=== PATIENT | male | born 1970 | race Caucasian/White ===

== ENCOUNTER 2019-05-12 09:28 | Emergency (ER) | payer SELFPAY ==
[2019-05-12] MEDS ORDERED: BABY ASPIRIN 81 MG CHEW PO ONE (10:07)
[2019-05-12] MEDS ORDERED: BABY ASPIRIN 81 MG CHEW ONE (10:13)
--- NOTE | 2019-05-12 10:14 | ERPHSYRPT ---
- History of Present Illness Time Seen by Provider: 05/12/19 10:02 Historian: patient Exam Limitations: no limitations Patient Subjective Stated Complaint: pt woke up with pain to susternal chest pain with left arm numbness, vomited x2, also co left sided neck pain with no injury, sob at times, he tried to go to work but was unable to finish work. no fever Triage Nursing Assessment: pt alert, resp easy, skin w/d/p. walked in in no distress, no edema, chest clear Physician History: 49-year-old white male previously healthy arrives with complaints of left-sided chest pain which felt like someone is sitting on his chest associated with shortness of breath which began around 2:00 woke patient up from sleep he states it is now located in the substernal area but is of mild he states he's had shortness of breath he has no nausea no vomiting. Patient does state that he has a strong family history of heart problems He has had a heart catheter in the past which was normal past medical history is negative. past surgical history includes right orbital reconstruction for his eye, and cervical fusion. Social history positive for occasional alcohol he states he quit smoking 2 months ago he denies illicit drug use. . Timing/Duration: today (22 AM) Activities at Onset: rest Quality: other (heaviness) Location: other (iinitial left side now substernal) Severity of Pain-Max: moderate Severity of Pain-Current: mild Modifying Factors: Improves With: nothing Associated Symptoms: shortness of breath, other (paresthesia left hand), No nausea, No vomiting, No palpitations, No heartburn, No abdominal pain, No cough , No hurts to breathe, No diaphoresis, No chills, No fever, No fatigue, No weakness, No swelling/lump in chest, No syncope, No rash, No headache, No dizziness, No edema, No back pain Prior Chest Pain/Cardiac Workup: cardiac cath (normal cardiac catheterization in the past) Aspirin Treatment Today: 81 mg x 4, provided by ED Allergies/Adverse Reactions: No Known Drug Allergies Allergy (Unverified 05/12/19 09:42) Home Medications: No Reportable Medications [No Reported Medications] 05/12/19 [History] Hx Influenza Vaccination/Date Given: No Hx Pneumococcal Vaccination/Date Given: No Immunizations Up to Date: Yes - Review of Systems Constitutional: No Fever, No Chills Eyes: No Symptoms Ears, Nose, & Throat: No Symptoms Respiratory: Dyspnea, No Cough, No Cyanosis, No Dyspnea on Exertion ([place]), No Stridor, No Wheezing Cardiac: Chest Pain Abdominal/Gastrointestinal: No Abdominal Pain, No Nausea, No Vomiting, No Diarrhea Genitourinary Symptoms: No Dysuria Musculoskeletal: No Back Pain, No Neck Pain Skin: No Rash Neurological: Parasthesia (paresthesia left hand), No Focal Weakness, No Gait Changes, No Headache, No Irritability, No Lethargy, No Paralysis, No Seizure, No Sensory Changes, No Speech Changes, No Tics, No Tremors, No Vertigo Psychological: No Symptoms Endocrine: No Symptoms All Other Systems: Reviewed and Negative - Past Medical History Pertinent Past Medical History: No - Past Surgical History Past Surgical History: Yes Musculoskeletal: Orthopedic Surgery Other Surgical History: right orbital reconsurction ,neck, - Social History Smoking Status: Former smoker Exposure to second hand smoke: No Drug Use: none Patient Lives Alone: Yes - Nursing Vital Signs Nursing Vital Signs: Initial Vital Signs Temperature 98.4 F 05/12/19 09:32 Pulse Rate 78 05/12/19 09:32 Respiratory Rate 20 05/12/19 09:32 Blood Pressure 134/94 05/12/19 09:32 O2 Sat by Pulse Oximetry 98 05/12/19 09:32 Pain Scale Pain Intensity 0 - Physical Exam General Appearance: no apparent distress, alert Eye Exam: PERRL/EOMI, eyes nml inspection Ears, Nose, Throat Exam: normal ENT inspection, moist mucous membranes Neck Exam: normal inspection, non-tender, supple, full range of motion Respiratory Exam: normal breath sounds Cardiovascular Exam: regular rate/rhythm, normal heart sounds, capillary refill <2 sec Gastrointestinal/Abdomen Exam: soft, No tenderness, No mass Back Exam: normal inspection, No CVA tenderness, No vertebral tenderness Extremity Exam: normal inspection, normal range of motion Neurologic Exam: alert, oriented x 3, cooperative, fashion buyer II-XII nml as tested, normal mood/affect, nml cerebellar function, nml station & gait, other (patient is alert, oriented x3, cranial nerves II through XII intact, insecticide maker equal and symmetrical 5 over 5, no facial droop, normal finger to nose, no pronator drift , full range of motion all extremities,, sensation intact to all extremities, GCS equals 15), No sensation nml, No motor deficits, No sensory deficit, No disoriented, No confusion, No agitation, No uncooperative, No intoxicated appearance, No depressed mood/affect, No motor weakness, No facial droop, No slurred speech, No aphasia, No dysarthria, No abnormal gait, No abnormal cerebellar tests, No abnormal fashion buyer II-XII, No EOM palsy Skin Exam: normal color, warm, dry SpO2 Interpretation: normal (98%) SpO2: 98 - Course Nursing assessment & vital signs reviewed: Yes EKG Interpreted by Me: RATE (78 bpm), Sinus Rhythm, NORMAL AXIS, Other (EKG: Sinus rhythm, 70 beats per minute, normal axis, no acute ST or T wave changes, normal EKG) - Radiology Exams Chest X-ray Interpretation: Discussed w/ radiologist (chest x-ray: Impression: 1. No acute cardiopulmonary process is seen on plain film.) Ordered Tests: Active Orders 24 hr Category Date Time Status Dialysis Patient Care Technician STAT Care 05/12/19 10:08 Active EKG-ER Only STAT Care 05/12/19 10:07 Active IV Insertion STAT Care 05/12/19 10:07 Active Pulse Oximetry (ED) STAT Care 05/12/19 10:07 Active CHEST 1 VIEW (PORTABLE) Stat Exams 05/12/19 10:08 Completed AMYLASE Stat Lab 05/12/19 10:09 Completed CBC W DIFF Stat Lab 05/12/19 09:40 Completed CMP Stat Lab 05/12/19 09:40 Completed D-DIMER QUANTITATION Stat Lab 05/12/19 10:32 Received LIPASE Stat Lab 05/12/19 10:09 Completed Manual Differential NC Stat Lab 05/12/19 09:40 Completed PROTIME WITH INR Stat Lab 05/12/19 09:40 Completed PTT Stat Lab 05/12/19 09:40 Completed TROPONIN Q3H Lab 05/12/19 09:40 Completed TROPONIN Q3H Lab 05/12/19 12:40 Completed TROPONIN Q3H Lab 05/12/19 16:15 Ordered TROPONIN Q3H Lab 05/12/19 19:15 Ordered TROPONIN Q3H Lab 05/12/19 22:15 Ordered Medication Summary Discontinued Medications Generic Name Dose Route Start Last Admin Trade Name Freq PRN Reason Stop Dose Admin Aspirin 324 mg 05/12/19 10:07 07/10/19 10:12 Baby Aspirin 81 Mg Chew PO 05/12/19 10:08 324 mg STAT ONE Administration Aspirin Confirm 05/12/19 10:13 Baby Aspirin 81 Mg Chew Administered 05/12/19 10:14 Dose 324 mg .ROUTE .STK-MED ONE Lab/Rad Data: Laboratory Result Diagrams 05/12/19 09:40 05/12/19 09:40 Laboratory Results 05/12/19 05/12/19 05/12/19 Range/Units 12:40 10:09 09:40 WBC (4.0-10.5) K/mm3 RBC (4.1-5.6) M/mm3 Hgb (12.5-18.0) gm/dl Hct (42-50) % MCV (78-100) fl MCH (26-32) pg MCHC (32-36) g/dl RDW (11.5-14.0) % Plt Count (150-450) K/mm3 MPV (6-9.5) fl Segmented Neutrophils (36.-66.) % Band Neutrophils (0.0-2.0) % Lymphocytes (Manual) (24-44) % Monocytes (Manual) (0.0-12.0) % Eosinophils (Manual) (0.00-3.0) % Atypical Lymphocytes % Toxic Granulation Platelet Estimate (NORMAL) RBC Morphology PT (8.83-12.87) SECONDS INR (0.8-3.0) APTT (24.1-36.1) SECONDS Sodium (137-145) mmol/L Potassium (3.5-5.1) mmol/L Chloride (98-107) mmol/L Carbon Dioxide (22-30) mmol/L Anion Gap (5-15) MEQ/L BUN (9-20) mg/dL Creatinine (0.66-1.25) mg/dL Estimated GFR ML/MIN Glucose (74-106) mg/dL Calcium (8.4-10.2) mg/dL Total Bilirubin (0.2-1.3) mg/dL AST (17-59) U/L ALT (0-50) U/L Alkaline Phosphatase (38-126) U/L Troponin I < 0.012 < 0.012 (0.000-0.034) ng/mL Serum Total Protein (6.3-8.2) g/dL Albumin (3.5-5.0) g/dL Amylase 91 (30-110) U/L Lipase 85 (23-300) U/L 05/12/19 05/12/19 05/12/19 Range/Units 09:40 09:40 09:40 WBC 9.1 (4.0-10.5) K/mm3 RBC 4.81 (4.1-5.6) M/mm3 Hgb 15.1 (12.5-18.0) gm/dl Hct 45.3 (42-50) % MCV 94.2 (78-100) fl MCH 31.4 (26-32) pg MCHC 33.3 (32-36) g/dl RDW 13.8 (11.5-14.0) % Plt Count 369 (150-450) K/mm3 MPV 9.8 H (6-9.5) fl Segmented Neutrophils 71 H (36.-66.) % Band Neutrophils 1 (0.0-2.0) % Lymphocytes (Manual) 21 L (24-44) % Monocytes (Manual) 3 (0.0-12.0) % Eosinophils (Manual) 3 (0.00-3.0) % Atypical Lymphocytes 1 % Toxic Granulation 1+ Platelet Estimate NORMAL (NORMAL) RBC Morphology NORMAL PT 11.5 (8.83-12.87) SECONDS INR 1.02 (0.8-3.0) APTT 29.4 (24.1-36.1) SECONDS Sodium 138 (137-145) mmol/L Potassium 4.2 (3.5-5.1) mmol/L Chloride 106 (98-107) mmol/L Carbon Dioxide 24 (22-30) mmol/L Anion Gap 12.4 (5-15) MEQ/L BUN 10 (9-20) mg/dL Creatinine 0.97 (0.66-1.25) mg/dL Estimated GFR > 60.0 ML/MIN Glucose 101 (74-106) mg/dL Calcium 8.9 (8.4-10.2) mg/dL Total Bilirubin 0.40 (0.2-1.3) mg/dL AST 21 (17-59) U/L ALT 20 (0-50) U/L Alkaline Phosphatase 83 (38-126) U/L Troponin I (0.000-0.034) ng/mL Serum Total Protein 6.8 (6.3-8.2) g/dL Albumin 3.8 (3.5-5.0) g/dL Amylase (30-110) U/L Lipase (23-300) U/L - Progress Progress: improved Air Movement: fair Progress Note: 05/12/19 13:42 Patient in no acute distress no pain at this time. EKG sinus rhythm 78 beats per minute normal axis no acute ST or T wave changes normal EKG troponin is normal with x2 CBC essentially normal patient's d-dimer is normal Chemistries normal vitals are stable Will discharge patient - Departure Departure Disposition: Home Clinical Impression: Non-cardiac chest pain Condition: Fair Critical Care Time: No Referrals: DOCTOR,NO FAMILY [Primary Care Provider] - Additional Instructions: Return home rest. Plenty of fluids. Followup with your family (list) Return for acute distress or for severe symptoms.
[2019-05-12 10:31] LABS: Hematocrit 45.3 % (42-50); Hemoglobin 15.1 gm/dl (12.5-18.0); Mean Cell Volume 94.2 fl (78-100); Mean Corpuscular Hemoglobin 31.4 pg (26-32); Mean Corpuscular Hgb Concent. 33.3 g/dl (32-36); Mean Platelet Volume 9.8 fl (6-9.5); Platelet Count 369 K/mm3 (150-450); Red Blood Count 4.81 M/mm3 (4.1-5.6); Red Cell Distribution Width 13.8 % (11.5-14.0); White Blood Count 9.1 K/mm3 (4.0-10.5)
[2019-05-12 10:36] LABS: INR 1.02 (0.8-3.0); PROTIME 11.5 SECONDS (8.83-12.87)
--- NOTE | 2019-05-12 10:37 | XRAY ---
Exam: AP upright portable chest film from 05/12/2019. Comparison: None. Indication: 49-year-old male with chest pressure along left side of sternum, shortness of breath this morning, left arm numbness, previous cigarette smoker for 35 years, no history of prior chest surgery. Findings: The heart size and contour are normal. The lang and mediastinal structures appear unremarkable. EKG leads are seen in place. There is evidence of prior anterior surgical fusion within the lower cervical spine, apparently at C6-C7. The lung michael are well inflated. No air space infiltrates, vascular congestion, pneumothorax, or pleural fluid is seen. No other parenchymal lung abnormalities are seen. No acute osseous process is seen. Impression: 1. No acute cardiopulmonary process is seen on plain film.
[2019-05-12 10:39] LABS: AMYLASE 91 U/L (30-110)
[2019-05-12 10:39] LABS: ALBUMIN 3.8 g/dL (3.5-5.0); ALKALINE PHOSPHATASE 83 U/L (38-126); ANION GAP 12.4 MEQ/L (5-15); BLOOD UREA NITROGEN 10 mg/dL (9-20); CHLORIDE 106 mmol/L (98-107); Calcium 8.9 mg/dL (8.4-10.2); Carbon Dioxide 24 mmol/L (22-30); Creatinine 1 0.97 mg/dL (0.66-1.25); Glucose 101 mg/dL (74-106); PTT 29.4 SECONDS (24.1-36.1); Potassium 4.2 mmol/L (3.5-5.1); SGOT/AST 21 U/L (17-59); SGPT/ALT 20 U/L (0-50); SODIUM 138 mmol/L (137-145); Total Protein 6.8 g/dL (6.3-8.2)
[2019-05-12 11:32] LABS: ATYPICAL LYMPHS 1 %; BAND 1 % (0.0-2.0); Eosinophil 3 % (0.00-3.0); Lymphocytes 21 % (24-44); Monocyte 3 % (0.0-12.0); Neutrophils 71 % (36.-66.); Platelet Estimate NORMAL (NORMAL); Total Cells Counted 100; Toxic Granulation 1+
[2019-05-12 13:54] VITALS: BP 129/85; PULSE 66; O2SAT 97
== END 2019-05-12 13:54 | disposition home or self-care (01) ==
LOC: ED 09:28
DX: R07.89 Other chest pain (principal)
CPT/HCPCS: 36000; 36415; 71045; 80053; 82150; 83690; 84484; 85025; 85379; 85610; 85730; 93005; 93041; 94760; 99284; A9270-GY

== ENCOUNTER 2021-02-19 14:23 | Emergency (ER) | payer OTHER ==
--- NOTE | 2021-02-19 14:30 | ERPHSYRPT ---
- History of Present Illness Time Seen by Provider: 02/19/21 14:29 Historian: patient Exam Limitations: no limitations Physician History: This is a 50-year-old white male who presents with right-sided anterior chest pain that is described as an ache and pressure that radiates into his right jaw. Patient believes it is gallbladder. He has had similar issues in the past. The patient did vomit once since the onset of his symptoms. He has had no fevers. He is not short of breath. He has had no diarrhea. There is a questionable history of myocardial infarction in the past. However, patient did undergo a cardiac catheterization in the distant past and there was no indication for a cardiac stent. Patient is a former smoker of cigarettes. Timing/Duration: yesterday Activities at Onset: none Quality: aching, pressure Location: other (Right anterior chest) Chest Pain Radiation: jaw (Right) Severity of Pain-Max: moderate Severity of Pain-Current: mild Modifying Factors: Improves With: nothing Associated Symptoms: denies symptoms Prior Chest Pain/Cardiac Workup: cardiac cath Nitro Today/Relief: no nitro taken today Aspirin Treatment Today: no aspirin today Allergies/Adverse Reactions: marshmallow root Allergy (Verified 02/19/21 14:36) Home Medications: Atorvastatin Calcium [Lipitor 40Mg] 1 ea DAILY 02/19/21 [History] Ezetimibe 10 mg [Zetia 10 MG] 1 ea DAILY 02/19/21 [History] Hx Influenza Vaccination/Date Given: No Hx Pneumococcal Vaccination/Date Given: No Travel Risk - International Travel Have you traveled outside of the country in past 3 weeks: No - Coronavirus Screening Are you exhibiting any of the following symptoms?: No Close contact with a COVID-19 positive Pt in past 14-21 Days: No - Vaccine Status Have you recieved a Covid-19 vaccination: No - Review of Systems Constitutional: No Symptoms Eyes: No Symptoms Ears, Nose, & Throat: No Symptoms Respiratory: No Symptoms Cardiac: Chest Pain Abdominal/Gastrointestinal: No Symptoms Genitourinary Symptoms: No Symptoms Musculoskeletal: No Symptoms Skin: No Symptoms Neurological: No Symptoms Psychological: No Symptoms Endocrine: No Symptoms Hematologic/Lymphatic: No Symptoms Immunological/Allergic: No Symptoms All Other Systems: Reviewed and Negative - Past Medical History Pertinent Past Medical History: Yes Neurological History: No Pertinent History ENT History: No Pertinent History Cardiac History: Hypertension Respiratory History: No Pertinent History Endocrine Medical History: No Pertinent History Musculoskeletal History: No Pertinent History GI Medical History: No Pertinent History History: No Pertinent History Psycho-Social History: No Pertinent History Male Reproductive Disorders: No Pertinent History - Past Surgical History Past Surgical History: Yes Neuro Surgical History: No Pertinent History Cardiac: No Pertinent History Respiratory: No Pertinent History Gastrointestinal: No Pertinent History Genitourinary: No Pertinent History Musculoskeletal: No Pertinent History, Orthopedic Surgery Other Surgical History: right orbital reconsurction ,neck, - Social History Smoking Status: Former smoker Exposure to second hand smoke: No Drug Use: none Patient Lives Alone: Yes - Nursing Vital Signs Nursing Vital Signs: Initial Vital Signs Temperature 97.8 F 02/19/21 14:24 Pulse Rate 78 02/19/21 14:24 Respiratory Rate 16 02/19/21 14:24 Blood Pressure 132/94 02/19/21 14:24 O2 Sat by Pulse Oximetry 98 02/19/21 14:24 Pain Scale Pain Intensity 8 - Physical Exam General Appearance: no apparent distress, alert, anxiety, obese Eye Exam: PERRL/EOMI, eyes nml inspection Ears, Nose, Throat Exam: normal ENT inspection, moist mucous membranes Neck Exam: normal inspection, non-tender, supple, full range of motion Respiratory Exam: normal breath sounds, chest tenderness, lungs clear, airway intact, No respiratory distress Cardiovascular Exam: regular rate/rhythm, normal heart sounds, normal peripheral pulses Gastrointestinal/Abdomen Exam: soft, normal bowel sounds, No tenderness Back Exam: normal inspection, normal range of motion, No CVA tenderness Extremity Exam: normal inspection, normal range of motion, pelvis stable Neurologic Exam: alert, oriented x 3, cooperative, supervisor asbestos textile II-XII nml as tested, normal mood/affect, nml cerebellar function, nml station & gait, sensation nml Skin Exam: normal color, warm, dry Lymphatic Exam: No adenopathy SpO2 Interpretation: normal SpO2: 98 O2 Delivery: Room Air - Course Nursing assessment & vital signs reviewed: Yes EKG Interpreted by Me: RATE (75), Sinus Rhythm, NORMAL AXIS, NORMAL INTERVALS, NORMAL QRS, NORMAL ST-T, Other (No acute ischemic changes. No change from comparison EKG performed on 01/07/2020) Ordered Tests: Active Orders 24 hr Category Date Time Status EKG-ER Only STAT Care 02/19/21 14:36 Active IV Insertion STAT Care 02/19/21 14:45 Active Pulse Oximetry (ED) STAT Care 02/19/21 14:36 Active CHEST 1 VIEW (PORTABLE) Stat Exams 02/19/21 14:44 Completed CBC W DIFF Stat Lab 02/19/21 14:30 Completed CMP Stat Lab 02/19/21 14:30 Completed D-DIMER QUANTITATIVE Stat Lab 02/19/21 14:30 Completed NT PRO BNP Routine Lab 02/19/21 14:30 Completed TROPONIN Q3H Lab 02/19/21 14:30 Completed TROPONIN Q3H Lab 02/19/21 17:45 Ordered TROPONIN Q3H Lab 02/19/21 20:45 Ordered TROPONIN Q3H Lab 02/19/21 23:45 Ordered TROPONIN Q3H Lab 02/20/21 02:45 Ordered Medication Summary Discontinued Medications Generic Name Dose Route Start Last Admin Trade Name Freq PRN Reason Stop Dose Admin Aspirin 324 mg 02/19/21 14:43 02/19/21 14:50 Baby Aspirin 81 Mg Chew PO 02/19/21 14:44 324 mg STAT ONE Administration Sodium Chloride 1,000 mls @ 999 mls/hr 02/19/21 14:36 02/19/21 14:48 Sodium Chloride 0.9% 1000 Ml IV 02/19/21 15:36 Not Given .Q1H1M STA Lorazepam 1 mg 02/19/21 14:39 02/19/21 14:48 Ativan 2 Mg/1 Ml Vial IV 02/19/21 14:40 Not Given STAT ONE Methadone HCl 20 mg 02/19/21 14:41 02/19/21 14:48 Dolophine 10mg Tablet PO 02/19/21 14:42 Not Given STAT ONE Morphine Sulfate 4 mg 02/19/21 15:36 02/19/21 15:40 Morphine Sulfate 4 Mg Inj IV 02/19/21 15:37 4 mg STAT ONE Administration Morphine Sulfate Confirm 02/19/21 15:38 Morphine Sulfate 4 Mg Inj Administered 02/19/21 15:39 Dose 4 mg .ROUTE .STK-MED ONE Ondansetron HCl 4 mg 02/19/21 14:36 02/19/21 14:48 Zofran 4 Mg/2 Ml Vial IV 02/19/21 14:37 Not Given STAT ONE Ondansetron HCl 4 mg 02/19/21 15:36 02/19/21 15:40 Zofran 4 Mg/2 Ml Vial IV 02/19/21 15:37 4 mg STAT ONE Administration Ondansetron HCl Confirm 02/19/21 15:37 Zofran 4 Mg/2 Ml Vial Administered 02/19/21 15:38 Dose 4 mg .ROUTE .STK-MED ONE Lab/Rad Data: Laboratory Result Diagrams 02/19/21 14:30 02/19/21 14:30 Laboratory Results 02/19/21 02/19/21 02/19/21 Range/Units 14:30 14:30 14:30 WBC (4.0-10.5) K/mm3 RBC (4.1-5.6) M/mm3 Hgb (12.5-18.0) gm/dl Hct (42-50) % MCV (78-100) fl MCH (26-32) pg MCHC (32-36) g/dl RDW (11.5-14.0) % Plt Count (150-450) K/mm3 MPV (7.5-11.0) fl Gran % (36.0-66.0) % Eos # (Auto) (0-0.5) Absolute Lymphs (auto) (1.0-4.6) Absolute Monos (auto) (0.0-1.3) Lymphocytes % (24.0-44.0) % Monocytes % (0.0-12.0) % Eosinophils % (0.00-5.0) % Basophils % (0.0-0.4) % Absolute Granulocytes (1.4-6.9) Basophils # (0-0.4) D-Dimer 468 (215-500) ng/mL Sodium 135 L (137-145) mmol/L Potassium 4.1 (3.5-5.1) mmol/L Chloride 103 (98-107) mmol/L Carbon Dioxide 24 (22-30) mmol/L Anion Gap 12.3 (5-15) MEQ/L BUN 11 (9-20) mg/dL Creatinine 0.91 (0.66-1.25) mg/dL Estimated GFR > 60.0 ML/MIN Glucose 106 (74-106) mg/dL Calcium 9.5 (8.4-10.2) mg/dL Total Bilirubin 0.40 (0.2-1.3) mg/dL AST 24 (17-59) U/L ALT 30 (0-50) U/L Alkaline Phosphatase 76 (38-126) U/L Troponin I < 0.012 (0.000-0.034) ng/mL NT-Pro-B Natriuret Pep 141 (0-900) pg/mL Serum Total Protein 7.6 (6.3-8.2) g/dL Albumin 4.5 (3.5-5.0) g/dL 02/19/21 Range/Units 14:30 WBC 11.3 H (4.0-10.5) K/mm3 RBC 4.83 (4.1-5.6) M/mm3 Hgb 14.9 (12.5-18.0) gm/dl Hct 44.7 (42-50) % MCV 92.5 (78-100) fl MCH 30.8 (26-32) pg MCHC 33.3 (32-36) g/dl RDW 13.4 (11.5-14.0) % Plt Count 404 (150-450) K/mm3 MPV 10.2 (7.5-11.0) fl Gran % 71.3 H (36.0-66.0) % Eos # (Auto) 0.13 (0-0.5) Absolute Lymphs (auto) 2.20 (1.0-4.6) Absolute Monos (auto) 0.88 (0.0-1.3) Lymphocytes % 19.4 L (24.0-44.0) % Monocytes % 7.8 (0.0-12.0) % Eosinophils % 1.1 (0.00-5.0) % Basophils % 0.4 (0.0-0.4) % Absolute Granulocytes 8.06 H (1.4-6.9) Basophils # 0.05 (0-0.4) D-Dimer (215-500) ng/mL Sodium (137-145) mmol/L Potassium (3.5-5.1) mmol/L Chloride (98-107) mmol/L Carbon Dioxide (22-30) mmol/L Anion Gap (5-15) MEQ/L BUN (9-20) mg/dL Creatinine (0.66-1.25) mg/dL Estimated GFR ML/MIN Glucose (74-106) mg/dL Calcium (8.4-10.2) mg/dL Total Bilirubin (0.2-1.3) mg/dL AST (17-59) U/L ALT (0-50) U/L Alkaline Phosphatase (38-126) U/L Troponin I (0.000-0.034) ng/mL NT-Pro-B Natriuret Pep (0-900) pg/mL Serum Total Protein (6.3-8.2) g/dL Albumin (3.5-5.0) g/dL - Progress Progress: improved, re-examined Air Movement: good Progress Note: 02/19/21 15:52 Chest x-ray shows no acute cardiopulmonary process. Blood Culture(s) Obtained: No Antibiotics given: No Counseled pt/family regarding: lab results, diagnosis, need for follow-up, rad results - Departure Departure Disposition: Home Clinical Impression: Non-cardiac chest pain Condition: Stable Critical Care Time: No Referrals: MAGGIE KELLY, [Primary Care Provider] - Additional Instructions: Avoid fatty greasy spicy foods. Follow-up with radiology department at scheduled date and time to have gallbladder ultrasound performed.
[2021-02-19] MEDS ORDERED: Sodium Chloride 0.9% 1000 ML 1,000 ML IV STA (14:36)
[2021-02-19] MEDS ORDERED: Zofran 4 MG/2 ML VIAL IV ONE ×2 (14:36→15:36)
[2021-02-19] MEDS ORDERED: Ativan 2 MG/1 ML VIAL IV ONE (14:39)
[2021-02-19] MEDS ORDERED: DOLOPHINE 10MG Tablet PO ONE (14:41)
[2021-02-19] MEDS ORDERED: BABY ASPIRIN 81 MG CHEW PO ONE (14:43)
--- NOTE | 2021-02-19 15:06 | XRAY ---
Indication: Chest and epigastric pain. Comparison: May 12, 2019. Portable chest again demonstrates minimal left base fibrosis/scarring. No focal infiltrate, consolidation, or large effusion. Heart not enlarged. Bony thorax intact again with lower cervical fusion hardware. Impression: Continued nonacute chest with chronic features.
[2021-02-19 15:10] LABS: ALBUMIN 4.5 g/dL (3.5-5.0); ALKALINE PHOSPHATASE 76 U/L (38-126); ANION GAP 12.3 MEQ/L (5-15); BLOOD UREA NITROGEN 11 mg/dL (9-20); CHLORIDE 103 mmol/L (98-107); Calcium 9.5 mg/dL (8.4-10.2); Carbon Dioxide 24 mmol/L (22-30); Creatinine 1 0.91 mg/dL (0.66-1.25); EST GLOMERULAR FILTRATION RATE > 60.0 ML/MIN; Glucose 106 mg/dL (74-106); Potassium 4.1 mmol/L (3.5-5.1); SGOT/AST 24 U/L (17-59); SGPT/ALT 30 U/L (0-50); SODIUM 135 mmol/L (137-145); Total Protein 7.6 g/dL (6.3-8.2)
[2021-02-19 15:11] LABS: Absolute Neutrophil Ct (ANC) 8.06 (1.4-6.9); BASOPHIL % 0.4 % (0.0-0.4); Basophil (Absolute #) 0.05 (0-0.4); Eosinophil % 1.1 % (0.00-5.0); Eosinophil (Absolute #) 0.13 (0-0.5); Hematocrit 44.7 % (42-50); Hemoglobin 14.9 gm/dl (12.5-18.0); Lymphocytes % 19.4 % (24.0-44.0); Mean Cell Volume 92.5 fl (78-100); Mean Corpuscular Hemoglobin 30.8 pg (26-32); Mean Corpuscular Hgb Concent. 33.3 g/dl (32-36); Mean Platelet Volume 10.2 fl (7.5-11.0); Monocyte (Absolute #) 0.88 (0.0-1.3); Monocytes % 7.8 % (0.0-12.0); Neutrophil % 71.3 % (36.0-66.0); Platelet Count 404 K/mm3 (150-450); Red Blood Count 4.83 M/mm3 (4.1-5.6); Red Cell Distribution Width 13.4 % (11.5-14.0); White Blood Count 11.3 K/mm3 (4.0-10.5)
[2021-02-19 15:21] LABS: NT PRO BNP 141 pg/mL (0-900); TROPONIN < 0.012 ng/mL (0.000-0.034)
[2021-02-19] MEDS ORDERED: MORPHINE SULFATE 4 MG INJ IV ONE (15:36)
[2021-02-19] MEDS ORDERED: Zofran 4 MG/2 ML VIAL ONE (15:37)
[2021-02-19] MEDS ORDERED: MORPHINE SULFATE 4 MG INJ ONE (15:38)
[2021-02-19 16:07] VITALS: BP 136/95; PULSE 64; O2SAT 96
[2021-02-19] MEDS ORDERED: ZOFRAN ODT 4 MG PO PRN (16:10)
[2021-02-19] MEDS ORDERED: NORCO 5/325 MG PO ONE (16:11)
[2021-02-19] MEDS ORDERED: ZOFRAN ODT 4 MG ONE (16:12)
[2021-02-19] MEDS ORDERED: NORCO 5/325 MG ONE (16:12)
== END 2021-02-19 16:22 | disposition home or self-care (01) ==
LOC: ED 14:23
DX: R07.89 Other chest pain (principal)
CPT/HCPCS: 36000; 36415; 71045; 80053; 83880; 84484; 85025; 85379; 93005; 94760; 96374; 96375; 99284; J2270; J2405; Q0162; A9270-GY

== ENCOUNTER 2021-03-05 12:15 | Day surgery (SDC) | payer OTHER ==
--- NOTE | 2021-03-05 07:47 | HP ---
DATE OF SURGERY: 03/05/2021 HISTORY OF PRESENT ILLNESS: The patient is a 50 year-old with right upper quadrant pain worse over the past two weeks. History of some nausea and vomiting, some intermittent aches to the shoulder, had some constipation. Denies any jaundice. Ultrasound showed some gallstones with wall thickening. No prior abdominal surgery. PAST MEDICAL HISTORY: Hyperlipidemia, hypertension, reflux. PAST SURGICAL HISTORY: Right orbital fracture reconstruction. Cervical fusion. MEDICATIONS: Pravastatin, Zetia, pantoprazole, Ondansetron. ALLERGIES: NKDA. FAMILY HISTORY: Heart disease. SOCIAL HISTORY: Denies smoking. Occasional alcohol use. REVIEW OF SYSTEMS: Fourteen systems reviewed. No chest pain or palpitations. Other systems negative or noncontributory as above and per preadmission questionnaire. PHYSICAL EXAMINATION: GENERAL: No acute distress. HEENT: Sclerae nonicteric. NECK: No JVD. CHEST: Equal excursion, nonlabored breathing. CVS: Regular rate and rhythm. ABDOMEN: Soft, some mild tenderness right upper quadrant. No peritoneal signs. EXTREMITIES: No significant edema. NEURO: Alert, oriented, moving extremities symmetrically. No gross motor deficits noted. PSYCH: Appropriate mood and affect. IMPRESSION: Acute exacerbation of chronic cholecystitis, symptomatic cholelithiasis. I feel the patient will benefit from cholecystectomy. He was shown the gallbladder pamphlet and risk sheet, explained the procedure in detail including but not limited to bleeding or infection, risk of trocar injury or hernia, risk of bowel, bladder or blood vessel injury, risk of bile leak, bile duct injury, retained stone or sludge possibly requiring further procedure either open or ERCP, general risk of anesthesia, deep venous thrombosis, pulmonary embolism, pneumonia, perioperative risk of aches, pains, bloating, constipation and/or loose stools but not limited to. He understands and agrees to the planned procedure, will proceed with laparoscopic cholecystectomy with possible open as an outpatient. If he fails to improve may need further work up, endoscopy or other procedure if he fails to improve his symptoms. Will proceed with laparoscopic cholecystectomy possible open as an outpatient.
[~2021-03-05 12:15] MED LIST: Lactated Ringers 1,000 ML IV ONE; MEFOXIN 2 GM PREMIX** 2 GM/50 ML ML IV ONE; Sensorcaine 0.25% 10 ML ONE
[2021-03-05] MEDS ORDERED: MEFOXIN 2 GM PREMIX** 2 GM/50 ML ML IV SCH (12:30)
[2021-03-05] MEDS ORDERED: Lactated Ringers 1,000 ML IV SCH (12:30)
[2021-03-05] MEDS ORDERED: DIPRIVAN 200 MG/20 ML IV ONE (14:16)
[2021-03-05] MEDS ORDERED: TORAdol 30 mg Injection ONE ×2 (14:16)
[2021-03-05] MEDS ORDERED: Zofran 4 MG/2 ML VIAL ONE (14:16)
[2021-03-05] MEDS ORDERED: Xylocaine-Mpf 2% 5 Ml Vial ONE (14:16)
[2021-03-05] MEDS ORDERED: Decadron 4 MG INJ ONE (14:16)
[2021-03-05] MEDS ORDERED: Zemuron 100 MG/10 ML ONE (14:16)
[2021-03-05] MEDS ORDERED: BRIDION 200MG/2ML IV ONE (14:16)
[2021-03-05] MEDS ORDERED: SUBLIMAZE 100 MCG/2 ML ONE ×2 (14:16→15:55)
[2021-03-05] MEDS ORDERED: Hydromorphone 1 mg/ml Injection ONE (15:55)
[2021-03-05] MEDS ORDERED: MORPHINE SULFATE 10 MG/ML ONE (16:15)
[2021-03-05 17:22] VITALS: BP 141/85; PULSE 67; O2SAT 94
--- NOTE | 2021-03-06 09:38 | OP ---
SURGERY DATE/TIME: 03/05/2021 1501 PREOPERATIVE DIAGNOSIS: Acute exacerbation symptomatic cholelithiasis, chronic cholecystitis. POSTOPERATIVE DIAGNOSIS: Acute exacerbation symptomatic cholelithiasis, chronic cholecystitis. PROCEDURE: Laparoscopic cholecystectomy. SURGEON: Dr. Sánchez Marquez. ANESTHESIA: General. ESTIMATED BLOOD LOSS: Minimal. INDICATIONS: As noted above. Risks and benefits explained in detail but not limited to and consent obtained. DESCRIPTION OF PROCEDURE AND FINDINGS: The patient was taken to the operating room. General anesthesia induced. Abdomen prepped and draped in the usual sterile fashion. After official time out and no disagreement with planned procedure, a transverse incision made at the supraumbilical area. Fascia grasped and pulled upward. Veress needle inserted and tested with saline. Pneumoperitoneum accomplished insufflating opening pressure of 0-15. A 5 mm bladeless port and camera inserted without difficulty followed by two - 5 mm right upper quadrant ports and 11 mm epigastric port. The gallbladder is grasped. It had a lot of fibrofatty adhesion reactions on it. Dissecting posterior, lateral to anterior fashion slowly and carefully the cystic duct and cystic artery infundibular junction slowly and carefully well skeletonized until critical view obtained anteriorly and posteriorly. Once this is accomplished, cystic duct and cystic artery clipped x3 and divided in the usual fashion. The patient had some oozing side branches off the cystic artery that were clipped as necessary directly on the gallbladder wall. The gallbladder slowly and carefully dissected free. Just prior to releasing from final attachments to the anterior edge of the liver, the liver bed re-inspected. Clips noted in place cystic duct and cystic artery stumps. No signs of any active bleeding or bile leakage. It was felt there was no benefit from drain placement. Gallbladder released from final attachments, pulled up into the epigastrium, decompressed of some bile and passed off. There was no visible stone spillage. No visible or palpable clips in the wound. This fascial defect closed with puncture closure device with #1 Vicryl. Liver bed re-inspected. Clips noted in place in cystic duct and cystic artery stumps. No signs of any active bleeding or bile leakage. It was there was no benefit from drain placement. Again, fascial defect closed with #1 Vicryl with puncture closure device in the 10/11 port site. Otherwise pneumoperitoneum decompressed. The wound irrigated out. Skin incision closed with 4-0 Vicryl. Steri-Strips and sterile dressing applied. 0.25% Marcaine local injected along the skin incision fascial defect. The patient tolerated the procedure well. There were no immediate complications. Findings were discussed with the family out in the waiting area.
== END 2021-03-05 17:35 | disposition home or self-care (01) ==
LOC: SDC 12:15
PROVIDERS: ATTEND Surgery
DX: K80.10 Calculus of gallbladder with chronic cholecystitis without obstruction (principal); I10 Essential (primary) hypertension; E78.5 Hyperlipidemia, unspecified; Z79.899 Other long term (current) drug therapy
CPT/HCPCS: J0694; J1100; J1170; J1885; J2270; J2405; J2704; J3010

== ENCOUNTER 2021-09-01 14:18 | Emergency (ER) | payer OTHER ==
[2021-09-01] MEDS ORDERED: Zofran 4 MG/2 ML VIAL IV ONE (15:07)
[2021-09-01] MEDS ORDERED: Hydromorphone 1 mg/ml Injection IV ONE (15:07)
[2021-09-01] MEDS ORDERED: Sodium Chloride 0.9% 500 ML 500 ML IV ONE ×2 (15:08→15:15)
[2021-09-01] MEDS ORDERED: Zofran 4 MG/2 ML VIAL ONE (15:15)
[2021-09-01] MEDS ORDERED: Hydromorphone 1 mg/ml Injection ONE (15:15)
[2021-09-01 15:23] LABS: Absolute Neutrophil Ct (ANC) 12.23 (1.4-6.9); BASOPHIL % 0.4 % (0.0-0.4); Basophil (Absolute #) 0.06 (0-0.4); Eosinophil % 0.7 % (0.00-5.0); Hematocrit 44.2 % (42-50); Hemoglobin 14.6 gm/dl (12.5-18.0); Lymphocyte (Absolute #) 1.04 (1.0-4.6); Lymphocytes % 7.3 % (24.0-44.0); Mean Cell Volume 92.9 fl (78-100); Mean Corpuscular Hemoglobin 30.7 pg (26-32); Mean Platelet Volume 9.4 fl (7.5-11.0); Monocyte (Absolute #) 0.82 (0.0-1.3); Monocytes % 5.8 % (0.0-12.0); Neutrophil % 85.8 % (36.0-66.0); Platelet Count 403 K/mm3 (150-450); Red Blood Count 4.76 M/mm3 (4.1-5.6); Red Cell Distribution Width 13.2 % (11.5-14.0); White Blood Count 14.3 K/mm3 (4.0-10.5)
[2021-09-01 15:35] LABS: ALBUMIN 4.3 g/dL (3.5-5.0); ALKALINE PHOSPHATASE 85 U/L (38-126); ANION GAP 14.6 MEQ/L (5-15); BLOOD UREA NITROGEN 13 mg/dL (9-20); CHLORIDE 102 mmol/L (98-107); Calcium 9.1 mg/dL (8.4-10.2); Carbon Dioxide 25 mmol/L (22-30); Creatinine 1 1.08 mg/dL (0.66-1.25); EST GLOMERULAR FILTRATION RATE > 60.0 ML/MIN; Glucose 85 mg/dL (74-106); LIPASE 284 U/L (23-300); Potassium 4.7 mmol/L (3.5-5.1); SGOT/AST 26 U/L (17-59); SGPT/ALT 23 U/L (0-50); SODIUM 137 mmol/L (137-145); Total Protein 7.3 g/dL (6.3-8.2)
[2021-09-01 15:43] LABS: Appearance CLEAR (CLEAR); Bilirubin NEGATIVE (NEGATIVE); Blood NEGATIVE Ery/ul (0-5); Glucose NEGATIVE (NEGATIVE); Ketones NEGATIVE (NEGATIVE); Leukocyte Esterase NEGATIVE (NEGATIVE); Mucus SLIGHT /HPF (NEGATIVE); Nitrite NEGATIVE (NEGATIVE); Protein,Urine Dip NEGATIVE (Negative); Specific Gravity 1.006 (1.005-1.025); Urobilinogen NEGATIVE mg/dL (0-1)
--- NOTE | 2021-09-01 16:20 | ERPHSYRPT ---
- History of Present Illness Time Seen by Provider: 09/01/21 14:21 Source: patient Exam Limitations: no limitations Patient Subjective Stated Complaint: Pt states "I was on a ladder and fell off the top, it was an 8 foot ladder and I landed on landscaping timbers. My right elbow and right lower back are killing me." Triage Nursing Assessment: Pt presented alert and oriented X 3, skin pwd. Pt grunting and grasping at lower back. PT has no bruising or swelling noted, tenderness noted to right lower back. Physician History: 51-year-old male presented in the ER with chief complaint of fall from an 8 foot high ladder, landed on the right flank/right iliac bone on it landscape timber. Complaining of moderate to severe sharp pain with ambulation/palpation and better with being still. Did not hit his head, no loss of consciousness. Denies any chest pain palpitations or shortness of breath. No neck pain. Has s ome pain in the right elbow but intact range of motion and no swelling. Occurred: this afternoon Injuries/Pain Location: abdomen, back, pelvis Loss of Consciousness: no loss of consciousness Quality: sharpness Severity of Pain-Max: moderate Severity of Pain-Current: moderate Modifying Factors: Improves With: immobilization, rest. Worsens With: movement Associated Symptoms (Fall): abdominal pain, back pain, No extremity injury, No headache, No muscle spasms, No nausea Allergies/Adverse Reactions: marshmallow root Allergy (Verified 03/05/21 12:48) Anaphylactic Reaction Home Medications: Ezetimibe 10 mg [Zetia 10 MG] 1 ea DAILY 02/19/21 [History] Ondansetron [Ondansetron Odt] 4 mg PO DAILY PRN PRN 02/28/21 [History] Pantoprazole Sodium 40 mg PO DAILY 02/28/21 [History] Pravastatin Sodium 40 mg PO DAILY 02/28/21 [History] Hx Tetanus, Diphtheria Vaccination/Date Given: Yes Hx Influenza Vaccination/Date Given: No Hx Pneumococcal Vaccination/Date Given: No Immunizations Up to Date: Yes Travel Risk - International Travel Have you traveled outside of the country in past 3 weeks: No - Coronavirus Screening Are you exhibiting any of the following symptoms?: No Close contact with a COVID-19 positive Pt in past 14-21 Days: No - Vaccine Status Have you recieved a Covid-19 vaccination: Yes 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: [employer] - Vaccination Dates Date of 2cond Vaccination (if applicable): 08/2021 - Review of Systems Constitutional: No Symptoms Eyes: No Symptoms Ears, Nose, & Throat: No Symptoms Respiratory: No Symptoms Cardiac: No Symptoms Abdominal/Gastrointestinal: Abdominal Pain Genitourinary Symptoms: No Symptoms Musculoskeletal: Back Pain, Injury Skin: No Symptoms Neurological: No Symptoms Psychological: No Symptoms Endocrine: No Symptoms Hematologic/Lymphatic: No Symptoms Immunological/Allergic: No Symptoms - Past Medical History Pertinent Past Medical History: Yes Neurological History: No Pertinent History ENT History: No Pertinent History Cardiac History: High Cholesterol Respiratory History: No Pertinent History Endocrine Medical History: No Pertinent History Musculoskeletal History: Arthritis GI Medical History: No Pertinent History History: No Pertinent History Psycho-Social History: No Pertinent History Male Reproductive Disorders: No Pertinent History - Past Surgical History Past Surgical History: Yes Neuro Surgical History: No Pertinent History Cardiac: No Pertinent History Respiratory: No Pertinent History Gastrointestinal: No Pertinent History Genitourinary: No Pertinent History Musculoskeletal: No Pertinent History, Orthopedic Surgery Male Surgical History: No Pertinent History Other Surgical History: right orbital reconsurction ,neck, cervical fusion, labral debridement - Social History Smoking Status: Former smoker Exposure to second hand smoke: Yes Drug Use: none Patient Lives Alone: No - Nursing Vital Signs Nursing Vital Signs: Initial Vital Signs Temperature 97.2 F 09/01/21 14:22 Pulse Rate 86 09/01/21 14:22 Respiratory Rate 22 09/01/21 14:22 Blood Pressure 137/99 09/01/21 14:22 O2 Sat by Pulse Oximetry 99 09/01/21 14:22 Pain Scale Pain Intensity 5 - [place] Coma Score Best Eye Response ([place]): (4) open spontaneously Best Verbal Response ([place]): (5) oriented Best Motor Response ([place]): (6) obeys commands [place] Total: 15 - Physical Exam General Appearance: no apparent distress, alert Head Injury: no evidence of injury Eye Exam: PERRL/EOMI, eyes nml inspection ENT Exam: airway nml, No evidence of ENT injury, No dental injury Neck Exam: supple, trachea midline, full range of motion, normal alignment, normal inspection Respiratory/Chest Exam: normal breath sounds, respiratory distress, No chest tenderness Cardiovascular Exam: normal heart sounds, regular rate/rhythm Gastrointestinal Exam: soft, normal bowel sounds, tenderness (Right posterior flank/sacroiliac area. 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, normal mood/affect Skin Exam: normal color SpO2 Interpretation: normal SpO2: 97 O2 Delivery: Room Air Ordered Tests: Active Orders 24 hr Category Date Time Status IV Insertion STAT Care 09/01/21 15:07 Active NPO (ED) STAT Care 09/01/21 15:07 Active ABDOMEN AND PELVIS W CONTRAST [CT] Stat Exams 09/01/21 15:08 Taken CBC W DIFF Stat Lab 09/01/21 15:10 Completed CMP Stat Lab 09/01/21 15:10 Completed LIPASE Stat Lab 09/01/21 15:10 Completed UA W/RFX UR CULTURE Stat Lab 09/01/21 15:31 Completed Medication Summary Discontinued Medications Generic Name Dose Route Start Last Admin Trade Name Freq PRN Reason Stop Dose Admin Hydromorphone HCl 0.5 mg 09/01/21 15:07 09/01/21 15:30 Hydromorphone 1 Mg/1ml Inj 1 Mg/Ml Syringe IV 09/01/21 15:08 0.5 mg STAT ONE Administration Hydromorphone HCl Confirm 09/01/21 15:15 Hydromorphone 1 Mg/1ml Inj 1 Mg/Ml Syringe Administered 09/01/21 15:16 Dose 1 mg .ROUTE .STK-MED ONE Sodium Chloride 500 mls @ 500 mls/hr 09/01/21 15:08 09/01/21 16:44 Sodium Chloride 0.9% 500 Ml IV 09/01/21 16:07 Infused .Q1H ONE Infusion Sodium Chloride Confirm 09/01/21 15:15 Sodium Chloride 0.9% 500 Ml Administered 09/01/21 15:16 Dose 500 mls @ ud IV .STK-MED ONE Ondansetron HCl 4 mg 09/01/21 15:07 09/01/21 15:31 Ondansetron Hcl 4 Mg/2 Ml Vial IV 09/01/21 15:08 4 mg STAT ONE Administration Ondansetron HCl Confirm 09/01/21 15:15 Ondansetron Hcl 4 Mg/2 Ml Vial Administered 09/01/21 15:16 Dose 4 mg .ROUTE .STK-MED ONE Lab/Rad Data: Laboratory Result Diagrams 09/01/21 15:10 09/01/21 15:10 Laboratory Results 09/01/21 09/01/21 09/01/21 Range/Units 15:31 15:10 15:10 WBC 14.3 H (4.0-10.5) K/mm3 RBC 4.76 (4.1-5.6) M/mm3 Hgb 14.6 (12.5-18.0) gm/dl Hct 44.2 (42-50) % MCV 92.9 (78-100) fl MCH 30.7 (26-32) pg MCHC 33.0 (32-36) g/dl RDW 13.2 (11.5-14.0) % Plt Count 403 (150-450) K/mm3 MPV 9.4 (7.5-11.0) fl Gran % 85.8 H (36.0-66.0) % Eos # (Auto) 0.10 (0-0.5) Absolute Lymphs (auto) 1.04 (1.0-4.6) Absolute Monos (auto) 0.82 (0.0-1.3) Lymphocytes % 7.3 L (24.0-44.0) % Monocytes % 5.8 (0.0-12.0) % Eosinophils % 0.7 (0.00-5.0) % Basophils % 0.4 (0.0-0.4) % Absolute Granulocytes 12.23 H (1.4-6.9) Basophils # 0.06 (0-0.4) Sodium 137 (137-145) mmol/L Potassium 4.7 (3.5-5.1) mmol/L Chloride 102 (98-107) mmol/L Carbon Dioxide 25 (22-30) mmol/L Anion Gap 14.6 (5-15) MEQ/L BUN 13 (9-20) mg/dL Creatinine 1.08 (0.66-1.25) mg/dL Estimated GFR > 60.0 ML/MIN Glucose 85 (74-106) mg/dL Calcium 9.1 (8.4-10.2) mg/dL Total Bilirubin 0.50 (0.2-1.3) mg/dL AST 26 (17-59) U/L ALT 23 (0-50) U/L Alkaline Phosphatase 85 (38-126) U/L Serum Total Protein 7.3 (6.3-8.2) g/dL Albumin 4.3 (3.5-5.0) g/dL Lipase 284 (23-300) U/L Urine Color YELLOW (YELLOW) Urine Appearance CLEAR (CLEAR) Urine pH 6.0 (5-6) Ur Specific [place] 1.006 (1.005-1.025) Urine Protein NEGATIVE (Negative) Urine Ketones NEGATIVE (NEGATIVE) Urine Blood NEGATIVE (0-5) Patrick/ul Urine Nitrite NEGATIVE (NEGATIVE) Urine Bilirubin NEGATIVE (NEGATIVE) Urine Urobilinogen NEGATIVE (0-1) mg/dL Ur Leukocyte Esterase NEGATIVE (NEGATIVE) Urine WBC (Auto) NONE (0-5) /HPF Urine RBC (Auto) NONE (0-2) /HPF U Epithel Cells (Auto) NONE (FEW) /HPF Urine Bacteria (Auto) NONE (NEGATIVE) /HPF Urine Mucus (Auto) SLIGHT (NEGATIVE) /HPF Urine Culture Reflexed NO (NO) Urine Glucose NEGATIVE (NEGATIVE) mg/dL - Progress Progress: improved, pain not gone completely, re-examined Progress Note: 09/01/21 17:37 51-year-old is evaluated in the ER with a fall from 8 foot high ladder and right flank/right sacroiliac area pain. Negative neuro exam in lower extremities, does have some difficulty movements of right lower extremity because of pain in the right hip area. No loss of bowel or bladder control. CT abdomen pelvis with contrast showed no acute intra-abdominal/visceral findings but does have some confusion and nondisplaced L3/L4 transverse process fracture with no other vertebral injury. Discussed with Dr. Sun at [facility] trauma surgery, reviewed history, objective and radiology findings, recommended pain medication/muscle relaxants and outpatient follow-up on Friday. Discussed plan with patient who understand and agrees with it. Discussed with Dr.: Other () Counseled pt/family regarding: lab results, diagnosis, need for follow-up, rad results - Departure Departure Disposition: Home Clinical Impression: Fracture of transverse process of lumbar vertebra Qualifiers: Encounter type: initial encounter Fracture type: closed Qualified Code(s): S32.009A - Unspecified fracture of unspecified lumbar vertebra, initial encounter for closed fracture Contusion, flank Qualifiers: Encounter type: initial encounter Qualified Code(s): S30.1XXA - Contusion of abdominal wall, initial encounter Fall Qualifiers: Encounter type: initial encounter Qualified Code(s): W19.XXXA - Unspecified fall, initial encounter Condition: Stable Critical Care Time: No Referrals: MAGGIE KELLY DO [Primary Care Provider] - (In 2 days for reevaluation) ANNABELLE CASTRO MD [NON-STAFF PHY W/O PRIVILEGES] - (Friday 10 AM) Instructions: Contusion (DC) Additional Instructions: Take pain medications as needed. Continue with muscle relaxants. Follow-up with primary care and trauma surgery for reevaluation early next week. Return to ER for intractable low back pain, numbness tingling weakness of lower extremities, loss of bowel or bladder control or perineal numbness. Prescriptions: Cyclobenzaprine HCl 10 mg [Flexeril 10 MG] 10 mg PO TID #30 tablet Oxycodone HCl/Acetaminophen [Percocet 7.5-325 mg Tablet] 1 each PO Q6H PRN 3 Days #12 tablet MDD 4 PRN Reason: Pain
[2021-09-01] MEDS ORDERED: Cyclobenzaprine 10 MG ONE (18:06)
[2021-09-01] MEDS ORDERED: OXYCODONE-ACETAMINOPHEN 10-325 ONE (18:07)
[2021-09-01] MEDS ORDERED: OXYCODONE-ACETAMINOPHEN 10-325 PO STA (18:08)
[2021-09-01 18:11] VITALS: BP 118/86; PULSE 84; O2SAT 98
[2021-09-01] MEDS ORDERED: Cyclobenzaprine 10 MG PO ONE (18:16)
--- NOTE | 2021-09-01 18:37 | XRAY ---
Indication: Right flank pain following fall from roof. Multiple contiguous axial images obtained through the abdomen and pelvis using 100 cc Isovue 370 contrast. Comparison: None Lung bases demonstrates mild bilateral dependent atelectasis. No infiltrate or effusion. Heart not enlarged. Noncontrasted stomach and bowel loops appear nonobstructed. Mild diffuse scattered colonic diverticulosis. Mild diffuse fatty liver with at least 3 left lobe cysts, largest measuring 3.2 cm. Right kidney demonstrates 1 cm cortical cyst. Previous cholecystectomy. No free fluid/air. Remaining liver, pancreas, spleen, adrenal glands, kidneys, ureters, bladder, and aorta appear unremarkable. No pathologic retroperitoneal lymphadenopathy. Bone windows reveal nondisplaced right L3 and L4 transverse process fractures. Minimal degenerative changes throughout the thoracolumbar spine with vertebral body height/disc space is maintained. Impression: 1. Nondisplaced right L3 and L4 transverse process fractures. 2. Incidental fatty liver, colonic diverticulosis, hepatic cysts, and right renal cyst. Comment: Preliminary interpretation by [facility]. No cortical discrepancy.
== END 2021-09-01 18:32 | disposition home or self-care (01) ==
LOC: ED 14:18
DX: S32.009A Unspecified fracture of unspecified lumbar vertebra, initial encounter for closed fracture (principal); S30.1XXA Contusion of abdominal wall, initial encounter; W19.XXXA Unspecified fall, initial encounter
CPT/HCPCS: 36000; 36415; 74177; 80053; 81001; 83690; 85025; 96374; 96375; 99284; J1170; J2405; A9270-GY

== ENCOUNTER 2022-02-18 08:54 | Emergency (ER) | payer OTHER ==
[2022-02-18] MEDS ORDERED: Zofran 4 MG/2 ML VIAL IV ONE (09:19)
[2022-02-18] MEDS ORDERED: Sodium Chloride 0.9% 1000 ML 1,000 ML IV STA (09:19)
[2022-02-18] MEDS ORDERED: Sodium Chloride 0.9% 1000 ML 1,000 ML ONE (09:22)
[2022-02-18] MEDS ORDERED: Zofran 4 MG/2 ML VIAL ONE (09:22)
--- NOTE | 2022-02-18 09:26 | ERPHSYRPT ---
- History of Present Illness Time Seen by Provider: 02/18/22 09:10 Historian: patient Exam Limitations: no limitations Patient Subjective Stated Complaint: Abdominal pain Triage Nursing Assessment: Patient ambulated back to ED and transferred self to bed. Patient A+O X3. Patient's skin pink, warm and dry. Patient complains of Abdominal pain on both sides of abdomen constant aching pain 7/10, but when he moves it becomes a sharp pain. Patient complains of constipation and bloating. Patient denies N/V or diarrhea. Abdomen distended with BS X 4. Patient states he has hx of diverticulitis and feels like it is flared up. Physician History: Patient is a 51-year-old male presents to our ED for evaluation of lower abdomi nal pain. 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 Patient's pain started today. Pain rated 7 out of 10. Patient states that movement creates a sharp sensation in the lower abdomen. Patient states he has been experiencing constipation over the past few days. No nausea or vomiting. No diarrhea. No rash. No fever. No trauma. Symptoms are progressive. Symptoms are moderate in intensity. Palpation reproduces symptoms. Movement also reproduces symptoms. Patient voices no other complaints or concerns at this time. Timing/Duration: today Activities at Onset: none Quality: aching, sharpness Abdominal Pain Onset Location: other (Bilateral lower quadrants) Pain Radiation: no radiation Severity of Pain-Max: moderate Severity of Pain-Current: mild Modifying Factors: Improves With: movement, palpation Associated Symptoms: No diarrhea, No fever/chills, No shortness of breath, No vomiting Previous symptoms: same symptoms as today Allergies/Adverse Reactions: marshmallow root Allergy (Verified 02/18/22 08:59) Anaphylactic Reaction Home Medications: Ezetimibe 10 mg [Zetia 10 MG] 1 ea DAILY 02/19/21 [History] Pantoprazole Sodium 40 mg PO DAILY 02/28/21 [History] Pravastatin Sodium 40 mg PO DAILY 02/28/21 [History] Hx Tetanus, Diphtheria Vaccination/Date Given: Yes Hx Influenza Vaccination/Date Given: No Hx Pneumococcal Vaccination/Date Given: No Immunizations Up to Date: Yes Travel Risk - International Travel Have you traveled outside of the country in past 3 weeks: No - Coronavirus Screening Are you exhibiting any of the following symptoms?: No Close contact with a COVID-19 positive Pt in past 14-21 Days: No - Vaccine Status Have you recieved a Covid-19 vaccination: Yes 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: [employer] - Vaccination Dates Date of 2cond Vaccination (if applicable): 08/2021 - Review of Systems Constitutional: No Symptoms, No Fever, No Chills Eyes: No Symptoms Ears, Nose, & Throat: No Symptoms Respiratory: No Symptoms, No Cough, No Dyspnea Cardiac: No Symptoms, No Chest Pain, No Edema, No Syncope Abdominal/Gastrointestinal: No Symptoms, No Abdominal Pain, No Nausea, No Vomiting, No Diarrhea Genitourinary Symptoms: No Symptoms, No Dysuria Musculoskeletal: No Symptoms, No Back Pain, No Neck Pain Skin: No Symptoms, No Rash Neurological: No Symptoms, No Dizziness, No Focal Weakness, No Sensory Changes Psychological: No Symptoms Endocrine: No Symptoms Hematologic/Lymphatic: No Symptoms Immunological/Allergic: No Symptoms All Other Systems: Reviewed and Negative - Past Medical History Pertinent Past Medical History: Yes Neurological History: No Pertinent History ENT History: No Pertinent History Cardiac History: High Cholesterol Respiratory History: No Pertinent History Endocrine Medical History: No Pertinent History Musculoskeletal History: Arthritis GI Medical History: No Pertinent History History: No Pertinent History Psycho-Social History: No Pertinent History Male Reproductive Disorders: No Pertinent History - Past Surgical History Past Surgical History: Yes Neuro Surgical History: No Pertinent History Cardiac: No Pertinent History Respiratory: No Pertinent History Gastrointestinal: No Pertinent History Genitourinary: No Pertinent History Musculoskeletal: No Pertinent History, Orthopedic Surgery Male Surgical History: No Pertinent History Other Surgical History: right orbital reconsurction ,neck, cervical fusion, labral debridement - Social History Smoking Status: Former smoker Exposure to second hand smoke: No Drug Use: none Patient Lives Alone: No - Nursing Vital Signs Nursing Vital Signs: Initial Vital Signs Temperature 96.6 F 02/18/22 09:00 Pulse Rate 82 02/18/22 09:00 Respiratory Rate 18 02/18/22 09:00 Blood Pressure 141/99 02/18/22 09:00 O2 Sat by Pulse Oximetry 99 02/18/22 09:00 Pain Scale Pain Intensity 5 - Physical Exam General Appearance: no apparent distress, alert Eye Exam: PERRL/EOMI, eyes nml inspection Ears, Nose, Throat Exam: normal ENT inspection, TMs normal, pharynx normal, mo ist mucous membranes Neck Exam: normal inspection, non-tender, supple, full range of motion Respiratory Exam: normal breath sounds, lungs clear, airway intact, No respiratory distress Cardiovascular Exam: regular rate/rhythm, normal heart sounds, normal peripheral pulses Gastrointestinal/Abdomen Exam: soft, tenderness, distention, other (Hypoactive bowel sounds), No mass Male Genitalia Exam: other (No testicular pain or tenderness) Back Exam: normal inspection, normal range of motion, No CVA tenderness, No vertebral tenderness Extremity Exam: normal inspection, normal range of motion, pelvis stable Neurologic Exam: alert, oriented x 3, cooperative, normal mood/affect, nml cerebellar function, sensation nml, No motor deficits Skin Exam: normal color, warm, dry Lymphatic Exam: No adenopathy SpO2 Interpretation: normal SpO2: 99 O2 Delivery: Room Air - Course Nursing assessment & vital signs reviewed: Yes - CT Exams Abdomen/Pelvis CT Interpretation: Tele-radiologist Report (Diverticulosis, diverticulitis, duodenal diverticulum, hepatic cyst, right renal cyst) Ordered Tests: Active Orders 24 hr Category Date Time Status IV Insertion STAT Care 02/18/22 09:19 Active ABDOMEN AND PELVIS W CONTRAST [CT] Stat Exams 02/18/22 09:19 Completed CBC W DIFF Stat Lab 02/18/22 09:25 Completed CMP Stat Lab 02/18/22 09:25 Completed LIPASE Stat Lab 02/18/22 09:25 Completed TROPONIN Q3H Lab 02/18/22 09:25 Completed TROPONIN Q3H Lab 02/18/22 12:30 Ordered TROPONIN Q3H Lab 02/18/22 15:30 Ordered TROPONIN Q3H Lab 02/18/22 18:30 Ordered TROPONIN Q3H Lab 02/18/22 21:30 Ordered Medication Summary Discontinued Medications Generic Name Dose Route Start Last Admin Trade Name Freq PRN Reason Stop Dose Admin Sodium Chloride 1,000 mls @ 999 mls/hr 02/18/22 09:19 02/18/22 10:29 Sodium Chloride 0.9% 1000 Ml IV 02/18/22 10:19 Infused .Q1H1M STA Infusion Sodium Chloride Confirm 02/18/22 09:22 Sodium Chloride 0.9% 1000 Ml Administered 02/18/22 09:23 Dose 1,000 mls @ ud .ROUTE .STK-MED ONE Piperacillin Sod/Tazobactam 100 mls @ 200 mls/hr 02/18/22 11:19 02/18/22 11:21 Sod 3.375 gm/ Sodium Chloride IV 02/18/22 11:48 200 mls/hr STAT ONE Administration Sodium Chloride Confirm 02/18/22 11:20 Sodium Chloride 100ml Mini-Bag Plus Administered 02/18/22 11:21 Dose 100 mls @ ud IV .STK-MED ONE Ondansetron HCl 4 mg 02/18/22 09:19 02/18/22 09:23 Ondansetron Hcl 4 Mg/2 Ml Vial IV 02/18/22 09:20 4 mg STAT ONE Administration Ondansetron HCl Confirm 02/18/22 09:22 Ondansetron Hcl 4 Mg/2 Ml Vial Administered 02/18/22 09:23 Dose 4 mg .ROUTE .STK-MED ONE Piperacillin Sod/Tazobactam Sod Confirm 02/18/22 11:20 Piperacillin/Tazobactam Sodium 3.375 Gm Vial Administered 02/18/22 11:21 Dose 3.375 gm IV .STK-MED ONE Lab/Rad Data: Laboratory Result Diagrams 02/18/22 09:25 02/18/22 09:25 Laboratory Results 02/18/22 02/18/22 02/18/22 Range/Units 09:25 09:25 09:25 WBC 6.7 (4.0-10.5) K/mm3 RBC 4.79 (4.1-5.6) M/mm3 Hgb 14.9 (12.5-18.0) gm/dl Hct 44.9 (42-50) % MCV 93.7 (78-100) fl MCH 31.1 (26-32) pg MCHC 33.2 (32-36) g/dl RDW 13.3 (11.5-14.0) % Plt Count 336 (150-450) K/mm3 MPV 9.9 (7.5-11.0) fl Gran % 65.2 (36.0-66.0) % Eos # (Auto) 0.24 (0-0.5) Absolute Lymphs (auto) 1.38 (1.0-4.6) Absolute Monos (auto) 0.66 (0.0-1.3) Lymphocytes % 20.5 L (24.0-44.0) % Monocytes % 9.8 (0.0-12.0) % Eosinophils % 3.6 (0.00-5.0) % Basophils % 0.9 (0.0-0.4) % Absolute Granulocytes 4.40 (1.4-6.9) Basophils # 0.06 (0-0.4) Sodium 137 (137-145) mmol/L Potassium 4.4 (3.5-5.1) mmol/L Chloride 105 (98-107) mmol/L Carbon Dioxide 25 (22-30) mmol/L Anion Gap 11.3 (5-15) MEQ/L BUN 9 (9-20) mg/dL Creatinine 0.91 (0.66-1.25) mg/dL Estimated GFR > 60.0 ML/MIN Glucose 110 H (74-106) mg/dL Calcium 8.6 (8.4-10.2) mg/dL Total Bilirubin 0.70 (0.2-1.3) mg/dL AST 24 (17-59) U/L ALT 22 (0-50) U/L Alkaline Phosphatase 87 (38-126) U/L Troponin I < 0.012 (0.000-0.034) ng/mL Serum Total Protein 7.1 (6.3-8.2) g/dL Albumin 4.1 (3.5-5.0) g/dL Lipase 391 H (23-300) U/L Urinalys Dipstick Clnc Urine Color (YELLOW) Urine Appearance (CLEAR) Urine pH (5-6) Ur Specific [place] (1.005-1.025) POC Urine Protein Conf (Negative) Urine Ketones (NEGATIVE) Urine Nitrite (NEGATIVE) Urine Bilirubin (NEGATIVE) Urine Urobilinogen (0-1) mg/dL Urine Leukocytes (NEGATIVE) Urine WBC (Auto) (0-5) /HPF Urine RBC (0-5) Patrick/ul Urine Mucus (Auto) (NEGATIVE) /HPF Ur Culture Indicated? Urine Glucose (NEGATIVE) mg/dL 02/18/22 Range/Units 09:21 WBC (4.0-10.5) K/mm3 RBC (4.1-5.6) M/mm3 Hgb (12.5-18.0) gm/dl Hct (42-50) % MCV (78-100) fl MCH (26-32) pg MCHC (32-36) g/dl RDW (11.5-14.0) % Plt Count (150-450) K/mm3 MPV (7.5-11.0) fl Gran % (36.0-66.0) % Eos # (Auto) (0-0.5) Absolute Lymphs (auto) (1.0-4.6) Absolute Monos (auto) (0.0-1.3) Lymphocytes % (24.0-44.0) % Monocytes % (0.0-12.0) % Eosinophils % (0.00-5.0) % Basophils % (0.0-0.4) % Absolute Granulocytes (1.4-6.9) Basophils # (0-0.4) Sodium (137-145) mmol/L Potassium (3.5-5.1) mmol/L Chloride (98-107) mmol/L Carbon Dioxide (22-30) mmol/L Anion Gap (5-15) MEQ/L BUN (9-20) mg/dL Creatinine (0.66-1.25) mg/dL Estimated GFR ML/MIN Glucose (74-106) mg/dL Calcium (8.4-10.2) mg/dL Total Bilirubin (0.2-1.3) mg/dL AST (17-59) U/L ALT (0-50) U/L Alkaline Phosphatase (38-126) U/L Troponin I (0.000-0.034) ng/mL Serum Total Protein (6.3-8.2) g/dL Albumin (3.5-5.0) g/dL Lipase (23-300) U/L Urinalys Dipstick Clnc MAIN LAB Urine Color YELLOW (YELLOW) Urine Appearance CLEAR (CLEAR) Urine pH 7.5 (5-6) Ur Specific [place] 1.020 (1.005-1.025) POC Urine Protein Conf NEGATIVE (Negative) Urine Ketones NEGATIVE (NEGATIVE) Urine Nitrite NEGATIVE (NEGATIVE) Urine Bilirubin NEGATIVE (NEGATIVE) Urine Urobilinogen 0.2 (0-1) mg/dL Urine Leukocytes NEGATIVE (NEGATIVE) Urine WBC (Auto) 0-2 (0-5) /HPF Urine RBC NEGATIVE (0-5) Patrick/ul Urine Mucus (Auto) SLIGHT (NEGATIVE) /HPF Ur Culture Indicated? NO Urine Glucose NEGATIVE (NEGATIVE) mg/dL - Progress Progress: improved Progress Note: Patient reassessed. Pain significantly improved. Work-up reveals mild diverticulitis. Patient received a dose of Zosyn in our ED. Case discussed with Dr. Turner. Strongly request Cipro Flagyl for home. Prescription for Cipro Flagyl was forwarded to patient's pharmacy. Patient advised on clear liquid diet for the next 3 to 4 days. Patient will follow up with Dr. Turner within 48 hours for evaluation. Lipase mildly elevated. However patient has no epigastric pain. Patient's pain is lower abdomen. Patient agrees to follow-up with Dr. Turner within 40 hours for evaluation. He voices no other complaints or concerns at this time. 02/18/22 11:[address] Emmanuel Will see patient in: office Counseled pt/family regarding: lab results, diagnosis, need for follow-up, rad results - Departure Departure Disposition: Home Clinical Impression: Elevated lipase, Diverticulosis, Diverticulitis, Duodenal diverticulum, Hepatic cyst, Renal cyst Condition: Stable Critical Care Time: No Referrals: MAGGIE KELLY, [Primary Care Provider] - Follow up/PCP as directed Additional Instructions: You have diverticulitis. He will require a clear liquid diet for the next 3 to 4 days or until cleared otherwise by your family doctor. [id number] stool softener while on [place]. Follow-up with your primary care doctor within 48 hours for evaluation. Discharge/Care Plan JEREMI PALENCIA was seen on 02/18/22 in the Emergency Room. The patient was counseled regarding Diagnosis,Lab results, Imaging studies, need for follow up and when to return to the Emergency Room. Prescriptions given: Discharge Note I have spoken with the patient and/or caregivers. I have explained the patient's condition, diagnosis and treatment plan based on the information available to me at this time. I have answered the patient's and/or caregiver's questions and addressed any concerns. The patient and/or caregivers have as good understanding of the patient's diagnosis, condition and treatment plan as can be expected at this point. The vital signs have been stable. The patient's condition is stable and appropriate for discharge from the emergency department. The patient will pursue further outpatient evaluation with the primary care physician or other designated or consulting physician as outlined in the kristie osorio instructions. The patient and/or caregivers are agreeable to this plan of care and follow-up instructions have been explained in detail. The patient and/or caregivers have received these instruction. The patient/and or caregivers are aware that any significant change in condition or worsening of symptoms should prompt an immediate return to this or the closest emergency department or call 911. Forms: Work/School Release Form Prescriptions: Ciprofloxacin [Cipro 500 MG] 500 mg PO BID 7 Days #14 tablet Metronidazole 500 mg [Flagyl 500 MG] 500 mg PO TID 5 Days #15 tablet
[2022-02-18 09:34] LABS: Basophil (Absolute #) 0.06 (0-0.4); Eosinophil % 3.6 % (0.00-5.0); Eosinophil (Absolute #) 0.24 (0-0.5); Hematocrit 44.9 % (42-50); Hemoglobin 14.9 gm/dl (12.5-18.0); Lymphocyte (Absolute #) 1.38 (1.0-4.6); Lymphocytes % 20.5 % (24.0-44.0); Mean Cell Volume 93.7 fl (78-100); Mean Corpuscular Hemoglobin 31.1 pg (26-32); Mean Corpuscular Hgb Concent. 33.2 g/dl (32-36); Mean Platelet Volume 9.9 fl (7.5-11.0); Monocyte (Absolute #) 0.66 (0.0-1.3); Monocytes % 9.8 % (0.0-12.0); Neutrophil % 65.2 % (36.0-66.0); Platelet Count 336 K/mm3 (150-450); Red Blood Count 4.79 M/mm3 (4.1-5.6); Red Cell Distribution Width 13.3 % (11.5-14.0); White Blood Count 6.7 K/mm3 (4.0-10.5)
[2022-02-18 09:41] LABS: Mucus SLIGHT /HPF (NEGATIVE); WBC 0-2 /HPF (0-5)
[2022-02-18 09:44] LABS: ALBUMIN 4.1 g/dL (3.5-5.0); ALKALINE PHOSPHATASE 87 U/L (38-126); ANION GAP 11.3 MEQ/L (5-15); BLOOD UREA NITROGEN 9 mg/dL (9-20); CHLORIDE 105 mmol/L (98-107); Calcium 8.6 mg/dL (8.4-10.2); Carbon Dioxide 25 mmol/L (22-30); Creatinine 1 0.91 mg/dL (0.66-1.25); EST GLOMERULAR FILTRATION RATE > 60.0 ML/MIN; Glucose 110 mg/dL (74-106); LIPASE 391 U/L (23-300); Potassium 4.4 mmol/L (3.5-5.1); SGOT/AST 24 U/L (17-59); SGPT/ALT 22 U/L (0-50); SODIUM 137 mmol/L (137-145); Total Protein 7.1 g/dL (6.3-8.2)
[2022-02-18 09:46] LABS: Appearance CLEAR (CLEAR); Bilirubin NEGATIVE (NEGATIVE); Glucose NEGATIVE (NEGATIVE); Ketones NEGATIVE (NEGATIVE); Nitrite NEGATIVE (NEGATIVE); Ph 7.5 (5-6); Protein,Urine Dip NEGATIVE (Negative); RBC NEGATIVE Ery/ul (0-5); Urobilinogen 0.2 mg/dL (0-1)
[2022-02-18 09:47] LABS: Urine Cultured Indicated? NO
[2022-02-18 09:57] LABS: Dipstick done @ ? MAIN LAB
--- NOTE | 2022-02-18 10:50 | XRAY ---
Indication: Abdomen pain and constipation 2 days. Multiple contiguous axial images obtained through the abdomen and pelvis using 80 cc Isovue 370 contrast. Comparison: September 01, 2021. Lung bases again demonstrates mild bilateral dependent atelectasis. Heart not enlarged. Noncontrasted stomach and bowel loops remain nonobstructed with normal appendix. Again small duodenal diverticulum and diffuse scattered colonic diverticulosis. Mid to distal descending colon demonstrates new mild pericolonic stranding favoring diverticulitis. No free fluid/air. Again incidental fatty liver, hepatic cysts, and cholecystectomy. Both kidneys enhance and excrete with stable small right mid renal cortical cyst. Remaining liver, pancreas, spleen, adrenal glands, kidneys, ureters, bladder, and aorta are unremarkable. No pathologic retroperitoneal lymphadenopathy. Osseous structures intact again with minimal degenerative changes throughout the spine. Impression: 1. Again diffuse colonic diverticulosis with new mild descending diverticulitis as detailed. No complications. 2. Incidental chronic findings including duodenal diverticulum, hepatic cysts, and right renal cyst.
[2022-02-18] MEDS ORDERED: PIPERACILLIN/TAZOBACTAM 3.375 GM in Sodium Chloride 100ML MINI-BAG PLUS 100 ML IV ONE (11:19)
[2022-02-18] MEDS ORDERED: PIPERACILLIN/TAZOBACTAM IV ONE (11:20)
[2022-02-18] MEDS ORDERED: Sodium Chloride 100ML MINI-BAG PLUS 100 ML IV ONE (11:20)
[2022-02-18 12:01] VITALS: BP 134/87; PULSE 71
[2022-02-18 12:04] VITALS: O2SAT 99
== END 2022-02-18 12:16 | disposition home or self-care (01) ==
LOC: ED 08:54
DX: K57.50 Diverticulosis of both small and large intestine without perforation or abscess without bleeding (principal); K57.92 Diverticulitis of intestine, part unspecified, without perforation or abscess without bleeding; K76.89 Other specified diseases of liver; Q61.01 Congenital single renal cyst; R74.8 Abnormal levels of other serum enzymes; R10.30 Lower abdominal pain, unspecified; E78.5 Hyperlipidemia, unspecified; Z79.899 Other long term (current) drug therapy
CPT/HCPCS: 36000; 36415; 74177; 80053; 81015; 83690; 84484; 85025; 96360; 96365; 96374; 99284; J2405

== ENCOUNTER 2022-03-03 22:27 | Inpatient (IN) | payer OTHER ==
[2022-03-03] MEDS ORDERED: SUBLIMAZE 100 MCG/2 ML IV ONE (23:06)
[2022-03-03] MEDS ORDERED: Zofran 4 MG/2 ML VIAL IV ONE (23:07)
[2022-03-03 23:10] LABS: Amourphous Crystal FEW /HPF (NEGATIVE); Epithelial Cells RARE /HPF (FEW); Mucus SLIGHT /HPF (NEGATIVE); WBC 0-2 /HPF (0-5)
[2022-03-03 23:11] LABS: Appearance CLEAR (CLEAR); Bacteria NONE SEEN /HPF (NEGATIVE); Bilirubin NEGATIVE (NEGATIVE); Dipstick done @ ? MAIN LAB; Glucose NEGATIVE (NEGATIVE); Ketones NEGATIVE (NEGATIVE); Nitrite NEGATIVE (NEGATIVE); Protein,Urine Dip NEGATIVE (Negative); RBC NEGATIVE Ery/ul (0-5); Specific Gravity 1.025 (1.005-1.025); Urine Cultured Indicated? NO; Urobilinogen 0.2 mg/dL (0-1)
[2022-03-03 23:12] LABS: Absolute Neutrophil Ct (ANC) 8.86 (1.4-6.9); Basophil (Absolute #) 0.07 (0-0.4); Eosinophil % 1.7 % (0.00-5.0); Hematocrit 41.2 % (42-50); Hemoglobin 13.7 gm/dl (12.5-18.0); Lymphocyte (Absolute #) 1.55 (1.0-4.6); Lymphocytes % 13.2 % (24.0-44.0); Mean Cell Volume 94.7 fl (78-100); Mean Corpuscular Hemoglobin 31.5 pg (26-32); Mean Corpuscular Hgb Concent. 33.3 g/dl (32-36); Mean Platelet Volume 9.6 fl (7.5-11.0); Monocytes % 9.3 % (0.0-12.0); Neutrophil % 75.2 % (36.0-66.0); Platelet Count 367 K/mm3 (150-450); Red Blood Count 4.35 M/mm3 (4.1-5.6); Red Cell Distribution Width 13.4 % (11.5-14.0); White Blood Count 11.8 K/mm3 (4.0-10.5)
[2022-03-03] MEDS ORDERED: Zofran 4 MG/2 ML VIAL ONE (23:12)
[2022-03-03] MEDS ORDERED: SUBLIMAZE 100 MCG/2 ML ONE (23:12)
--- NOTE | 2022-03-03 23:15 | ERPHSYRPT ---
- History of Present Illness Historian: patient Exam Limitations: no limitations Patient Subjective Stated Complaint: low abd pain, fever off and on Triage Nursing Assessment: pt c/o low abd pain and radiates to low back area. Pt had diverticulits 2 weeks ago and got relief but the pain never totally has gone away. Pt had active bsx4 quad, tender on palpation with radiation to low back. Pt denies any nausea, vomiting or indigestion but has had some diarrhea (only 1 time today). Pt states, "I've had a fever off and on today but hasn't taken anything for it". Pt is afebrile at this time. Physician History: 51 yo wm w RLQ/LLQ abdominal pain since early today. Pain radiates to his back and is currently 8/10 on scale. It is described as sharp, dull, and aching. He has had diarrhea/mild fever but denies N/V/dysuria/hematuria/melena/hem atochezia/chest pain. Pt was treated for diverticulitis 2 weeks ago w resolution. Timing/Duration: today Activities at Onset: sleep Quality: aching, dullness, sharpness Abdominal Pain Onset Location: RLQ, LLQ Pain Radiation: back Severity of Pain-Max: severe Severity of Pain-Current: severe Modifying Factors: Worsens With: analgesics, antacids, breathing, coughing, defecating, eating, exercise, lying down, movement, palpation, rest, urinating, vomiting, position, walking Associated Symptoms: back, diarrhea, No chest pain, No diaphoresis, No fever/chills, No fatigue, No headache, No heartburn, No loss of appetite, No nausea, No neck pain, No rash, No shortness of breath, No syncope, No testicular pain, No vomiting, No weakness Previous symptoms: recently seen Allergies/Adverse Reactions: marshmallow Allergy (Uncoded 03/04/22 02:44) Anaphylactic Reaction Home Medications: Ezetimibe 10 mg [Zetia 10 MG] 10 mg PO QHS 02/19/21 [History] Pantoprazole Sodium 40 mg PO QHS 02/28/21 [History] Pravastatin Sodium 40 mg PO QHS 02/28/21 [History] Hx Tetanus, Diphtheria Vaccination/Date Given: Yes Hx Influenza Vaccination/Date Given: No Hx Pneumococcal Vaccination/Date Given: No Immunizations Up to Date: Yes Travel Risk - International Travel Have you traveled outside of the country in past 3 weeks: No - Coronavirus Screening Are you exhibiting any of the following symptoms?: Yes Symptoms: Fever, Vomiting/Diarrhea Close contact with a COVID-19 positive Pt in past 14-21 Days: No - Vaccine Status Have you recieved a Covid-19 vaccination: No 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: 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 - Vaccination Dates Date of 2cond Vaccination (if applicable): 08/2021 - Review of Systems Constitutional: No Symptoms Eyes: No Symptoms Ears, Nose, & Throat: No Symptoms Respiratory: No Symptoms Cardiac: No Symptoms Abdominal/Gastrointestinal: No Symptoms, Abdominal Pain, Diarrhea Genitourinary Symptoms: No Symptoms Musculoskeletal: No Symptoms Skin: No Symptoms Neurological: No Symptoms Psychological: No Symptoms Endocrine: No Symptoms Hematologic/Lymphatic: No Symptoms Immunological/Allergic: No Symptoms - Past Medical History Pertinent Past Medical History: Yes Neurological History: No Pertinent History ENT History: No Pertinent History Cardiac History: High Cholesterol Respiratory History: No Pertinent History Endocrine Medical History: No Pertinent History Musculoskeletal History: Arthritis GI Medical History: Diverticulitis, Gallbladder Disease History: No Pertinent History Psycho-Social History: No Pertinent History Male Reproductive Disorders: No Pertinent History - Past Surgical History Past Surgical History: Yes Neuro Surgical History: No Pertinent History Cardiac: No Pertinent History Respiratory: No Pertinent History Gastrointestinal: Cholecystectomy Genitourinary: No Pertinent History Musculoskeletal: No Pertinent History, Orthopedic Surgery Male Surgical History: No Pertinent History Other Surgical History: right orbital reconsurction ,neck, cervical fusion, labral debridement - Social History Smoking Status: Former smoker Exposure to second hand smoke: Yes Drug Use: none Patient Lives Alone: Yes Significant Family History: no pertinent family hx - Nursing Vital Signs Nursing Vital Signs: Initial Vital Signs Temperature 98.3 F 03/03/22 22:28 Pulse Rate 92 H 03/03/22 22:28 Respiratory Rate 20 03/03/22 22:28 Blood Pressure 144/92 03/03/22 22:28 O2 Sat by Pulse Oximetry 95 03/03/22 22:28 Pain Scale Pain Intensity 5 Hypertensive - Physical Exam General Appearance: no apparent distress Eye Exam: PERRL/EOMI, eyes nml inspection Ears, Nose, Throat Exam: normal ENT inspection, TMs normal, pharynx normal, moist mucous membranes Neck Exam: normal inspection, non-tender, supple, full range of motion, No meningismus, No mass, No Brudzinski, No Kernig's, No carotid bruit Respiratory Exam: normal breath sounds, lungs clear, airway intact Cardiovascular Exam: regular rate/rhythm, normal heart sounds, normal peripheral pulses, capillary refill <2 sec, No murmur Gastrointestinal/Abdomen Exam: soft, normal bowel sounds, tenderness (LLQ>RLQ ttp, no guarding or rebound) Back Exam: normal inspection, normal range of motion Extremity Exam: normal inspection, normal range of motion Neurologic Exam: alert, oriented x 3, cooperative, wheel borer II-XII nml as tested, normal mood/affect, nml cerebellar function, nml station & gait, sensation nml, No motor deficits, No sensory deficit Skin Exam: normal color, warm, dry Lymphatic Exam: No adenopathy SpO2 Interpretation: normal SpO2: 95 O2 Delivery: Room Air - Course Nursing assessment & vital signs reviewed: Yes - CT Exams Abdomen/Pelvis CT Interpretation: Tele-radiologist Report (Acute sigmoid diverticulitis w exte nsive pericolonic inflammatory change) Ordered Tests: Active Orders 24 hr Category Date Time Status NPO Diet 03/04/22 01:25 Active ABDOMEN AND PELVIS W CONTRAST [CT] Stat Exams 03/03/22 23:36 Taken AMYLASE Stat Lab 03/03/22 23:09 Completed CBC W DIFF AM.LAB Lab 03/04/22 04:19 Received CBC W DIFF Stat Lab 03/03/22 23:09 Completed CMP AM.LAB Lab 03/04/22 04:19 Received CMP Stat Lab 03/03/22 23:09 Completed LIPASE Stat Lab 03/03/22 23:09 Completed TROPONIN Q3H Lab 03/03/22 23:09 Completed UA W/RFX CULTURE Stat Lab 03/03/22 22:53 Completed Transfer Order Routine Transfer 03/04/22 Completed Medication Summary Generic Name Dose Route Start Last Admin Trade Name Freq PRN Reason Stop Dose Admin Hydromorphone HCl 0.5 mg 03/04/22 01:24 03/04/22 03:12 Hydromorphone 1 Mg/1ml Inj 1 Mg/Ml Syringe IV 03/09/22 01:23 0.5 mg Q1H PRN Administration PAIN Sodium Chloride 1,000 mls @ 100 mls/hr 03/04/22 01:30 Sodium Chloride 0.9% 1000 Ml IV 04/03/22 01:29 .Q10H DAVID Levofloxacin/Dextrose 750 mg in 150 mls @ 100 mls/hr 03/04/22 10:00 Levofloxacin 750mg/150ml D5w IV 04/03/22 09:59 Q24H10 DAVID Metronidazole 500 mg in 100 mls @ 200 mls/hr 03/04/22 06:00 03/04/22 03:14 Flagyl 500 Mg Ivpb IV 04/03/22 05:59 200 mls/hr Q6HT DAVID Administration Discontinued Medications Generic Name Dose Route Start Last Admin Trade Name Freq PRN Reason Stop Dose Admin Fentanyl Citrate 100 mcg 03/03/22 23:06 03/03/22 23:18 Fentanyl Citrate 100 Mcg/2 Ml* Vial IV 03/03/22 23:07 100 mcg STAT ONE Administration Fentanyl Citrate Confirm 03/03/22 23:12 Fentanyl Citrate 100 Mcg/2 Ml* Vial Administered 03/03/22 23:13 Dose 100 mcg .ROUTE .STK-MED ONE Fentanyl Citrate 100 mcg 03/04/22 01:07 03/04/22 01:11 Fentanyl Citrate 100 Mcg/2 Ml* Vial IV 03/04/22 01:08 100 mcg STAT ONE Administration Fentanyl Citrate Confirm 03/04/22 01:10 Fentanyl Citrate 100 Mcg/2 Ml* Vial Administered 03/04/22 01:11 Dose 100 mcg .ROUTE .STK-MED ONE Sodium Chloride 1,000 mls @ 999 mls/hr 03/04/22 01:22 03/04/22 01:27 Sodium Chloride 0.9% 1000 Ml IV 03/04/22 02:22 999 mls/hr .Q1H1M STA Administration Levofloxacin/Dextrose 750 mg in 150 mls @ 100 mls/hr 03/04/22 01:22 03/04/22 01:27 Levofloxacin 750mg/150ml D5w IV 03/04/22 02:51 100 mls/hr STAT STA 100 mls/hr Administration Levofloxacin/Dextrose Confirm 03/04/22 01:26 Levofloxacin 750mg/150ml D5w Administered 03/04/22 01:27 Dose 750 mg in 150 mls @ ud IV .STK-MED ONE Ondansetron HCl 4 mg 03/03/22 23:07 03/03/22 23:18 Ondansetron Hcl 4 Mg/2 Ml Vial IV 03/03/22 23:08 4 mg STAT ONE Administration Ondansetron HCl Confirm 03/03/22 23:12 Ondansetron Hcl 4 Mg/2 Ml Vial Administered 03/03/22 23:13 Dose 4 mg .ROUTE .STK-MED ONE Lab/Rad Data: Laboratory Result Diagrams 03/03/22 23:09 03/03/22 23:09 Laboratory Results 03/04/22 03/03/22 03/03/22 Range/Units 01:34 23:09 23:09 WBC (4.0-10.5) K/mm3 RBC (4.1-5.6) M/mm3 Hgb (12.5-18.0) gm/dl Hct (42-50) % MCV (78-100) fl MCH (26-32) pg MCHC (32-36) g/dl RDW (11.5-14.0) % Plt Count (150-450) K/mm3 MPV (7.5-11.0) fl Gran % (36.0-66.0) % Eos # (Auto) (0-0.5) Absolute Lymphs (auto) (1.0-4.6) Absolute Monos (auto) (0.0-1.3) Lymphocytes % (24.0-44.0) % Monocytes % (0.0-12.0) % Eosinophils % (0.00-5.0) % Basophils % (0.0-0.4) % Absolute Granulocytes (1.4-6.9) Basophils # (0-0.4) Sodium 138 (137-145) mmol/L Potassium 4.2 (3.5-5.1) mmol/L Chloride 103 (98-107) mmol/L Carbon Dioxide 26 (22-30) mmol/L Anion Gap 13.1 (5-15) MEQ/L BUN 14 (9-20) mg/dL Creatinine 1.05 (0.66-1.25) mg/dL Estimated GFR > 60.0 ML/MIN Glucose 102 (74-106) mg/dL Calcium 8.8 (8.4-10.2) mg/dL Total Bilirubin 0.70 (0.2-1.3) mg/dL AST 19 (17-59) U/L ALT 20 (0-50) U/L Alkaline Phosphatase 71 (38-126) U/L Troponin I < 0.012 (0.000-0.034) ng/mL Serum Total Protein 6.1 L (6.3-8.2) g/dL Albumin 3.6 (3.5-5.0) g/dL Amylase 70 (30-110) U/L Lipase 108 (23-300) U/L Urinalys Dipstick Clnc Urine Color (YELLOW) Urine Appearance (CLEAR) Urine pH (5-6) Ur Specific [place] (1.005-1.025) POC Urine Protein Conf (Negative) Urine Ketones (NEGATIVE) Urine Nitrite (NEGATIVE) Urine Bilirubin (NEGATIVE) Urine Urobilinogen (0-1) mg/dL Urine Leukocytes (NEGATIVE) Urine WBC (Auto) (0-5) /HPF Urine RBC (Auto) (0-2) /HPF U Epithel Cells (Auto) (FEW) /HPF Urine Bacteria (Auto) (NEGATIVE) /HPF Urine RBC (0-5) Patrick/ul Amorphous Crystals (NEGATIVE) /HPF Urine Mucus (Auto) (NEGATIVE) /HPF Ur Culture Indicated? Urine Glucose (NEGATIVE) mg/dL Influenza Type A Ag NEGATIVE (NEGATIVE) Influenza Type B Ag NEGATIVE (NEGATIVE) RSV (PCR) NEGATIVE (Negative) SARS-CoV-2 (PCR) NEGATIVE (NEGATIVE) 03/03/22 03/03/22 Range/Units 23:09 22:53 WBC 11.8 H (4.0-10.5) K/mm3 RBC 4.35 (4.1-5.6) M/mm3 Hgb 13.7 (12.5-18.0) gm/dl Hct 41.2 L (42-50) % MCV 94.7 (78-100) fl MCH 31.5 (26-32) pg MCHC 33.3 (32-36) g/dl RDW 13.4 (11.5-14.0) % Plt Count 367 (150-450) K/mm3 MPV 9.6 (7.5-11.0) fl Gran % 75.2 H (36.0-66.0) % Eos # (Auto) 0.20 (0-0.5) Absolute Lymphs (auto) 1.55 (1.0-4.6) Absolute Monos (auto) 1.10 (0.0-1.3) Lymphocytes % 13.2 L (24.0-44.0) % Monocytes % 9.3 (0.0-12.0) % Eosinophils % 1.7 (0.00-5.0) % Basophils % 0.6 (0.0-0.4) % Absolute Granulocytes 8.86 H (1.4-6.9) Basophils # 0.07 (0-0.4) Sodium (137-145) mmol/L Potassium (3.5-5.1) mmol/L Chloride (98-107) mmol/L Carbon Dioxide (22-30) mmol/L Anion Gap (5-15) MEQ/L BUN (9-20) mg/dL Creatinine (0.66-1.25) mg/dL Estimated GFR ML/MIN Glucose (74-106) mg/dL Calcium (8.4-10.2) mg/dL Total Bilirubin (0.2-1.3) mg/dL AST (17-59) U/L ALT (0-50) U/L Alkaline Phosphatase (38-126) U/L Troponin I (0.000-0.034) ng/mL Serum Total Protein (6.3-8.2) g/dL Albumin (3.5-5.0) g/dL Amylase (30-110) U/L Lipase (23-300) U/L Urinalys Dipstick Clnc MAIN LAB Urine Color YELLOW (YELLOW) Urine Appearance CLEAR (CLEAR) Urine pH 7.0 (5-6) Ur Specific [place] 1.025 (1.005-1.025) POC Urine Protein Conf NEGATIVE (Negative) Urine Ketones NEGATIVE (NEGATIVE) Urine Nitrite NEGATIVE (NEGATIVE) Urine Bilirubin NEGATIVE (NEGATIVE) Urine Urobilinogen 0.2 (0-1) mg/dL Urine Leukocytes NEGATIVE (NEGATIVE) Urine WBC (Auto) 0-2 (0-5) /HPF Urine RBC (Auto) NONE (0-2) /HPF U Epithel Cells (Auto) RARE (FEW) /HPF Urine Bacteria (Auto) NONE SEEN (NEGATIVE) /HPF Urine RBC NEGATIVE (0-5) Patrick/ul Amorphous Crystals FEW (NEGATIVE) /HPF Urine Mucus (Auto) SLIGHT (NEGATIVE) /HPF Ur Culture Indicated? NO Urine Glucose NEGATIVE (NEGATIVE) mg/dL Influenza Type A Ag (NEGATIVE) Influenza Type B Ag (NEGATIVE) RSV (PCR) (Negative) SARS-CoV-2 (PCR) (NEGATIVE) - Progress Progress: improved Progress Note: 03/04/22 01:32 100umg IV Fentanyl/4mg IV Zofran w improvement in pain 100umg IV Fentanyl 1L NS bolus 03/04/22 01:[address] Fortune Orders entered 750mg IV Levaquin started in ER 03/04/22 01:35 Counseled pt/family regarding: lab results, diagnosis, need for follow-up, rad results - Departure Departure Disposition: Observation Clinical Impression: Diverticulitis Condition: Stable Critical Care Time: No
[2022-03-03 23:32] LABS: ALBUMIN 3.6 g/dL (3.5-5.0); ALKALINE PHOSPHATASE 71 U/L (38-126); AMYLASE 70 U/L (30-110); ANION GAP 13.1 MEQ/L (5-15); BLOOD UREA NITROGEN 14 mg/dL (9-20); CHLORIDE 103 mmol/L (98-107); Calcium 8.8 mg/dL (8.4-10.2); Carbon Dioxide 26 mmol/L (22-30); Creatinine 1 1.05 mg/dL (0.66-1.25); EST GLOMERULAR FILTRATION RATE > 60.0 ML/MIN; Glucose 102 mg/dL (74-106); LIPASE 108 U/L (23-300); Potassium 4.2 mmol/L (3.5-5.1); SGOT/AST 19 U/L (17-59); SGPT/ALT 20 U/L (0-50); SODIUM 138 mmol/L (137-145); Total Protein 6.1 g/dL (6.3-8.2)
[2022-03-04] MEDS ORDERED: SUBLIMAZE 100 MCG/2 ML IV ONE (01:07)
[2022-03-04] MEDS ORDERED: SUBLIMAZE 100 MCG/2 ML ONE (01:10)
[2022-03-04] MEDS ORDERED: LEVOFLOXACIN 750MG/150ML D5W 750 MG/150 ML BAG IV STA (01:22)
[2022-03-04] MEDS ORDERED: Sodium Chloride 0.9% 1000 ML 1,000 ML IV STA (01:22)
[2022-03-04] MEDS ORDERED: LEVOFLOXACIN 750MG/150ML D5W 750 MG/150 ML BAG IV ONE (01:26)
[2022-03-04] MEDS ORDERED: Sodium Chloride 0.9% 1000 ML 1,000 ML IV SCH (01:30)
[2022-03-04 02:13] LABS: INFLUENZA A NEGATIVE (NEGATIVE); INFLUENZA B NEGATIVE (NEGATIVE); RESPIRATORY SYNCTIAL VIRUS NEGATIVE (Negative); SARS-CoV-2 Xpert Express NEGATIVE (NEGATIVE)
[2022-03-04] MEDS: Hydromorphone 1 mg/ml Injection IV PRN ×2 (03:12→06:35)
[2022-03-04] MEDS: FLAGYL 500 MG IVPB 500 MG/100 ML BAG IV SCH ×3 (03:14→22:29)
[2022-03-04 04:35] LABS: Absolute Neutrophil Ct (ANC) 9.16 (1.4-6.9); Basophil (Absolute #) 0.04 (0-0.4); Eosinophil % 1.7 % (0.00-5.0); Eosinophil (Absolute #) 0.21 (0-0.5); Hematocrit 39.9 % (42-50); Hemoglobin 12.9 gm/dl (12.5-18.0); Lymphocyte (Absolute #) 1.75 (1.0-4.6); Lymphocytes % 14.3 % (24.0-44.0); Mean Cell Volume 96.1 fl (78-100); Mean Corpuscular Hemoglobin 31.1 pg (26-32); Mean Corpuscular Hgb Concent. 32.3 g/dl (32-36); Mean Platelet Volume 9.5 fl (7.5-11.0); Monocyte (Absolute #) 1.04 (0.0-1.3); Monocytes % 8.5 % (0.0-12.0); Neutrophil % 75.2 % (36.0-66.0); Platelet Count 333 K/mm3 (150-450); Red Blood Count 4.15 M/mm3 (4.1-5.6); Red Cell Distribution Width 13.4 % (11.5-14.0); White Blood Count 12.2 K/mm3 (4.0-10.5)
[2022-03-04 04:49] LABS: ALBUMIN 3.5 g/dL (3.5-5.0); ALKALINE PHOSPHATASE 64 U/L (38-126); ANION GAP 10.9 MEQ/L (5-15); BLOOD UREA NITROGEN 11 mg/dL (9-20); CHLORIDE 105 mmol/L (98-107); Carbon Dioxide 24 mmol/L (22-30); Creatinine 1 0.93 mg/dL (0.66-1.25); EST GLOMERULAR FILTRATION RATE > 60.0 ML/MIN; Glucose 111 mg/dL (74-106); Potassium 4.3 mmol/L (3.5-5.1); SGOT/AST 19 U/L (17-59); SGPT/ALT 19 U/L (0-50); SODIUM 136 mmol/L (137-145); Total Protein 6.1 g/dL (6.3-8.2)
[2022-03-04] MEDS ORDERED: Hydromorphone 1 mg/ml Injection IV PRN (06:53)
--- NOTE | 2022-03-04 08:52 | XRAY ---
Indication: Lower abdominal pain. Multiple contiguous axial images obtained through the abdomen and pelvis 80 cc Isovue 370 contrast. Comparison: February 18, 2022. Lung bases again demonstrates mild bilateral dependent atelectasis. Heart not enlarged. Noncontrasted stomach and bowel loops remain nonobstructed again with small duodenal diverticulum. Normal appendix. There remains scattered colonic diverticulosis with resolved descending diverticulitis. Midsigmoid colon demonstrates new mild wall thickening with pericolonic stranding favoring new diverticulitis. No free fluid/air. Again incidental fatty liver, hepatic cysts, right renal cyst, right urinary bladder diverticulum, and cholecystectomy. Remaining liver, pancreas, spleen, adrenal glands, kidneys, ureters, bladder, and aorta are unremarkable. Impression: 1. New mild sigmoid diverticulitis without complications. 2. Again chronic findings including duodenal diverticulum, hepatic cysts, right renal cyst, and urinary bladder diverticulum. Comment: Preliminary interpretation made by [facility]. No critical discrepancy.
[2022-03-04] MEDS ORDERED: solu-MEDROL 125 MG, Sterile H2O 10 ml 2 ML IV ONE ×2 (09:30)
[2022-03-04] MEDS: OXYCODONE-ACETAMINOPHEN 10-325 PO PRN ×4 (09:45→22:39)
[2022-03-04] MEDS ORDERED: ROCEPHIN 2 Gm-D5w 50ML BAG** 2 G/50 ML IVPB IV SCH (10:00)
--- NOTE | 2022-03-04 13:18 | PCM.HP ---
History of Present Illness - Chief Complaint Chief Complaint: diverticulitis History of Present Illness: is a 51 year old male patient of Dr Tenorio who failed outpatient treatment for diverticulitis. He presented to ER with LLQ pain 8/10 but worse when moving around/walking. Had 1 bout of diarrhea yesterday and no stool since. No N/V. and CT abd/pelvis is consistent with sigmoid diverticulitis . PMHx includes HLD and DDD lumbar spine. He is admitted to [facility] for IV fluid s and IV antibiotics and bowel rest. General surgery consult was requested. Patient states he has never had a colonoscopy. Last food was yesterday evening. - Review of Systems Constitutional: Chills, Lethargy Eyes: No Symptoms Ears, Nose, & Throat: No Symptoms Respiratory: No Symptoms Cardiac: No Symptoms Abdominal/Gastrointestinal: Abdominal Pain, Diarrhea (x1 yesterday) Genitourinary Symptoms: No Symptoms, Other (Hx renal stones) Musculoskeletal: Back Pain (chronic) Skin: No Symptoms Neurological: No Symptoms Psychological: No Symptoms Endocrine: No Symptoms Hematologic/Lymphatic: No Symptoms Immunological/Allergic: No Symptoms Medications & Allergies Home Medications: Home Medication List Ezetimibe 10 mg [Zetia 10 MG] 10 mg PO QHS 02/19/21 [History Confirmed 03/04/22] Pantoprazole Sodium 40 mg PO QHS 02/28/21 [History Confirmed 03/04/22] Pravastatin Sodium 40 mg PO QHS 02/28/21 [History Confirmed 03/04/22] Allergies/Adverse Reactions: Allergies Allergy/AdvReac Type Severity Reaction Status Date / Time rito Allergy Anaphylactic Uncoded 03/04/22 02:44 Reaction - Past Medical History Past Medical History: Yes Neurological History: No Pertinent History ENT History: No Pertinent History Cardiac History: High Cholesterol Respiratory History: No Pertinent History Endocrine Medical History: No Pertinent History Musculoskelatal History: Arthritis, Degenerative Disk Disease, Fractures (transverse process lumbar) GI Medical History: Diverticulitis, Gallbladder Disease, Other (fatty liver) History: No Pertinent History Pyscho-Social History: No Pertinent History Male Reproductive Disorders: No Pertinent History - Past Surgical History Past Surgical History: Yes Neuro Surgical History: No Pertinent History Cardiac History: No Pertinent History Respiratory Surgery: No Pertinent History GI Surgical History: Cholecystectomy Genitourinary Surgical Hx: No Pertinent History Musculskeletal Surgical Hx: No Pertinent History, Orthopedic Surgery Male Surgical History: No Pertinent History Other Surgical History: right orbital reconsurction ,neck, cervical fusion, labral debridement - Social History Smoking Status: Former smoker How long have you smoked: 35 years Exposure to second hand smoke: Yes Alcohol: Occasionally Drug Use: none Significant Family History: no pertinent family hx - Physical Exam Vital Signs: Vital Signs - 24 hr Temp Pulse Resp BP Pulse Ox 03/04/22 11:55 97.6 F 59 L 16 115/70 93 L 03/04/22 07:53 97.5 F 72 16 112/70 95 03/04/22 04:41 95 03/04/22 04:00 98.0 F 72 18 112/70 96 03/04/22 02:47 97.8 F 80 18 116/77 95 03/04/22 01:00 86 20 109/82 98 03/04/22 00:00 87 20 117/82 96 03/03/22 23:00 85 20 146/103 96 03/03/22 22:28 98.3 F 92 H 20 144/92 95 General Appearance: mild distress (LLQ pain and weakness feels from not eating.) Neurologic Exam: alert, oriented x 3, cooperative Eye Exam: eyes nml inspection Ears, Nose, Throat Exam: normal ENT inspection Neck Exam: normal inspection Respiratory Exam: normal breath sounds Cardiovascular Exam: regular rate/rhythm Gastrointestinal/Abdomen Exam: soft (decreased BS), tenderness (LLQ and across low abdomen), guarding Rectal Exam: not done Back Exam: normal inspection Extremity Exam: normal inspection Skin Exam: diaphoresis, pale Results - Labs Lab/Micro Results: Lab Results-Last 24 Hours 03/03/22 03/03/22 03/03/22 Range/Units 22:53 23:09 23:09 WBC 11.8 H (4.0-10.5) K/mm3 RBC 4.35 (4.1-5.6) M/mm3 Hgb 13.7 (12.5-18.0) gm/dl Hct 41.2 L (42-50) % MCV 94.7 (78-100) fl MCH 31.5 (26-32) pg MCHC 33.3 (32-36) g/dl RDW 13.4 (11.5-14.0) % Plt Count 367 (150-450) K/mm3 MPV 9.6 (7.5-11.0) fl Gran % 75.2 H (36.0-66.0) % Eos # (Auto) 0.20 (0-0.5) Absolute Lymphs (auto) 1.55 (1.0-4.6) Absolute Monos (auto) 1.10 (0.0-1.3) Lymphocytes % 13.2 L (24.0-44.0) % Monocytes % 9.3 (0.0-12.0) % Eosinophils % 1.7 (0.00-5.0) % Basophils % 0.6 (0.0-0.4) % Absolute Granulocytes 8.86 H (1.4-6.9) Basophils # 0.07 (0-0.4) Sodium 138 (137-145) mmol/L Potassium 4.2 (3.5-5.1) mmol/L Chloride 103 (98-107) mmol/L Carbon Dioxide 26 (22-30) mmol/L Anion Gap 13.1 (5-15) MEQ/L BUN 14 (9-20) mg/dL Creatinine 1.05 (0.66-1.25) mg/dL Estimated GFR > 60.0 ML/MIN Glucose 102 (74-106) mg/dL Calcium 8.8 (8.4-10.2) mg/dL Total Bilirubin 0.70 (0.2-1.3) mg/dL AST 19 (17-59) U/L ALT 20 (0-50) U/L Alkaline Phosphatase 71 (38-126) U/L Troponin I (0.000-0.034) ng/mL Serum Total Protein 6.1 L (6.3-8.2) g/dL Albumin 3.6 (3.5-5.0) g/dL Amylase 70 (30-110) U/L Lipase 108 (23-300) U/L Urinalys Dipstick Clnc MAIN LAB Urine Color YELLOW (YELLOW) Urine Appearance CLEAR (CLEAR) Urine pH 7.0 (5-6) Ur Specific [place] 1.025 (1.005-1.025) POC Urine Protein Conf NEGATIVE (Negative) Urine Ketones NEGATIVE (NEGATIVE) Urine Nitrite NEGATIVE (NEGATIVE) Urine Bilirubin NEGATIVE (NEGATIVE) Urine Urobilinogen 0.2 (0-1) mg/dL Urine Leukocytes NEGATIVE (NEGATIVE) Urine WBC (Auto) 0-2 (0-5) /HPF Urine RBC (Auto) NONE (0-2) /HPF U Epithel Cells (Auto) RARE (FEW) /HPF Urine Bacteria (Auto) NONE SEEN (NEGATIVE) /HPF Urine RBC NEGATIVE (0-5) Patrick/ul Amorphous Crystals FEW (NEGATIVE) /HPF Urine Mucus (Auto) SLIGHT (NEGATIVE) /HPF Ur Culture Indicated? NO Urine Glucose NEGATIVE (NEGATIVE) mg/dL Influenza Type A Ag (NEGATIVE) Influenza Type B Ag (NEGATIVE) RSV (PCR) (Negative) SARS-CoV-2 (PCR) (NEGATIVE) 03/03/22 03/04/22 03/04/22 Range/Units 23:09 01:34 04:19 WBC 12.2 H (4.0-10.5) K/mm3 RBC 4.15 (4.1-5.6) M/mm3 Hgb 12.9 (12.5-18.0) gm/dl Hct 39.9 L (42-50) % MCV 96.1 (78-100) fl MCH 31.1 (26-32) pg MCHC 32.3 (32-36) g/dl RDW 13.4 (11.5-14.0) % Plt Count 333 (150-450) K/mm3 MPV 9.5 (7.5-11.0) fl Gran % 75.2 H (36.0-66.0) % Eos # (Auto) 0.21 (0-0.5) Absolute Lymphs (auto) 1.75 (1.0-4.6) Absolute Monos (auto) 1.04 (0.0-1.3) Lymphocytes % 14.3 L (24.0-44.0) % Monocytes % 8.5 (0.0-12.0) % Eosinophils % 1.7 (0.00-5.0) % Basophils % 0.3 (0.0-0.4) % Absolute Granulocytes 9.16 H (1.4-6.9) Basophils # 0.04 (0-0.4) Sodium (137-145) mmol/L Potassium (3.5-5.1) mmol/L Chloride (98-107) mmol/L Carbon Dioxide (22-30) mmol/L Anion Gap (5-15) MEQ/L BUN (9-20) mg/dL Creatinine (0.66-1.25) mg/dL Estimated GFR ML/MIN Glucose (74-106) mg/dL Calcium (8.4-10.2) mg/dL Total Bilirubin (0.2-1.3) mg/dL AST (17-59) U/L ALT (0-50) U/L Alkaline Phosphatase (38-126) U/L Troponin I < 0.012 (0.000-0.034) ng/mL Serum Total Protein (6.3-8.2) g/dL Albumin (3.5-5.0) g/dL Amylase (30-110) U/L Lipase (23-300) U/L Urinalys Dipstick Clnc Urine Color (YELLOW) Urine Appearance (CLEAR) Urine pH (5-6) Ur Specific [place] (1.005-1.025) POC Urine Protein Conf (Negative) Urine Ketones (NEGATIVE) Urine Nitrite (NEGATIVE) Urine Bilirubin (NEGATIVE) Urine Urobilinogen (0-1) mg/dL Urine Leukocytes (NEGATIVE) Urine WBC (Auto) (0-5) /HPF Urine RBC (Auto) (0-2) /HPF U Epithel Cells (Auto) (FEW) /HPF Urine Bacteria (Auto) (NEGATIVE) /HPF Urine RBC (0-5) Patrick/ul Amorphous Crystals (NEGATIVE) /HPF Urine Mucus (Auto) (NEGATIVE) /HPF Ur Culture Indicated? Urine Glucose (NEGATIVE) mg/dL Influenza Type A Ag NEGATIVE (NEGATIVE) Influenza Type B Ag NEGATIVE (NEGATIVE) RSV (PCR) NEGATIVE (Negative) SARS-CoV-2 (PCR) NEGATIVE (NEGATIVE) 03/04/22 Range/Units 04:19 WBC (4.0-10.5) K/mm3 RBC (4.1-5.6) M/mm3 Hgb (12.5-18.0) gm/dl Hct (42-50) % MCV (78-100) fl MCH (26-32) pg MCHC (32-36) g/dl RDW (11.5-14.0) % Plt Count (150-450) K/mm3 MPV (7.5-11.0) fl Gran % (36.0-66.0) % Eos # (Auto) (0-0.5) Absolute Lymphs (auto) (1.0-4.6) Absolute Monos (auto) (0.0-1.3) Lymphocytes % (24.0-44.0) % Monocytes % (0.0-12.0) % Eosinophils % (0.00-5.0) % Basophils % (0.0-0.4) % Absolute Granulocytes (1.4-6.9) Basophils # (0-0.4) Sodium 136 L (137-145) mmol/L Potassium 4.3 (3.5-5.1) mmol/L Chloride 105 (98-107) mmol/L Carbon Dioxide 24 (22-30) mmol/L Anion Gap 10.9 (5-15) MEQ/L BUN 11 (9-20) mg/dL Creatinine 0.93 (0.66-1.25) mg/dL Estimated GFR > 60.0 ML/MIN Glucose 111 H (74-106) mg/dL Calcium 8.0 L (8.4-10.2) mg/dL Total Bilirubin 0.80 (0.2-1.3) mg/dL AST 19 (17-59) U/L ALT 19 (0-50) U/L Alkaline Phosphatase 64 (38-126) U/L Troponin I (0.000-0.034) ng/mL Serum Total Protein 6.1 L (6.3-8.2) g/dL Albumin 3.5 (3.5-5.0) g/dL Amylase (30-110) U/L Lipase (23-300) U/L Urinalys Dipstick Clnc Urine Color (YELLOW) Urine Appearance (CLEAR) Urine pH (5-6) Ur Specific [place] (1.005-1.025) POC Urine Protein Conf (Negative) Urine Ketones (NEGATIVE) Urine Nitrite (NEGATIVE) Urine Bilirubin (NEGATIVE) Urine Urobilinogen (0-1) mg/dL Urine Leukocytes (NEGATIVE) Urine WBC (Auto) (0-5) /HPF Urine RBC (Auto) (0-2) /HPF U Epithel Cells (Auto) (FEW) /HPF Urine Bacteria (Auto) (NEGATIVE) /HPF Urine RBC (0-5) Patrick/ul Amorphous Crystals (NEGATIVE) /HPF Urine Mucus (Auto) (NEGATIVE) /HPF Ur Culture Indicated? Urine Glucose (NEGATIVE) mg/dL Influenza Type A Ag (NEGATIVE) Influenza Type B Ag (NEGATIVE) RSV (PCR) (Negative) SARS-CoV-2 (PCR) (NEGATIVE) - Radiology Impressions Radiology Exams & Impressions: Radiology Procedures Category Date Time Status ABDOMEN AND PELVIS W CONTRAST [CT] Stat Exams 03/03/22 23:36 Completed Assessment/Plan (1) Diverticulitis Current Visit: Yes Status: Acute Assessment & Plan: sigmoid diverticulitis per CT Code(s): K57.92 - DVTRCLI OF INTEST, PART UNSP, W/O PERF OR ABSCESS W/O BLEED (2) Failure of outpatient treatment Current Visit: Yes Status: Acute Assessment & Plan: Was seen in ER about 2 weeks ago tx Rocephin inj x3 and oral antibiotics Code(s): Z78.9 - OTHER SPECIFIED HEALTH STATUS (3) Fatty liver Current Visit: Yes Status: Chronic Code(s): K76.0 - FATTY (CHANGE OF) LIVER, NOT ELSEWHERE CLASSIFIED (4) Degenerative disc disease Current Visit: Yes Status: Chronic Qualifiers: Spinal region: lumbar Qualified Code(s): M51.36 - Other intervertebral disc degeneration, lumbar region Code(s): BBO1044 -
[2022-03-04] MEDS: DEXTROSE 5% -NACL 0.9% 1000 ML + KCl 20 MEQ 1,000 ML IV SCH ×2 (14:10→23:15)
[2022-03-04] MEDS ORDERED: PHARMACY DOSING REQUEST MC ONE (15:01)
[2022-03-04] MEDS: solu-MEDROL 80 MG, Sterile H2O 10 ml 2 ML IV SCH ×4 (16:52→22:29)
[2022-03-04] MEDS ORDERED: LEVOFLOXACIN 750MG/150ML D5W 750 MG/150 ML BAG IV SCH (22:00)
[2022-03-04] MEDS: Merrem 1 GM 1 G in Sodium Chloride 100ML MINI-BAG PLUS 100 ML IV SCH (23:10)
[2022-03-05] MEDS: OXYCODONE-ACETAMINOPHEN 10-325 PO PRN ×5 (02:45→22:07)
[2022-03-05] MEDS: solu-MEDROL 80 MG, Sterile H2O 10 ml 2 ML IV SCH ×6 (05:01→21:02)
[2022-03-05] MEDS: FLAGYL 500 MG IVPB 500 MG/100 ML BAG IV SCH ×3 (05:01→22:02)
[2022-03-05] MEDS: Merrem 1 GM 1 G in Sodium Chloride 100ML MINI-BAG PLUS 100 ML IV SCH ×3 (05:43→20:59)
--- NOTE | 2022-03-05 08:55 | CONS ---
CONSULT DATE: 03/04/2022 HISTORY: This patient was seen for Dr. Jay Church who was [employer] promotional sales for our group today. He asked that I see this patient while I was here. The patient is a 51-year-old apparently had some diverticulitis a couple of weeks ago that improved with some antibiotics. I am not sure if it completely resolved. He had a little bit of worse pain yesterday. He had CT scan apparently consistent with diverticulitis. There was no free air or significant collection. He was admitted for IV antibiotics and asked for surgical consult. I am not sure if saw a surgeon a couple of weeks ago or not. PAST MEDICAL HISTORY: He has some diverticular disease. Arthritis. PAST SURGICAL HISTORY: Cholecystectomy in the past. Right orbital reconstruction. Neck cervical fusion, labral debridement in the past. HOME MEDICATIONS: Ezetimibe, pantoprazole, Pravastatin. ALLERGIES: NKDA. MARSHMALLOW (ANAPHYLACTIC REACTION). FAMILY HISTORY: Negative in regards to this specific problem. No family history of colon cancer, ulcerative colitis or Crohn's according to the patient. SOCIAL HISTORY: Former smoker, rare alcohol use. REVIEW OF SYSTEMS: Fourteen systems reviewed. No chest pain or palpitations. He does have tattoos. He denies any heart issues, breathing issues or other problems. He does not smoke anymore. He does not drink. Other systems negative or noncontributory as above and per preadmission questionnaire. LAB DATA AND TESTS: His white count is 11.8 down from 12 yesterday. Liver function test is okay. PHYSICAL EXAMINATION: GENERAL: No acute distress. Afebrile. Vital signs stable. HEENT: Sclera nonicteric. NECK: No JVD. CHEST: Equal excursion, nonlabored breathing. CVS: Regular rhythm and pulse. ABDOMEN: Soft. Some mild tenderness in the lower abdomen. No peritoneal signs. EXTREMITIES: No significant edema. NEURO: Alert, moving extremities grossly symmetrically. PSYCH: Appropriate mood and affect. IMPRESSION: Some diverticulitis. He had a mild episode in the past. Question whether he just needs antibiotics as there is no obvious free fluid or free air to warrant an emergent surgery. He is doing a little better. Probably will put him on some antibiotic and Flagyl. Again, I am seeing this patient for Dr. Jay Church. He does not need emergent surgery at this time. He understands if he worsens and needs emergent surgery that might include resection and ostomy. Otherwise if he is able to improve, he will likely will benefit from colonoscopy down the road in six to eight weeks to make sure he does not have any other etiology. He understands if he does have recurrent attacks in the future he might benefit from consideration of elective resection of the area although at this time I do not feel any need for any emergent surgery at the moment. He understands the plan. Again, I am seeing this patient for Dr. Jay Church. If he improves the next few days might need intervention otherwise continue the IV antibiotics, just keep him on some sips of liquid now. If the white count and pain improves tomorrow maybe advance him to clear liquids tomorrow.
--- NOTE | 2022-03-05 09:22 | PCM.NOTE ---
Date and Time: 03/05/22921 Subjective Assessment: Patient is tolerating ice chips and sips of tea,is feeling hungry. No BM.Pain has localized to LLQ. General Surgery consult appreciated. Objective Exam General Appearance: no apparent distress Neurologic Exam: alert, oriented x 3 Skin Exam: normal color, warm, dry Respiratory Exam: normal breath sounds Cardiovascular Exam: regular rate/rhythm Gastrointestinal/Abdomen Exam: soft (decreased BS,tender LLQ,no rebound or guarding) Back Exam: normal inspection OBJECTIVE DATA Vital Signs: Vital Signs - 24 hr Temp Pulse Resp BP Pulse Ox 03/05/22 07:13 98.0 F 63 17 84/60 97 03/05/22 04:00 97.1 F 73 20 107/71 90 L 03/04/22 23:46 97.1 F 69 16 112/72 93 L 03/04/22 20:00 96.9 F 57 L 16 113/70 93 L 03/04/22 15:46 96.9 F 57 L 16 113/70 93 L 03/04/22 11:55 97.6 F 59 L 16 115/70 93 L Pain Assessment - Last Documented Pain Intensity 5 Pain Scale Used 0-10 Pain Scale Intake and Output: Intake & Output 03/02/22 03/03/22 03/04/22 03/05/22 11:59 11:59 11:59 11:59 Intake Total 186 1700 Output Total 700 1800 Balance -514 -100 Weight 106.3 kg Radiology Exams: Radiology Procedures Category Date Time Status ABDOMEN AND PELVIS W CONTRAST [CT] Stat Exams 03/03/22 23:36 Completed Assessment/Plan (1) Diverticulitis Current Visit: Yes Status: Acute Assessment & Plan: advance to clear liquid diet,pain control alt Toradol with Percocet Code(s): K57.92 - DVTRCLI OF INTEST, PART UNSP, W/O PERF OR ABSCESS W/O BLEED (2) Abdominal pain Current Visit: Yes Status: Acute Qualifiers: Abdominal location: left lower quadrant Qualified Code(s): R10.32 - Left lower quadrant pain Assessment & Plan: add Toradol,alt with Percocet Code(s): R10.9 - UNSPECIFIED ABDOMINAL PAIN
[2022-03-05 11:04] LABS: Absolute Neutrophil Ct (ANC) 15.17 (1.4-6.9); Basophil (Absolute #) 0.02 (0-0.4); Eosinophil (Absolute #) 0 (0-0.5); Hematocrit 41.1 % (42-50); Hemoglobin 13.3 gm/dl (12.5-18.0); Lymphocyte (Absolute #) 0.51 (1.0-4.6); Lymphocytes % 3.2 % (24.0-44.0); Mean Cell Volume 95.1 fl (78-100); Mean Corpuscular Hemoglobin 30.8 pg (26-32); Mean Corpuscular Hgb Concent. 32.4 g/dl (32-36); Mean Platelet Volume 9.6 fl (7.5-11.0); Monocyte (Absolute #) 0.34 (0.0-1.3); Monocytes % 2.1 % (0.0-12.0); Neutrophil % 94.6 % (36.0-66.0); Platelet Count 358 K/mm3 (150-450); Red Blood Count 4.32 M/mm3 (4.1-5.6)
[2022-03-05] MEDS: DEXTROSE 5% -NACL 0.9% 1000 ML + KCl 20 MEQ 1,000 ML IV SCH ×2 (11:17→22:08)
[2022-03-05 13:04] LABS: ALBUMIN 3.4 g/dL (3.5-5.0); ALKALINE PHOSPHATASE 73 U/L (38-126); ANION GAP 13.5 MEQ/L (5-15); BLOOD UREA NITROGEN 12 mg/dL (9-20); CHLORIDE 107 mmol/L (98-107); Calcium 8.7 mg/dL (8.4-10.2); Carbon Dioxide 22 mmol/L (22-30); Creatinine 1 0.75 mg/dL (0.66-1.25); EST GLOMERULAR FILTRATION RATE > 60.0 ML/MIN; Glucose 146 mg/dL (74-106); Potassium 4.6 mmol/L (3.5-5.1); SGOT/AST 19 U/L (17-59); SGPT/ALT 19 U/L (0-50); SODIUM 138 mmol/L (137-145)
[2022-03-05] MEDS: TORAdol 30 mg Injection IV PRN ×2 (14:26→21:00)
[2022-03-05] MEDS: SENOKOT 8.6 MG PO SCH (14:26)
[2022-03-05 15:06] LABS: Slide Review 1 YES
[2022-03-06] MEDS: TORAdol 30 mg Injection IV PRN ×2 (03:20→11:23)
[2022-03-06] MEDS: FLAGYL 500 MG IVPB 500 MG/100 ML BAG IV SCH ×3 (05:04→21:51)
[2022-03-06] MEDS: solu-MEDROL 80 MG, Sterile H2O 10 ml 2 ML IV SCH ×6 (05:05→21:05)
[2022-03-06] MEDS: OXYCODONE-ACETAMINOPHEN 10-325 PO PRN ×5 (05:05→21:05)
[2022-03-06] MEDS: Merrem 1 GM 1 G in Sodium Chloride 100ML MINI-BAG PLUS 100 ML IV SCH ×3 (05:40→21:04)
[2022-03-06] MEDS: SENOKOT 8.6 MG PO SCH (09:06)
[2022-03-06 10:54] LABS: Absolute Neutrophil Ct (ANC) 15.01 (1.4-6.9); Basophil (Absolute #) 0.02 (0-0.4); Eosinophil (Absolute #) 0 (0-0.5); Hematocrit 38.6 % (42-50); Hemoglobin 12.5 gm/dl (12.5-18.0); Lymphocytes % 3.1 % (24.0-44.0); Mean Cell Volume 97.5 fl (78-100); Mean Corpuscular Hemoglobin 31.6 pg (26-32); Mean Corpuscular Hgb Concent. 32.4 g/dl (32-36); Mean Platelet Volume 9.9 fl (7.5-11.0); Monocyte (Absolute #) 0.55 (0.0-1.3); Monocytes % 3.4 % (0.0-12.0); Neutrophil % 93.4 % (36.0-66.0); Platelet Count 362 K/mm3 (150-450); Red Blood Count 3.96 M/mm3 (4.1-5.6); Red Cell Distribution Width 13.3 % (11.5-14.0); White Blood Count 16.1 K/mm3 (4.0-10.5)
[2022-03-06 10:58] LABS: BLOOD UREA NITROGEN 14 mg/dL (9-20); CHLORIDE 108 mmol/L (98-107); Calcium 8.3 mg/dL (8.4-10.2); Carbon Dioxide 22 mmol/L (22-30); Creatinine 1 0.82 mg/dL (0.66-1.25); EST GLOMERULAR FILTRATION RATE > 60.0 ML/MIN; Glucose 143 mg/dL (74-106); Potassium 4.8 mmol/L (3.5-5.1); SODIUM 136 mmol/L (137-145)
[2022-03-06] MEDS: DEXTROSE 5% -NACL 0.9% 1000 ML + KCl 20 MEQ 1,000 ML IV SCH (11:21)
[2022-03-06 14:11] LABS: Slide Review 1 YES
[2022-03-06] MEDS: MORPHINE SULFATE 2 MG INJ IV PRN ×3 (15:29→21:05)
--- NOTE | 2022-03-06 16:44 | XRAY ---
Indication: Lower abdominal pain. Increasing WBC. Diverticulitis 3 days earlier. Multiple contiguous axial images obtained through the abdomen and pelvis using 80 cc Isovue 370 contrast. Comparison: March 03, 2022 Lung bases again demonstrates mild dependent atelectasis. Heart not enlarged. Noncontrasted stomach and bowel loops again nonobstructed with stable small duodenal diverticulum and normal appendix. Again scattered colonic diverticulosis. Midsigmoid diverticulitis improved with minimal residual. No free fluid/air. Again incidental fatty liver, hepatic cysts, right renal cyst, right urinary bladder diverticulum, and cholecystectomy. Remaining liver, pancreas, spleen, adrenal glands, kidneys, ureters, bladder, and aorta are unremarkable. Impression: 1. Improving sigmoid diverticulitis with minimal residual. 2. Again chronic findings including colonic diverticulosis, duodenal diverticulum, hepatic cysts, right renal cyst, and urinary bladder diverticulum. 3. No new/acute abnormalities.
[2022-03-07] MEDS: DEXTROSE 5% -NACL 0.9% 1000 ML + KCl 20 MEQ 1,000 ML IV SCH ×3 (00:26→22:10)
[2022-03-07] MEDS: MORPHINE SULFATE 2 MG INJ IV PRN ×2 (00:29→04:42)
[2022-03-07] MEDS: OXYCODONE-ACETAMINOPHEN 10-325 PO PRN ×3 (04:41→21:17)
[2022-03-07 05:14] LABS: Absolute Neutrophil Ct (ANC) 10.93 (1.4-6.9); Basophil (Absolute #) 0 (0-0.4); Eosinophil % 0.1 % (0.00-5.0); Eosinophil (Absolute #) 0.01 (0-0.5); Hematocrit 38.4 % (42-50); Hemoglobin 12.2 gm/dl (12.5-18.0); Lymphocyte (Absolute #) 0.57 (1.0-4.6); Lymphocytes % 4.8 % (24.0-44.0); Mean Cell Volume 98.2 fl (78-100); Mean Corpuscular Hemoglobin 31.2 pg (26-32); Mean Corpuscular Hgb Concent. 31.8 g/dl (32-36); Mean Platelet Volume 10.4 fl (7.5-11.0); Monocyte (Absolute #) 0.39 (0.0-1.3); Monocytes % 3.3 % (0.0-12.0); Neutrophil % 91.8 % (36.0-66.0); Platelet Count 340 K/mm3 (150-450); Red Blood Count 3.91 M/mm3 (4.1-5.6); Red Cell Distribution Width 13.5 % (11.5-14.0); White Blood Count 11.9 K/mm3 (4.0-10.5)
[2022-03-07 05:29] LABS: ANION GAP 11.5 MEQ/L (5-15); BLOOD UREA NITROGEN 12 mg/dL (9-20); CHLORIDE 106 mmol/L (98-107); Calcium 8.2 mg/dL (8.4-10.2); Carbon Dioxide 25 mmol/L (22-30); Creatinine 1 0.79 mg/dL (0.66-1.25); EST GLOMERULAR FILTRATION RATE > 60.0 ML/MIN; Glucose 150 mg/dL (74-106); Potassium 4.8 mmol/L (3.5-5.1); SODIUM 138 mmol/L (137-145)
[2022-03-07] MEDS: solu-MEDROL 80 MG, Sterile H2O 10 ml 2 ML IV SCH ×6 (05:31→21:17)
[2022-03-07] MEDS: FLAGYL 500 MG IVPB 500 MG/100 ML BAG IV SCH ×3 (05:32→21:17)
[2022-03-07] MEDS: Merrem 1 GM 1 G in Sodium Chloride 100ML MINI-BAG PLUS 100 ML IV SCH ×3 (06:13→22:10)
[2022-03-07 06:37] LABS: Slide Review 1 YES
[2022-03-07] MEDS: SENOKOT 8.6 MG PO SCH (09:59)
[2022-03-08] MEDS: Merrem 1 GM 1 G in Sodium Chloride 100ML MINI-BAG PLUS 100 ML IV SCH (05:02)
[2022-03-08 05:22] LABS: Hematocrit 38.8 % (42-50); Hemoglobin 12.5 gm/dl (12.5-18.0); Mean Cell Volume 96.3 fl (78-100); Mean Corpuscular Hgb Concent. 32.2 g/dl (32-36); Mean Platelet Volume 10.2 fl (7.5-11.0); Platelet Count 350 K/mm3 (150-450); Red Blood Count 4.03 M/mm3 (4.1-5.6); Red Cell Distribution Width 13.3 % (11.5-14.0)
[2022-03-08] MEDS: FLAGYL 500 MG IVPB 500 MG/100 ML BAG IV SCH (05:33)
[2022-03-08 05:44] LABS: ANION GAP 10.6 MEQ/L (5-15); BLOOD UREA NITROGEN 14 mg/dL (9-20); CHLORIDE 105 mmol/L (98-107); Calcium 8.4 mg/dL (8.4-10.2); Carbon Dioxide 25 mmol/L (22-30); Creatinine 1 0.73 mg/dL (0.66-1.25); EST GLOMERULAR FILTRATION RATE > 60.0 ML/MIN; Glucose 142 mg/dL (74-106); Potassium 4.4 mmol/L (3.5-5.1); SODIUM 136 mmol/L (137-145)
[2022-03-08] MEDS ORDERED: solu-MEDROL ONE (07:31)
[2022-03-08 08:10] VITALS: BP 122/72; PULSE 48; O2SAT 95
[2022-03-08 08:14] LABS: BAND 4 % (0.0-2.0); Lymphocytes 4 % (24-44); Monocyte 1 % (0.0-12.0); Platelet Estimate NORMAL (NORMAL); Total Cells Counted 100
--- NOTE | 2022-03-08 08:54 | PCM.DS ---
Discharge Summary Date of Admission: 03/05/22 09:22 Admitting Physician: TOSIN JORDAN Consults: Consults on Case 03/04/22 09:16 Consult Surgery ROUTINE Primary Care Provider: MAGGIE KELLY DO Allergies Allergies rito Allergy (Uncoded 03/04/22 02:44) Anaphylactic Reaction Hospital Summary - Hospital Course Hospital Course: patient admitted with diverticulitis, he is painfree and tolerating regular diet at the time of discharge. wbc trended down to 12,000. he is feeling well and requested discharge today. surgery consult was done - Vitals & Intake/Output Vital Signs: Vital Signs Temperature 97.5 F 03/08/22 08:00 Pulse Rate 48 L 03/08/22 08:00 Respiratory Rate 16 03/08/22 08:00 Blood Pressure 122/72 03/08/22 08:00 O2 Sat by Pulse Oximetry 95 03/08/22 08:00 Intake & Output: Intake & Output 03/05/22 03/06/22 03/07/22 03/08/22 11:59 11:59 11:59 11:59 Intake Total 1820 3430 3349 2809 Output Total 1800 1950 1750 1100 Balance 20 1480 1599 1709 - Lab Result Diagrams: 03/08/22 04:35 03/08/22 04:35 Lab Results-Last 24 Hrs: Lab Results-Last 24 Hours 03/08/22 03/08/22 Range/Units 04:35 04:35 WBC 12.0 H (4.0-10.5) K/mm3 RBC 4.03 L (4.1-5.6) M/mm3 Hgb 12.5 (12.5-18.0) gm/dl Hct 38.8 L (42-50) % MCV 96.3 (78-100) fl MCH 31.0 (26-32) pg MCHC 32.2 (32-36) g/dl RDW 13.3 (11.5-14.0) % Plt Count 350 (150-450) K/mm3 MPV 10.2 (7.5-11.0) fl Segmented Neutrophils 91 H (36.-66.) % Band Neutrophils 4 H (0.0-2.0) % Lymphocytes (Manual) 4 L (24-44) % Monocytes (Manual) 1 (0.0-12.0) % Platelet Estimate NORMAL (NORMAL) RBC Morphology NORMAL Sodium 136 L (137-145) mmol/L Potassium 4.4 (3.5-5.1) mmol/L Chloride 105 (98-107) mmol/L Carbon Dioxide 25 (22-30) mmol/L Anion Gap 10.6 (5-15) MEQ/L BUN 14 (9-20) mg/dL Creatinine 0.73 (0.66-1.25) mg/dL Estimated GFR > 60.0 ML/MIN Glucose 142 H (74-106) mg/dL Calcium 8.4 (8.4-10.2) mg/dL - Radiology Exams Ordered Rad Exams-Entire Visit: Radiology Procedures Category Date Time Status ABDOMEN AND PELVIS W CONTRAST [CT] Urgent Exams 03/06/22 16:24 Completed Discharge Exam General Appearance: no apparent distress, obese Respiratory Exam: normal breath sounds, lungs clear, No respiratory distress Gastrointestinal/Abdomen Exam: soft, normal bowel sounds, No tenderness, No di stention, No guarding, No rebound Extremity Exam: normal inspection, normal range of motion Skin Exam: normal color, warm, dry Final Diagnosis/Problem List - Final Discharge Diagnosis/Problem (1) Diverticulitis Current Visit: Yes Status: Acute Assessment & Plan: home today on cipro and flagyl Code(s): K57.92 - DVTRCLI OF INTEST, PART UNSP, W/O PERF OR ABSCESS W/O BLEED - Discharge Disposition: Home, Self-Care Condition: Stable Prescriptions: New Ciprofloxacin [Cipro 500 MG] 500 mg PO BID #14 tablet Metronidazole 500 mg [Flagyl 500 MG] 500 mg PO TID #21 tablet Continue Ezetimibe 10 mg [Zetia 10 MG] 10 mg PO QHS Pantoprazole Sodium 40 mg PO QHS Pravastatin Sodium 40 mg PO QHS Follow up with: MAGGIE KELLY DO [Primary Care Provider] - 1 Week
[2022-03-08] MEDS: SENOKOT 8.6 MG PO SCH (09:36)
[2022-03-08] MEDS ORDERED: solu-MEDROL 60 MG, Sterile H2O 10 ml 2 ML IV SCH ×4 (10:00)
== END 2022-03-08 10:40 | disposition home or self-care (01) | DRG 392 ==
LOC: ED 22:27 → MED SURG 03-04 02:34 → OBSVTOIN 03-05 09:22 → MED SURG 03-07 19:53
PROVIDERS: ADMIT General Practice; ATTEND Family Medicine
DX: K57.92 Diverticulitis of intestine, part unspecified, without perforation or abscess without bleeding (principal); E78.00 Pure hypercholesterolemia, unspecified; K76.0 Fatty (change of) liver, not elsewhere classified; M51.36 Other intervertebral disc degeneration, lumbar region; R10.32 Left lower quadrant pain; Z20.828 Contact with and (suspected) exposure to other viral communicable diseases; Z79.899 Other long term (current) drug therapy
CPT/HCPCS: 0241U; 36415; 74177; 80048; 80053; 81015; 82150; 83690; 84484; 85025; 96374; 96375; 96376; 99285; G0378; J0696; J1170; J1885; J1956; J2270; J2405; J2930; J3010; A9270-GY

== ENCOUNTER 2022-03-30 19:06 | Emergency (ER) | payer OTHER ==
[2022-03-30 19:27] VITALS: O2SAT 98
--- NOTE | 2022-03-30 19:36 | ERPHSYRPT ---
- History of Present Illness Time Seen by Provider: 03/30/22 19:15 Historian: patient Exam Limitations: no limitations Patient Subjective Stated Complaint: C/O constant abdominal pain. He was inpatient at this hospital not too long ago for diverticulitis. Patient states he was sent here by Dr. Munroe due to he is unable to see the surgeon until May and he is still having constant abdominal pain/cramping. Started running a fever last night; highest of 100.4. States WBC still high last week when seeing Dr. Munroe. Triage Nursing Assessment: Patient ambulated back to ED without difficulties. He is alert and oriented and answering questions appropriately. Abdomen is soft and active bowel sounds are present. Physician History: 51-year-old male with history of diverticulitis was previously admitted and treated with IV antibiotics, scheduled for outpatient GI/general surgery follow- up presented to ER by primary care with off-and-on pain and still having diarrhea. Patient reports dull aching to sharp pain intermittently without any significant aggravating or relieving factors. More in the lower abdomen es pecially in the left lower but denies any hematochezia. No fever or chills reported. Timing/Duration: week(s), gradual onset, worse Activities at Onset: rest Quality: sharpness Abdominal Pain Onset Location: LLQ Severity of Pain-Max: moderate Severity of Pain-Current: moderate Modifying Factors: Improves With: nothing Associated Symptoms: diarrhea Previous symptoms: same symptoms as today Allergies/Adverse Reactions: marshmallow Allergy (Uncoded 03/30/22 19:17) Anaphylactic Reaction Home Medications: Ezetimibe 10 mg [Zetia 10 MG] 10 mg PO QHS 02/19/21 [History] Pravastatin Sodium 40 mg PO QHS 02/28/21 [History] Hx Tetanus, Diphtheria Vaccination/Date Given: Yes Hx Influenza Vaccination/Date Given: No Hx Pneumococcal Vaccination/Date Given: No Immunizations Up to Date: Yes Travel Risk - International Travel Have you traveled outside of the country in past 3 weeks: No - Coronavirus Screening Are you exhibiting any of the following symptoms?: No Close contact with a COVID-19 positive Pt in past 14-21 Days: No - Vaccine Status Have you recieved a Covid-19 vaccination: No Placement Specialist: [facility] - Vaccination Dates Date of 2cond Vaccination (if applicable): 08/2021 - Review of Systems Constitutional: No Symptoms Eyes: No Symptoms Ears, Nose, & Throat: No Symptoms Respiratory: No Symptoms Cardiac: No Symptoms Abdominal/Gastrointestinal: Abdominal Pain, Diarrhea Genitourinary Symptoms: No Symptoms Musculoskeletal: No Symptoms Skin: No Symptoms Neurological: No Symptoms Psychological: No Symptoms Endocrine: No Symptoms Hematologic/Lymphatic: No Symptoms Immunological/Allergic: No Symptoms - Past Medical History Pertinent Past Medical History: Yes Neurological History: No Pertinent History ENT History: No Pertinent History Cardiac History: High Cholesterol Respiratory History: No Pertinent History Endocrine Medical History: No Pertinent History Musculoskeletal History: Arthritis, Degenerative Disk Disease, Fractures GI Medical History: Diverticulitis, Gallbladder Disease, Other History: No Pertinent History Psycho-Social History: No Pertinent History Male Reproductive Disorders: No Pertinent History - Past Surgical History Past Surgical History: Yes Neuro Surgical History: No Pertinent History Cardiac: No Pertinent History Respiratory: No Pertinent History Gastrointestinal: Cholecystectomy Genitourinary: No Pertinent History Musculoskeletal: No Pertinent History, Orthopedic Surgery Male Surgical History: No Pertinent History Other Surgical History: right orbital reconsurction ,neck, cervical fusion, labral debridement - Social History Smoking Status: Former smoker How long have you smoked: 35 years Exposure to second hand smoke: No Drug Use: none Patient Lives Alone: No Significant Family History: no pertinent family hx - Nursing Vital Signs Nursing Vital Signs: Initial Vital Signs Temperature 98.4 F 03/30/22 19:18 Pulse Rate 98 H 03/30/22 19:18 Respiratory Rate 18 03/30/22 19:18 Blood Pressure 128/88 03/30/22 19:18 O2 Sat by Pulse Oximetry 98 03/30/22 19:18 Pain Scale Pain Intensity 3 - Physical Exam General Appearance: no apparent distress, alert Eye Exam: PERRL/EOMI Ears, Nose, Throat Exam: normal ENT inspection, pharynx normal Neck Exam: normal inspection, non-tender, supple, full range of motion Respiratory Exam: normal breath sounds, lungs clear Cardiovascular Exam: regular rate/rhythm, normal heart sounds Gastrointestinal/Abdomen Exam: soft, normal bowel sounds, tenderness (Left lower quadrant without guarding or rebound tenderness) Back Exam: normal inspection, normal range of motion Extremity Exam: normal inspection, normal range of motion Neurologic Exam: alert, oriented x 3, cooperative, normal mood/affect Skin Exam: normal color SpO2 Interpretation: normal SpO2: 98 O2 Delivery: Room Air Ordered Tests: Active Orders 24 hr Category Date Time Status IV Insertion STAT Care 03/30/22 19:38 Active CBC W DIFF Stat Lab 03/30/22 19:40 Completed CMP Stat Lab 03/30/22 19:40 Completed LIPASE Stat Lab 03/30/22 19:40 Completed Lactic Acid Stat Lab 03/30/22 19:38 Completed PROCALCITONIN Stat Lab 03/30/22 19:40 Completed Medication Summary Discontinued Medications Generic Name Dose Route Start Last Admin Trade Name Bal PRN Reason Stop Dose Admin Amoxicillin/Clavulanate Potassium 875 mg 03/30/22 21:00 03/30/22 21:05 Amox Tr/Potassium Clavulanate 875 Mg Tablet PO 03/30/22 21:01 875 mg STAT ONE Administration Amoxicillin/Clavulanate Potassium Confirm 03/30/22 21:04 Amox Tr/Potassium Clavulanate 875 Mg Tablet Administered 03/30/22 21:05 Dose 875 mg .ROUTE .STK-MED ONE Sodium Chloride 1,000 mls @ 999 mls/hr 03/30/22 19:38 03/30/22 21:30 Sodium Chloride 0.9% 1000 Ml IV 03/30/22 20:38 Infused .Q1H1M STA Infusion Sodium Chloride Confirm 03/30/22 19:50 Sodium Chloride 0.9% 1000 Ml Administered 03/30/22 19:51 Dose 1,000 mls @ ud .ROUTE .STK-MED ONE Lab/Rad Data: Laboratory Result Diagrams 03/30/22 19:40 03/30/22 19:40 Laboratory Results 03/30/22 03/30/22 03/30/22 Range/Units 19:40 19:40 19:40 WBC 8.9 (4.0-10.5) x10^3/uL RBC 4.35 (4.1-5.6) x10^6/uL Hgb 13.6 (12.5-18.0) g/dL Hct 40.3 L (42-50) % MCV 92.6 (78-100) fL MCH 31.3 (26-32) pg MCHC 33.7 (32-36) g/dL RDW 12.9 (11.5-14.0) % Plt Count 443 (150-450) x10^3/uL MPV 9.4 (7.5-11.0) fL Gran % 71.9 H (36.0-66.0) % Immature Gran % (Auto) 0.8 H (0.00-0.4) % Nucleat RBC Rel Count 0.0 (0.00-0.1) % Eos # (Auto) 0.09 (0-0.5) x10^3/uL Immature Gran # (Auto) 0.07 H (0.00-0.03) x10^3u/L Absolute Lymphs (auto) 1.59 (1.0-4.6) x10^3/uL Absolute Monos (auto) 0.68 (0.0-1.3) x10^3/uL Absolute Nucleated RBC 0.00 (0.00-0.01) x10^3u/L Lymphocytes % 17.9 L (24.0-44.0) % Monocytes % 7.7 (0.0-12.0) % Eosinophils % 1.0 (0.00-5.0) % Basophils % 0.7 (0.0-0.4) % Absolute Granulocytes 6.39 (1.4-6.9) x10^3/uL Basophils # 0.06 (0-0.4) x10^3/uL Sodium 138 (137-145) mmol/L Potassium 4.8 (3.5-5.1) mmol/L Chloride 102 (98-107) mmol/L Carbon Dioxide 24 (22-30) mmol/L Anion Gap 16.1 H (5-15) MEQ/L BUN 9 (9-20) mg/dL Creatinine 0.93 (0.66-1.25) mg/dL Estimated GFR > 60.0 ML/MIN Glucose 85 (74-106) mg/dL Lactic Acid (0.4-2.0) Calcium 9.4 (8.4-10.2) mg/dL Total Bilirubin 0.70 (0.2-1.3) mg/dL AST 28 (17-59) U/L ALT 29 (0-50) U/L Alkaline Phosphatase 89 (38-126) U/L Serum Total Protein 6.8 (6.3-8.2) g/dL Albumin 3.8 (3.5-5.0) g/dL Lipase 90 (23-300) U/L Procalcitonin 0.070 (0.030-0.080) ng/mL 03/30/22 Range/Units 19:38 WBC (4.0-10.5) x10^3/uL RBC (4.1-5.6) x10^6/uL Hgb (12.5-18.0) g/dL Hct (42-50) % MCV (78-100) fL MCH (26-32) pg MCHC (32-36) g/dL RDW (11.5-14.0) % Plt Count (150-450) x10^3/uL MPV (7.5-11.0) fL Gran % (36.0-66.0) % Immature Gran % (Auto) (0.00-0.4) % Nucleat RBC Rel Count (0.00-0.1) % Eos # (Auto) (0-0.5) x10^3/uL Immature Gran # (Auto) (0.00-0.03) x10^3u/L Absolute Lymphs (auto) (1.0-4.6) x10^3/uL Absolute Monos (auto) (0.0-1.3) x10^3/uL Absolute Nucleated RBC (0.00-0.01) x10^3u/L Lymphocytes % (24.0-44.0) % Monocytes % (0.0-12.0) % Eosinophils % (0.00-5.0) % Basophils % (0.0-0.4) % Absolute Granulocytes (1.4-6.9) x10^3/uL Basophils # (0-0.4) x10^3/uL Sodium (137-145) mmol/L Potassium (3.5-5.1) mmol/L Chloride (98-107) mmol/L Carbon Dioxide (22-30) mmol/L Anion Gap (5-15) MEQ/L BUN (9-20) mg/dL Creatinine (0.66-1.25) mg/dL Estimated GFR ML/MIN Glucose (74-106) mg/dL Lactic Acid 0.9 (0.4-2.0) Calcium (8.4-10.2) mg/dL Total Bilirubin (0.2-1.3) mg/dL AST (17-59) U/L ALT (0-50) U/L Alkaline Phosphatase (38-126) U/L Serum Total Protein (6.3-8.2) g/dL Albumin (3.5-5.0) g/dL Lipase (23-300) U/L Procalcitonin (0.030-0.080) ng/mL - Progress Progress: improved Progress Note: 03/30/22 21:25 51-year-old is evaluated for intermittent lower abdominal pain. Does not have any guarding or rebound tenderness in the left lower quadrant. Normal white count, grossly unremarkable chemistries. Given fluids. Does not want pain medication. Do not think another CT imaging and discussed with Dr. Rose, recommended starting on Augmentin. He is given first dose in here and will continue to go home. Discussed signs symptoms of worsening needing return to ER which he seems understanding. Stable for discharge. Discussed with .: Emmanuel Counseled pt/family regarding: lab results, diagnosis, need for follow-up - Departure Departure Disposition: Home Clinical Impression: Diverticulitis Condition: Stable Critical Care Time: No Referrals: MAGGIE MUNROE DO [Primary Care Provider] - Follow Up with PCP/3 days Instructions: Diverticulitis (DC) Additional Instructions: Take Tylenol/ibuprofen as needed. Follow-up with primary care for reevaluation. Return to ER for worsening abdominal pain, diarrhea or if develop fever chills etc. Prescriptions: Ibuprofen 600 mg PO Q6HPRN PRN 10 Days #20 tablet PRN Reason: Pain Amox Tr/Potass Clav. 875 mg [Augmentin 875-125 Tablet] 875 mg PO BID #14 tablet
[2022-03-30] MEDS ORDERED: Sodium Chloride 0.9% 1000 ML 1,000 ML IV STA (19:38)
[2022-03-30 19:43] LABS: Absolute Neutrophil Ct (ANC) 6.39 x10^3/uL (1.4-6.9); Basophil (Absolute #) 0.06 x10^3/uL (0-0.4); Eosinophil (Absolute #) 0.09 x10^3/uL (0-0.5); Hematocrit 40.3 % (42-50); Hemoglobin 13.6 g/dL (12.5-18.0); Lymphocyte (Absolute #) 1.59 x10^3/uL (1.0-4.6); Lymphocytes % 17.9 % (24.0-44.0); Mean Cell Volume 92.6 fL (78-100); Mean Corpuscular Hemoglobin 31.3 pg (26-32); Mean Corpuscular Hgb Concent. 33.7 g/dL (32-36); Mean Platelet Volume 9.4 fL (7.5-11.0); Monocyte (Absolute #) 0.68 x10^3/uL (0.0-1.3); Monocytes % 7.7 % (0.0-12.0); Neutrophil % 71.9 % (36.0-66.0); Platelet Count 443 x10^3/uL (150-450); Red Blood Count 4.35 x10^6/uL (4.1-5.6); Red Cell Distribution Width 12.9 % (11.5-14.0); White Blood Count 8.9 x10^3/uL (4.0-10.5)
[2022-03-30] MEDS ORDERED: Sodium Chloride 0.9% 1000 ML 1,000 ML ONE (19:50)
[2022-03-30 19:53] LABS: ALBUMIN 3.8 g/dL (3.5-5.0); ALKALINE PHOSPHATASE 89 U/L (38-126); ANION GAP 16.1 MEQ/L (5-15); BLOOD UREA NITROGEN 9 mg/dL (9-20); CHLORIDE 102 mmol/L (98-107); Calcium 9.4 mg/dL (8.4-10.2); Carbon Dioxide 24 mmol/L (22-30); Creatinine 1 0.93 mg/dL (0.66-1.25); EST GLOMERULAR FILTRATION RATE > 60.0 ML/MIN; Glucose 85 mg/dL (74-106); LIPASE 90 U/L (23-300); Potassium 4.8 mmol/L (3.5-5.1); SGOT/AST 28 U/L (17-59); SGPT/ALT 29 U/L (0-50); SODIUM 138 mmol/L (137-145); Total Protein 6.8 g/dL (6.3-8.2)
[2022-03-30] MEDS ORDERED: Augmentin 875-125 Tablet PO ONE (21:00)
[2022-03-30] MEDS ORDERED: Augmentin 875-125 Tablet ONE (21:04)
[2022-03-30 21:12] VITALS: BP 120/81; PULSE 71
== END 2022-03-30 21:30 | disposition home or self-care (01) ==
LOC: ED 19:06
DX: K57.92 Diverticulitis of intestine, part unspecified, without perforation or abscess without bleeding (principal); R10.32 Left lower quadrant pain; R19.7 Diarrhea, unspecified; E78.5 Hyperlipidemia, unspecified
CPT/HCPCS: 36000; 36415; 80053; 83605; 83690; 84145; 85025; 99284; A9270-GY

== ENCOUNTER 2022-05-22 14:49 | Emergency (ER) | payer OTHER ==
[2022-05-22 15:11] VITALS: O2SAT 98
[2022-05-22] MEDS ORDERED: Zofran 4 MG/2 ML VIAL ONE (15:19)
[2022-05-22] MEDS ORDERED: Hydromorphone 1 mg/ml Injection ONE (15:19)
[2022-05-22] MEDS ORDERED: PIPERACILLIN/TAZOBACTAM IV ONE (15:19)
[2022-05-22] MEDS ORDERED: Sodium Chloride 0.9% 1000 ML 1,000 ML ONE (15:20)
[2022-05-22] MEDS ORDERED: Sodium Chloride 100ML MINI-BAG PLUS 100 ML IV ONE (15:21)
[2022-05-22] MEDS: PIPERACILLIN/TAZOBACTAM 4.5 GM in Sodium Chloride 100ML MINI-BAG PLUS 100 ML IV ONE (15:24)
[2022-05-22] MEDS: Sodium Chloride 0.9% 1000 ML 1,000 ML IV STA (15:24)
[2022-05-22] MEDS: Zofran 4 MG/2 ML VIAL IV ONE (15:24)
[2022-05-22] MEDS: Hydromorphone 1 mg/ml Injection IV ONE (15:24)
[2022-05-22 15:27] LABS: Absolute Neutrophil Ct (ANC) 9.84 x10^3/uL (1.4-6.9); Basophil (Absolute #) 0.08 x10^3/uL (0-0.4); Eosinophil % 0.9 % (0.00-5.0); Eosinophil (Absolute #) 0.11 x10^3/uL (0-0.5); Hematocrit 43.9 % (42-50); Hemoglobin 14.8 g/dL (12.5-18.0); Lymphocyte (Absolute #) 1.49 x10^3/uL (1.0-4.6); Lymphocytes % 11.8 % (24.0-44.0); Mean Cell Volume 91.8 fL (78-100); Mean Corpuscular Hgb Concent. 33.7 g/dL (32-36); Mean Platelet Volume 9.3 fL (7.5-11.0); Monocyte (Absolute #) 1.02 x10^3/uL (0.0-1.3); Monocytes % 8.1 % (0.0-12.0); Platelet Count 406 x10^3/uL (150-450); Red Blood Count 4.78 x10^6/uL (4.1-5.6); Red Cell Distribution Width 13.2 % (11.5-14.0); White Blood Count 12.6 x10^3/uL (4.0-10.5)
--- NOTE | 2022-05-22 15:37 | ERPHSYRPT ---
- History of Present Illness Time Seen by Provider: 05/22/22 15:05 Historian: patient Exam Limitations: no limitations Patient Subjective Stated Complaint: several abdominal pain - hx of diverticulitis and colonoscopy scheduled for 05/27/22 -pt also reports possible blood in stool Triage Nursing Assessment: pt reports abdominal pain to left lower quadrant, abdomen soft, round and non tender with palpation. bowel sounds active x 4 Physician History: Patient is a 52-year-old white male who has a long history of diverticulitis who presents with abdominal pain. Pain is primarily in the left lower quadrant he has noticed what might have been a small amount of blood in his stool. His last CT was approximately 2 months ago he has not been on any recent antibiotics. He has had some fever and sweats. He is scheduled for a colonoscopy with Dr. Mcdonald on Friday. Timing/Duration: week(s) (4) Activities at Onset: none Quality: cramping, throbbing Abdominal Pain Onset Location: LLQ Pain Radiation: groin Severity of Pain-Max: severe Severity of Pain-Current: moderate Modifying Factors: Improves With: nothing Previous symptoms: same symptoms as today Allergies/Adverse Reactions: marshmallow Allergy (Uncoded 03/30/22 19:17) Anaphylactic Reaction Home Medications: Ezetimibe 10 mg [Zetia 10 MG] 10 mg PO QHS 02/19/21 [History] Pravastatin Sodium 40 mg PO QHS 02/28/21 [History] Hx Tetanus, Diphtheria Vaccination/Date Given: Yes Hx Influenza Vaccination/Date Given: No Hx Pneumococcal Vaccination/Date Given: No Travel Risk - International Travel Have you traveled outside of the country in past 3 weeks: No - Coronavirus Screening Are you exhibiting any of the following symptoms?: No Close contact with a COVID-19 positive Pt in past 14-21 Days: No - Vaccine Status Have you recieved a Covid-19 vaccination: Yes Master Esthetician: Desti - Vaccination Dates Date of 2cond Vaccination (if applicable): 08/14/2021 - Review of Systems Constitutional: No Fever, No Chills Eyes: No Symptoms Ears, Nose, & Throat: No Symptoms Respiratory: No Cough, No Dyspnea Cardiac: No Chest Pain, No Edema, No Syncope Abdominal/Gastrointestinal: Abdominal Pain, No Nausea, No Vomiting, No Diarrhea Genitourinary Symptoms: No Dysuria Musculoskeletal: No Back Pain, No Neck Pain Skin: No Rash Neurological: No Dizziness, No Focal Weakness, No Sensory Changes Psychological: No Symptoms Endocrine: No Symptoms All Other Systems: Reviewed and Negative - Past Medical History Pertinent Past Medical History: Yes Neurological History: No Pertinent History ENT History: No Pertinent History Cardiac History: High Cholesterol Respiratory History: No Pertinent History Endocrine Medical History: No Pertinent History Musculoskeletal History: Arthritis, Degenerative Disk Disease, Fractures GI Medical History: Diverticulitis, Gallbladder Disease, Other History: No Pertinent History Psycho-Social History: No Pertinent History Male Reproductive Disorders: No Pertinent History - Past Surgical History Past Surgical History: Yes Neuro Surgical History: No Pertinent History Cardiac: No Pertinent History Respiratory: No Pertinent History Gastrointestinal: Cholecystectomy Genitourinary: No Pertinent History Musculoskeletal: No Pertinent History, Orthopedic Surgery Male Surgical History: No Pertinent History Other Surgical History: right orbital reconsurction ,neck, cervical fusion, labral debridement - Social History Smoking Status: Former smoker How long have you smoked: 35 years Exposure to second hand smoke: No Drug Use: none Patient Lives Alone: No Significant Family History: no pertinent family hx - Nursing Vital Signs Nursing Vital Signs: Initial Vital Signs Temperature 97.3 F 05/22/22 15:00 Pulse Rate 97 H 05/22/22 15:00 Blood Pressure 129/88 05/22/22 15:00 O2 Sat by Pulse Oximetry 98 05/22/22 15:00 Pain Scale Pain Intensity 6 - Physical Exam General Appearance: mild distress, alert Eye Exam: PERRL/EOMI, eyes nml inspection Ears, Nose, Throat Exam: normal ENT inspection, pharynx normal, moist mucous membranes Neck Exam: normal inspection, non-tender, supple, full range of motion Respiratory Exam: normal breath sounds, lungs clear, No respiratory distress Cardiovascular Exam: regular rate/rhythm, normal heart sounds Gastrointestinal/Abdomen Exam: tenderness (Left lower quadrant), guarding, rebound, No mass Male Genitalia Exam: normal genitalia Rectal Exam: deferred Back Exam: normal inspection, normal range of motion, No CVA tenderness, No vertebral tenderness Extremity Exam: normal inspection, normal range of motion, pelvis stable Neurologic Exam: alert, oriented x 3, cooperative, normal mood/affect, nml cerebellar function, sensation nml, No motor deficits Skin Exam: normal color, warm, dry SpO2 Interpretation: normal SpO2: 98 O2 Delivery: Room Air - Course Nursing assessment & vital signs reviewed: Yes - CT Exams Abdomen/Pelvis CT Interpretation: Other (Mild diverticulitis with no complications no abscess no perforations.) Ordered Tests: Active Orders 24 hr Category Date Time Status IV Insertion STAT Care 05/22/22 15:11 Active ABDOMEN AND PELVIS W CONTRAST [CT] Stat Exams 05/22/22 15:12 Completed AMYLASE Stat Lab 05/22/22 15:15 Completed CBC W DIFF Stat Lab 05/22/22 15:15 Completed CMP Stat Lab 05/22/22 15:15 Completed FECAL OCCULT BLOOD - SCREENING Stat Lab 05/22/22 15:11 Ordered LIPASE Stat Lab 05/22/22 15:15 Completed Lactic Acid Stat Lab 05/22/22 15:15 Completed UA W/RFX CULTURE Stat Lab 05/22/22 Ordered Medication Summary Discontinued Medications Generic Name Dose Route Start Last Admin Trade Name Freq PRN Reason Stop Dose Admin Hydromorphone HCl 1 mg 05/22/22 15:11 05/22/22 15:24 Hydromorphone 1 Mg/1ml Inj 1 Mg/Ml Syringe IV 05/22/22 15:12 1 mg STAT ONE Administration Hydromorphone HCl Confirm 05/22/22 15:19 Hydromorphone 1 Mg/1ml Inj 1 Mg/Ml Syringe Administered 05/22/22 15:20 Dose 1 mg .ROUTE .STK-MED ONE Sodium Chloride 1,000 mls @ 999 mls/hr 05/22/22 15:11 05/22/22 16:36 Sodium Chloride 0.9% 1000 Ml IV 05/22/22 16:11 Infused .Q1H1M STA Infusion Piperacillin Sod/Tazobactam 100 mls @ 200 mls/hr 05/22/22 15:14 05/22/22 15:24 Sod 4.5 gm/ Sodium Chloride IV 05/22/22 15:43 200 mls/hr STAT ONE Administration Sodium Chloride Confirm 05/22/22 15:20 Sodium Chloride 0.9% 1000 Ml Administered 05/22/22 15:21 Dose 1,000 mls @ ud .ROUTE .STK-MED ONE Sodium Chloride Confirm 05/22/22 15:21 Sodium Chloride 100ml Mini-Bag Plus Administered 05/22/22 15:22 Dose 100 mls @ ud IV .STK-MED ONE Ondansetron HCl 4 mg 05/22/22 15:11 05/22/22 15:24 Ondansetron Hcl 4 Mg/2 Ml Vial IV 05/22/22 15:12 4 mg STAT ONE Administration Ondansetron HCl Confirm 05/22/22 15:19 Ondansetron Hcl 4 Mg/2 Ml Vial Administered 05/22/22 15:20 Dose 4 mg .ROUTE .STK-MED ONE Piperacillin Sod/Tazobactam Sod Confirm 05/22/22 15:19 Piperacillin/Tazobactam Sodium 4.5 Gm Vial Administered 05/22/22 15:20 Dose 4.5 gm IV .STK-MED ONE Lab/Rad Data: Laboratory Result Diagrams 05/22/22 15:15 05/22/22 15:15 Laboratory Results 05/22/22 05/22/22 05/22/22 Range/Units 15:15 15:15 15:15 WBC 12.6 H (4.0-10.5) x10^3/uL RBC 4.78 (4.1-5.6) x10^6/uL Hgb 14.8 (12.5-18.0) g/dL Hct 43.9 (42-50) % MCV 91.8 (78-100) fL MCH 31.0 (26-32) pg MCHC 33.7 (32-36) g/dL RDW 13.2 (11.5-14.0) % Plt Count 406 (150-450) x10^3/uL MPV 9.3 (7.5-11.0) fL Gran % 78.0 H (36.0-66.0) % Immature Gran % (Auto) 0.6 H (0.00-0.4) % Nucleat RBC Rel Count 0.0 (0.00-0.1) % Eos # (Auto) 0.11 (0-0.5) x10^3/uL Immature Gran # (Auto) 0.08 H (0.00-0.03) x10^3u/L Absolute Lymphs (auto) 1.49 (1.0-4.6) x10^3/uL Absolute Monos (auto) 1.02 (0.0-1.3) x10^3/uL Absolute Nucleated RBC 0.00 (0.00-0.01) x10^3u/L Lymphocytes % 11.8 L (24.0-44.0) % Monocytes % 8.1 (0.0-12.0) % Eosinophils % 0.9 (0.00-5.0) % Basophils % 0.6 (0.0-0.4) % Absolute Granulocytes 9.84 H (1.4-6.9) x10^3/uL Basophils # 0.08 (0-0.4) x10^3/uL Sodium 136 L (137-145) mmol/L Potassium 4.4 (3.5-5.1) mmol/L Chloride 103 (98-107) mmol/L Carbon Dioxide 25 (22-30) mmol/L Anion Gap 13.0 (5-15) MEQ/L BUN 10 (9-20) mg/dL Creatinine 1.04 (0.66-1.25) mg/dL Estimated GFR > 60.0 ML/MIN Glucose 99 (74-106) mg/dL Lactic Acid 0.8 (0.4-2.0) Calcium 9.2 (8.4-10.2) mg/dL Total Bilirubin 0.80 (0.2-1.3) mg/dL AST 30 (17-59) U/L ALT 29 (0-50) U/L Alkaline Phosphatase 104 (38-126) U/L Serum Total Protein 7.5 (6.3-8.2) g/dL Albumin 4.1 (3.5-5.0) g/dL Amylase 117 H (30-110) U/L Lipase 168 (23-300) U/L - Progress Progress: unchanged - Departure Departure Disposition: Home Clinical Impression: Diverticulitis Condition: Stable Critical Care Time: No Referrals: MAGGIE KELLY DO [Primary Care Provider] - Follow up/PCP as directed Instructions: Diverticulitis (DC) Forms: Work/School Release Form Prescriptions: Hydrocodone/Acetaminophen [Hydrocodone-Acetamin 5-325 mg] 1 tab PO Q6HPRN PRN 10 Days #20 tablet MDD 4 PRN Reason: Pain Amox Tr/Potass Clav. 875 mg [Augmentin 875-125 Tablet] 875 mg PO BID 10 Days #20 tablet Metronidazole 500 mg [Flagyl 500 MG] 500 mg PO TID #21 tablet
[2022-05-22 15:39] LABS: ALBUMIN 4.1 g/dL (3.5-5.0); ALKALINE PHOSPHATASE 104 U/L (38-126); AMYLASE 117 U/L (30-110); BLOOD UREA NITROGEN 10 mg/dL (9-20); CHLORIDE 103 mmol/L (98-107); Calcium 9.2 mg/dL (8.4-10.2); Carbon Dioxide 25 mmol/L (22-30); Creatinine 1 1.04 mg/dL (0.66-1.25); EST GLOMERULAR FILTRATION RATE > 60.0 ML/MIN; Glucose 99 mg/dL (74-106); LIPASE 168 U/L (23-300); Potassium 4.4 mmol/L (3.5-5.1); SGOT/AST 30 U/L (17-59); SGPT/ALT 29 U/L (0-50); SODIUM 136 mmol/L (137-145); Total Protein 7.5 g/dL (6.3-8.2)
--- NOTE | 2022-05-22 16:35 | XRAY ---
Indication: Left lower quadrant pain and nausea 2 days. History diverticulitis. Multiple contiguous axial images obtained through the abdomen and pelvis using 80 cc Isovue 370 contrast. Comparison: March 06, 2022 Lung bases again demonstrates mild dependent atelectasis more than before. Heart not enlarged. Noncontrasted stomach and bowel loops remain nonobstructed. Stable duodenal diverticulum. Normal appendix. Again scattered colonic diverticulosis. Distal descending and proximal sigmoid colon demonstrates new mild diverticulitis. No free fluid/air. Again incidental fatty liver, hepatic cysts, right renal cyst, right urinary bladder diverticulum, and cholecystectomy clips. Remaining liver, pancreas, spleen, adrenal glands, kidneys, ureters, bladder, and aorta are unremarkable. No pathologic retroperitoneal lymphadenopathy. Impression: 1. Again diffuse colonic diverticulosis with new mild diverticulitis distal descending and proximal sigmoid colon without complications. 2. Stable chronic findings including duodenal diverticulum, hepatic cyst, right renal cyst, and urinary bladder diverticulum.
[2022-05-22 17:13] VITALS: BP 115/81; PULSE 73
[2022-05-22 17:18] LABS: Epithelial Cells RARE /HPF (FEW); Mucus SLIGHT /HPF (NEGATIVE); RBC 0-2 /HPF (0-2)
[2022-05-22 17:20] LABS: Appearance CLEAR (CLEAR); Bilirubin NEGATIVE (NEGATIVE); Glucose NEGATIVE (NEGATIVE); Ketones NEGATIVE (NEGATIVE); Specific Gravity 1.015 (1.005-1.025)
[2022-05-22 17:21] LABS: Dipstick done @ ? MAIN LAB; Nitrite NEGATIVE (NEGATIVE); Ph 7.5 (5-6); Protein,Urine Dip NEGATIVE (Negative); RBC NEGATIVE Ery/ul (0-5); Urine Cultured Indicated? NO; Urobilinogen 0.2 mg/dL (0-1)
== END 2022-05-22 17:19 | disposition home or self-care (01) ==
LOC: ED 14:49
DX: K57.92 Diverticulitis of intestine, part unspecified, without perforation or abscess without bleeding (principal); R10.32 Left lower quadrant pain; E78.5 Hyperlipidemia, unspecified; Z79.891 Long term (current) use of opiate analgesic; Z79.899 Other long term (current) drug therapy
CPT/HCPCS: 36000; 36415; 74177; 80053; 81015; 82150; 83605; 83690; 85025; 96360; 96374; 96375; 99284; J1170; J2405; J2543

== ENCOUNTER 2022-05-27 09:22 | Day surgery (SDC) | payer OTHER ==
--- NOTE | 2022-05-27 08:59 | HP ---
DATE OF SURGERY: 05/27/2022 HISTORY OF PRESENT ILLNESS: The patient is a 52-year-old with some abdominal pain. He was hospitalized for diverticulitis a couple of months ago. He took some antibiotics two or three rounds. No recent colonoscopy. No bloody stools. Family history negative for colon cancer, negative for ulcerative colitis. He is in need of colonoscopy follow up prior to considering if he is a candidate for surgical intervention regarding his diverticular disease. PAST MEDICAL HISTORY: Hyperlipidemia. PAST SURGICAL HISTORY: Cholecystectomy in the past. Right orbital reconstruction in the past. MEDICATIONS: Pravastatin, Zetia. ALLERGIES: NKDA. MARSHMALLOW. FAMILY HISTORY: Heart disease. SOCIAL HISTORY: Occasional alcohol use denies abuse. REVIEW OF SYSTEMS: Fourteen systems reviewed. No chest pain or palpitations. Other systems negative or noncontributory as above and per preadmission questionnaire. PHYSICAL EXAMINATION: GENERAL: No acute distress. HEENT: Sclerae nonicteric. NECK: No JVD. CHEST: Equal excursion, nonlabored breathing. CVS: Regular rate and rhythm. ABDOMEN: Soft. No peritoneal signs. Mild tenderness. EXTREMITIES: No significant edema. NEURO: Alert, oriented, moving extremities symmetrically. RECTAL: Deferred timed to endoscopy exam. PSYCH: Appropriate mood and affect. IMPRESSION: History of hospitalization for diverticular disease. No recent colonoscopy. History of some left-sided abdominal pain. He is in need of colonoscopy for further evaluation prior to considering if he is a candidate for intervention regarding his diverticular disease. Risks are explained in detail for colonoscopy. Risk of bleeding or infection, risk of bowel injury or perforation possibly requiring further procedure, risk of missed or nondiagnosis or incomplete exam, possibly requiring barium enema, other studies or procedures, general risk of anesthesia or sedation, risk of bowel prep or sedation but not limited to, consent obtained. Will proceed with outpatient colonoscopy under MAC anesthesia.
[2022-05-27] MEDS: Lactated Ringers 1,000 ML IV SCH (10:15)
[2022-05-27] MEDS ORDERED: DIPRIVAN 200 MG/20 ML IV ONE ×2 (11:26→11:38)
[2022-05-27] MEDS ORDERED: Versed 2 MG/2 ML Injection ONE (11:26)
[2022-05-27 12:35] VITALS: BP 113/88; PULSE 59; O2SAT 97
--- NOTE | 2022-05-27 14:54 | OP ---
SURGERY DATE/TIME: 05/27/2022 1125 PREOPERATIVE DIAGNOSIS: History of abdominal pain, history of diverticular disease, need for colonoscopy prior to considering whether he is a candidate for intervention regarding his diverticular disease. POSTOPERATIVE DIAGNOSES: 1) ASA Class II. 2) Limited bowel prep limiting the exam. 3) Pancolonic diverticulosis. 4) Small rectal polyp. 5) Slight erythema sigmoid colon. PROCEDURES: 1) Colonoscopy to cecum with hot biopsy polypectomy of very small early rectal polyp. 2) Random cold biopsies left colon to evaluate for microscopic colitis. SURGEON: Dr. Sánchez Marquez. ANESTHESIA: MAC. ESTIMATED BLOOD LOSS: Minimal. INDICATIONS: As noted above. Risks and benefits explained in detail but not limited to and consent obtained. DESCRIPTION OF PROCEDURE AND FINDINGS: The patient is taken to the endoscopy room. MAC anesthesia induced. After official time out and no disagreement with planned procedure, digital rectal exam did not reveal any rectal masses. Video colonoscope inserted and passed up through the slightly tortuous sigmoid, descending, transverse and ascending colon around to cecum. Appendiceal orifice and valve well visualized and photo documented. Prep overall was limited, had a large amount of liquidy semisolid stool suctioned irrigated as clear as possible but did limit the exam for very small to medium lesions. There were no signs of any obstructing lesions. It should also be noted that he did have diverticulosis throughout his entire colon. It was not simply isolated to the sigmoid area. He did have pancolonic diverticulosis. His ASA Class is II. The scope is slowly withdrawn over the next nine minutes. Suctioning liquidy stool as well as possible but did limit the exam for very small to medium lesions. Again, there were no signs of any large mass or obstructing lesion on slow careful withdrawal of the scope. He did have just some slight erythema that may be simply related to prep in the sigmoid colon, some random cold biopsies in the left colon to evaluate for other cause of his aches and pains other than diverticular to evaluate for microscopic colitis, to evaluate for other potential causes of his aches and pains other than the diverticular disease. Good hemostasis was noted. Scope pulled back in the rectum. He had a small 1.5 mm early polyp versus hyperplastic lesion removed with hot biopsy forceps with brief bursts of cautery. Good hemostasis noted. Findings discussed with the family out in the waiting area. I will see him back in the office next week.
== END 2022-05-27 12:40 | disposition home or self-care (01) ==
LOC: SDC 09:22
PROVIDERS: ATTEND Surgery
DX: K57.30 Diverticulosis of large intestine without perforation or abscess without bleeding (principal); R10.84 Generalized abdominal pain; K57.92 Diverticulitis of intestine, part unspecified, without perforation or abscess without bleeding; K63.89 Other specified diseases of intestine; D12.8 Benign neoplasm of rectum
CPT/HCPCS: J2250; J2704

== ENCOUNTER 2022-05-29 15:34 | Observation (INO) | payer OTHER ==
[2022-05-29 18:01] LABS: Absolute Neutrophil Ct (ANC) 7.81 x10^3/uL (1.4-6.9); Basophil (Absolute #) 0.06 x10^3/uL (0-0.4); Hematocrit 42.3 % (42-50); Hemoglobin 13.9 g/dL (12.5-18.0); Lymphocytes % 14.6 % (24.0-44.0); Mean Corpuscular Hemoglobin 30.5 pg (26-32); Mean Corpuscular Hgb Concent. 32.9 g/dL (32-36); Mean Platelet Volume 9.2 fL (7.5-11.0); Monocyte (Absolute #) 0.75 x10^3/uL (0.0-1.3); Monocytes % 7.3 % (0.0-12.0); Neutrophil % 76.1 % (36.0-66.0); Platelet Count 401 x10^3/uL (150-450); Red Blood Count 4.55 x10^6/uL (4.1-5.6); Red Cell Distribution Width 13.2 % (11.5-14.0); White Blood Count 10.3 x10^3/uL (4.0-10.5)
[2022-05-29] MEDS ORDERED: SUBLIMAZE 100 MCG/2 ML IV ONE ×2 (18:23→20:18)
[2022-05-29] MEDS ORDERED: Zofran 4 MG/2 ML VIAL IV ONE (18:23)
[2022-05-29 18:26] LABS: ALBUMIN 3.8 g/dL (3.5-5.0); ALKALINE PHOSPHATASE 88 U/L (38-126); AMYLASE 73 U/L (30-110); ANION GAP 13.8 MEQ/L (5-15); BLOOD UREA NITROGEN 8 mg/dL (9-20); CHLORIDE 102 mmol/L (98-107); Calcium 9.2 mg/dL (8.4-10.2); Carbon Dioxide 23 mmol/L (22-30); Creatinine 1 0.94 mg/dL (0.66-1.25); EST GLOMERULAR FILTRATION RATE > 60.0 ML/MIN; Glucose 89 mg/dL (74-106); LIPASE 59 U/L (23-300); Potassium 4.4 mmol/L (3.5-5.1); SGOT/AST 28 U/L (17-59); SGPT/ALT 36 U/L (0-50); SODIUM 135 mmol/L (137-145); Total Protein 6.7 g/dL (6.3-8.2)
[2022-05-29] MEDS ORDERED: SUBLIMAZE 100 MCG/2 ML ONE ×2 (18:29→20:35)
--- NOTE | 2022-05-29 18:29 | ERPHSYRPT ---
- History of Present Illness Historian: patient Exam Limitations: no limitations Patient Subjective Stated Complaint: BEEN HAVING SEVERE ABDOMINAL PAIN/STABBING, HAD COLONOSCOPY ON FRIDAY AT [facility], BEEN BATTLING WITH DIVERTICULITIS Triage Nursing Assessment: PT AMBULATED BACK TO ROOM UNASSISTED, HOLDING ABDOMEN, PT IS ALERT AND ORIENTED X 3, ABDOMINAL PAIN 10/10, TENDER TO THE TOUCH, PT HAS NAUSEA WITH NO VOMITING, PT STATES HE HAS A HISTORY OF DIVERTIVULITIS WITH RECENT COLONOSCOPY. Physician History: 52 yo wm w abdominal pain since march but worse since colonoscopy per Dr. Mcdonald 2 days ago. Pt has a recent h/o diverticulitis and was recently on Augmentin. He has had nausea but denies V/D/melena/hematochezia. Pt has had mild dysurea wo hematuria. Pain is 10 on scale and described as aching and sharp.It is mainly in the LLQ, but it is also RLQ. Timing/Duration: other (March, worse since colonoscopy 2 days ago) Quality: aching, sharpness Abdominal Pain Onset Location: LLQ Pain Radiation: no radiation Severity of Pain-Max: severe Severity of Pain-Current: severe Modifying Factors: Improves With: nothing Associated Symptoms: denies symptoms, nausea Previous symptoms: same symptoms as today Allergies/Adverse Reactions: marshmallow Allergy (Severe, Uncoded 05/29/22 17:21) Anaphylactic Reaction Home Medications: Ezetimibe 10 mg [Zetia 10 MG] 10 mg PO QHS 02/19/21 [History] Pravastatin Sodium 40 mg PO QHS 02/28/21 [History] Hx Tetanus, Diphtheria Vaccination/Date Given: No Hx Influenza Vaccination/Date Given: No Hx Pneumococcal Vaccination/Date Given: No Travel Risk - International Travel Have you traveled outside of the country in past 3 weeks: No - Coronavirus Screening Are you exhibiting any of the following symptoms?: No Close contact with a COVID-19 positive Pt in past 14-21 Days: No - Vaccine Status Have you recieved a Covid-19 vaccination: No Optometry Professor: Pfizer - Vaccination Dates Date of 2cond Vaccination (if applicable): 08/14/2021 - Review of Systems Constitutional: No Symptoms Eyes: No Symptoms Ears, Nose, & Throat: No Symptoms Respiratory: No Symptoms Cardiac: No Symptoms Abdominal/Gastrointestinal: No Symptoms, Abdominal Pain, Nausea Genitourinary Symptoms: No Symptoms, Dysuria Skin: No Symptoms Neurological: No Symptoms Psychological: No Symptoms Endocrine: No Symptoms Hematologic/Lymphatic: No Symptoms Immunological/Allergic: No Symptoms - Past Medical History Pertinent Past Medical History: Yes Neurological History: No Pertinent History ENT History: No Pertinent History Cardiac History: High Cholesterol Respiratory History: No Pertinent History Endocrine Medical History: No Pertinent History Musculoskeletal History: Arthritis, Degenerative Disk Disease, Fractures GI Medical History: Diverticulitis, Gallbladder Disease, Other History: No Pertinent History Psycho-Social History: No Pertinent History Male Reproductive Disorders: No Pertinent History - Past Surgical History Past Surgical History: Yes Neuro Surgical History: No Pertinent History Cardiac: No Pertinent History Respiratory: No Pertinent History Gastrointestinal: Cholecystectomy Genitourinary: No Pertinent History Musculoskeletal: No Pertinent History, Orthopedic Surgery Male Surgical History: No Pertinent History Other Surgical History: right orbital reconsurction ,neck, cervical fusion, labral debridement left - Social History Smoking Status: Never smoker How long have you smoked: 35 years Exposure to second hand smoke: No Drug Use: none Patient Lives Alone: No Significant Family History: no pertinent family hx - Nursing Vital Signs Nursing Vital Signs: Initial Vital Signs Temperature 97.7 F 05/29/22 17:08 Pulse Rate 67 05/29/22 17:08 Respiratory Rate 22 05/29/22 17:08 Blood Pressure 133/87 05/29/22 17:08 O2 Sat by Pulse Oximetry 99 05/29/22 17:08 Pain Scale Pain Intensity 3 - Physical Exam SpO2: 99 - Course Nursing assessment & vital signs reviewed: Yes - CT Exams Abdomen/Pelvis CT Interpretation: Discussed w/radiologist (Worsening sigmoid diverticulitis) Ordered Tests: Active Orders 24 hr Category Date Time Status NPO except Meds Diet 05/30/22 00:01 Active ABDOMEN AND PELVIS W CONTRAST [CT] Stat Exams 05/29/22 18:52 Taken AMYLASE Stat Lab 05/29/22 17:49 Completed CBC W DIFF AM.LAB Lab 05/30/22 04:00 Ordered CBC W DIFF Stat Lab 05/29/22 17:49 Completed CMP AM.LAB Lab 05/30/22 04:00 Ordered CMP Stat Lab 05/29/22 17:49 Completed LIPASE Stat Lab 05/29/22 17:49 Completed TROPONIN Q3H Lab 05/29/22 18:00 Completed UA W/RFX CULTURE Stat Lab 05/29/22 18:38 Completed Medication Summary Generic Name Dose Route Start Last Admin Trade Name Bal PRN Reason Stop Dose Admin Hydromorphone HCl 1 mg 05/29/22 21:01 05/29/22 23:41 Hydromorphone 1 Mg/1ml Inj 1 Mg/Ml Syringe IV 06/03/22 21:00 1 mg Q4H PRN PRN Administration PAIN Sodium Chloride 1,000 mls @ 100 mls/hr 05/29/22 21:15 05/29/22 21:26 Sodium Chloride 0.9% 1000 Ml IV 06/28/22 21:14 100 mls/hr .Q10H DAVID Administration Metronidazole 500 mg in 100 mls @ 200 mls/hr 05/30/22 00:00 05/29/22 21:24 Flagyl 500 Mg Ivpb IV 06/29/22 00:00 200 ml/hr Q6HT DAVID 200 mls/hr Administration Levofloxacin/Dextrose 750 mg in 150 mls @ 100 mls/hr 05/30/22 10:00 05/29/22 21:25 Levofloxacin 750mg/150ml D5w IV 06/29/22 09:59 100 mls/hr Q24H10 DAVID Administration Ondansetron HCl 4 mg 05/29/22 21:01 Ondansetron Hcl 4 Mg/2 Ml Vial IV 06/28/22 21:00 Q6H PRN PRN NAUSEA/VOMITING Discontinued Medications Generic Name Dose Route Start Last Admin Trade Name Bal PRN Reason Stop Dose Admin Fentanyl Citrate 100 mcg 05/29/22 18:23 05/29/22 18:37 Fentanyl Citrate 100 Mcg/2 Ml* Vial IV 05/29/22 18:24 100 mcg STAT ONE Administration Fentanyl Citrate Confirm 05/29/22 18:29 Fentanyl Citrate 100 Mcg/2 Ml* Vial Administered 05/29/22 18:30 Dose 100 mcg .ROUTE .STK-MED ONE Fentanyl Citrate 100 mcg 05/29/22 20:18 05/29/22 20:37 Fentanyl Citrate 100 Mcg/2 Ml* Vial IV 05/29/22 20:19 100 mcg STAT ONE Administration Fentanyl Citrate Confirm 05/29/22 20:35 Fentanyl Citrate 100 Mcg/2 Ml* Vial Administered 05/29/22 20:36 Dose 100 mcg .ROUTE .STK-MED ONE Levofloxacin/Dextrose Confirm 05/29/22 21:19 Levofloxacin 500mg/100ml D5w Administered 05/29/22 21:20 Dose 500 mg in 100 mls @ ud IV .STK-MED ONE Levofloxacin/Dextrose Confirm 05/29/22 21:25 Levofloxacin 750mg/150ml D5w Administered 05/29/22 21:26 Dose 750 mg in 150 mls @ ud IV .STK-MED ONE Ondansetron HCl 4 mg 05/29/22 18:23 05/29/22 19:23 Ondansetron Hcl 4 Mg/2 Ml Vial IV 05/29/22 18:24 4 mg STAT ONE Administration Ondansetron HCl Confirm 05/29/22 19:21 Ondansetron Hcl 4 Mg/2 Ml Vial Administered 05/29/22 19:22 Dose 4 mg .ROUTE .STK-MED ONE Lab/Rad Data: Laboratory Result Diagrams 05/29/22 17:49 05/29/22 17:49 Laboratory Results 05/29/22 05/29/22 05/29/22 Range/Units 20:42 18:38 18:00 WBC (4.0-10.5) x10^3/uL RBC (4.1-5.6) x10^6/uL Hgb (12.5-18.0) g/dL Hct (42-50) % MCV (78-100) fL MCH (26-32) pg MCHC (32-36) g/dL RDW (11.5-14.0) % Plt Count (150-450) x10^3/uL MPV (7.5-11.0) fL Gran % (36.0-66.0) % Immature Gran % (Auto) (0.00-0.4) % Nucleat RBC Rel Count (0.00-0.1) % Eos # (Auto) (0-0.5) x10^3/uL Immature Gran # (Auto) (0.00-0.03) x10^3u/L Absolute Lymphs (auto) (1.0-4.6) x10^3/uL Absolute Monos (auto) (0.0-1.3) x10^3/uL Absolute Nucleated RBC (0.00-0.01) x10^3u/L Lymphocytes % (24.0-44.0) % Monocytes % (0.0-12.0) % Eosinophils % (0.00-5.0) % Basophils % (0.0-0.4) % Absolute Granulocytes (1.4-6.9) x10^3/uL Basophils # (0-0.4) x10^3/uL Sodium (137-145) mmol/L Potassium (3.5-5.1) mmol/L Chloride (98-107) mmol/L Carbon Dioxide (22-30) mmol/L Anion Gap (5-15) MEQ/L BUN (9-20) mg/dL Creatinine (0.66-1.25) mg/dL Estimated GFR ML/MIN Glucose (74-106) mg/dL Calcium (8.4-10.2) mg/dL Total Bilirubin (0.2-1.3) mg/dL AST (17-59) U/L ALT (0-50) U/L Alkaline Phosphatase (38-126) U/L Troponin I < 0.012 (0.000-0.034) ng/mL Serum Total Protein (6.3-8.2) g/dL Albumin (3.5-5.0) g/dL Amylase (30-110) U/L Lipase (23-300) U/L Urinalys Dipstick Clnc MAIN LAB Urine Color YELLOW (YELLOW) Urine Appearance CLEAR (CLEAR) Urine pH 6.0 (5-6) Ur Specific [place] 1.010 (1.005-1.025) POC Urine Protein Conf NEGATIVE (Negative) Urine Ketones NEGATIVE (NEGATIVE) Urine Nitrite NEGATIVE (NEGATIVE) Urine Bilirubin NEGATIVE (NEGATIVE) Urine Urobilinogen 0.2 (0-1) mg/dL Urine Leukocytes NEGATIVE (NEGATIVE) Urine WBC (Auto) NONE (0-5) /HPF Urine RBC (Auto) NONE (0-2) /HPF U Epithel Cells (Auto) NONE (FEW) /HPF Urine Bacteria (Auto) NONE (NEGATIVE) /HPF Urine RBC NEGATIVE (0-5) Patrick/ul Ur Culture Indicated? NO Urine Glucose NEGATIVE (NEGATIVE) mg/dL Influenza Type A Ag NEGATIVE (NEGATIVE) Influenza Type B Ag NEGATIVE (NEGATIVE) RSV (PCR) NEGATIVE (Negative) SARS-CoV-2 (PCR) NEGATIVE (NEGATIVE) 05/29/22 05/29/22 Range/Units 17:49 17:49 WBC 10.3 (4.0-10.5) x10^3/uL RBC 4.55 (4.1-5.6) x10^6/uL Hgb 13.9 (12.5-18.0) g/dL Hct 42.3 (42-50) % MCV 93.0 (78-100) fL MCH 30.5 (26-32) pg MCHC 32.9 (32-36) g/dL RDW 13.2 (11.5-14.0) % Plt Count 401 (150-450) x10^3/uL MPV 9.2 (7.5-11.0) fL Gran % 76.1 H (36.0-66.0) % Immature Gran % (Auto) 0.4 (0.00-0.4) % Nucleat RBC Rel Count 0.0 (0.00-0.1) % Eos # (Auto) 0.10 (0-0.5) x10^3/uL Immature Gran # (Auto) 0.04 H (0.00-0.03) x10^3u/L Absolute Lymphs (auto) 1.50 (1.0-4.6) x10^3/uL Absolute Monos (auto) 0.75 (0.0-1.3) x10^3/uL Absolute Nucleated RBC 0.00 (0.00-0.01) x10^3u/L Lymphocytes % 14.6 L (24.0-44.0) % Monocytes % 7.3 (0.0-12.0) % Eosinophils % 1.0 (0.00-5.0) % Basophils % 0.6 (0.0-0.4) % Absolute Granulocytes 7.81 H (1.4-6.9) x10^3/uL Basophils # 0.06 (0-0.4) x10^3/uL Sodium 135 L (137-145) mmol/L Potassium 4.4 (3.5-5.1) mmol/L Chloride 102 (98-107) mmol/L Carbon Dioxide 23 (22-30) mmol/L Anion Gap 13.8 (5-15) MEQ/L BUN 8 L (9-20) mg/dL Creatinine 0.94 (0.66-1.25) mg/dL Estimated GFR > 60.0 ML/MIN Glucose 89 (74-106) mg/dL Calcium 9.2 (8.4-10.2) mg/dL Total Bilirubin 0.50 (0.2-1.3) mg/dL AST 28 (17-59) U/L ALT 36 (0-50) U/L Alkaline Phosphatase 88 (38-126) U/L Troponin I (0.000-0.034) ng/mL Serum Total Protein 6.7 (6.3-8.2) g/dL Albumin 3.8 (3.5-5.0) g/dL Amylase 73 (30-110) U/L Lipase 59 (23-300) U/L Urinalys Dipstick Clnc Urine Color (YELLOW) Urine Appearance (CLEAR) Urine pH (5-6) Ur Specific [place] (1.005-1.025) POC Urine Protein Conf (Negative) Urine Ketones (NEGATIVE) Urine Nitrite (NEGATIVE) Urine Bilirubin (NEGATIVE) Urine Urobilinogen (0-1) mg/dL Urine Leukocytes (NEGATIVE) Urine WBC (Auto) (0-5) /HPF Urine RBC (Auto) (0-2) /HPF U Epithel Cells (Auto) (FEW) /HPF Urine Bacteria (Auto) (NEGATIVE) /HPF Urine RBC (0-5) Patrick/ul Ur Culture Indicated? Urine Glucose (NEGATIVE) mg/dL Influenza Type A Ag (NEGATIVE) Influenza Type B Ag (NEGATIVE) RSV (PCR) (Negative) SARS-CoV-2 (PCR) (NEGATIVE) - Progress Progress: improved Progress Note: 05/29/22 20:17 100mcg IV Fentanyl/4mg IV Zofran w improvement in pain 05/29/22 20:59 100mcg Iv Fentanyl Admit per Dr. Munroe, but wants Dr. Mcdonald consulted first Spoke w Dr. Church, on-call for Dr. Mcdonald, will consult Tamara in AM Counseled pt/family regarding: lab results, diagnosis, need for follow-up, rad results - Departure Departure Disposition: Observation Clinical Impression: Diverticulitis Condition: Stable Critical Care Time: No
[2022-05-29] MEDS ORDERED: Zofran 4 MG/2 ML VIAL ONE (19:21)
[2022-05-29 19:27] LABS: Appearance CLEAR (CLEAR); Bilirubin NEGATIVE (NEGATIVE); Dipstick done @ ? MAIN LAB; Glucose NEGATIVE (NEGATIVE); Ketones NEGATIVE (NEGATIVE); Nitrite NEGATIVE (NEGATIVE); Protein,Urine Dip NEGATIVE (Negative); RBC NEGATIVE Ery/ul (0-5); Urobilinogen 0.2 mg/dL (0-1)
[2022-05-29 19:32] LABS: Urine Cultured Indicated? NO
[2022-05-29] MEDS ORDERED: Zofran 4 MG/2 ML VIAL IV PRN (21:01)
[2022-05-29] MEDS ORDERED: Levofloxacin 500MG/100ML D5W 0 MG/0 ML BAG IV ONE (21:19)
[2022-05-29 21:22] LABS: INFLUENZA A NEGATIVE (NEGATIVE); INFLUENZA B NEGATIVE (NEGATIVE); RESPIRATORY SYNCTIAL VIRUS NEGATIVE (Negative); SARS-CoV-2 Xpert Express NEGATIVE (NEGATIVE)
[2022-05-29] MEDS: FLAGYL 500 MG IVPB 500 MG/100 ML BAG IV SCH (21:24)
[2022-05-29] MEDS ORDERED: LEVOFLOXACIN 750MG/150ML D5W 750 MG/150 ML BAG IV ONE (21:25)
[2022-05-29] MEDS: Sodium Chloride 0.9% 1000 ML 1,000 ML IV SCH (21:26)
[2022-05-29] MEDS: Hydromorphone 1 mg/ml Injection IV PRN (23:41)
[2022-05-30] MEDS: Hydromorphone 1 mg/ml Injection IV PRN ×4 (03:42→16:18)
[2022-05-30 05:05] LABS: Absolute Neutrophil Ct (ANC) 8.39 x10^3/uL (1.4-6.9); Basophil (Absolute #) 0.06 x10^3/uL (0-0.4); Eosinophil % 2.2 % (0.00-5.0); Eosinophil (Absolute #) 0.24 x10^3/uL (0-0.5); Hematocrit 40.5 % (42-50); Hemoglobin 13.1 g/dL (12.5-18.0); Lymphocyte (Absolute #) 1.27 x10^3/uL (1.0-4.6); Lymphocytes % 11.8 % (24.0-44.0); Mean Corpuscular Hemoglobin 30.4 pg (26-32); Mean Corpuscular Hgb Concent. 32.3 g/dL (32-36); Mean Platelet Volume 9.5 fL (7.5-11.0); Monocyte (Absolute #) 0.74 x10^3/uL (0.0-1.3); Monocytes % 6.9 % (0.0-12.0); Neutrophil % 77.9 % (36.0-66.0); Platelet Count 354 x10^3/uL (150-450); Red Blood Count 4.31 x10^6/uL (4.1-5.6); Red Cell Distribution Width 13.3 % (11.5-14.0); White Blood Count 10.8 x10^3/uL (4.0-10.5)
[2022-05-30 05:40] LABS: ALBUMIN 3.4 g/dL (3.5-5.0); ALKALINE PHOSPHATASE 73 U/L (38-126); ANION GAP 12.7 MEQ/L (5-15); BLOOD UREA NITROGEN 7 mg/dL (9-20); CHLORIDE 103 mmol/L (98-107); Calcium 8.5 mg/dL (8.4-10.2); Carbon Dioxide 23 mmol/L (22-30); Creatinine 1 0.94 mg/dL (0.66-1.25); EST GLOMERULAR FILTRATION RATE > 60.0 ML/MIN; Glucose 99 mg/dL (74-106); Potassium 4.1 mmol/L (3.5-5.1); SGOT/AST 30 U/L (17-59); SGPT/ALT 34 U/L (0-50); SODIUM 135 mmol/L (137-145); Total Protein 6.3 g/dL (6.3-8.2)
[2022-05-30] MEDS: FLAGYL 500 MG IVPB 500 MG/100 ML BAG IV SCH ×3 (06:17→17:42)
[2022-05-30] MEDS: Sodium Chloride 0.9% 1000 ML 1,000 ML IV SCH ×2 (08:23→13:57)
--- NOTE | 2022-05-30 08:45 | XRAY ---
Indication: Left lower abdomen pain. Nausea. Status post colonoscopy May 27, 2022. Multiple contiguous axial images obtained through the abdomen and pelvis using 80 cc Isovue 370 contrast. Comparison: May 22, 2022 Lung bases again demonstrate bibasilar dependent atelectasis. Heart not enlarged. Noncontrasted stomach and bowel loops nonobstructed with stable duodenal diverticulum and normal appendix. There is now mild diffuse scattered colonic fecal debris throughout. Again diffuse scattered colonic diverticulosis. Distal descending diverticulitis has improved with worsening mid to proximal sigmoid diverticulitis. No free fluid/air. Again fatty liver, hepatic cysts, right renal cyst, right urinary bladder diverticulum, and cholecystectomy clips. Remaining liver, pancreas, spleen, adrenal glands, kidneys, ureters, bladder, and aorta are unremarkable. Again no pathologic retroperitoneal lymphadenopathy. Impression: 1. Again diffuse colonic diverticulosis. Improved distal descending diverticulitis. Worsening sigmoid diverticulitis. No complications. 2. New diffuse fecal stasis. 3. Again chronic findings including duodenal diverticulum, hepatic/right renal cysts, and urinary bladder diverticulum.
[2022-05-30] MEDS ORDERED: LEVOFLOXACIN 750MG/150ML D5W 750 MG/150 ML BAG IV SCH ×2 (10:00→22:00)
--- NOTE | 2022-05-30 13:00 | PCM.HP ---
History of Present Illness - Chief Complaint Chief Complaint: diverticulitis History of Present Illness: is a 52 year old male with multiple occurrences of diverticulitis this year.Patient presented to ER with abdominal pain ,CT abd/pelvis shows sigmoid diverticulitis descending diverticulosis .Colonoscopy by Dr Marquez Friday this week with concern that patient may require colon resection. Multiple biopsies of the colon and a small rectal poyp removed. PMHx includes Hypercholesterolemia,fatty liver,chronic back pain,S/P cholecystectomy. - Review of Systems Constitutional: Chills Eyes: No Symptoms Ears, Nose, & Throat: No Symptoms Respiratory: No Symptoms Cardiac: No Symptoms Abdominal/Gastrointestinal: Abdominal Pain, Nausea Genitourinary Symptoms: No Symptoms Musculoskeletal: Back Pain (chronic) Skin: No Symptoms Neurological: No Symptoms Psychological: No Symptoms Endocrine: No Symptoms Hematologic/Lymphatic: No Symptoms Immunological/Allergic: No Symptoms Medications & Allergies Home Medications: Home Medication List Ezetimibe 10 mg [Zetia 10 MG] 10 mg PO QHS 02/19/21 [History Confirmed 05/29/22] Pravastatin Sodium 40 mg PO QHS 02/28/21 [History Confirmed 05/29/22] Levofloxacin [Levofloxacin 500 MG Tablet] 500 mg PO DAILY #5 tablet 05/31/22 [Rx] Metronidazole 500 mg [Flagyl 500 MG] 500 mg PO TIDWMEALS #15 tablet 05/31/22 [Rx] Saccharomyces Boulardii 250 mg PO BID #20 cap 05/31/22 [Rx] Allergies/Adverse Reactions: Allergies Allergy/AdvReac Type Severity Reaction Status Date / Time [facility] Allergy Severe Anaphylactic Uncoded 05/29/22 17:21 Reaction - Past Medical History Past Medical History: Yes Neurological History: No Pertinent History ENT History: No Pertinent History Cardiac History: High Cholesterol Respiratory History: No Pertinent History Endocrine Medical History: No Pertinent History Musculoskelatal History: Arthritis, Degenerative Disk Disease, Fractures GI Medical History: Diverticulitis, Gallbladder Disease, Other History: No Pertinent History Pyscho-Social History: No Pertinent History Male Reproductive Disorders: No Pertinent History - Past Surgical History Past Surgical History: Yes Neuro Surgical History: No Pertinent History Cardiac History: No Pertinent History Respiratory Surgery: No Pertinent History GI Surgical History: Cholecystectomy Genitourinary Surgical Hx: No Pertinent History Musculskeletal Surgical Hx: No Pertinent History, Orthopedic Surgery Male Surgical History: No Pertinent History Other Surgical History: right orbital reconsurction ,neck, cervical fusion, labral debridement left - Social History Smoking Status: Never smoker How long have you smoked: 35 years Exposure to second hand smoke: No Alcohol: Occasionally Drug Use: none Significant Family History: no pertinent family hx - Physical Exam Vital Signs: Vital Signs - 24 hr Temp Pulse Resp BP Pulse Ox 05/30/22 12:00 96.4 F 58 L 16 117/67 94 L 05/30/22 07:33 97.7 F 75 17 121/75 97 05/30/22 04:00 97.3 F 65 18 119/75 95 05/30/22 01:48 99 05/30/22 00:00 97.1 F 69 18 119/84 96 05/29/22 23:09 97.1 F 69 18 119/84 96 05/29/22 21:01 60 16 114/79 98 05/29/22 20:00 77 16 114/79 96 05/29/22 19:00 60 15 114/79 99 05/29/22 18:00 62 18 130/87 97 05/29/22 17:08 97.7 F 67 22 133/87 99 General Appearance: no apparent distress (pain med on board), lethargy, other ( at bedside) Neurologic Exam: oriented x 3, cooperative, normal mood/affect (groggy from pain med) Eye Exam: eyes nml inspection Ears, Nose, Throat Exam: normal ENT inspection Neck Exam: normal inspection Respiratory Exam: normal breath sounds Cardiovascular Exam: regular rate/rhythm Gastrointestinal/Abdomen Exam: soft, tenderness (generalized 1+/4 ,LLQ 2+/4), distention, guarding Rectal Exam: not done Extremity Exam: normal inspection Skin Exam: pale Results - Labs Lab/Micro Results: Lab Results-Last 24 Hours 05/29/22 05/29/22 05/29/22 Range/Units 17:49 17:49 18:00 WBC 10.3 (4.0-10.5) x10^3/uL RBC 4.55 (4.1-5.6) x10^6/uL Hgb 13.9 (12.5-18.0) g/dL Hct 42.3 (42-50) % MCV 93.0 (78-100) fL MCH 30.5 (26-32) pg MCHC 32.9 (32-36) g/dL RDW 13.2 (11.5-14.0) % Plt Count 401 (150-450) x10^3/uL MPV 9.2 (7.5-11.0) fL Gran % 76.1 H (36.0-66.0) % Immature Gran % (Auto) 0.4 (0.00-0.4) % Nucleat RBC Rel Count 0.0 (0.00-0.1) % Eos # (Auto) 0.10 (0-0.5) x10^3/uL Immature Gran # (Auto) 0.04 H (0.00-0.03) x10^3u/L Absolute Lymphs (auto) 1.50 (1.0-4.6) x10^3/uL Absolute Monos (auto) 0.75 (0.0-1.3) x10^3/uL Absolute Nucleated RBC 0.00 (0.00-0.01) x10^3u/L Lymphocytes % 14.6 L (24.0-44.0) % Monocytes % 7.3 (0.0-12.0) % Eosinophils % 1.0 (0.00-5.0) % Basophils % 0.6 (0.0-0.4) % Absolute Granulocytes 7.81 H (1.4-6.9) x10^3/uL Basophils # 0.06 (0-0.4) x10^3/uL Sodium 135 L (137-145) mmol/L Potassium 4.4 (3.5-5.1) mmol/L Chloride 102 (98-107) mmol/L Carbon Dioxide 23 (22-30) mmol/L Anion Gap 13.8 (5-15) MEQ/L BUN 8 L (9-20) mg/dL Creatinine 0.94 (0.66-1.25) mg/dL Estimated GFR > 60.0 ML/MIN Glucose 89 (74-106) mg/dL Calcium 9.2 (8.4-10.2) mg/dL Total Bilirubin 0.50 (0.2-1.3) mg/dL AST 28 (17-59) U/L ALT 36 (0-50) U/L Alkaline Phosphatase 88 (38-126) U/L Troponin I < 0.012 (0.000-0.034) ng/mL Serum Total Protein 6.7 (6.3-8.2) g/dL Albumin 3.8 (3.5-5.0) g/dL Amylase 73 (30-110) U/L Lipase 59 (23-300) U/L Urinalys Dipstick Clnc Urine Color (YELLOW) Urine Appearance (CLEAR) Urine pH (5-6) Ur Specific [place] (1.005-1.025) POC Urine Protein Conf (Negative) Urine Ketones (NEGATIVE) Urine Nitrite (NEGATIVE) Urine Bilirubin (NEGATIVE) Urine Urobilinogen (0-1) mg/dL Urine Leukocytes (NEGATIVE) Urine WBC (Auto) (0-5) /HPF Urine RBC (Auto) (0-2) /HPF U Epithel Cells (Auto) (FEW) /HPF Urine Bacteria (Auto) (NEGATIVE) /HPF Urine RBC (0-5) Patrick/ul Ur Culture Indicated? Urine Glucose (NEGATIVE) mg/dL Influenza Type A Ag (NEGATIVE) Influenza Type B Ag (NEGATIVE) RSV (PCR) (Negative) SARS-CoV-2 (PCR) (NEGATIVE) 05/29/22 05/29/22 05/30/22 Range/Units 18:38 20:42 05:02 WBC 10.8 H (4.0-10.5) x10^3/uL RBC 4.31 (4.1-5.6) x10^6/uL Hgb 13.1 (12.5-18.0) g/dL Hct 40.5 L (42-50) % MCV 94.0 (78-100) fL MCH 30.4 (26-32) pg MCHC 32.3 (32-36) g/dL RDW 13.3 (11.5-14.0) % Plt Count 354 (150-450) x10^3/uL MPV 9.5 (7.5-11.0) fL Gran % 77.9 H (36.0-66.0) % Immature Gran % (Auto) 0.6 H (0.00-0.4) % Nucleat RBC Rel Count 0.0 (0.00-0.1) % Eos # (Auto) 0.24 (0-0.5) x10^3/uL Immature Gran # (Auto) 0.06 H (0.00-0.03) x10^3u/L Absolute Lymphs (auto) 1.27 (1.0-4.6) x10^3/uL Absolute Monos (auto) 0.74 (0.0-1.3) x10^3/uL Absolute Nucleated RBC 0.00 (0.00-0.01) x10^3u/L Lymphocytes % 11.8 L (24.0-44.0) % Monocytes % 6.9 (0.0-12.0) % Eosinophils % 2.2 (0.00-5.0) % Basophils % 0.6 (0.0-0.4) % Absolute Granulocytes 8.39 H (1.4-6.9) x10^3/uL Basophils # 0.06 (0-0.4) x10^3/uL Sodium (137-145) mmol/L Potassium (3.5-5.1) mmol/L Chloride (98-107) mmol/L Carbon Dioxide (22-30) mmol/L Anion Gap (5-15) MEQ/L BUN (9-20) mg/dL Creatinine (0.66-1.25) mg/dL Estimated GFR ML/MIN Glucose (74-106) mg/dL Calcium (8.4-10.2) mg/dL Total Bilirubin (0.2-1.3) mg/dL AST (17-59) U/L ALT (0-50) U/L Alkaline Phosphatase (38-126) U/L Troponin I (0.000-0.034) ng/mL Serum Total Protein (6.3-8.2) g/dL Albumin (3.5-5.0) g/dL Amylase (30-110) U/L Lipase (23-300) U/L Urinalys Dipstick Clnc MAIN LAB Urine Color YELLOW (YELLOW) Urine Appearance CLEAR (CLEAR) Urine pH 6.0 (5-6) Ur Specific [place] 1.010 (1.005-1.025) POC Urine Protein Conf NEGATIVE (Negative) Urine Ketones NEGATIVE (NEGATIVE) Urine Nitrite NEGATIVE (NEGATIVE) Urine Bilirubin NEGATIVE (NEGATIVE) Urine Urobilinogen 0.2 (0-1) mg/dL Urine Leukocytes NEGATIVE (NEGATIVE) Urine WBC (Auto) NONE (0-5) /HPF Urine RBC (Auto) NONE (0-2) /HPF U Epithel Cells (Auto) NONE (FEW) /HPF Urine Bacteria (Auto) NONE (NEGATIVE) /HPF Urine RBC NEGATIVE (0-5) Patrick/ul Ur Culture Indicated? NO Urine Glucose NEGATIVE (NEGATIVE) mg/dL Influenza Type A Ag NEGATIVE (NEGATIVE) Influenza Type B Ag NEGATIVE (NEGATIVE) RSV (PCR) NEGATIVE (Negative) SARS-CoV-2 (PCR) NEGATIVE (NEGATIVE) 05/30/22 Range/Units 05:02 WBC (4.0-10.5) x10^3/uL RBC (4.1-5.6) x10^6/uL Hgb (12.5-18.0) g/dL Hct (42-50) % MCV (78-100) fL MCH (26-32) pg MCHC (32-36) g/dL RDW (11.5-14.0) % Plt Count (150-450) x10^3/uL MPV (7.5-11.0) fL Gran % (36.0-66.0) % Immature Gran % (Auto) (0.00-0.4) % Nucleat RBC Rel Count (0.00-0.1) % Eos # (Auto) (0-0.5) x10^3/uL Immature Gran # (Auto) (0.00-0.03) x10^3u/L Absolute Lymphs (auto) (1.0-4.6) x10^3/uL Absolute Monos (auto) (0.0-1.3) x10^3/uL Absolute Nucleated RBC (0.00-0.01) x10^3u/L Lymphocytes % (24.0-44.0) % Monocytes % (0.0-12.0) % Eosinophils % (0.00-5.0) % Basophils % (0.0-0.4) % Absolute Granulocytes (1.4-6.9) x10^3/uL Basophils # (0-0.4) x10^3/uL Sodium 135 L (137-145) mmol/L Potassium 4.1 (3.5-5.1) mmol/L Chloride 103 (98-107) mmol/L Carbon Dioxide 23 (22-30) mmol/L Anion Gap 12.7 (5-15) MEQ/L BUN 7 L (9-20) mg/dL Creatinine 0.94 (0.66-1.25) mg/dL Estimated GFR > 60.0 ML/MIN Glucose 99 (74-106) mg/dL Calcium 8.5 (8.4-10.2) mg/dL Total Bilirubin 0.50 (0.2-1.3) mg/dL AST 30 (17-59) U/L ALT 34 (0-50) U/L Alkaline Phosphatase 73 (38-126) U/L Troponin I (0.000-0.034) ng/mL Serum Total Protein 6.3 (6.3-8.2) g/dL Albumin 3.4 L (3.5-5.0) g/dL Amylase (30-110) U/L Lipase (23-300) U/L Urinalys Dipstick Clnc Urine Color (YELLOW) Urine Appearance (CLEAR) Urine pH (5-6) Ur Specific [place] (1.005-1.025) POC Urine Protein Conf (Negative) Urine Ketones (NEGATIVE) Urine Nitrite (NEGATIVE) Urine Bilirubin (NEGATIVE) Urine Urobilinogen (0-1) mg/dL Urine Leukocytes (NEGATIVE) Urine WBC (Auto) (0-5) /HPF Urine RBC (Auto) (0-2) /HPF U Epithel Cells (Auto) (FEW) /HPF Urine Bacteria (Auto) (NEGATIVE) /HPF Urine RBC (0-5) Patrick/ul Ur Culture Indicated? Urine Glucose (NEGATIVE) mg/dL Influenza Type A Ag (NEGATIVE) Influenza Type B Ag (NEGATIVE) RSV (PCR) (Negative) SARS-CoV-2 (PCR) (NEGATIVE) - Radiology Impressions Radiology Exams & Impressions: Radiology Procedures Category Date Time Status ABDOMEN AND PELVIS W CONTRAST [CT] Stat Exams 05/29/22 18:52 Completed Assessment/Plan (1) Abdominal pain Status: Acute Qualifiers: Abdominal location: left lower quadrant Qualified Code(s): R10.32 - Left lower quadrant pain Assessment & Plan: diverticular dz,colonoscopy recent (05/27/22) Code(s): R10.9 - UNSPECIFIED ABDOMINAL PAIN (2) Sigmoid diverticulitis Status: Acute Assessment & Plan: acute ,recurrent Code(s): K57.32 - DVTRCLI OF LG INT W/O PERFORATION OR ABSCESS W/O BLEEDING (3) Pancolonic diverticulosis Status: Chronic Assessment & Plan: Dr Marquez biopsied during colonoscopy 05/27/22 Code(s): K57.30 - DVRTCLOS OF LG INT W/O PERFORATION OR ABSCESS W/O BLEEDING
[2022-05-30] MEDS: D5W/0.45NS W/ 20mEq KCl 1000 ML 1,000 ML IV SCH (13:38)
[2022-05-30] MEDS ORDERED: solu-MEDROL ONE (21:53)
[2022-05-30] MEDS ORDERED: Sterile H2O 10 ml IJ ONE (21:54)
[2022-05-30] MEDS ORDERED: Zetia 10 MG PO SCH (22:00)
[2022-05-30] MEDS ORDERED: NON-FORMULARY ITEM (Pravastatin Sodium [Pravastatin Sodium] 40 MG Tablet) PO SCH (22:00)
[2022-05-30] MEDS ORDERED: ZOCOR 20MG PO SCH (22:00)
[2022-05-30] MEDS: HYDROCODONE-ACETAMIN 10-325 MG PO PRN (22:23)
[2022-05-31] MEDS: FLAGYL 500 MG IVPB 500 MG/100 ML BAG IV SCH ×3 (00:57→11:24)
[2022-05-31] MEDS: D5W/0.45NS W/ 20mEq KCl 1000 ML 1,000 ML IV SCH (01:24)
[2022-05-31 05:19] LABS: Hematocrit 40.8 % (42-50); Mean Cell Volume 94.7 fL (78-100); Mean Corpuscular Hemoglobin 30.2 pg (26-32); Mean Corpuscular Hgb Concent. 31.9 g/dL (32-36); Mean Platelet Volume 9.9 fL (7.5-11.0); Platelet Count 362 x10^3/uL (150-450); Red Blood Count 4.31 x10^6/uL (4.1-5.6); Red Cell Distribution Width 13.1 % (11.5-14.0); White Blood Count 8.5 x10^3/uL (4.0-10.5)
[2022-05-31 05:48] LABS: ALBUMIN 3.4 g/dL (3.5-5.0); ALKALINE PHOSPHATASE 70 U/L (38-126); BLOOD UREA NITROGEN 8 mg/dL (9-20); CHLORIDE 103 mmol/L (98-107); Calcium 8.7 mg/dL (8.4-10.2); Carbon Dioxide 25 mmol/L (22-30); EST GLOMERULAR FILTRATION RATE > 60.0 ML/MIN; Glucose 111 mg/dL (74-106); Potassium 4.3 mmol/L (3.5-5.1); SGOT/AST 24 U/L (17-59); SGPT/ALT 28 U/L (0-50); SODIUM 135 mmol/L (137-145); Total Protein 6.3 g/dL (6.3-8.2)
--- NOTE | 2022-05-31 08:16 | CONS ---
CONSULT DATE: 05/30/2022 HISTORY: Edu Mejía had surgical intervention on Friday. He had a colonoscopic examination. He was known to have some diverticulosis. He has been feeling a little off here for a month. He was having more discomfort when he came in. His CT scan showed no abscess or perforation but it shows a slight inflammation in the sigmoid colon along with significant diverticulosis. He is doing better but he is having 6 over 7 pain. He is not nauseated. He is hungry. We have ordered him clear liquids. He has been voiding satisfactorily. With general nature of diverticulitis, this is the second almost third episode. He has not been studied well to date. It certainly would be valuable to get at least a colonoscopy here a few days ago. It would be beneficial to totally clear this episode prior to performing any semi-elective operation. We held a general discussion about diverticulitis and operation including ostomy, ostomy resection, no ostomy resection and primary anastomosis, laparoscopic and robotic were all discussed with him at this time. PAST MEDICAL HISTORY: His history dates back a little over two years ago. He had a significant episode. He was in the hospital for five or six days. He subsequently got out. He does not think he had a colonoscopy at that time. He basically has been clear for two years but then here in March he had an episode and now he is having basically a persistence or reoccurrence of his many episodes. I would count this as the second major episode. I do not believe he has been totally cleared yet. PHYSICAL EXAMINATION: He has tenderness starting right across from the left of the umbilicus down into pelvis on the left side. He has a slight fullness. He has no palpable mass. He looks totally nontoxic. IMPRESSION: Dr. Marquez is subsequently familiar with this patient than myself. He is on IV antibiotics. He is still having 6 over 7 pain. If his pain comes down and he is tolerating diet, he probably could go home on a ten day to two weeks course of p.o. antibiotics. The patient seems like he probably preferred to have this out sort of semi-electively here in the near future prior to having more episodes.
[2022-05-31 12:58] VITALS: BP 109/67; PULSE 58; O2SAT 95
--- NOTE | 2022-05-31 13:45 | PCM.DCORD ---
- Discharge Disposition: Home, Self-Care Condition: Stable Prescriptions: New Metronidazole 500 mg [Flagyl 500 MG] 500 mg PO TIDWMEALS #15 tablet Levofloxacin [Levofloxacin 500 MG Tablet] 500 mg PO DAILY #5 tablet Saccharomyces Boulardii 250 mg PO BID #20 cap Continue Ezetimibe 10 mg [Zetia 10 MG] 10 mg PO QHS Pravastatin Sodium 40 mg PO QHS Additional Instructions: Avoid gluten in your diet which causes inflammation in the lining of the bowel ,eat "gluten free" foods. RTW 06/10/22 Follow up with: MAGGIE KELLY DO [Primary Care Provider] -
[2022-05-31] MEDS: HYDROCODONE-ACETAMIN 10-325 MG PO PRN (14:00)
== END 2022-05-31 14:15 | disposition home or self-care (01) ==
LOC: ED 15:34 → MED SURG 22:01
PROVIDERS: ADMIT Family Medicine; ATTEND Family Medicine
DX: K57.32 Diverticulitis of large intestine without perforation or abscess without bleeding (principal); R10.32 Left lower quadrant pain; K57.30 Diverticulosis of large intestine without perforation or abscess without bleeding; E78.00 Pure hypercholesterolemia, unspecified; Z20.828 Contact with and (suspected) exposure to other viral communicable diseases; Z79.899 Other long term (current) drug therapy
CPT/HCPCS: 0241U; 36415; 74177; 80053; 81015; 82150; 83690; 84484; 85025; 85027; 96374; 96375; 96376; 99284; G0378; J1170; J1956; J2405; J2930; J3010; A9270-GY

== ENCOUNTER 2023-03-17 11:00 | Emergency (ER) | payer OTHER ==
[2023-03-17] MEDS ORDERED: BABY ASPIRIN 81 MG CHEW PO ONE (11:10)
--- NOTE | 2023-03-17 11:10 | ERPHSYRPT ---
- History of Present Illness Time Seen by Provider: 03/17/23 11:09 Historian: patient Exam Limitations: no limitations Physician History: This is a 52-year-old white male patient who has been dizzy intermittently for the last few days. He has started Cialis which is a new medication for him. Patient does have a history of hypertension and hyperlipidemia. He became more concerned when today he began having left-sided, anterior, nonradiating chest pressure. Patient does not have a barrel coater. He did have a cardiac catheterization in 2019 and did not require any stenting present. Patient is not short of breath. He has no abdominal pain. He has no nausea vomiting or diarrhea symptoms. Timing/Duration: today Quality: pressure Location: other (Left anterior chest) Chest Pain Radiation: no radiation Severity of Pain-Max: mild Severity of Pain-Current: mild Modifying Factors: Improves With: nothing Associated Symptoms: dizziness Prior Chest Pain/Cardiac Workup: cardiac cath (Which have been negative for the need of cardiac stents in the past as recent as 2019) Nitro Today/Relief: no nitro taken today Aspirin Treatment Today: 81 mg x 4, provided by ED Allergies/Adverse Reactions: marshmallow Allergy (Severe, Uncoded 03/17/23 11:03) Anaphylactic Reaction Home Medications: Ezetimibe 10 mg [Zetia 10 MG] 10 mg PO QHS 02/19/21 [History] Pravastatin Sodium 40 mg PO QHS 02/28/21 [History] Tadalafil [Cialis] 5 mg PO HS 03/17/23 [History] Hx Tetanus, Diphtheria Vaccination/Date Given: No Hx Influenza Vaccination/Date Given: No Hx Pneumococcal Vaccination/Date Given: No Travel Risk - International Travel Have you traveled outside of the country in past 3 weeks: No - Coronavirus Screening Are you exhibiting any of the following symptoms?: No Close contact with a COVID-19 positive Pt in past 14-21 Days: No - Vaccine Status Have you recieved a Covid-19 vaccination: 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[employer] - Vaccination Dates Date of 2cond Vaccination (if applicable): 08/14/2021 - Review of Systems Constitutional: No Symptoms Eyes: No Symptoms Ears, Nose, & Throat: No Symptoms Respiratory: No Symptoms Cardiac: Chest Pain (Left anterior chest pressure) Abdominal/Gastrointestinal: No Symptoms Genitourinary Symptoms: No Symptoms Musculoskeletal: No Symptoms Skin: No Symptoms Neurological: No Symptoms Psychological: No Symptoms Endocrine: No Symptoms Hematologic/Lymphatic: No Symptoms Immunological/Allergic: No Symptoms All Other Systems: Reviewed and Negative - Past Medical History Pertinent Past Medical History: Yes Neurological History: No Pertinent History ENT History: No Pertinent History Cardiac History: High Cholesterol Respiratory History: No Pertinent History Endocrine Medical History: No Pertinent History Musculoskeletal History: Arthritis, Degenerative Disk Disease, Fractures GI Medical History: Diverticulitis, Gallbladder Disease, Other History: No Pertinent History Psycho-Social History: No Pertinent History Male Reproductive Disorders: No Pertinent History - Past Surgical History Past Surgical History: Yes Neuro Surgical History: No Pertinent History Cardiac: No Pertinent History Respiratory: No Pertinent History Gastrointestinal: Cholecystectomy Genitourinary: No Pertinent History Musculoskeletal: No Pertinent History, Orthopedic Surgery Male Surgical History: No Pertinent History Other Surgical History: right orbital reconsurction ,neck, cervical fusion, labral debridement left - Social History Smoking Status: Never smoker How long have you smoked: 35 years Exposure to second hand smoke: No Drug Use: none Patient Lives Alone: No Significant Family History: no pertinent family hx - Nursing Vital Signs Nursing Vital Signs: Initial Vital Signs Temperature 98.0 F 03/17/23 11:08 Pulse Rate 75 03/17/23 11:08 Respiratory Rate 20 03/17/23 11:08 Blood Pressure 128/86 03/17/23 11:08 O2 Sat by Pulse Oximetry 96 03/17/23 11:08 Pain Scale Pain Intensity 8 - Physical Exam General Appearance: no apparent distress, alert, anxiety Eye Exam: PERRL/EOMI, eyes nml inspection Ears, Nose, Throat Exam: normal ENT inspection, moist mucous membranes Neck Exam: normal inspection, non-tender, supple, full range of motion Respiratory Exam: normal breath sounds, chest tenderness (Left anterior chest pressure), lungs clear, airway intact, No respiratory distress Cardiovascular Exam: regular rate/rhythm, normal heart sounds, normal peripheral pulses Gastrointestinal/Abdomen Exam: soft, normal bowel sounds, No tenderness Rectal Exam: not done Back Exam: normal inspection, normal range of motion, No CVA tenderness, No vertebral tenderness Extremity Exam: normal inspection, normal range of motion, pelvis stable Neurologic Exam: alert, oriented x 3, cooperative, 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, normal mood/affect, nml cerebellar function, nml station & gait, sensation nml Skin Exam: normal color, warm, dry Lymphatic Exam: No adenopathy SpO2 Interpretation: normal O2 Delivery: Room Air - Course Nursing assessment & vital signs reviewed: Yes EKG Interpreted by Me: RATE (79), Sinus Rhythm, NORMAL AXIS, NORMAL INTERVALS, NORMAL QRS, NORMAL ST-T, Other (No acute ischemia on today's twelve-lead EKG.) Ordered Tests: Active Orders 24 hr Category Date Time Status Product Safety Test Engineer STAT Care 03/17/23 11:11 Active EKG-ER Only STAT Care 03/17/23 11:10 Active IV Insertion STAT Care 03/17/23 11:10 Active Pulse Oximetry (ED) STAT Care 03/17/23 11:10 Active CHEST 1 VIEW (PORTABLE) Stat Exams 03/17/23 11:11 Completed CBC W DIFF Stat Lab 03/17/23 11:15 Completed CMP Stat Lab 03/17/23 11:15 Completed D-DIMER QUANTITATIVE Stat Lab 03/17/23 11:15 Completed TROPONIN Q4H Lab 03/17/23 11:15 Completed TROPONIN Q4H Lab 03/17/23 15:15 Ordered TROPONIN Q4H Lab 03/17/23 19:15 Ordered Medication Summary Discontinued Medications Generic Name Dose Route Start Last Admin Trade Name Freq PRN Reason Stop Dose Admin Aspirin 324 mg 03/17/23 11:10 03/17/23 11:15 Aspirin 81 Mg Tab.Chew PO 03/17/23 11:11 324 mg STAT ONE Administration Aspirin Confirm 03/17/23 11:18 Aspirin 81 Mg Tab.Chew Administered 03/17/23 11:19 Dose 324 mg .ROUTE .STK-MED ONE Lab/Rad Data: Laboratory Result Diagrams 03/17/23 11:15 03/17/23 11:15 Laboratory Results 03/17/23 03/17/23 03/17/23 Range/Units 11:15 11:15 11:15 WBC (4.0-10.5) x10^3/uL RBC (4.1-5.6) x10^6/uL Hgb (12.5-18.0) g/dL Hct (42-50) % MCV (78-100) fL MCH (26-32) pg MCHC (32-36) g/dL RDW (11.5-14.0) % Plt Count (150-450) x10^3/uL MPV (7.5-11.0) fL Gran % (36.0-66.0) % Immature Gran % (Auto) (0.00-0.4) % Nucleat RBC Rel Count (0.00-0.1) % Eos # (Auto) (0-0.5) x10^3/uL Immature Gran # (Auto) (0.00-0.03) x10^3u/L Absolute Lymphs (auto) (1.0-4.6) x10^3/uL Absolute Monos (auto) (0.0-1.3) x10^3/uL Absolute Nucleated RBC (0.00-0.01) x10^3u/L Lymphocytes % (24.0-44.0) % Monocytes % (0.0-12.0) % Eosinophils % (0.00-5.0) % Basophils % (0.0-0.4) % Absolute Granulocytes (1.4-6.9) x10^3/uL Basophils # (0-0.4) x10^3/uL D-Dimer 0.33 (0.0-0.50) mg/L Sodium 138 (137-145) mmol/L Potassium 3.9 (3.5-5.1) mmol/L Chloride 106 (98-107) mmol/L Carbon Dioxide 25 (22-30) mmol/L Anion Gap 11.0 (5-15) MEQ/L BUN 12 (9-20) mg/dL Creatinine 1.04 (0.66-1.25) mg/dL Estimated GFR > 60.0 ML/MIN Glucose 104 (74-106) mg/dL Calcium 8.4 (8.4-10.2) mg/dL Total Bilirubin 0.50 (0.2-1.3) mg/dL AST 26 (17-59) U/L ALT 23 (0-50) U/L Alkaline Phosphatase 79 (38-126) U/L Troponin I 0.017 (0.000-0.034) ng/mL Serum Total Protein 6.8 (6.3-8.2) g/dL Albumin 3.9 (3.5-5.0) g/dL 03/17/ Range/Units 11:15 WBC 10.2 (4.0-10.5) x10^3/uL RBC 4.48 (4.1-5.6) x10^6/uL Hgb 13.7 (12.5-18.0) g/dL Hct 41.9 L (42-50) % MCV 93.5 (78-100) fL MCH 30.6 (26-32) pg MCHC 32.7 (32-36) g/dL RDW 12.7 (11.5-14.0) % Plt Count 345 (150-450) x10^3/uL MPV 9.4 (7.5-11.0) fL Gran % 83.2 H (36.0-66.0) % Immature Gran % (Auto) 0.4 (0.00-0.4) % Nucleat RBC Rel Count 0.0 (0.00-0.1) % Eos # (Auto) 0.03 (0-0.5) x10^3/uL Immature Gran # (Auto) 0.04 H (0.00-0.03) x10^3u/L Absolute Lymphs (auto) 0.94 L (1.0-4.6) x10^3/uL Absolute Monos (auto) 0.62 (0.0-1.3) x10^3/uL Absolute Nucleated RBC 0.00 (0.00-0.01) x10^3u/L Lymphocytes % 9.3 L (24.0-44.0) % Monocytes % 6.1 (0.0-12.0) % Eosinophils % 0.3 (0.00-5.0) % Basophils % 0.7 (0.0-0.4) % Absolute Granulocytes 8.45 H (1.4-6.9) x10^3/uL Basophils # 0.07 (0-0.4) x10^3/uL D-Dimer (0.0-0.50) mg/L Sodium (137-145) mmol/L Potassium (3.5-5.1) mmol/L Chloride (98-107) mmol/L Carbon Dioxide (22-30) mmol/L Anion Gap (5-15) MEQ/L BUN (9-20) mg/dL Creatinine (0.66-1.25) mg/dL Estimated GFR ML/MIN Glucose (74-106) mg/dL Calcium (8.4-10.2) mg/dL Total Bilirubin (0.2-1.3) mg/dL AST (17-59) U/L ALT (0-50) U/L Alkaline Phosphatase (38-126) U/L Troponin I (0.000-0.034) ng/mL Serum Total Protein (6.3-8.2) g/dL Albumin (3.5-5.0) g/dL - Progress Progress: improved, re-examined Air Movement: good Progress Note: 03/17/23 12:09 Chest x-ray interpretation by the radiologist was reviewed by me. There is no acute cardiopulmonary findings 03/17/23 12:10 Patient's medical issue is 1 of moderate complexity. The level of complexity and the work-up performed is based on review of the patient's past medical history, review of the patient's medication list, review of the patient's drug allergy list, history of present illness and physical findings on examination. Work-up included twelve-lead EKG, chest x-ray, D-dimer level, troponin level, CBC and CMP. I reviewed the results of the above-stated work-up. Patient does not have any acute, emergent findings. Patient will be discharged home and instructed to follow-up with his prescribing physicians and make them aware of his new symptoms especially those symptoms that have occurred after his starting of Cialis. I am recommending that he hold his Cialis medication. He is to contact his providers today. Blood Culture(s) Obtained: No Antibiotics given: No Counseled pt/family regarding: lab results, diagnosis, need for follow-up, rad results Medical Desision Making - Independent Historian Additional History obtained from: Spouse - Diagnostic Testing Diagnostic test were ordered, analyzed, and reviewed by me: Yes Radiological Interpretation: Reviewed by me, Teleradiologist Report - Risk of complications Low Risk: Low risk of morbidity from additional dx testing or treatment - Departure Departure Disposition: Home Clinical Impression: Chest pain, Medication side effect Condition: Stable Critical Care Time: No Referrals: MAGGIE KELLY, [Primary Care Provider] - Follow up/PCP as directed Additional Instructions: Hold your Cialis until you speak with your prescribing provider. Call your prescribing providers today to make them aware of your symptoms that you have been having over the last approximately 1 week and direct further management.. Have them make a follow-up appointment with you in the next 3 to 5 days.
[2023-03-17] MEDS ORDERED: BABY ASPIRIN 81 MG CHEW ONE (11:18)
[2023-03-17 11:32] LABS: Absolute Neutrophil Ct (ANC) 8.45 x10^3/uL (1.4-6.9); BASOPHIL % 0.7 % (0.0-0.4); Basophil (Absolute #) 0.07 x10^3/uL (0-0.4); Eosinophil % 0.3 % (0.00-5.0); Eosinophil (Absolute #) 0.03 x10^3/uL (0-0.5); Hematocrit 41.9 % (42-50); Hemoglobin 13.7 g/dL (12.5-18.0); IMMATURE GRAN # 0.04 x10^3u/L (0.00-0.03); IMMATURE GRAN % 0.4 % (0.00-0.4); Lymphocyte (Absolute #) 0.94 x10^3/uL (1.0-4.6); Lymphocytes % 9.3 % (24.0-44.0); Mean Cell Volume 93.5 fL (78-100); Mean Corpuscular Hemoglobin 30.6 pg (26-32); Mean Corpuscular Hgb Concent. 32.7 g/dL (32-36); Mean Platelet Volume 9.4 fL (7.5-11.0); Monocyte (Absolute #) 0.62 x10^3/uL (0.0-1.3); Monocytes % 6.1 % (0.0-12.0); Neutrophil % 83.2 % (36.0-66.0); Platelet Count 345 x10^3/uL (150-450); Red Blood Count 4.48 x10^6/uL (4.1-5.6); Red Cell Distribution Width 12.7 % (11.5-14.0); White Blood Count 10.2 x10^3/uL (4.0-10.5)
[2023-03-17 11:43] LABS: ALBUMIN 3.9 g/dL (3.5-5.0); ALKALINE PHOSPHATASE 79 U/L (38-126); BLOOD UREA NITROGEN 12 mg/dL (9-20); CHLORIDE 106 mmol/L (98-107); Calcium 8.4 mg/dL (8.4-10.2); Carbon Dioxide 25 mmol/L (22-30); Creatinine 1 1.04 mg/dL (0.66-1.25); EST GLOMERULAR FILTRATION RATE > 60.0 ML/MIN; Glucose 104 mg/dL (74-106); Potassium 3.9 mmol/L (3.5-5.1); SGOT/AST 26 U/L (17-59); SGPT/ALT 23 U/L (0-50); SODIUM 138 mmol/L (137-145); Total Protein 6.8 g/dL (6.3-8.2)
--- NOTE | 2023-03-17 11:44 | XRAY ---
Indication: Chest pain. Comparison: February 19, 2021 Portable chest demonstrates normal heart and lungs. Bony thorax intact again with mild degenerative changes and lower cervical fusion hardware. No new/acute findings.
[2023-03-17 12:15] VITALS: BP 118/84; PULSE 61; O2SAT 97
== END 2023-03-17 12:30 | disposition home or self-care (01) ==
LOC: ED 11:00
DX: R07.9 Chest pain, unspecified (principal); T46.7X5A Adverse effect of peripheral vasodilators, initial encounter; R42 Dizziness and giddiness; I10 Essential (primary) hypertension; E78.5 Hyperlipidemia, unspecified; Z79.899 Other long term (current) drug therapy
CPT/HCPCS: 36000; 36415; 71045; 80053; 84484; 85025; 85379; 93005; 93041; 94760; 99284; A9270-GY

== ENCOUNTER 2023-06-05 11:24 | Emergency (ER) | payer BC, OTHER ==
[2023-06-05 11:28] VITALS: TEMP 97
[2023-06-05] MEDS ORDERED: Sodium Chloride 0.9% 1000 ML 1,000 ML ONE (11:44)
[2023-06-05] MEDS ORDERED: Sodium Chloride 0.9% 1000 ML 1,000 ML IV SCH (11:45)
[2023-06-05 11:55] LABS: Absolute Neutrophil Ct (ANC) 5.03 x10^3/uL (1.4-6.9); BASOPHIL % 1.2 % (0.0-0.4); Basophil (Absolute #) 0.08 x10^3/uL (0-0.4); Eosinophil % 1.5 % (0.00-5.0); Hematocrit 44.9 % (42-50); Hemoglobin 14.6 g/dL (12.5-18.0); IMMATURE GRAN # 0.02 x10^3u/L (0.00-0.03); IMMATURE GRAN % 0.3 % (0.00-0.4); Lymphocyte (Absolute #) 1.12 x10^3/uL (1.0-4.6); Lymphocytes % 16.4 % (24.0-44.0); Mean Cell Volume 94.3 fL (78-100); Mean Corpuscular Hemoglobin 30.7 pg (26-32); Mean Corpuscular Hgb Concent. 32.5 g/dL (32-36); Mean Platelet Volume 9.6 fL (7.5-11.0); Monocyte (Absolute #) 0.47 x10^3/uL (0.0-1.3); Monocytes % 6.9 % (0.0-12.0); Neutrophil % 73.7 % (36.0-66.0); Platelet Count 343 x10^3/uL (150-450); Red Blood Count 4.76 x10^6/uL (4.1-5.6); Red Cell Distribution Width 12.5 % (11.5-14.0); White Blood Count 6.8 x10^3/uL (4.0-10.5)
[2023-06-05] MEDS ORDERED: Zofran 4 MG/2 ML VIAL IV ONE (12:03)
[2023-06-05] MEDS ORDERED: MORPHINE SULFATE 2 MG INJ IV ONE (12:03)
[2023-06-05] MEDS ORDERED: MORPHINE SULFATE 2 MG INJ ONE (12:06)
[2023-06-05] MEDS ORDERED: Zofran 4 MG/2 ML VIAL ONE (12:06)
--- NOTE | 2023-06-05 12:09 | ERPHSYRPT ---
- History of Present Illness Time Seen by Provider: 06/05/23 11:30 Source: patient, family (Independent history obtained from the patient's spouse), old records Exam Limitations: no limitations Patient Subjective Stated Complaint: PT HERE FOR MILTI CO'S, CO SOB,COUGH, NUMB NESS TO NECK AND RIGHT ARM ,CHEST TIGHTNESS,DIZZINESS SINCE LAST NIGHT,. NO FEVER Triage Nursing Assessment: PT ALERT,UNABLE TO WALK BACK DUE TO DIZZINESS, ARRIVED PER WC, SKIN W/D/P. MOVES ALL EXT WELL, ALERT, NO EDEMA NOTED Physician History: This is a 53-year-old white male patient who has a history of hypertension, hyperlipidemia, arthritis and degenerative disc disease who presents with multiple complaints. Initially, the patient was having numbness down the left arm and posterior left shoulder yesterday followed by dizziness and chest tightness. Today the dizziness is still present there is no chest tightness, the numbness down the left arm still present but not as intense, patient has a cough and he states that he has been short of breath to the point he felt like he was going to pass out. Patient has had a negative cardiac catheterization 2018. He is not seeing a hosiery knitter at this time. He has no abdominal pain. He has had no nausea vomiting or diarrhea. His primary complaints today are dizziness and shortness of breath. He is on Cialis which, when she started this medicine a few months ago he would have intermittent dizziness. However, he is still taking this medication and it no longer is causing dizziness. Timing/Duration: yesterday Severity: moderate Character of Deficits: other (Numbness left upper extremity) Deficits: no difficulties Baseline/Normal Cognition: alert oriented x 3 Current Cognition: alert oriented x 3 Associated Symptoms: chest pain (Chest tightness yesterday), other (Numbness left upper extremity, dizziness) Allergies/Adverse Reactions: marshmallow Allergy (Severe, Uncoded 06/05/23 11:26) Anaphylactic Reaction Home Medications: Ezetimibe 10 mg [Zetia 10 MG] 10 mg PO QHS 02/19/21 [History] Pravastatin Sodium 40 mg PO QHS 02/28/21 [History] Tadalafil [Cialis] 5 mg PO HS 03/17/23 [History] Hx Tetanus, Diphtheria Vaccination/Date Given: No Hx Influenza Vaccination/Date Given: No Hx Pneumococcal Vaccination/Date Given: No Immunizations Up to Date: Yes Travel Risk - International Travel Have you traveled outside of the country in past 3 weeks: No - Coronavirus Screening Are you exhibiting any of the following symptoms?: No Close contact with a COVID-19 positive Pt in past 14-21 Days: No - Vaccine Status Have you recieved a Covid-19 vaccination: No Design Supervisor: Pfizer - Vaccination Dates Date of 2cond Vaccination (if applicable): 08/14/2021 - Review of Systems Constitutional: No Symptoms Eyes: No Symptoms Ears, Nose, & Throat: No Symptoms Respiratory: Cough, Dyspnea Cardiac: Chest Pain (Yesterday, described as a central, nonradiating chest tightness) Abdominal/Gastrointestinal: No Symptoms Genitourinary Symptoms: No Symptoms Musculoskeletal: No Symptoms Skin: No Symptoms Neurological: Dizziness Psychological: No Symptoms Endocrine: No Symptoms Hematologic/Lymphatic: No Symptoms Immunological/Allergic: No Symptoms All Other Systems: Reviewed and Negative - Past Medical History Pertinent Past Medical History: Yes Neurological History: No Pertinent History ENT History: No Pertinent History Cardiac History: High Cholesterol Respiratory History: No Pertinent History Endocrine Medical History: No Pertinent History Musculoskeletal History: Arthritis, Degenerative Disk Disease, Fractures GI Medical History: Diverticulitis, Gallbladder Disease, Other History: No Pertinent History Psycho-Social History: No Pertinent History Male Reproductive Disorders: No Pertinent History - Past Surgical History Past Surgical History: Yes Neuro Surgical History: No Pertinent History Cardiac: No Pertinent History Respiratory: No Pertinent History Gastrointestinal: Cholecystectomy Genitourinary: No Pertinent History Musculoskeletal: No Pertinent History, Orthopedic Surgery Male Surgical History: No Pertinent History Other Surgical History: right orbital reconsurction ,neck, cervical fusion, labral debridement left - Social History Smoking Status: Former smoker How long have you smoked: 35 years Exposure to second hand smoke: No Drug Use: none Patient Lives Alone: No Significant Family History: no pertinent family hx - Nursing Vital Signs Nursing Vital Signs: Initial Vital Signs Temperature 97.0 F 06/05/23 11:27 Pulse Rate 67 06/05/23 11:27 Respiratory Rate 17 06/05/23 11:27 Blood Pressure 132/94 06/05/23 11:27 O2 Sat by Pulse Oximetry 97 06/05/23 11:27 Pain Scale Pain Intensity 7 - [place] Coma Scale Best Eye Response ([place]): (4) open spontaneously Best Verbal Response ([place]): (5) oriented Best Motor Response ([place]): (6) obeys commands [place] Total: 15 - Physical Exam General Appearance: no apparent distress, alert, anxiety Eye Exam: bilateral eye: normal inspection, PERRL, EOMI Ears, Nose, Throat Exam: normal ENT inspection, moist mucous membranes Neck Exam: normal inspection, non-tender, supple, full range of motion Respiratory: normal breath sounds, lungs clear, airway intact, No chest ten derness, No respiratory distress Cardiovascular: regular rate/rhythm, normal heart sounds, normal peripheral pulses Gastrointestinal: soft, normal bowel sounds, No tenderness Rectal Exam: not done Back Exam: normal inspection, normal range of motion, No CVA tenderness, No vertebral tenderness Extremity Exam: normal inspection, normal range of motion, pelvis stable Mental Status: alert, oriented x 3, 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 Exam: normal hearing, normal speech, PERRL, tongue midline Coordination/Gait: normal finger to nose, normal gait, normal cerebellar function Motor/Sensory: no motor deficit, no sensory deficit, no pronator drift Skin Exam: normal color, warm, dry SpO2 Interpretation: normal SpO2: 96 O2 Delivery: Room Air - Course Nursing assessment & vital signs reviewed: Yes EKG Interpreted by Me: RATE (62), Sinus Rhythm, NORMAL AXIS, NORMAL INTERVALS, NORMAL QRS, NORMAL ST-T, Other (No acute ischemic changes on today's twelve-lead EKG.) Ordered Tests: Active Orders 24 hr Category Date Time Status Adjuster STAT Care 06/05/23 11:42 Active EKG-ER Only STAT Care 06/05/23 11:41 Active IV Insertion STAT Care 06/05/23 11:41 Active NPO (ED) STAT Care 06/05/23 11:42 Active POCT Glucose Check STAT Care 06/05/23 11:41 Active Pulse Oximetry (ED) STAT Care 06/05/23 11:41 Active CHEST 1 VIEW (PORTABLE) Stat Exams 06/05/23 12:49 Taken HEAD WITHOUT CONTRAST [CT] Stat Exams 06/05/23 11:42 Completed CBC W DIFF Stat Lab 06/05/23 11:45 Completed CMP Stat Lab 06/05/23 11:45 Completed D-DIMER QUANTITATIVE Stat Lab 06/05/23 11:45 Completed TROPONIN Q4H Lab 06/05/23 11:45 Completed TROPONIN Q4H Lab 06/05/23 15:45 Ordered TROPONIN Q4H Lab 06/05/23 19:45 Ordered UA W/RFX UR CULTURE Stat Lab 06/05/23 12:15 Completed Medication Summary Generic Name Dose Route Start Last Admin Trade Name Bal PRN Reason Stop Dose Admin Sodium Chloride 1,000 mls @ 100 mls/hr 06/05/23 11:45 06/05/23 11:45 Sodium Chloride 0.9% 1000 Ml IV 07/05/23 11:44 100 mls/hr .Q10H DAVID Administration Discontinued Medications Generic Name Dose Route Start Last Admin Trade Name Bal PRN Reason Stop Dose Admin Morphine Sulfate 2 mg 06/05/23 12:03 06/05/23 12:07 Morphine Sulfate 2 Mg/Ml Inj IV 06/05/23 12:04 2 mg STAT ONE Administration Morphine Sulfate Confirm 06/05/23 12:06 Morphine Sulfate 2 Mg/Ml Inj Administered 06/05/23 12:07 Dose 2 mg .ROUTE .STK-MED ONE Morphine Sulfate 4 mg 06/05/23 13:20 06/05/23 13:25 Morphine Sulfate 4 Mg/Ml Injection IV 06/05/23 13:21 4 mg STAT ONE Administration Morphine Sulfate Confirm 06/05/23 13:25 Morphine Sulfate 4 Mg/Ml Injection Administered 06/05/23 13:26 Dose 4 mg .ROUTE .STK-MED ONE Ondansetron HCl 4 mg 06/05/23 12:03 06/05/23 12:07 Ondansetron Hcl 4 Mg/2 Ml Vial IV 06/05/23 12:04 4 mg STAT ONE Administration Ondansetron HCl Confirm 06/05/23 12:06 Ondansetron Hcl 4 Mg/2 Ml Vial Administered 06/05/23 12:07 Dose 4 mg .ROUTE .STK-MED ONE Lab/Rad Data: Laboratory Result Diagrams 06/05/23 11:45 06/05/23 11:45 Laboratory Results 06/05/23 06/05/23 06/05/23 Range/Units 12:15 11:45 11:45 WBC (4.0-10.5) x10^3/uL RBC (4.1-5.6) x10^6/uL Hgb (12.5-18.0) g/dL Hct (42-50) % MCV (78-100) fL MCH (26-32) pg MCHC (32-36) g/dL RDW (11.5-14.0) % Plt Count (150-450) x10^3/uL MPV (7.5-11.0) fL Gran % (36.0-66.0) % Immature Gran % (Auto) (0.00-0.4) % Nucleat RBC Rel Count (0.00-0.1) % Eos # (Auto) (0-0.5) x10^3/uL Immature Gran # (Auto) (0.00-0.03) x10^3u/L Absolute Lymphs (auto) (1.0-4.6) x10^3/uL Absolute Monos (auto) (0.0-1.3) x10^3/uL Absolute Nucleated RBC (0.00-0.01) x10^3u/L Lymphocytes % (24.0-44.0) % Monocytes % (0.0-12.0) % Eosinophils % (0.00-5.0) % Basophils % (0.0-0.4) % Absolute Granulocytes (1.4-6.9) x10^3/uL Basophils # (0-0.4) x10^3/uL D-Dimer (0.0-0.50) mg/L Sodium (137-145) mmol/L Potassium (3.5-5.1) mmol/L Chloride (98-107) mmol/L Carbon Dioxide (22-30) mmol/L Anion Gap (5-15) MEQ/L BUN (9-20) mg/dL Creatinine (0.66-1.25) mg/dL Estimated GFR ML/MIN Glucose (74-106) mg/dL Calcium (8.4-10.2) mg/dL Total Bilirubin (0.2-1.3) mg/dL AST (17-59) U/L ALT (0-50) U/L Alkaline Phosphatase (38-126) U/L Troponin I 0.018 (0.000-0.034) ng/mL Serum Total Protein (6.3-8.2) g/dL Albumin (3.5-5.0) g/dL Urine Color Yellow (Yellow) Urine Appearance Clear (Clear) Urine pH 6.0 (4.6-8.0) Ur Specific [place] 1.010 (1.005-1.030) Urine Protein Negative (Negative) Urine Glucose (UA) Negative (Negative) mg/dL Urine Ketones Negative (Negative) Urine Blood Negative (Negative) Urine Nitrite Negative (Negative) Urine Bilirubin Negative (Negative) Urine Urobilinogen 0.2 (0.2) mg/dL Ur Leukocyte Esterase Negative (Negative) U Hyaline Cast (Auto) NONE SEEN (0-2) /LPF Urine Microscopic RBC 0-2 (0-5) /HPF Urine Microscopic WBC 0-2 (0-5) /HPF Ur Epithelial Cells None Seen (None Seen) /HPF Urine Bacteria None Seen (None Seen) /HPF Urine Culture Reflexed NO (NO) Influenza Type A Ag NEGATIVE (NEGATIVE) Influenza Type B Ag NEGATIVE (NEGATIVE) RSV (PCR) NEGATIVE (NEGATIVE) SARS-CoV-2 (PCR) NEGATIVE (NEGATIVE) 06/05/23 06/05/23 06/05/23 Range/Units 11:45 11:45 11:45 WBC 6.8 (4.0-10.5) x10^3/uL RBC 4.76 (4.1-5.6) x10^6/uL Hgb 14.6 (12.5-18.0) g/dL Hct 44.9 (42-50) % MCV 94.3 (78-100) fL MCH 30.7 (26-32) pg MCHC 32.5 (32-36) g/dL RDW 12.5 (11.5-14.0) % Plt Count 343 (150-450) x10^3/uL MPV 9.6 (7.5-11.0) fL Gran % 73.7 H (36.0-66.0) % Immature Gran % (Auto) 0.3 (0.00-0.4) % Nucleat RBC Rel Count 0.0 (0.00-0.1) % Eos # (Auto) 0.10 (0-0.5) x10^3/uL Immature Gran # (Auto) 0.02 (0.00-0.03) x10^3u/L Absolute Lymphs (auto) 1.12 (1.0-4.6) x10^3/uL Absolute Monos (auto) 0.47 (0.0-1.3) x10^3/uL Absolute Nucleated RBC 0.00 (0.00-0.01) x10^3u/L Lymphocytes % 16.4 L (24.0-44.0) % Monocytes % 6.9 (0.0-12.0) % Eosinophils % 1.5 (0.00-5.0) % Basophils % 1.2 (0.0-0.4) % Absolute Granulocytes 5.03 (1.4-6.9) x10^3/uL Basophils # 0.08 (0-0.4) x10^3/uL D-Dimer 0.23 (0.0-0.50) mg/L Sodium 135 L (137-145) mmol/L Potassium 3.8 (3.5-5.1) mmol/L Chloride 103 (98-107) mmol/L Carbon Dioxide 22 (22-30) mmol/L Anion Gap 14.7 (5-15) MEQ/L BUN 12 (9-20) mg/dL Creatinine 1.06 (0.66-1.25) mg/dL Estimated GFR > 60.0 ML/MIN Glucose 167 H (74-106) mg/dL Calcium 8.7 (8.4-10.2) mg/dL Total Bilirubin 0.80 (0.2-1.3) mg/dL AST 29 (17-59) U/L ALT 26 (0-50) U/L Alkaline Phosphatase 80 (38-126) U/L Troponin I (0.000-0.034) ng/mL Serum Total Protein 6.8 (6.3-8.2) g/dL Albumin 4.1 (3.5-5.0) g/dL Urine Color (Yellow) Urine Appearance (Clear) Urine pH (4.6-8.0) Ur Specific [place] (1.005-1.030) Urine Protein (Negative) Urine Glucose (UA) (Negative) mg/dL Urine Ketones (Negative) Urine Blood (Negative) Urine Nitrite (Negative) Urine Bilirubin (Negative) Urine Urobilinogen (0.2) mg/dL Ur Leukocyte Esterase (Negative) U Hyaline Cast (Auto) (0-2) /LPF Urine Microscopic RBC (0-5) /HPF Urine Microscopic WBC (0-5) /HPF Ur Epithelial Cells (None Seen) /HPF Urine Bacteria (None Seen) /HPF Urine Culture Reflexed (NO) Influenza Type A Ag (NEGATIVE) Influenza Type B Ag (NEGATIVE) RSV (PCR) (NEGATIVE) SARS-CoV-2 (PCR) (NEGATIVE) - Progress Progress: improved, re-examined Progress Note: 06/05/23 12:36 CT of the head without contrast shows no acute intracranial abnormality. This was interpreted by the radiologist and I reviewed the impression. This patient's medical issue is 1 of moderate complexity. Level complexity in the work-up performed is based on review of the patient's past medical history, review of the patient's medication list, review of the patient's drug allergy list, history present illness and physical findings on examination. The work-up in this patient includes a CT scan of the head, twelve-lead EKG, CBC, CMP, D- dimer, troponin level and placement of an intravenous line and infusion of no rmal saline solution. We also performed a COVID test. We are awaiting the results of these studies. The above-stated CT scan of the head without contrast impression was evaluated 06/05/23 13:54 The patient does not want to wait for the 3-hour troponin level. He does not believe that his symptoms are of cardiac origin. He did have a negative cardiac catheterization in 2019. He has no chest pain right now. His shortness of breath has resolved. He has no dizziness. His room air oxygenation level is 99 to 100%. 06/05/23 13:56 Counseled pt/family regarding: lab results, diagnosis, rad results Medical Desision Making - Independent Historian Additional History obtained from: Spouse - Diagnostic Testing Diagnostic test were ordered, analyzed, and reviewed by me: Yes Radiological Interpretation: Interpreted by me, Reviewed by me, Teleradiologist Report - Risk of complications Low Risk: Low risk of morbidity from additional dx testing or treatment - Departure Departure Disposition: Home Clinical Impression: Dizziness, Shortness of breath Condition: Stable Critical Care Time: No Referrals: MAGGIE KELLY, [Primary Care Provider] - Follow up/PCP as directed Additional Instructions: Call your primary care doctor today to make arranges for follow-up appointment. Call your hosiery knitter today to make arrangements for further evaluation management. Take all your medications as prescribed.
[2023-06-05 12:11] LABS: ALBUMIN 4.1 g/dL (3.5-5.0); ALKALINE PHOSPHATASE 80 U/L (38-126); ANION GAP 14.7 MEQ/L (5-15); BLOOD UREA NITROGEN 12 mg/dL (9-20); CHLORIDE 103 mmol/L (98-107); Calcium 8.7 mg/dL (8.4-10.2); Carbon Dioxide 22 mmol/L (22-30); Creatinine 1 1.06 mg/dL (0.66-1.25); EST GLOMERULAR FILTRATION RATE > 60.0 ML/MIN; Glucose 167 mg/dL (74-106); Potassium 3.8 mmol/L (3.5-5.1); SGOT/AST 29 U/L (17-59); SGPT/ALT 26 U/L (0-50); SODIUM 135 mmol/L (137-145); Total Protein 6.8 g/dL (6.3-8.2)
--- NOTE | 2023-06-05 12:19 | XRAY ---
CLINICAL HISTORY:Dizziness; numbness COMPARISON:None. TECHNIQUE:Axial non-contrast CT scan of the brain was performed from the skull base to the high parietal region. FINDINGS: The visualized brain parenchyma shows a normal appearance. No focal parenchymal abnormalities are demonstrated. Herrera-white matter differentiation is maintained. No midline shifts or deformity. No intracerebral or extra axial hematoma. Normal size and configuration of the cerebral ventricles. Normal CT appearance of the posterior fossa structures namely the cerebellar hemispheres, brainstem, and cerebellar peduncles. The IACs are unremarkable. The cerebellopontine angles are clear. The osseous structures in the skull base are unremarkable. No definite calvarium fractures. The scanned paranasal sinuses are clear. IMPRESSION: No evidence of ischemic infarction or hemorrhage or obvious mass lesion was seen. Electronically Signed by: Jesse Mark MD. (06/05/2023 11:18:56 LOCK TENDER)
[2023-06-05 12:31] LABS: INFLUENZA A NEGATIVE (NEGATIVE); INFLUENZA B NEGATIVE (NEGATIVE); RESPIRATORY SYNCTIAL VIRUS NEGATIVE (NEGATIVE); SARS-CoV-2 Xpert Express NEGATIVE (NEGATIVE)
[2023-06-05 13:09] VITALS: BP 124/74; PULSE 56; RESP 16
[2023-06-05] MEDS ORDERED: MORPHINE SULFATE 4 MG INJ IV ONE (13:20)
[2023-06-05] MEDS ORDERED: MORPHINE SULFATE 4 MG INJ ONE (13:25)
[2023-06-05 13:45] LABS: Appearance Clear (Clear); Bacteria None Seen /HPF (None Seen); Bilirubin Negative (Negative); Blood Negative (Negative); Epithelial Cells None Seen /HPF (None Seen); Glucose, Urine Negative (Negative); Hyaline Casts NONE SEEN /LPF (0-2); Ketones Negative (Negative); Leukocyte Esterase Negative (Negative); Nitrite Negative (Negative); Protein,Urine Dip Negative (Negative); RBC 0-2 /HPF (0-5); Urobilinogen 0.2 mg/dL (0.2); WBC 0-2 /HPF (0-5)
[2023-06-05 13:49] LABS: ADD URINE CULTURE? NO (NO)
[2023-06-05 13:58] VITALS: O2SAT 96
--- NOTE | 2023-06-06 12:24 | XRAY ---
CLINICAL HISTORY:Shortness of breath; cough COMPARISON:03/17/2023. TECHNIQUE:X-ray of the chest, AP portable. FINDINGS: A radiographic examination of the chest demonstrates clear lungs. Normal configuration of the mediastinum. The lang are normal in size and position. The cardiac size can not be commented upon due to AP supine projection. Costophrenic and cardiophrenic angles are clear. Intervention seen in the lower cervical spine. IMPRESSION: 1. No active pulmonary pathology was detected. 2. The previous chest radiograph was also unremarkable. Electronically Signed by: Jesse Mark MD. (06/06/2023 11:22:47 BIAS CUTTER)
== END 2023-06-05 14:17 | disposition home or self-care (01) ==
LOC: ED 11:24
DX: R42 Dizziness and giddiness (principal); R06.02 Shortness of breath; R20.0 Anesthesia of skin; R05.9 Cough, unspecified; I10 Essential (primary) hypertension; E78.5 Hyperlipidemia, unspecified; Z79.899 Other long term (current) drug therapy
CPT/HCPCS: 0241U; 36000; 36415; 70450; 71045; 80053; 81001; 84484; 85025; 85379; 93005; 93041; 94760; 96360; 96361; 96374; 96375; 96376; 99284; J2270; J2405

== ENCOUNTER 2023-10-15 12:19 | Emergency (ER) | payer OTHER ==
--- NOTE | 2023-10-15 12:22 | ERPHSYRPT ---
- History of Present Illness Time Seen by Provider: 10/15/23 12:22 Source: patient Exam Limitations: no limitations Physician History: This is a 53-year-old white male patient of Dr. Pascual who presents with cough and congestion and mild shortness of breath that occurred 3 days ago and central, nonradiating chest pain with deep inspiration and cough that began yesterday. Patient went to the outpatient clinic. They were concerned that something else may be occurring in this patient and therefore he was sent to the emergency department. Patient had a negative cardiac catheterization in 2019. He does not see a structural test engineer. Patient has a history of hypertension, hyperlipidemia, arthritis and degenerative disc disease. He has not had a fever or chills. He denies nausea vomiting and diarrhea. He has no abdominal pain Timing/Duration: day(s) (3) Activities at Onset: none Severity of Dyspnea-Max: mild Severity of Dyspnea-Current: mild Possible Cause: occasional episodes Modifying Factors: Improves With: coughing, deep breath Associated Symptoms: cough, chest pain/discomfort (Only with coughing and deep breathing), No fever, No wheezing, No productive cough Allergies/Adverse Reactions: marshmallow Allergy (Severe, Uncoded 06/05/23 11:26) Anaphylactic Reaction Home Medications: Ezetimibe 10 mg [Zetia 10 MG] 10 mg PO QHS 02/19/21 [History] Pravastatin Sodium 40 mg PO QHS 02/28/21 [History] Cyclobenzaprine HCl 10 mg [Cyclobenzaprine 10 MG] 10 mg PO DAILY 10/15/23 [History] Gabapentin [Neurontin] 300 mg PO DAILY 10/15/23 [History] Hx Tetanus, Diphtheria Vaccination/Date Given: No Hx Influenza Vaccination/Date Given: No Hx Pneumococcal Vaccination/Date Given: No Travel Risk - Coronavirus Screening Are you exhibiting any of the following symptoms?: Yes Symptoms: Cough: New Onset, Shortness of Breath Close contact with a COVID-19 positive Pt in past 14-21 Days: No - Vaccine Status Have you recieved a Covid-19 vaccination: No 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[employer] - Vaccination Dates Date of 2cond Vaccination (if applicable): 08/14/2021 - Review of Systems Constitutional: No Symptoms Eyes: No Symptoms Ears, Nose, & Throat: No Symptoms Respiratory: Cough, Dyspnea Cardiac: Chest Pain (Only with cough and deep breathing) Abdominal/Gastrointestinal: No Symptoms Genitourinary Symptoms: No Symptoms Musculoskeletal: No Symptoms Skin: No Symptoms Neurological: No Symptoms Psychological: No Symptoms Endocrine: No Symptoms Hematologic/Lymphatic: No Symptoms Immunological/Allergic: No Symptoms All Other Systems: Reviewed and Negative - Past Medical History Pertinent Past Medical History: Yes Neurological History: No Pertinent History ENT History: No Pertinent History Cardiac History: High Cholesterol Respiratory History: No Pertinent History Endocrine Medical History: No Pertinent History Musculoskeletal History: Arthritis, Degenerative Disk Disease, Fractures GI Medical History: Diverticulitis, Gallbladder Disease, Other History: No Pertinent History Psycho-Social History: No Pertinent History Male Reproductive Disorders: No Pertinent History - Past Surgical History Past Surgical History: Yes Neuro Surgical History: No Pertinent History Cardiac: No Pertinent History Respiratory: No Pertinent History Gastrointestinal: Cholecystectomy Genitourinary: No Pertinent History Musculoskeletal: No Pertinent History, Orthopedic Surgery Male Surgical History: No Pertinent History Other Surgical History: right orbital reconsurction ,neck, cervical fusion, labral debridement left - Social History Smoking Status: Former smoker How long have you smoked: 35 years Exposure to second hand smoke: No Drug Use: none Patient Lives Alone: No Significant Family History: no pertinent family hx - Nursing Vital Signs Nursing Vital Signs: Initial Vital Signs Temperature 97.5 F 10/15/23 12:19 Pulse Rate 81 10/15/23 12:19 Respiratory Rate 22 10/15/23 12:19 Blood Pressure 118/79 10/15/23 12:19 O2 Sat by Pulse Oximetry 99 10/15/23 12:19 Pain Scale Pain Intensity 7 - Physical Exam General Appearance: no apparent distress, alert Eye Exam: PERRL/EOMI, eyes nml inspection Ears, Nose, Throat Exam: hearing grossly normal Neck Exam: normal inspection, non-tender, supple, full range of motion Respiratory Exam: normal breath sounds, lungs clear, airway intact, No chest tenderness, No respiratory distress Cardiovascular/Chest Exam: normal heart sounds, regular rate/rhythm, normal peripheral pulses Abdominal/Gastrointestinal Exam: soft, normal bowel sounds, No tenderness Rectal Exam: not done Extremity Exam: non-tender, normal range of motion, normal inspection, normal capillary refill, no calf tenderness, no pedal edema, pelvis stable Neurologic Exam: alert, oriented x 3, cooperative, student specialist II-XII nml as tested, normal mood/affect, nml cerebellar function, nml station & gait, sensation nml Skin Exam: normal color, warm, dry Lymphatic Exam: No adenopathy SpO2 Interpretation: normal O2 Delivery: Room Air - Course Nursing assessment & vital signs reviewed: Yes EKG Interpreted by Me: RATE (71), Sinus Rhythm, NORMAL AXIS, NORMAL INTERVALS, NORMAL QRS, NORMAL ST-T, Other (No acute ischemic changes on today's twelve-lead EKG. There is no change when compared to twelve-lead EKG that was performed on 06/05/2023.) Ordered Tests: Active Orders 24 hr Category Date Time Status EKG-ER Only STAT Care 10/15/23 12:33 Active IV Insertion STAT Care 10/15/23 12:33 Active Pulse Oximetry (ED) STAT Care 10/15/23 12:33 Active CHEST 1 VIEW (PORTABLE) Stat Exams 10/15/23 12:34 Completed CHEST WITH CONTRAST [CT] Stat Exams 10/15/23 13:53 Completed BLOOD CULTURE Stat Lab 10/15/23 13:02 Received CBC W DIFF Stat Lab 10/15/23 12:35 Completed CMP Stat Lab 10/15/23 12:35 Completed D-DIMER QUANTITATIVE Stat Lab 10/15/23 12:35 Completed NT PRO BNPII Stat Lab 10/15/23 12:35 Completed TROPONIN Q4H Lab 10/15/23 12:35 Completed TROPONIN Q4H Lab 10/15/23 16:45 Ordered TROPONIN Q4H Lab 10/15/23 20:45 Ordered Medication Summary Discontinued Medications Generic Name Dose Route Start Last Admin Trade Name Bal PRN Reason Stop Dose Admin Sodium Chloride 500 mls @ 500 mls/hr 10/15/23 13:54 10/15/23 14:01 Sodium Chloride 0.9% 500 Ml IV 10/15/23 14:53 500 mls/hr .Q1H ONE Administration Sodium Chloride Confirm 10/15/23 13:58 Sodium Chloride 0.9% 500 Ml Administered 10/15/23 13:59 Dose 500 mls @ ud IV .STK-MED ONE Lab/Rad Data: Laboratory Result Diagrams 10/15/23 12:35 10/15/23 12:35 Laboratory Results 10/15/23 10/15/23 10/15/23 Range/Units 13:16 12:35 12:35 WBC (4.0-10.5) x10^3/uL RBC (4.1-5.6) x10^6/uL Hgb (12.5-18.0) g/dL Hct (42-50) % MCV (78-100) fL MCH (26-32) pg MCHC (32-36) g/dL RDW (11.5-14.0) % Plt Count (150-450) x10^3/uL MPV (7.5-11.0) fL Gran % (36.0-66.0) % Immature Gran % (Auto) (0.00-0.4) % Nucleat RBC Rel Count (0.00-0.1) % Eos # (Auto) (0-0.5) x10^3/uL Immature Gran # (Auto) (0.00-0.03) x10^3u/L Absolute Lymphs (auto) (1.0-4.6) x10^3/uL Absolute Monos (auto) (0.0-1.3) x10^3/uL Absolute Nucleated RBC (0.00-0.01) x10^3u/L Lymphocytes % (24.0-44.0) % Monocytes % (0.0-12.0) % Eosinophils % (0.00-5.0) % Basophils % (0.0-0.4) % Absolute Granulocytes (1.4-6.9) x10^3/uL Basophils # (0-0.4) x10^3/uL D-Dimer 0.54 H (0.0-0.50) mg/L Sodium (137-145) mmol/L Potassium (3.5-5.1) mmol/L Chloride (98-107) mmol/L Carbon Dioxide (22-30) mmol/L Anion Gap (5-15) MEQ/L BUN (9-20) mg/dL Creatinine (0.66-1.25) mg/dL Estimated GFR ML/MIN Glucose (74-106) mg/dL Calcium (8.4-10.2) mg/dL Total Bilirubin (0.2-1.3) mg/dL AST (17-59) U/L ALT (0-50) U/L Alkaline Phosphatase (38-126) U/L Troponin I 0.016 (0.000-0.034) ng/mL NT-Pro-B Natriuret Pep (<300) pg/mL Serum Total Protein (6.3-8.2) g/dL Albumin (3.5-5.0) g/dL Influenza Type A Ag NEGATIVE (NEGATIVE) Influenza Type B Ag NEGATIVE (NEGATIVE) RSV (PCR) NEGATIVE (NEGATIVE) SARS-CoV-2 (PCR) NEGATIVE (NEGATIVE) 10/15/23 10/15/23 Range/Units 12:35 12:35 WBC 7.9 (4.0-10.5) x10^3/uL RBC 4.68 (4.1-5.6) x10^6/uL Hgb 14.4 (12.5-18.0) g/dL Hct 44.0 (42-50) % MCV 94.0 (78-100) fL MCH 30.8 (26-32) pg MCHC 32.7 (32-36) g/dL RDW 13.3 (11.5-14.0) % Plt Count 422 (150-450) x10^3/uL MPV 9.6 (7.5-11.0) fL Gran % 70.2 H (36.0-66.0) % Immature Gran % (Auto) 0.6 H (0.00-0.4) % Nucleat RBC Rel Count 0.0 (0.00-0.1) % Eos # (Auto) 0.15 (0-0.5) x10^3/uL Immature Gran # (Auto) 0.05 H (0.00-0.03) x10^3u/L Absolute Lymphs (auto) 1.51 (1.0-4.6) x10^3/uL Absolute Monos (auto) 0.57 (0.0-1.3) x10^3/uL Absolute Nucleated RBC 0.00 (0.00-0.01) x10^3u/L Lymphocytes % 19.0 L (24.0-44.0) % Monocytes % 7.2 (0.0-12.0) % Eosinophils % 1.9 (0.00-5.0) % Basophils % 1.1 (0.0-0.4) % Absolute Granulocytes 5.57 (1.4-6.9) x10^3/uL Basophils # 0.09 (0-0.4) x10^3/uL D-Dimer (0.0-0.50) mg/L Sodium 136 L (137-145) mmol/L Potassium 4.4 (3.5-5.1) mmol/L Chloride 106 (98-107) mmol/L Carbon Dioxide 25 (22-30) mmol/L Anion Gap 9.7 (5-15) MEQ/L BUN 8 L (9-20) mg/dL Creatinine 0.87 (0.66-1.25) mg/dL Estimated GFR 103.2 ML/MIN Glucose 97 (74-106) mg/dL Calcium 9.0 (8.4-10.2) mg/dL Total Bilirubin 0.30 (0.2-1.3) mg/dL AST 23 (17-59) U/L ALT 23 (0-50) U/L Alkaline Phosphatase 78 (38-126) U/L Troponin I (0.000-0.034) ng/mL NT-Pro-B Natriuret Pep < 20.0 (<300) pg/mL Serum Total Protein 7.1 (6.3-8.2) g/dL Albumin 4.1 (3.5-5.0) g/dL Influenza Type A Ag (NEGATIVE) Influenza Type B Ag (NEGATIVE) RSV (PCR) (NEGATIVE) SARS-CoV-2 (PCR) (NEGATIVE) - Progress Progress: improved, re-examined Air Movement: good Progress Note: 10/15/23 12:40 This patient's medical issue is 1 of moderate complexity. The level complexity in the workup performed is based on review the patient's past medical history, review the patient's medication list, review of the patient's drug allergy list, history of present illness and physical findings on examination. The workup includes placement of intravenous line, twelve-lead EKG, troponin level, D-dimer level, BNP level, chest x-ray, CBC, CMP, viral swabs. 10/15/23 12:55 The radiologist interpreted the chest x-ray. The impression is nonacute chest with chronic features. 10/15/23 15:12 I reviewed and interpreted the patient's laboratory data. The patient has a slightly elevated D-dimer. We ordered a CT scan of the chest with contrast. Other than that finding there were no other significant, acute, emergent findings on laboratory data results. CT scan of the chest with contrast shows no obvious central pulmonary embolus. There are no obvious acute cardiopulmonary abnormalities. This study was interpreted by the radiologist and I reviewed the impression. There are degenerative changes in the patient's spine. There is the presence of hepatic cysts. I reviewed the results of the CAT scan with the patient and his spouse. Blood Culture(s) Obtained: No Antibiotics given: No Counseled pt/family regarding: lab results, diagnosis, need for follow-up, rad results Medical Desision Making - Independent Historian Additional History obtained from: Spouse - Diagnostic Testing Diagnostic test were ordered, analyzed, and reviewed by me: Yes Radiological Interpretation: Reviewed by me, Teleradiologist Report - Risk of complications The pt has a mod risk of morbidity or mortality based on: Need for prescription drug management - Departure Clinical Impression: Cough, Chest congestion, Bronchitis Condition: Stable Critical Care Time: No Referrals: KRYSTAL PASCUAL DO [Primary Care Provider] - Follow up/PCP as directed Additional Instructions: Drink plenty of fluids. Take your medication as prescribed. Call your primary care doctor's office tomorrow, 10/16/2023, to make arrangements for follow-up appointment in the next 3 to 5 days. Prescriptions: Prednisone 10 mg [Deltasone 10 mg] 10 mg PO TID #12 tablet Albuterol 8 gm Mdi Hfa [Ventolin Hfa MDI] 8 gm IH Q4H #1 unit
[2023-10-15 12:26] VITALS: TEMP 97.5
--- NOTE | 2023-10-15 12:52 | XRAY ---
Indication: Chest pain and cough. Comparison: June 05, 2023 Portable chest again demonstrates minimal left base subsegmental atelectasis/scarring. Remaining heart and lungs unremarkable. Bony thorax intact again with mild degenerative changes and cervical fusion hardware. Impression: Continued nonacute chest with chronic features.
[2023-10-15 13:17] LABS: Absolute Neutrophil Ct (ANC) 5.57 x10^3/uL (1.4-6.9); BASOPHIL % 1.1 % (0.0-0.4); Basophil (Absolute #) 0.09 x10^3/uL (0-0.4); Eosinophil % 1.9 % (0.00-5.0); Eosinophil (Absolute #) 0.15 x10^3/uL (0-0.5); Hemoglobin 14.4 g/dL (12.5-18.0); IMMATURE GRAN # 0.05 x10^3u/L (0.00-0.03); IMMATURE GRAN % 0.6 % (0.00-0.4); Lymphocyte (Absolute #) 1.51 x10^3/uL (1.0-4.6); Mean Corpuscular Hemoglobin 30.8 pg (26-32); Mean Corpuscular Hgb Concent. 32.7 g/dL (32-36); Mean Platelet Volume 9.6 fL (7.5-11.0); Monocyte (Absolute #) 0.57 x10^3/uL (0.0-1.3); Monocytes % 7.2 % (0.0-12.0); Neutrophil % 70.2 % (36.0-66.0); Platelet Count 422 x10^3/uL (150-450); Red Blood Count 4.68 x10^6/uL (4.1-5.6); Red Cell Distribution Width 13.3 % (11.5-14.0); White Blood Count 7.9 x10^3/uL (4.0-10.5)
[2023-10-15 13:41] LABS: ALBUMIN 4.1 g/dL (3.5-5.0); ALKALINE PHOSPHATASE 78 U/L (38-126); ANION GAP 9.7 MEQ/L (5-15); BLOOD UREA NITROGEN 8 mg/dL (9-20); CHLORIDE 106 mmol/L (98-107); Carbon Dioxide 25 mmol/L (22-30); Creatinine 1 0.87 mg/dL (0.66-1.25); EST GLOMERULAR FILTRATION RATE 103.2 ML/MIN; Glucose 97 mg/dL (74-106); NT PRO BNPII < 20.0 pg/mL (<300); Potassium 4.4 mmol/L (3.5-5.1); SGOT/AST 23 U/L (17-59); SGPT/ALT 23 U/L (0-50); SODIUM 136 mmol/L (137-145); Total Protein 7.1 g/dL (6.3-8.2)
[2023-10-15 13:53] LABS: INFLUENZA A NEGATIVE (NEGATIVE); INFLUENZA B NEGATIVE (NEGATIVE); RESPIRATORY SYNCTIAL VIRUS NEGATIVE (NEGATIVE); SARS-CoV-2 Xpert Express NEGATIVE (NEGATIVE)
[2023-10-15] MEDS ORDERED: Sodium Chloride 0.9% 500 ML 500 ML IV ONE ×2 (13:54→13:58)
--- NOTE | 2023-10-15 15:07 | XRAY ---
Indication: Chest pain, short of breath, and elevated d-dimer. Multiple contiguous axial images obtained through the chest using 80 cc Isovue 370 contrast and PE protocol. Comparison: None Good opacification of the pulmonary arteries. However mild respiration artifact limits evaluation of the more distal lobar and segmental branches. No central pulmonary embolus. Heart not enlarged. Aorta is normal in course and caliber. No pathologic mediastinal/hilar lymphadenopathy. Lungs demonstrates minimal bibasilar subsegmental atelectasis/scarring. No suspicious pulmonary mass, infiltrate, effusion, or pneumothorax. Bony thorax intact with mild degenerative changes throughout the spine. Limited upper abdomen demonstrates a few hepatic cysts, largest 3.7 cm. Also incidental scattered colonic diverticulosis, nonobstructing right renal punctate calculus, and cholecystectomy clips. Impression: 1. Pulmonary embolus evaluation limited by respiration artifact. No obvious central pulmonary embolus or acute cardiopulmonary abnormalities. 2. Incidental findings bibasilar atelectasis/scarring, degenerative spondylosis, hepatic cysts, colonic diverticulosis, and nonobstructed right renal punctate calculus.
[2023-10-15 15:16] VITALS: BP 120/87; PULSE 76; RESP 15; O2SAT 96
== END 2023-10-15 15:25 | disposition home or self-care (01) ==
LOC: ED 12:19
DX: J40 Bronchitis, not specified as acute or chronic (principal); R05.1 Acute cough; R09.89 Other specified symptoms and signs involving the circulatory and respiratory systems; R06.02 Shortness of breath; R07.9 Chest pain, unspecified; I10 Essential (primary) hypertension; E78.5 Hyperlipidemia, unspecified; Z79.52 Long term (current) use of systemic steroids; Z79.899 Other long term (current) drug therapy
CPT/HCPCS: 0241U; 36000; 36415; 71045; 71260; 80053; 83880; 84484; 85025; 85379; 87040; 93005; 94760; 99284

== ENCOUNTER 2024-03-21 12:09 | Observation (INO) | payer SELFPAY ==
--- NOTE | 2024-03-21 12:23 | ERPHSYRPT ---
- History of Present Illness Time Seen by Provider: 03/21/24 12:18 Source: patient, family Exam Limitations: no limitations Physician History: 53 years old healthy male is brought in the ER by POV after he had a near syncope/syncopal episode prior to arrival while standing at [facility]. Patient reports he was standing for few minutes and all of a sudden he started to feel numb all over, feeling as if he was going to fall, grabbed onto people standing around and was made to sit on a chair and almost passed out for couple of seconds. Patient denies any chest pain palpitations or shortness of breath. Denies any focal weakness but weakness all over. No visual disturbance or difficulty speech. Patient is not confused or altered on presentation. While patient was getting out of the car on the wheelchair in the ER he had another episode similar to that where he was near syncope/syncope for few seconds. Denies any recent nausea vomiting diarrhea. No history of stroke or coronary artery disease. Patient blood sugar is 116 on presentation. Allergies/Adverse Reactions: marshmallow Allergy (Severe, Uncoded 03/21/24 12:11) Anaphylactic Reaction Home Medications: Ezetimibe 10 mg [Zetia 10 MG] 10 mg PO QHS 02/19/21 [History] Pravastatin Sodium 40 mg PO QHS 02/28/21 [History] Cyclobenzaprine HCl 10 mg [Cyclobenzaprine 10 MG] 10 mg PO DAILY 10/15/23 [History] Gabapentin [Neurontin] 300 mg PO DAILY 10/15/23 [History] Hx Tetanus, Diphtheria Vaccination/Date Given: No Hx Influenza Vaccination/Date Given: No Hx Pneumococcal Vaccination/Date Given: No - Review of Systems Constitutional: Fatigue, Weakness Eyes: No Symptoms Ears, Nose, & Throat: No Symptoms Respiratory: No Symptoms Cardiac: No Symptoms Abdominal/Gastrointestinal: No Symptoms Genitourinary Symptoms: No Symptoms Musculoskeletal: No Symptoms Skin: No Symptoms Neurological: Dizziness Psychological: No Symptoms Endocrine: No Symptoms Hematologic/Lymphatic: No Symptoms Immunological/Allergic: No Symptoms - Past Medical History Pertinent Past Medical History: Yes Neurological History: No Pertinent History ENT History: No Pertinent History Cardiac History: Hypertension Respiratory History: No Pertinent History Endocrine Medical History: No Pertinent History Musculoskeletal History: Osteoarthritis GI Medical History: Diverticulitis, Gallbladder Disease, Other History: No Pertinent History Psycho-Social History: No Pertinent History Male Reproductive Disorders: No Pertinent History - Past Surgical History Past Surgical History: Yes Neuro Surgical History: No Pertinent History Cardiac: No Pertinent History Respiratory: No Pertinent History Gastrointestinal: Cholecystectomy Genitourinary: No Pertinent History Musculoskeletal: No Pertinent History, Orthopedic Surgery Male Surgical History: No Pertinent History Other Surgical History: right orbital reconsurction ,neck, cervical fusion, labral debridement left Significant Family History: no pertinent family hx - Social History Smoking Status: Former smoker How long have you smoked: 35 years Exposure to second hand smoke: No Drug Use: none Patient Lives Alone: No - Nursing Vital Signs Nursing Vital Signs: Initial Vital Signs Temperature 97.6 F 03/21/24 12:16 Pulse Rate 80 03/21/24 12:16 Respiratory Rate 20 03/21/24 12:16 Blood Pressure 144/103 03/21/24 12:16 O2 Sat by Pulse Oximetry 95 03/21/24 12:16 Pain Scale Pain Intensity 0 - [place] Coma Scale Best Eye Response ([place]): (4) open spontaneously Best Verbal Response ([place]): (5) oriented Best Motor Response ([place]): (6) obeys commands [place] Total: 15 - Physical Exam General Appearance: no apparent distress, alert Eye Exam: bilateral eye: normal inspection, PERRL, EOMI Ears, Nose, Throat Exam: normal ENT inspection, TMs normal, pharynx normal, moist mucous membranes Neck Exam: normal inspection, non-tender, supple, full range of motion Respiratory: normal breath sounds, lungs clear Cardiovascular: regular rate/rhythm, normal heart sounds Gastrointestinal: soft, normal bowel sounds, No tenderness Back Exam: normal inspection, normal range of motion Extremity Exam: normal inspection, normal range of motion, pelvis stable Mental Status: alert, oriented x 3, 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 Exam: normal hearing, normal speech, PERRL Coordination/Gait: normal finger to nose, normal cerebellar function Motor/Sensory: no motor deficit, no sensory deficit, no pronator drift, negative Babinski's sign DTR: bicep (R): 2+, bicep (L): 2+, knee (R): 2+, knee (L): 2+ Skin Exam: normal color SpO2 Interpretation: normal SpO2: 96 O2 Delivery: Room Air - Course EKG Interpreted by Me: RATE (74), Sinus Rhythm, NORMAL AXIS, NORMAL INTERVALS, NORMAL QRS Ordered Tests: Active Orders 24 hr Category Date Time Status Plastic Press Molder STAT Care 03/21/24 12:19 Active EKG-ER Only STAT Care 03/21/24 12:18 Active IV Insertion STAT Care 03/21/24 12:18 Active Orthostatic Vital Signs STAT Care 03/21/24 12:18 Active CHEST 1 VIEW (PORTABLE) Stat Exams 03/21/24 12:19 Completed HEAD WITHOUT CONTRAST [CT] Stat Exams 03/21/24 12:13 Completed CBC W DIFF Stat Lab 03/21/24 12:26 Completed CMP Stat Lab 03/21/24 12:26 Completed ETHYL ALCOHOL Stat Lab 03/21/24 12:26 Completed Lactic Acid Stat Lab 03/21/24 12:18 Completed MAGNESIUM Stat Lab 03/21/24 12:26 Completed POCT GLUCOSE Stat Lab 03/21/24 12:15 Completed TROPONIN Q4H Lab 03/21/24 12:26 Completed TROPONIN Q4H Lab 03/21/24 16:30 Ordered TROPONIN Q4H Lab 03/21/24 20:30 Ordered UA W/RFX UR CULTURE Stat Lab 03/21/24 13:00 Completed Urine Triage Profile Stat Lab 03/21/24 13:00 Completed Transfer Order Routine Transfer 03/21/24 Ordered Medication Summary Discontinued Medications Generic Name Dose Route Start Last Admin Trade Name Freq PRN Reason Stop Dose Admin Sodium Chloride 1,000 mls @ 999 mls/hr 03/21/24 12:18 03/21/24 14:18 Sodium Chloride 0.9% 1000 Ml IV 03/21/24 13:18 Infused .Q1H1M STA Infusion Sodium Chloride Confirm 03/21/24 12:42 Sodium Chloride 0.9% 1000 Ml Administered 03/21/24 12:43 Dose 1,000 mls @ ud .ROUTE .STK-MED ONE Lab/Rad Data: Laboratory Result Diagrams 03/21/24 12:26 03/21/24 12:26 Laboratory Results 03/21/24 03/21/24 03/21/24 Range/Units 13:00 13:00 12:26 WBC (4.0-10.5) x10^3/uL RBC (4.1-5.6) x10^6/uL Hgb (12.5-18.0) g/dL Hct (42-50) % MCV (78-100) fL MCH (26-32) pg MCHC (32-36) g/dL RDW (11.5-14.0) % Plt Count (150-450) x10^3/uL MPV (7.5-11.0) fL Gran % (36.0-66.0) % Immature Gran % (Auto) (0.00-0.4) % Nucleat RBC Rel Count (0.00-0.1) % Eos # (Auto) (0-0.5) x10^3/uL Immature Gran # (Auto) (0.00-0.03) x10^3u/L Absolute Lymphs (auto) (1.0-4.6) x10^3/uL Absolute Monos (auto) (0.0-1.3) x10^3/uL Absolute Nucleated RBC (0.00-0.01) x10^3u/L Lymphocytes % (24.0-44.0) % Monocytes % (0.0-12.0) % Eosinophils % (0.00-5.0) % Basophils % (0.0-0.4) % Absolute Granulocytes (1.4-6.9) x10^3/uL Basophils # (0-0.4) x10^3/uL Sodium (135-145) mmol/L Potassium (3.5-5.1) mmol/L Chloride (98-107) mmol/L Carbon Dioxide (22-30) mmol/L Anion Gap (5-15) MEQ/L BUN (9-20) mg/dL Creatinine (0.66-1.25) mg/dL Estimated GFR ML/MIN Glucose (74-106) mg/dL POC Glucometer (74 to 106) mg/dL Lactic Acid (0.4-2.0) Calcium (8.4-10.2) mg/dL Magnesium (1.6-2.3) mg/dL Total Bilirubin (0.2-1.3) mg/dL AST (17-59) U/L ALT (0-50) U/L Alkaline Phosphatase (38-126) U/L Troponin I 0.017 (0.000-0.033) ng/mL Serum Total Protein (6.3-8.2) g/dL Albumin (3.5-5.0) g/dL Urine Color Yellow (Yellow) Urine Appearance Clear (Clear) Urine pH 6.5 (4.6-8.0) Ur Specific [place] 1.010 (1.005-1.030) Urine Protein Negative (Negative) Urine Glucose (UA) Negative (Negative) mg/dL Urine Ketones Negative (Negative) Urine Blood Negative (Negative) Urine Nitrite Negative (Negative) Urine Bilirubin Negative (Negative) Urine Urobilinogen 0.2 (0.2) mg/dL Ur Leukocyte Esterase Negative (Negative) U Hyaline Cast (Auto) NONE SEEN (0-2) /LPF Urine Microscopic RBC 0-2 (0-5) /HPF Urine Microscopic WBC 0-2 (0-5) /HPF Ur Epithelial Cells None Seen (None Seen) /HPF Urine Bacteria None Seen (None Seen) /HPF Urine Culture Reflexed NO (NO) Urine Opiates Level NEGATIVE (NEGATIVE) Ur Methadone NEGATIVE (NEGATIVE) Urine Barbiturates NEGATIVE (NEGATIVE) Ur Phencyclidine (PCP) NEGATIVE (NEGATIVE) Urine Amphetamine NEGATIVE (NEGATIVE) U Benzodiazepine Level NEGATIVE (NEGATIVE) Urine Cocaine NEGATIVE (NEGATIVE) Urine Marijuana (THC) NEGATIVE (NEGATIVE) Ethyl Alcohol (0-10) mg/dL 03/21/24 03/21/24 03/21/24 Range/Units 12:26 12:26 12:18 WBC 8.6 (4.0-10.5) x10^3/uL RBC 4.81 (4.1-5.6) x10^6/uL Hgb 14.8 (12.5-18.0) g/dL Hct 44.1 (42-50) % MCV 91.7 (78-100) fL MCH 30.8 (26-32) pg MCHC 33.6 (32-36) g/dL RDW 13.0 (11.5-14.0) % Plt Count 385 (150-450) x10^3/uL MPV 9.2 (7.5-11.0) fL Gran % 72.1 H (36.0-66.0) % Immature Gran % (Auto) 0.3 (0.00-0.4) % Nucleat RBC Rel Count 0.0 (0.00-0.1) % Eos # (Auto) 0.19 (0-0.5) x10^3/uL Immature Gran # (Auto) 0.03 (0.00-0.03) x10^3u/L Absolute Lymphs (auto) 1.47 (1.0-4.6) x10^3/uL Absolute Monos (auto) 0.65 (0.0-1.3) x10^3/uL Absolute Nucleated RBC 0.00 (0.00-0.01) x10^3u/L Lymphocytes % 17.1 L (24.0-44.0) % Monocytes % 7.5 (0.0-12.0) % Eosinophils % 2.2 (0.00-5.0) % Basophils % 0.8 (0.0-0.4) % Absolute Granulocytes 6.21 (1.4-6.9) x10^3/uL Basophils # 0.07 (0-0.4) x10^3/uL Sodium 136 (135-145) mmol/L Potassium 4.2 (3.5-5.1) mmol/L Chloride 104 (98-107) mmol/L Carbon Dioxide 23 (22-30) mmol/L Anion Gap 13.8 (5-15) MEQ/L BUN 11 (9-20) mg/dL Creatinine 1.01 (0.66-1.25) mg/dL Estimated GFR 88.9 ML/MIN Glucose 112 H (74-106) mg/dL POC Glucometer (74 to 106) mg/dL Lactic Acid 1.7 (0.4-2.0) Calcium 9.1 (8.4-10.2) mg/dL Magnesium 2.1 (1.6-2.3) mg/dL Total Bilirubin 0.60 (0.2-1.3) mg/dL AST 20 (17-59) U/L ALT 19 (0-50) U/L Alkaline Phosphatase 78 (38-126) U/L Troponin I (0.000-0.033) ng/mL Serum Total Protein 7.6 (6.3-8.2) g/dL Albumin 4.5 (3.5-5.0) g/dL Urine Color (Yellow) Urine Appearance (Clear) Urine pH (4.6-8.0) Ur Specific [place] (1.005-1.030) Urine Protein (Negative) Urine Glucose (UA) (Negative) mg/dL Urine Ketones (Negative) Urine Blood (Negative) Urine Nitrite (Negative) Urine Bilirubin (Negative) Urine Urobilinogen (0.2) mg/dL Ur Leukocyte Esterase (Negative) U Hyaline Cast (Auto) (0-2) /LPF Urine Microscopic RBC (0-5) /HPF Urine Microscopic WBC (0-5) /HPF Ur Epithelial Cells (None Seen) /HPF Urine Bacteria (None Seen) /HPF Urine Culture Reflexed (NO) Urine Opiates Level (NEGATIVE) Ur Methadone (NEGATIVE) Urine Barbiturates (NEGATIVE) Ur Phencyclidine (PCP) (NEGATIVE) Urine Amphetamine (NEGATIVE) U Benzodiazepine Level (NEGATIVE) Urine Cocaine (NEGATIVE) Urine Marijuana (THC) (NEGATIVE) Ethyl Alcohol < 10 (0-10) mg/dL 03/21/24 Range/Units 12:15 WBC (4.0-10.5) x10^3/uL RBC (4.1-5.6) x10^6/uL Hgb (12.5-18.0) g/dL Hct (42-50) % MCV (78-100) fL MCH (26-32) pg MCHC (32-36) g/dL RDW (11.5-14.0) % Plt Count (150-450) x10^3/uL MPV (7.5-11.0) fL Gran % (36.0-66.0) % Immature Gran % (Auto) (0.00-0.4) % Nucleat RBC Rel Count (0.00-0.1) % Eos # (Auto) (0-0.5) x10^3/uL Immature Gran # (Auto) (0.00-0.03) x10^3u/L Absolute Lymphs (auto) (1.0-4.6) x10^3/uL Absolute Monos (auto) (0.0-1.3) x10^3/uL Absolute Nucleated RBC (0.00-0.01) x10^3u/L Lymphocytes % (24.0-44.0) % Monocytes % (0.0-12.0) % Eosinophils % (0.00-5.0) % Basophils % (0.0-0.4) % Absolute Granulocytes (1.4-6.9) x10^3/uL Basophils # (0-0.4) x10^3/uL Sodium (135-145) mmol/L Potassium (3.5-5.1) mmol/L Chloride (98-107) mmol/L Carbon Dioxide (22-30) mmol/L Anion Gap (5-15) MEQ/L BUN (9-20) mg/dL Creatinine (0.66-1.25) mg/dL Estimated GFR ML/MIN Glucose (74-106) mg/dL POC Glucometer 116 H (74 to 106) mg/dL Lactic Acid (0.4-2.0) Calcium (8.4-10.2) mg/dL Magnesium (1.6-2.3) mg/dL Total Bilirubin (0.2-1.3) mg/dL AST (17-59) U/L ALT (0-50) U/L Alkaline Phosphatase (38-126) U/L Troponin I (0.000-0.033) ng/mL Serum Total Protein (6.3-8.2) g/dL Albumin (3.5-5.0) g/dL Urine Color (Yellow) Urine Appearance (Clear) Urine pH (4.6-8.0) Ur Specific [place] (1.005-1.030) Urine Protein (Negative) Urine Glucose (UA) (Negative) mg/dL Urine Ketones (Negative) Urine Blood (Negative) Urine Nitrite (Negative) Urine Bilirubin (Negative) Urine Urobilinogen (0.2) mg/dL Ur Leukocyte Esterase (Negative) U Hyaline Cast (Auto) (0-2) /LPF Urine Microscopic RBC (0-5) /HPF Urine Microscopic WBC (0-5) /HPF Ur Epithelial Cells (None Seen) /HPF Urine Bacteria (None Seen) /HPF Urine Culture Reflexed (NO) Urine Opiates Level (NEGATIVE) Ur Methadone (NEGATIVE) Urine Barbiturates (NEGATIVE) Ur Phencyclidine (PCP) (NEGATIVE) Urine Amphetamine (NEGATIVE) U Benzodiazepine Level (NEGATIVE) Urine Cocaine (NEGATIVE) Urine Marijuana (THC) (NEGATIVE) Ethyl Alcohol (0-10) mg/dL - Progress Progress: improved Progress Note: 03/21/24 14:51 53-year-old is evaluated for syncopal episode prior to arrival. Patient has nonfocal neuroexam throughout stay in the ER. Orthostatics are negative. EKG is normal sinus rhythm with no acute ischemic changes, negative troponin. CT head is negative for any acute intracranial findings. Normal white count, unremarkable chemistries. No UTI. Patient has negative drug screen and blood alcohol. Remained asymptomatic. He is given fluid bolus. Do not know the exact reason for his syncopal episode but needs further evaluation for that. Discussed with Dr. Ferrara, reviewed history, workup and agreed with observation admission. I have shared the results of workup with patient and family and plan of admission which they understand and agree. Discussed with Dr.: Other (Dr. Ferrara hospitalist) Counseled pt/family regarding: lab results, diagnosis, rad results - Departure Departure Disposition: Observation Clinical Impression: Syncope and collapse Condition: Stable Critical Care Time: No Referrals: KRYSTAL PASCUAL, [Primary Care Provider] - Follow up/PCP as directed
[2024-03-21 12:34] LABS: Absolute Neutrophil Ct (ANC) 6.21 x10^3/uL (1.4-6.9); BASOPHIL % 0.8 % (0.0-0.4); Basophil (Absolute #) 0.07 x10^3/uL (0-0.4); Eosinophil % 2.2 % (0.00-5.0); Eosinophil (Absolute #) 0.19 x10^3/uL (0-0.5); Hematocrit 44.1 % (42-50); Hemoglobin 14.8 g/dL (12.5-18.0); IMMATURE GRAN # 0.03 x10^3u/L (0.00-0.03); IMMATURE GRAN % 0.3 % (0.00-0.4); Lymphocyte (Absolute #) 1.47 x10^3/uL (1.0-4.6); Lymphocytes % 17.1 % (24.0-44.0); Mean Cell Volume 91.7 fL (78-100); Mean Corpuscular Hemoglobin 30.8 pg (26-32); Mean Corpuscular Hgb Concent. 33.6 g/dL (32-36); Mean Platelet Volume 9.2 fL (7.5-11.0); Monocyte (Absolute #) 0.65 x10^3/uL (0.0-1.3); Monocytes % 7.5 % (0.0-12.0); Neutrophil % 72.1 % (36.0-66.0); Platelet Count 385 x10^3/uL (150-450); Red Blood Count 4.81 x10^6/uL (4.1-5.6); White Blood Count 8.6 x10^3/uL (4.0-10.5)
[2024-03-21] MEDS ORDERED: Sodium Chloride 0.9% 1000 ML 1,000 ML ONE (12:42)
[2024-03-21 12:47] LABS: ALBUMIN 4.5 g/dL (3.5-5.0); ALKALINE PHOSPHATASE 78 U/L (38-126); ANION GAP 13.8 MEQ/L (5-15); BLOOD UREA NITROGEN 11 mg/dL (9-20); CHLORIDE 104 mmol/L (98-107); Calcium 9.1 mg/dL (8.4-10.2); Carbon Dioxide 23 mmol/L (22-30); Creatinine 1 1.01 mg/dL (0.66-1.25); EST GLOMERULAR FILTRATION RATE 88.9 ML/MIN; ETHYL ALCOHOL < 10 mg/dL (0-10); Glucose 112 mg/dL (74-106); MAGNESIUM 2.1 mg/dL (1.6-2.3); Potassium 4.2 mmol/L (3.5-5.1); SGOT/AST 20 U/L (17-59); SGPT/ALT 19 U/L (0-50); SODIUM 136 mmol/L (135-145); Total Protein 7.6 g/dL (6.3-8.2)
[2024-03-21] MEDS: Sodium Chloride 0.9% 1000 ML 1,000 ML IV STA (12:59)
--- NOTE | 2024-03-21 13:13 | XRAY ---
CLINICAL HISTORY: dizziness COMPARISON: 06/05/2023. TECHNIQUE: An axial [id number] CT scan of the brain was performed from the skull base to the high parietal region. Coronal and Sagittal reformat were obtained. One of the following dose reduction techniques was utilized for this exam: Automated exposure control, adjustment of the mA and/or kV according to patient size, and use of iterative reconstruction. FINDINGS: The visualized brain parenchyma shows a normal appearance. No focal parenchymal abnormalities are demonstrated. Herrera-white matter differentiation is maintained. No midline shifts or deformity. No intracerebral or extra axial hematoma. Normal size and configuration of the cerebral ventricles. Normal CT appearance of the posterior fossa structures namely the cerebellar hemispheres, brainstem, and cerebellar peduncles. The IACs are unremarkable. The cerebellopontine angles are clear. The osseous structures in the skull base are unremarkable. No definite calvarium fractures. Mild ethmoidal sinusitis is noted. Right nasopharyngeal soft tissue thickening/polyp or cyst. Advise clinical correlation. IMPRESSION: 1. No evidence of ischemic infarction, hemorrhage, or obvious mass lesion was seen. 2. No significant interval changes. Electronically Signed by: Jesse Mark MD. (03/21/2024 13:09:15 EDT)
[2024-03-21 13:35] LABS: Appearance Clear (Clear); Bacteria None Seen /HPF (None Seen); Bilirubin Negative (Negative); Blood Negative (Negative); Epithelial Cells None Seen /HPF (None Seen); Glucose, Urine Negative (Negative); Hyaline Casts NONE SEEN /LPF (0-2); Ketones Negative (Negative); Leukocyte Esterase Negative (Negative); Nitrite Negative (Negative); Ph 6.5 (4.6-8.0); Protein,Urine Dip Negative (Negative); RBC 0-2 /HPF (0-5); Urobilinogen 0.2 mg/dL (0.2); WBC 0-2 /HPF (0-5)
[2024-03-21 13:37] LABS: ADD URINE CULTURE? NO (NO)
[2024-03-21 13:45] LABS: Amphetamine,Urine NEGATIVE (NEGATIVE); Barbiturate,Urine NEGATIVE (NEGATIVE); Benzodiazepine,Urine NEGATIVE (NEGATIVE); Cocaine,Urine NEGATIVE (NEGATIVE); Methadone,Urine NEGATIVE (NEGATIVE); Opiate,Urine NEGATIVE (NEGATIVE); PCP,Urine NEGATIVE (NEGATIVE); THC,Urine NEGATIVE (NEGATIVE)
--- NOTE | 2024-03-21 14:55 | XRAY ---
CLINICAL HISTORY: syncope COMPARISON: 06/05/2023. TECHNIQUE: X-ray of the chest, AP portable. FINDINGS: A radiographic examination of the chest demonstrates clear lungs. Normal configuration of the mediastinum. The lang are normal in size and position. The cardiac size is not enlarged. Costophrenic and cardiophrenic angles are clear. Metallic fixation seen in the lower cervical spine. IMPRESSION: 1. No active pulmonary pathology was detected. 2. No significant interval changes. Electronically Signed by: Jesse Mark MD. (03/21/2024 14:51:56 EDT)
--- NOTE | 2024-03-21 17:29 | PCM.HP ---
<AL MARR - Last Filed: 03/21/24 17:39> History of Present Illness - Chief Complaint Chief Complaint: SYNCOPE AND COLLAPSE Date: 03/21/24 History of Present Illness: is a 53 year old male with PMHX of HTN, OA, Diverticulitis, hyperlipidemia, and obesity. He was brought in the ER by POV after he had a near syncope/syncopal episode prior to arrival while standing [facility]. Patient reports he was standing for few minutes and all of a sudden he started to feel numb all over, feeling as if he was going to fall, grabbed onto people standing around him and was made to sit on a chair and almost passed out for couple of seconds. Patient denies any chest pain palpitations or shortness of breath at that time. He does admit to intermittent CP from time to time in the center of his chest without radiation. He denies any focal weakness but weakness all over. No visual disturbance or difficulty speech. Patient is not confused or altered on presentation in ER or now. While patient was getting out of the car on the wheelchair in the ER he had another episode similar to that where he was near syncope/syncope for few seconds. Denies any recent nausea vomiting diarrhea. No history of stroke or coronary artery disease. Patient blood sugar is 116 on presentation. He denies having his legs locked while standing. He admits to home stressors that are self induced from over thinking he explains. He reported he had no stress while at [facility] and feels that is unrelated. He has never had anything like this before. He bernstein shave a strog family heart hx with most of them passing before the age of 54. He amits to not f/u with a PCP for his cholesterol as he should d/t his PCP moving. Will check lipid panel in the AM, monitor on tele, and trends trops. - Review of Systems Constitutional: No Fever, No Chills Eyes: No Symptoms Ears, Nose, & Throat: No Symptoms Respiratory: No Cough, No Short Of Breath Cardiac: Chest Pain (intermittent w/o radiation), Syncope, No Edema Abdominal/Gastrointestinal: No Abdominal Pain, No Nausea, No Vomiting, No D iarrhea Genitourinary Symptoms: No Dysuria Musculoskeletal: No Back Pain, No Neck Pain Skin: No Rash Neurological: No Dizziness, No Focal Weakness, No Sensory Changes Psychological: No Symptoms Endocrine: No Symptoms Hematologic/Lymphatic: No Symptoms Immunological/Allergic: No Symptoms Medications & Allergies Home Medications: Home Medication List Ezetimibe 10 mg [Zetia 10 MG] 10 mg PO QHS 02/19/21 [History Confirmed 03/21/24] Pravastatin Sodium 40 mg PO QHS 02/28/21 [History Confirmed 03/21/24] Allergies/Adverse Reactions: Allergies Allergy/AdvReac Type Severity Reaction Status Date / Time estermallow Allergy Severe Anaphylactic Uncoded 03/21/24 12:11 Reaction - Past Medical History Past Medical History: Yes Neurological History: No Pertinent History ENT History: No Pertinent History Cardiac History: High Cholesterol Respiratory History: No Pertinent History Endocrine Medical History: No Pertinent History Musculoskelatal History: Osteoarthritis GI Medical History: Diverticulitis, Gallbladder Disease, Other History: No Pertinent History Pyscho-Social History: No Pertinent History Male Reproductive Disorders: No Pertinent History - Past Surgical History Past Surgical History: Yes Neuro Surgical History: No Pertinent History Cardiac History: No Pertinent History Respiratory Surgery: No Pertinent History GI Surgical History: Cholecystectomy Genitourinary Surgical Hx: No Pertinent History Musculskeletal Surgical Hx: No Pertinent History, Orthopedic Surgery Male Surgical History: No Pertinent History Other Surgical History: right orbital reconsurction ,neck, cervical fusion, labral debridement left Significant Family History: no pertinent family hx - Social History Smoking Status: Never smoker How long have you smoked: 35 years Exposure to second hand smoke: No Alcohol: None Drug Use: none - Social Determinants of Health Will the patient participate in the screening: Yes Do you worry about a steady place to live?: No Do you have any problems with any of the following?: No known problems In the past 12 months,have you had to go without utilities?: No Have you or anyone in your house had to go without enough: No Transportation Issues: No Has anyone in your support network made you feel unsafe?: No Does the patient want assistance with any of the above?: No - Physical Exam Vital Signs: Vital Signs - 24 hr Temp Pulse Resp BP BP Pulse Ox 03/21/24 16:18 97.7 F 64 16 132/87 03/21/24 16:13 96 03/21/24 16:00 123/87 03/21/24 15:47 96 03/21/24 15:30 75 29 H 144/103 97 03/21/24 15:01 72 28 H 140/88 97 03/21/24 14:30 79 31 H 143/88 97 03/21/24 14:01 78 31 H 124/87 98 03/21/24 13:31 68 31 H 138/87 03/21/24 13:30 68 19 171/99 94 L 03/21/24 13:03 72 27 H 141/92 92 L 03/21/24 12:38 65 29 H 143/94 97 03/21/24 12:36 86 19 145/99 03/21/24 12:16 97.6 F 80 20 144/103 95 General Appearance: no apparent distress, alert, obese Neurologic Exam: alert, oriented x 3, cooperative, normal mood/affect, nml cerebellar function, nml station & gait, sensation nml, No motor deficits Eye Exam: PERRL/EOMI, eyes nml inspection Ears, Nose, Throat Exam: normal ENT inspection, TMs normal, pharynx normal, moist mucous membranes Neck Exam: normal inspection, non-tender, supple, full range of motion Respiratory Exam: normal breath sounds, lungs clear, No respiratory distress Cardiovascular Exam: regular rate/rhythm, normal heart sounds, normal peripheral pulses Gastrointestinal/Abdomen Exam: soft, normal bowel sounds, No tenderness, No mass Back Exam: normal inspection, normal range of motion, No CVA tenderness, No vertebral tenderness Extremity Exam: normal inspection, normal range of motion, pelvis stable Skin Exam: normal color, warm, dry, No rash Lymphatic Exam: No adenopathy Results - Labs Lab/Micro Results: Lab Results-Last 24 Hours 03/21/24 03/21/24 03/21/24 Range/Units 12:15 12:18 12:18 WBC (4.0-10.5) x10^3/uL RBC (4.1-5.6) x10^6/uL Hgb (12.5-18.0) g/dL Hct (42-50) % MCV (78-100) fL MCH (26-32) pg MCHC (32-36) g/dL RDW (11.5-14.0) % Plt Count (150-450) x10^3/uL MPV (7.5-11.0) fL Gran % (36.0-66.0) % Immature Gran % (Auto) (0.00-0.4) % Nucleat RBC Rel Count (0.00-0.1) % Eos # (Auto) (0-0.5) x10^3/uL Immature Gran # (Auto) (0.00-0.03) x10^3u/L Absolute Lymphs (auto) (1.0-4.6) x10^3/uL Absolute Monos (auto) (0.0-1.3) x10^3/uL Absolute Nucleated RBC (0.00-0.01) x10^3u/L Lymphocytes % (24.0-44.0) % Monocytes % (0.0-12.0) % Eosinophils % (0.00-5.0) % Basophils % (0.0-0.4) % Absolute Granulocytes (1.4-6.9) x10^3/uL Basophils # (0-0.4) x10^3/uL Sodium (135-145) mmol/L Potassium (3.5-5.1) mmol/L Chloride (98-107) mmol/L Carbon Dioxide (22-30) mmol/L Anion Gap (5-15) MEQ/L BUN (9-20) mg/dL Creatinine (0.66-1.25) mg/dL Estimated GFR ML/MIN Glucose (74-106) mg/dL POC Glucometer 116 H (74 to 106) mg/dL Hemoglobin A1c 5.55 (4.5-6.0) % Lactic Acid 1.7 (0.4-2.0) Calcium (8.4-10.2) mg/dL Magnesium (1.6-2.3) mg/dL Total Bilirubin (0.2-1.3) mg/dL AST (17-59) U/L ALT (0-50) U/L Alkaline Phosphatase (38-126) U/L Troponin I (0.000-0.033) ng/mL Serum Total Protein (6.3-8.2) g/dL Albumin (3.5-5.0) g/dL Urine Color (Yellow) Urine Appearance (Clear) Urine pH (4.6-8.0) Ur Specific [place] (1.005-1.030) Urine Protein (Negative) Urine Glucose (UA) (Negative) mg/dL Urine Ketones (Negative) Urine Blood (Negative) Urine Nitrite (Negative) Urine Bilirubin (Negative) Urine Urobilinogen (0.2) mg/dL Ur Leukocyte Esterase (Negative) U Hyaline Cast (Auto) (0-2) /LPF Urine Microscopic RBC (0-5) /HPF Urine Microscopic WBC (0-5) /HPF Ur Epithelial Cells (None Seen) /HPF Urine Bacteria (None Seen) /HPF Urine Culture Reflexed (NO) Urine Opiates Level (NEGATIVE) Ur Methadone (NEGATIVE) Urine Barbiturates (NEGATIVE) Ur Phencyclidine (PCP) (NEGATIVE) Urine Amphetamine (NEGATIVE) U Benzodiazepine Level (NEGATIVE) Urine Cocaine (NEGATIVE) Urine Marijuana (THC) (NEGATIVE) Ethyl Alcohol (0-10) mg/dL 03/21/24 03/21/24 03/21/24 Range/Units 12:26 12:26 12:26 WBC 8.6 (4.0-10.5) x10^3/uL RBC 4.81 (4.1-5.6) x10^6/uL Hgb 14.8 (12.5-18.0) g/dL Hct 44.1 (42-50) % MCV 91.7 (78-100) fL MCH 30.8 (26-32) pg MCHC 33.6 (32-36) g/dL RDW 13.0 (11.5-14.0) % Plt Count 385 (150-450) x10^3/uL MPV 9.2 (7.5-11.0) fL Gran % 72.1 H (36.0-66.0) % Immature Gran % (Auto) 0.3 (0.00-0.4) % Nucleat RBC Rel Count 0.0 (0.00-0.1) % Eos # (Auto) 0.19 (0-0.5) x10^3/uL Immature Gran # (Auto) 0.03 (0.00-0.03) x10^3u/L Absolute Lymphs (auto) 1.47 (1.0-4.6) x10^3/uL Absolute Monos (auto) 0.65 (0.0-1.3) x10^3/uL Absolute Nucleated RBC 0.00 (0.00-0.01) x10^3u/L Lymphocytes % 17.1 L (24.0-44.0) % Monocytes % 7.5 (0.0-12.0) % Eosinophils % 2.2 (0.00-5.0) % Basophils % 0.8 (0.0-0.4) % Absolute Granulocytes 6.21 (1.4-6.9) x10^3/uL Basophils # 0.07 (0-0.4) x10^3/uL Sodium 136 (135-145) mmol/L Potassium 4.2 (3.5-5.1) mmol/L Chloride 104 (98-107) mmol/L Carbon Dioxide 23 (22-30) mmol/L Anion Gap 13.8 (5-15) MEQ/L BUN 11 (9-20) mg/dL Creatinine 1.01 (0.66-1.25) mg/dL Estimated GFR 88.9 ML/MIN Glucose 112 H (74-106) mg/dL POC Glucometer (74 to 106) mg/dL Hemoglobin A1c (4.5-6.0) % Lactic Acid (0.4-2.0) Calcium 9.1 (8.4-10.2) mg/dL Magnesium 2.1 (1.6-2.3) mg/dL Total Bilirubin 0.60 (0.2-1.3) mg/dL AST 20 (17-59) U/L ALT 19 (0-50) U/L Alkaline Phosphatase 78 (38-126) U/L Troponin I 0.017 (0.000-0.033) ng/mL Serum Total Protein 7.6 (6.3-8.2) g/dL Albumin 4.5 (3.5-5.0) g/dL Urine Color (Yellow) Urine Appearance (Clear) Urine pH (4.6-8.0) Ur Specific [place] (1.005-1.030) Urine Protein (Negative) Urine Glucose (UA) (Negative) mg/dL Urine Ketones (Negative) Urine Blood (Negative) Urine Nitrite (Negative) Urine Bilirubin (Negative) Urine Urobilinogen (0.2) mg/dL Ur Leukocyte Esterase (Negative) U Hyaline Cast (Auto) (0-2) /LPF Urine Microscopic RBC (0-5) /HPF Urine Microscopic WBC (0-5) /HPF Ur Epithelial Cells (None Seen) /HPF Urine Bacteria (None Seen) /HPF Urine Culture Reflexed (NO) Urine Opiates Level (NEGATIVE) Ur Methadone (NEGATIVE) Urine Barbiturates (NEGATIVE) Ur Phencyclidine (PCP) (NEGATIVE) Urine Amphetamine (NEGATIVE) U Benzodiazepine Level (NEGATIVE) Urine Cocaine (NEGATIVE) Urine Marijuana (THC) (NEGATIVE) Ethyl Alcohol < 10 (0-10) mg/dL 03/21/24 03/21/24 03/21/24 Range/Units 13:00 13:00 16:25 WBC (4.0-10.5) x10^3/uL RBC (4.1-5.6) x10^6/uL Hgb (12.5-18.0) g/dL Hct (42-50) % MCV (78-100) fL MCH (26-32) pg MCHC (32-36) g/dL RDW (11.5-14.0) % Plt Count (150-450) x10^3/uL MPV (7.5-11.0) fL Gran % (36.0-66.0) % Immature Gran % (Auto) (0.00-0.4) % Nucleat RBC Rel Count (0.00-0.1) % Eos # (Auto) (0-0.5) x10^3/uL Immature Gran # (Auto) (0.00-0.03) x10^3u/L Absolute Lymphs (auto) (1.0-4.6) x10^3/uL Absolute Monos (auto) (0.0-1.3) x10^3/uL Absolute Nucleated RBC (0.00-0.01) x10^3u/L Lymphocytes % (24.0-44.0) % Monocytes % (0.0-12.0) % Eosinophils % (0.00-5.0) % Basophils % (0.0-0.4) % Absolute Granulocytes (1.4-6.9) x10^3/uL Basophils # (0-0.4) x10^3/uL Sodium (135-145) mmol/L Potassium (3.5-5.1) mmol/L Chloride (98-107) mmol/L Carbon Dioxide (22-30) mmol/L Anion Gap (5-15) MEQ/L BUN (9-20) mg/dL Creatinine (0.66-1.25) mg/dL Estimated GFR ML/MIN Glucose (74-106) mg/dL POC Glucometer (74 to 106) mg/dL Hemoglobin A1c (4.5-6.0) % Lactic Acid (0.4-2.0) Calcium (8.4-10.2) mg/dL Magnesium (1.6-2.3) mg/dL Total Bilirubin (0.2-1.3) mg/dL AST (17-59) U/L ALT (0-50) U/L Alkaline Phosphatase (38-126) U/L Troponin I 0.017 (0.000-0.033) ng/mL Serum Total Protein (6.3-8.2) g/dL Albumin (3.5-5.0) g/dL Urine Color Yellow (Yellow) Urine Appearance Clear (Clear) Urine pH 6.5 (4.6-8.0) Ur Specific [place] 1.010 (1.005-1.030) Urine Protein Negative (Negative) Urine Glucose (UA) Negative (Negative) mg/dL Urine Ketones Negative (Negative) Urine Blood Negative (Negative) Urine Nitrite Negative (Negative) Urine Bilirubin Negative (Negative) Urine Urobilinogen 0.2 (0.2) mg/dL Ur Leukocyte Esterase Negative (Negative) U Hyaline Cast (Auto) NONE SEEN (0-2) /LPF Urine Microscopic RBC 0-2 (0-5) /HPF Urine Microscopic WBC 0-2 (0-5) /HPF Ur Epithelial Cells None Seen (None Seen) /HPF Urine Bacteria None Seen (None Seen) /HPF Urine Culture Reflexed NO (NO) Urine Opiates Level NEGATIVE (NEGATIVE) Ur Methadone NEGATIVE (NEGATIVE) Urine Barbiturates NEGATIVE (NEGATIVE) Ur Phencyclidine (PCP) NEGATIVE (NEGATIVE) Urine Amphetamine NEGATIVE (NEGATIVE) U Benzodiazepine Level NEGATIVE (NEGATIVE) Urine Cocaine NEGATIVE (NEGATIVE) Urine Marijuana (THC) NEGATIVE (NEGATIVE) Ethyl Alcohol (0-10) mg/dL Accuchecks Date 03/21/24 Time 12:15 - Radiology Impressions Radiology Exams & Impressions: Radiology Procedures Category Date Time Status CHEST 1 VIEW (PORTABLE) Stat Exams 03/21/24 12:19 Completed ECHO W/2D AND DOPPLER [US] Routine Exams 03/22/24 08:00 Ordered HEAD WITHOUT CONTRAST [CT] Stat Exams 03/21/24 12:13 Completed Assessment/Plan (1) Syncope and collapse Current Visit: Yes Status: Acute Assessment & Plan: - tele - trops- trend - EKG - CT head- negative for acute concern - CXR neagtive for acute concern - Echo and carotid duplex in AM - orthostats - PT eval - Strong family heart hx - labs overall non-concerning Code(s): R55 - SYNCOPE AND COLLAPSE (2) Chest pain Current Visit: No Status: Acute Assessment & Plan: - intermittent mid chest non- radiating - risk factors include hyperlipidemia, HTN, Obesity - Trop x1 negative- trend - EKG - See above plan for syncope Code(s): R07.9 - CHEST PAIN, UNSPECIFIED (3) Hyperlipidemia Current Visit: Yes Status: Chronic Assessment & Plan: - lipid panel in AM - Continue home meds Code(s): E78.5 - HYPERLIPIDEMIA, UNSPECIFIED (4) Obesity (BMI 30-39.9) Current Visit: Yes Status: Chronic Assessment & Plan: - advised heart healthy diet and exercise control Code(s): E66.9 - OBESITY, UNSPECIFIED (5) HTN (hypertension) Current Visit: Yes Status: Chronic Assessment & Plan: - BP controlled VTE: Lovenox Next of KIN: Анна Buck- spouse [phone] D/C plan: tomorrow Code status: Full Code(s): I10 - ESSENTIAL (PRIMARY) HYPERTENSION Telemedicine Encounter - Telemedicine Encounter Telemedicine Encounter: The entirety of this encounter was performed via Telemedicine" This visit was performed using real-time audio and video connection between my location and thepatients locationwith the assistance of a surrogateat the patients location. Written or verbal consent was obtained from the patient/guardian to perform this visit usingnchrOffice Depottelemedicine technology. Any patient questions regarding the telemedicine interaction were answered. <CHARLEEN GARCIA - Last Filed: 03/21/24 21:30> History of Present Illness - Chief Complaint History of Present Illness: is a 53 year old male. - Physical Exam Vital Signs: Vital Signs - 24 hr Temp Pulse Resp BP BP Pulse Ox 03/21/24 20:00 98.7 F 78 22 135/91 96 03/21/24 16:18 97.7 F 64 16 132/87 03/21/24 16:13 96 03/21/24 16:00 123/87 03/21/24 15:47 96 03/21/24 15:30 75 29 H 144/103 97 03/21/24 15:01 72 28 H 140/88 97 03/21/24 14:30 79 31 H 143/88 97 03/21/24 14:01 78 31 H 124/87 98 03/21/24 13:31 68 31 H 138/87 03/21/24 13:30 68 19 171/99 94 L 03/21/24 13:03 72 27 H 141/92 92 L 03/21/24 12:38 65 29 H 143/94 97 03/21/24 12:36 86 19 145/99 03/21/24 12:16 97.6 F 80 20 144/103 95 Results - Labs Lab/Micro Results: Lab Results-Last 24 Hours 03/21/24 03/21/24 03/21/24 Range/Units 12:15 12:18 12:18 WBC (4.0-10.5) x10^3/uL RBC (4.1-5.6) x10^6/uL Hgb (12.5-18.0) g/dL Hct (42-50) % MCV (78-100) fL MCH (26-32) pg MCHC (32-36) g/dL RDW (11.5-14.0) % Plt Count (150-450) x10^3/uL MPV (7.5-11.0) fL Gran % (36.0-66.0) % Immature Gran % (Auto) (0.00-0.4) % Nucleat RBC Rel Count (0.00-0.1) % Eos # (Auto) (0-0.5) x10^3/uL Immature Gran # (Auto) (0.00-0.03) x10^3u/L Absolute Lymphs (auto) (1.0-4.6) x10^3/uL Absolute Monos (auto) (0.0-1.3) x10^3/uL Absolute Nucleated RBC (0.00-0.01) x10^3u/L Lymphocytes % (24.0-44.0) % Monocytes % (0.0-12.0) % Eosinophils % (0.00-5.0) % Basophils % (0.0-0.4) % Absolute Granulocytes (1.4-6.9) x10^3/uL Basophils # (0-0.4) x10^3/uL Sodium (135-145) mmol/L Potassium (3.5-5.1) mmol/L Chloride (98-107) mmol/L Carbon Dioxide (22-30) mmol/L Anion Gap (5-15) MEQ/L BUN (9-20) mg/dL Creatinine (0.66-1.25) mg/dL Estimated GFR ML/MIN Glucose (74-106) mg/dL POC Glucometer 116 H (74 to 106) mg/dL Hemoglobin A1c 5.55 (4.5-6.0) % Lactic Acid 1.7 (0.4-2.0) Calcium (8.4-10.2) mg/dL Magnesium (1.6-2.3) mg/dL Total Bilirubin (0.2-1.3) mg/dL AST (17-59) U/L ALT (0-50) U/L Alkaline Phosphatase (38-126) U/L Troponin I (0.000-0.033) ng/mL Serum Total Protein (6.3-8.2) g/dL Albumin (3.5-5.0) g/dL Urine Color (Yellow) Urine Appearance (Clear) Urine pH (4.6-8.0) Ur Specific [place] (1.005-1.030) Urine Protein (Negative) Urine Glucose (UA) (Negative) mg/dL Urine Ketones (Negative) Urine Blood (Negative) Urine Nitrite (Negative) Urine Bilirubin (Negative) Urine Urobilinogen (0.2) mg/dL Ur Leukocyte Esterase (Negative) U Hyaline Cast (Auto) (0-2) /LPF Urine Microscopic RBC (0-5) /HPF Urine Microscopic WBC (0-5) /HPF Ur Epithelial Cells (None Seen) /HPF Urine Bacteria (None Seen) /HPF Urine Culture Reflexed (NO) Urine Opiates Level (NEGATIVE) Ur Methadone (NEGATIVE) Urine Barbiturates (NEGATIVE) Ur Phencyclidine (PCP) (NEGATIVE) Urine Amphetamine (NEGATIVE) U Benzodiazepine Level (NEGATIVE) Urine Cocaine (NEGATIVE) Urine Marijuana (THC) (NEGATIVE) Ethyl Alcohol (0-10) mg/dL 03/21/24 03/21/24 03/21/24 Range/Units 12:26 12:26 12:26 WBC 8.6 (4.0-10.5) x10^3/uL RBC 4.81 (4.1-5.6) x10^6/uL Hgb 14.8 (12.5-18.0) g/dL Hct 44.1 (42-50) % MCV 91.7 (78-100) fL MCH 30.8 (26-32) pg MCHC 33.6 (32-36) g/dL RDW 13.0 (11.5-14.0) % Plt Count 385 (150-450) x10^3/uL MPV 9.2 (7.5-11.0) fL Gran % 72.1 H (36.0-66.0) % Immature Gran % (Auto) 0.3 (0.00-0.4) % Nucleat RBC Rel Count 0.0 (0.00-0.1) % Eos # (Auto) 0.19 (0-0.5) x10^3/uL Immature Gran # (Auto) 0.03 (0.00-0.03) x10^3u/L Absolute Lymphs (auto) 1.47 (1.0-4.6) x10^3/uL Absolute Monos (auto) 0.65 (0.0-1.3) x10^3/uL Absolute Nucleated RBC 0.00 (0.00-0.01) x10^3u/L Lymphocytes % 17.1 L (24.0-44.0) % Monocytes % 7.5 (0.0-12.0) % Eosinophils % 2.2 (0.00-5.0) % Basophils % 0.8 (0.0-0.4) % Absolute Granulocytes 6.21 (1.4-6.9) x10^3/uL Basophils # 0.07 (0-0.4) x10^3/uL Sodium 136 (135-145) mmol/L Potassium 4.2 (3.5-5.1) mmol/L Chloride 104 (98-107) mmol/L Carbon Dioxide 23 (22-30) mmol/L Anion Gap 13.8 (5-15) MEQ/L BUN 11 (9-20) mg/dL Creatinine 1.01 (0.66-1.25) mg/dL Estimated GFR 88.9 ML/MIN Glucose 112 H (74-106) mg/dL POC Glucometer (74 to 106) mg/dL Hemoglobin A1c (4.5-6.0) % Lactic Acid (0.4-2.0) Calcium 9.1 (8.4-10.2) mg/dL Magnesium 2.1 (1.6-2.3) mg/dL Total Bilirubin 0.60 (0.2-1.3) mg/dL AST 20 (17-59) U/L ALT 19 (0-50) U/L Alkaline Phosphatase 78 (38-126) U/L Troponin I 0.017 (0.000-0.033) ng/mL Serum Total Protein 7.6 (6.3-8.2) g/dL Albumin 4.5 (3.5-5.0) g/dL Urine Color (Yellow) Urine Appearance (Clear) Urine pH (4.6-8.0) Ur Specific [place] (1.005-1.030) Urine Protein (Negative) Urine Glucose (UA) (Negative) mg/dL Urine Ketones (Negative) Urine Blood (Negative) Urine Nitrite (Negative) Urine Bilirubin (Negative) Urine Urobilinogen (0.2) mg/dL Ur Leukocyte Esterase (Negative) U Hyaline Cast (Auto) (0-2) /LPF Urine Microscopic RBC (0-5) /HPF Urine Microscopic WBC (0-5) /HPF Ur Epithelial Cells (None Seen) /HPF Urine Bacteria (None Seen) /HPF Urine Culture Reflexed (NO) Urine Opiates Level (NEGATIVE) Ur Methadone (NEGATIVE) Urine Barbiturates (NEGATIVE) Ur Phencyclidine (PCP) (NEGATIVE) Urine Amphetamine (NEGATIVE) U Benzodiazepine Level (NEGATIVE) Urine Cocaine (NEGATIVE) Urine Marijuana (THC) (NEGATIVE) Ethyl Alcohol < 10 (0-10) mg/dL 03/21/24 03/21/24 03/21/24 Range/Units 13:00 13:00 16:25 WBC (4.0-10.5) x10^3/uL RBC (4.1-5.6) x10^6/uL Hgb (12.5-18.0) g/dL Hct (42-50) % MCV (78-100) fL MCH (26-32) pg MCHC (32-36) g/dL RDW (11.5-14.0) % Plt Count (150-450) x10^3/uL MPV (7.5-11.0) fL Gran % (36.0-66.0) % Immature Gran % (Auto) (0.00-0.4) % Nucleat RBC Rel Count (0.00-0.1) % Eos # (Auto) (0-0.5) x10^3/uL Immature Gran # (Auto) (0.00-0.03) x10^3u/L Absolute Lymphs (auto) (1.0-4.6) x10^3/uL Absolute Monos (auto) (0.0-1.3) x10^3/uL Absolute Nucleated RBC (0.00-0.01) x10^3u/L Lymphocytes % (24.0-44.0) % Monocytes % (0.0-12.0) % Eosinophils % (0.00-5.0) % Basophils % (0.0-0.4) % Absolute Granulocytes (1.4-6.9) x10^3/uL Basophils # (0-0.4) x10^3/uL Sodium (135-145) mmol/L Potassium (3.5-5.1) mmol/L Chloride (98-107) mmol/L Carbon Dioxide (22-30) mmol/L Anion Gap (5-15) MEQ/L BUN (9-20) mg/dL Creatinine (0.66-1.25) mg/dL Estimated GFR ML/MIN Glucose (74-106) mg/dL POC Glucometer (74 to 106) mg/dL Hemoglobin A1c (4.5-6.0) % Lactic Acid (0.4-2.0) Calcium (8.4-10.2) mg/dL Magnesium (1.6-2.3) mg/dL Total Bilirubin (0.2-1.3) mg/dL AST (17-59) U/L ALT (0-50) U/L Alkaline Phosphatase (38-126) U/L Troponin I 0.017 (0.000-0.033) ng/mL Serum Total Protein (6.3-8.2) g/dL Albumin (3.5-5.0) g/dL Urine Color Yellow (Yellow) Urine Appearance Clear (Clear) Urine pH 6.5 (4.6-8.0) Ur Specific [place] 1.010 (1.005-1.030) Urine Protein Negative (Negative) Urine Glucose (UA) Negative (Negative) mg/dL Urine Ketones Negative (Negative) Urine Blood Negative (Negative) Urine Nitrite Negative (Negative) Urine Bilirubin Negative (Negative) Urine Urobilinogen 0.2 (0.2) mg/dL Ur Leukocyte Esterase Negative (Negative) U Hyaline Cast (Auto) NONE SEEN (0-2) /LPF Urine Microscopic RBC 0-2 (0-5) /HPF Urine Microscopic WBC 0-2 (0-5) /HPF Ur Epithelial Cells None Seen (None Seen) /HPF Urine Bacteria None Seen (None Seen) /HPF Urine Culture Reflexed NO (NO) Urine Opiates Level NEGATIVE (NEGATIVE) Ur Methadone NEGATIVE (NEGATIVE) Urine Barbiturates NEGATIVE (NEGATIVE) Ur Phencyclidine (PCP) NEGATIVE (NEGATIVE) Urine Amphetamine NEGATIVE (NEGATIVE) U Benzodiazepine Level NEGATIVE (NEGATIVE) Urine Cocaine NEGATIVE (NEGATIVE) Urine Marijuana (THC) NEGATIVE (NEGATIVE) Ethyl Alcohol (0-10) mg/dL 03/21/24 Range/Units 20:55 WBC (4.0-10.5) x10^3/uL RBC (4.1-5.6) x10^6/uL Hgb (12.5-18.0) g/dL Hct (42-50) % MCV (78-100) fL MCH (26-32) pg MCHC (32-36) g/dL RDW (11.5-14.0) % Plt Count (150-450) x10^3/uL MPV (7.5-11.0) fL Gran % (36.0-66.0) % Immature Gran % (Auto) (0.00-0.4) % Nucleat RBC Rel Count (0.00-0.1) % Eos # (Auto) (0-0.5) x10^3/uL Immature Gran # (Auto) (0.00-0.03) x10^3u/L Absolute Lymphs (auto) (1.0-4.6) x10^3/uL Absolute Monos (auto) (0.0-1.3) x10^3/uL Absolute Nucleated RBC (0.00-0.01) x10^3u/L Lymphocytes % (24.0-44.0) % Monocytes % (0.0-12.0) % Eosinophils % (0.00-5.0) % Basophils % (0.0-0.4) % Absolute Granulocytes (1.4-6.9) x10^3/uL Basophils # (0-0.4) x10^3/uL Sodium (135-145) mmol/L Potassium (3.5-5.1) mmol/L Chloride (98-107) mmol/L Carbon Dioxide (22-30) mmol/L Anion Gap (5-15) MEQ/L BUN (9-20) mg/dL Creatinine (0.66-1.25) mg/dL Estimated GFR ML/MIN Glucose (74-106) mg/dL POC Glucometer (74 to 106) mg/dL Hemoglobin A1c (4.5-6.0) % Lactic Acid (0.4-2.0) Calcium (8.4-10.2) mg/dL Magnesium (1.6-2.3) mg/dL Total Bilirubin (0.2-1.3) mg/dL AST (17-59) U/L ALT (0-50) U/L Alkaline Phosphatase (38-126) U/L Troponin I 0.019 (0.000-0.033) ng/mL Serum Total Protein (6.3-8.2) g/dL Albumin (3.5-5.0) g/dL Urine Color (Yellow) Urine Appearance (Clear) Urine pH (4.6-8.0) Ur Specific [place] (1.005-1.030) Urine Protein (Negative) Urine Glucose (UA) (Negative) mg/dL Urine Ketones (Negative) Urine Blood (Negative) Urine Nitrite (Negative) Urine Bilirubin (Negative) Urine Urobilinogen (0.2) mg/dL Ur Leukocyte Esterase (Negative) U Hyaline Cast (Auto) (0-2) /LPF Urine Microscopic RBC (0-5) /HPF Urine Microscopic WBC (0-5) /HPF Ur Epithelial Cells (None Seen) /HPF Urine Bacteria (None Seen) /HPF Urine Culture Reflexed (NO) Urine Opiates Level (NEGATIVE) Ur Methadone (NEGATIVE) Urine Barbiturates (NEGATIVE) Ur Phencyclidine (PCP) (NEGATIVE) Urine Amphetamine (NEGATIVE) U Benzodiazepine Level (NEGATIVE) Urine Cocaine (NEGATIVE) Urine Marijuana (THC) (NEGATIVE) Ethyl Alcohol (0-10) mg/dL Accuchecks Date 03/21/24 Time 12:15 - Radiology Impressions Radiology Exams & Impressions: Radiology Procedures Category Date Time Status CAROTID BILATERAL [US] Routine Exams 03/22/24 08:00 Ordered CHEST 1 VIEW (PORTABLE) Stat Exams 03/21/24 12:19 Completed ECHO W/2D AND DOPPLER [US] Routine Exams 03/22/24 08:00 Ordered HEAD WITHOUT CONTRAST [CT] Stat Exams 03/21/24 12:13 Completed Telemedicine Encounter - Telemedicine Encounter Telemedicine Encounter: The entirety of this encounter was performed via Telemedicine" ERVIN Encounter - ERVIN Encounter Attestation ERVIN Encounter Attestation: "IhmimipersonallysnamexJEREMI Rivers andpacovediscussed pertinent aspects of their care with Al Heredia agree with the history, physical exam (any modifications based on my personal exam will be noted below), assessment, and plan as outlined in original note. Please see immediately below for my summary of findings and additional assessment and plan along with any meaningful corrections/explanations to the Subjective/Objective portions of the ERVIN note will be noted." My portion of the encounter took place via telemedicine. -Presyncope/syncope with symptoms and work up not suggestive of stroke, seizure, bradycardia/ hypotension. Possible vasovagal vs cardiac arrhythmia. Monitor on telemetry overnight with echo and carotid dopplers in the morning (only history of hyperlipidemia). Follow up with PCP after discharge.
[2024-03-21] MEDS: ENOXAPARIN SODIUM SQ SCH (21:55)
[2024-03-21 23:10] VITALS: O2SAT 97
[2024-03-22 05:01] LABS: Hematocrit 42.3 % (42-50); Hemoglobin 13.8 g/dL (12.5-18.0); Mean Cell Volume 92.6 fL (78-100); Mean Corpuscular Hemoglobin 30.2 pg (26-32); Mean Corpuscular Hgb Concent. 32.6 g/dL (32-36); Mean Platelet Volume 9.2 fL (7.5-11.0); Platelet Count 359 x10^3/uL (150-450); Red Blood Count 4.57 x10^6/uL (4.1-5.6); Red Cell Distribution Width 13.2 % (11.5-14.0); White Blood Count 7.9 x10^3/uL (4.0-10.5)
[2024-03-22 05:33] LABS: ALBUMIN 3.7 g/dL (3.5-5.0); ANION GAP 11.1 MEQ/L (5-15); BILIRUBIN,TOTAL 0.5 mg/dL (0.2-1.3); Calcium 8.6 mg/dL (8.4-10.2); Creatinine 1 0.98 mg/dL (0.66-1.25); EST GLOMERULAR FILTRATION RATE 92.2 ML/MIN; Total Protein 6.5 g/dL (6.3-8.2)
[2024-03-22 08:13] VITALS: RESP 16
--- NOTE | 2024-03-22 09:25 | PCM.DS ---
Discharge Summary Date of Admission: 03/21/24 16:08 Date of Discharge: 03/22/24 Admitting Physician: CHARLEEN GARCIA MD Primary Care Provider: KRYSTAL PASCUAL DO Allergies Allergies rito Allergy (Severe, Uncoded 03/21/24 12:11) Anaphylactic Reaction Hospital Summary - Hospital Course Hospital Course: 03/21/24 is a 53 year old male with PMHX of HTN, OA, Diverticulitis, hyperlipidemia, and obesity. He was brought in the ER by POV after he had a near syncope/syncopal episode prior to arrival while standing at [facility]. Patient reports he was standing for few minutes and all of a sudden he started to feel numb all over, feeling as if he was going to fall, grabbed onto people standing around him and was made to sit on a chair and almost passed out for couple of seconds. Patient denies any chest pain palpitations or shortness of breath at that time. He does admit to intermittent CP from time to time in the center of his chest without radiation. He denies any focal weakness but weakness all over. No visual disturbance or difficulty speech. Patient is not confused or altered on presentation in ER or now. While patient was getting out of the car on the wheelchair in the ER he had another episode similar to that where he was near syncope/syncope for few seconds. Denies any recent nausea vomiting diarrhea. No history of stroke or coronary artery disease. Patient blood sugar is 116 on presentation. He denies having his legs locked while standing. He admits to home stressors that are self induced from over thinking he explains. He reported he had no stress while at [facility] and feels that is unrelated. He has never had anything like this before. He bernstein shave a strong family heart hx with most of them passing before the age of 54. He admits to not f/u with a PCP for his cholesterol as he should d/t his PCP moving. Will check lipid panel in the AM, monitor on tele, and trends trops. 03/22/24 Pt resting in bed. No overnight events. Trop x3 negative. Orthostats negative. Echo and carotid duplex pending. If Ok then can d/c today. Will have pt f/u OP with cardiology and PCP. Discussed cholesterol results and education provided. Discussed again his home stressors and he denies homicidal or suicidal ideation. He refuses to talk to anyone about this. He denies any further concerns at this time. He denies CP, SOB, abd. pain, N/V/D. - Vitals & Intake/Output Vital Signs: Vital Signs Temperature 98.9 F 03/22/24 08:00 Pulse Rate 70 03/22/24 08:00 Respiratory Rate 16 03/22/24 08:00 Blood Pressure 128/73 03/22/24 08:00 O2 Sat by Pulse Oximetry 97 03/22/24 08:00 Intake & Output: Intake & Output 03/19/24 03/20/24 03/21/24 03/22/24 11:59 11:59 11:59 11:59 Intake Total 1920 Balance 192 Weight 108.2 kg - Lab Result Diagrams: 03/22/24 04:31 03/22/24 04:31 Lab Results-Last 24 Hrs: Lab Results-Last 24 Hours 03/21/24 03/21/24 03/21/24 Range/Units 12:15 12:18 12:18 WBC (4.0-10.5) x10^3/uL RBC (4.1-5.6) x10^6/uL Hgb (12.5-18.0) g/dL Hct (42-50) % MCV (78-100) fL MCH (26-32) pg MCHC (32-36) g/dL RDW (11.5-14.0) % Plt Count (150-450) x10^3/uL MPV (7.5-11.0) fL Gran % (36.0-66.0) % Immature Gran % (Auto) (0.00-0.4) % Nucleat RBC Rel Count (0.00-0.1) % Eos # (Auto) (0-0.5) x10^3/uL Immature Gran # (Auto) (0.00-0.03) x10^3u/L Absolute Lymphs (auto) (1.0-4.6) x10^3/uL Absolute Monos (auto) (0.0-1.3) x10^3/uL Absolute Nucleated RBC (0.00-0.01) x10^3u/L Lymphocytes % (24.0-44.0) % Monocytes % (0.0-12.0) % Eosinophils % (0.00-5.0) % Basophils % (0.0-0.4) % Absolute Granulocytes (1.4-6.9) x10^3/uL Basophils # (0-0.4) x10^3/uL Sodium (135-145) mmol/L Potassium (3.5-5.1) mmol/L Chloride (98-107) mmol/L Carbon Dioxide (22-30) mmol/L Anion Gap (5-15) MEQ/L BUN (9-20) mg/dL Creatinine (0.66-1.25) mg/dL Estimated GFR ML/MIN Glucose (74-106) mg/dL POC Glucometer 116 H (74 to 106) mg/dL Hemoglobin A1c 5.55 (4.5-6.0) % Lactic Acid 1.7 (0.4-2.0) Calcium (8.4-10.2) mg/dL Magnesium (1.6-2.3) mg/dL Total Bilirubin (0.2-1.3) mg/dL AST (17-59) U/L ALT (0-50) U/L Alkaline Phosphatase (38-126) U/L Troponin I (0.000-0.033) ng/mL Serum Total Protein (6.3-8.2) g/dL Albumin (3.5-5.0) g/dL Triglycerides (30-150) mg/dL Cholesterol (50-200) mg/dL LDL Cholesterol (30-100) mg/dL HDL Cholesterol (40-60) mg/dL Heart Disease Risk Ratio TSH 3rd Generation (0.470-4.680) mIU/L Urine Color (Yellow) Urine Appearance (Clear) Urine pH (4.6-8.0) Ur Specific [place] (1.005-1.030) Urine Protein (Negative) Urine Glucose (UA) (Negative) mg/dL Urine Ketones (Negative) Urine Blood (Negative) Urine Nitrite (Negative) Urine Bilirubin (Negative) Urine Urobilinogen (0.2) mg/dL Ur Leukocyte Esterase (Negative) U Hyaline Cast (Auto) (0-2) /LPF Urine Microscopic RBC (0-5) /HPF Urine Microscopic WBC (0-5) /HPF Ur Epithelial Cells (None Seen) /HPF Urine Bacteria (None Seen) /HPF Urine Culture Reflexed (NO) Urine Opiates Level (NEGATIVE) Ur Methadone (NEGATIVE) Urine Barbiturates (NEGATIVE) Ur Phencyclidine (PCP) (NEGATIVE) Urine Amphetamine (NEGATIVE) U Benzodiazepine Level (NEGATIVE) Urine Cocaine (NEGATIVE) Urine Marijuana (THC) (NEGATIVE) Ethyl Alcohol (0-10) mg/dL 03/21/24 03/21/24 03/21/24 Range/Units 12:26 12:26 12:26 WBC 8.6 (4.0-10.5) x10^3/uL RBC 4.81 (4.1-5.6) x10^6/uL Hgb 14.8 (12.5-18.0) g/dL Hct 44.1 (42-50) % MCV 91.7 (78-100) fL MCH 30.8 (26-32) pg MCHC 33.6 (32-36) g/dL RDW 13.0 (11.5-14.0) % Plt Count 385 (150-450) x10^3/uL MPV 9.2 (7.5-11.0) fL Gran % 72.1 H (36.0-66.0) % Immature Gran % (Auto) 0.3 (0.00-0.4) % Nucleat RBC Rel Count 0.0 (0.00-0.1) % Eos # (Auto) 0.19 (0-0.5) x10^3/uL Immature Gran # (Auto) 0.03 (0.00-0.03) x10^3u/L Absolute Lymphs (auto) 1.47 (1.0-4.6) x10^3/uL Absolute Monos (auto) 0.65 (0.0-1.3) x10^3/uL Absolute Nucleated RBC 0.00 (0.00-0.01) x10^3u/L Lymphocytes % 17.1 L (24.0-44.0) % Monocytes % 7.5 (0.0-12.0) % Eosinophils % 2.2 (0.00-5.0) % Basophils % 0.8 (0.0-0.4) % Absolute Granulocytes 6.21 (1.4-6.9) x10^3/uL Basophils # 0.07 (0-0.4) x10^3/uL Sodium 136 (135-145) mmol/L Potassium 4.2 (3.5-5.1) mmol/L Chloride 104 (98-107) mmol/L Carbon Dioxide 23 (22-30) mmol/L Anion Gap 13.8 (5-15) MEQ/L BUN 11 (9-20) mg/dL Creatinine 1.01 (0.66-1.25) mg/dL Estimated GFR 88.9 ML/MIN Glucose 112 H (74-106) mg/dL POC Glucometer (74 to 106) mg/dL Hemoglobin A1c (4.5-6.0) % Lactic Acid (0.4-2.0) Calcium 9.1 (8.4-10.2) mg/dL Magnesium 2.1 (1.6-2.3) mg/dL Total Bilirubin 0.60 (0.2-1.3) mg/dL AST 20 (17-59) U/L ALT 19 (0-50) U/L Alkaline Phosphatase 78 (38-126) U/L Troponin I 0.017 (0.000-0.033) ng/mL Serum Total Protein 7.6 (6.3-8.2) g/dL Albumin 4.5 (3.5-5.0) g/dL Triglycerides (30-150) mg/dL Cholesterol (50-200) mg/dL LDL Cholesterol (30-100) mg/dL HDL Cholesterol (40-60) mg/dL Heart Disease Risk Ratio TSH 3rd Generation (0.470-4.680) mIU/L Urine Color (Yellow) Urine Appearance (Clear) Urine pH (4.6-8.0) Ur Specific [place] (1.005-1.030) Urine Protein (Negative) Urine Glucose (UA) (Negative) mg/dL Urine Ketones (Negative) Urine Blood (Negative) Urine Nitrite (Negative) Urine Bilirubin (Negative) Urine Urobilinogen (0.2) mg/dL Ur Leukocyte Esterase (Negative) U Hyaline Cast (Auto) (0-2) /LPF Urine Microscopic RBC (0-5) /HPF Urine Microscopic WBC (0-5) /HPF Ur Epithelial Cells (None Seen) /HPF Urine Bacteria (None Seen) /HPF Urine Culture Reflexed (NO) Urine Opiates Level (NEGATIVE) Ur Methadone (NEGATIVE) Urine Barbiturates (NEGATIVE) Ur Phencyclidine (PCP) (NEGATIVE) Urine Amphetamine (NEGATIVE) U Benzodiazepine Level (NEGATIVE) Urine Cocaine (NEGATIVE) Urine Marijuana (THC) (NEGATIVE) Ethyl Alcohol < 10 (0-10) mg/dL 03/21/24 03/21/24 03/21/24 Range/Units 13:00 13:00 16:25 WBC (4.0-10.5) x10^3/uL RBC (4.1-5.6) x10^6/uL Hgb (12.5-18.0) g/dL Hct (42-50) % MCV (78-100) fL MCH (26-32) pg MCHC (32-36) g/dL RDW (11.5-14.0) % Plt Count (150-450) x10^3/uL MPV (7.5-11.0) fL Gran % (36.0-66.0) % Immature Gran % (Auto) (0.00-0.4) % Nucleat RBC Rel Count (0.00-0.1) % Eos # (Auto) (0-0.5) x10^3/uL Immature Gran # (Auto) (0.00-0.03) x10^3u/L Absolute Lymphs (auto) (1.0-4.6) x10^3/uL Absolute Monos (auto) (0.0-1.3) x10^3/uL Absolute Nucleated RBC (0.00-0.01) x10^3u/L Lymphocytes % (24.0-44.0) % Monocytes % (0.0-12.0) % Eosinophils % (0.00-5.0) % Basophils % (0.0-0.4) % Absolute Granulocytes (1.4-6.9) x10^3/uL Basophils # (0-0.4) x10^3/uL Sodium (135-145) mmol/L Potassium (3.5-5.1) mmol/L Chloride (98-107) mmol/L Carbon Dioxide (22-30) mmol/L Anion Gap (5-15) MEQ/L BUN (9-20) mg/dL Creatinine (0.66-1.25) mg/dL Estimated GFR ML/MIN Glucose (74-106) mg/dL POC Glucometer (74 to 106) mg/dL Hemoglobin A1c (4.5-6.0) % Lactic Acid (0.4-2.0) Calcium (8.4-10.2) mg/dL Magnesium (1.6-2.3) mg/dL Total Bilirubin (0.2-1.3) mg/dL AST (17-59) U/L ALT (0-50) U/L Alkaline Phosphatase (38-126) U/L Troponin I 0.017 (0.000-0.033) ng/mL Serum Total Protein (6.3-8.2) g/dL Albumin (3.5-5.0) g/dL Triglycerides (30-150) mg/dL Cholesterol (50-200) mg/dL LDL Cholesterol (30-100) mg/dL HDL Cholesterol (40-60) mg/dL Heart Disease Risk Ratio TSH 3rd Generation (0.470-4.680) mIU/L Urine Color Yellow (Yellow) Urine Appearance Clear (Clear) Urine pH 6.5 (4.6-8.0) Ur Specific [place] 1.010 (1.005-1.030) Urine Protein Negative (Negative) Urine Glucose (UA) Negative (Negative) mg/dL Urine Ketones Negative (Negative) Urine Blood Negative (Negative) Urine Nitrite Negative (Negative) Urine Bilirubin Negative (Negative) Urine Urobilinogen 0.2 (0.2) mg/dL Ur Leukocyte Esterase Negative (Negative) U Hyaline Cast (Auto) NONE SEEN (0-2) /LPF Urine Microscopic RBC 0-2 (0-5) /HPF Urine Microscopic WBC 0-2 (0-5) /HPF Ur Epithelial Cells None Seen (None Seen) /HPF Urine Bacteria None Seen (None Seen) /HPF Urine Culture Reflexed NO (NO) Urine Opiates Level NEGATIVE (NEGATIVE) Ur Methadone NEGATIVE (NEGATIVE) Urine Barbiturates NEGATIVE (NEGATIVE) Ur Phencyclidine (PCP) NEGATIVE (NEGATIVE) Urine Amphetamine NEGATIVE (NEGATIVE) U Benzodiazepine Level NEGATIVE (NEGATIVE) Urine Cocaine NEGATIVE (NEGATIVE) Urine Marijuana (THC) NEGATIVE (NEGATIVE) Ethyl Alcohol (0-10) mg/dL 03/21/24 03/22/24 03/22/24 Range/Units 20:55 04:31 04:31 WBC 7.9 (4.0-10.5) x10^3/uL RBC 4.57 (4.1-5.6) x10^6/uL Hgb 13.8 (12.5-18.0) g/dL Hct 42.3 (42-50) % MCV 92.6 (78-100) fL MCH 30.2 (26-32) pg MCHC 32.6 (32-36) g/dL RDW 13.2 (11.5-14.0) % Plt Count 359 (150-450) x10^3/uL MPV 9.2 (7.5-11.0) fL Gran % (36.0-66.0) % Immature Gran % (Auto) (0.00-0.4) % Nucleat RBC Rel Count (0.00-0.1) % Eos # (Auto) (0-0.5) x10^3/uL Immature Gran # (Auto) (0.00-0.03) x10^3u/L Absolute Lymphs (auto) (1.0-4.6) x10^3/uL Absolute Monos (auto) (0.0-1.3) x10^3/uL Absolute Nucleated RBC (0.00-0.01) x10^3u/L Lymphocytes % (24.0-44.0) % Monocytes % (0.0-12.0) % Eosinophils % (0.00-5.0) % Basophils % (0.0-0.4) % Absolute Granulocytes (1.4-6.9) x10^3/uL Basophils # (0-0.4) x10^3/uL Sodium 138 (135-145) mmol/L Potassium 4.0 (3.5-5.1) mmol/L Chloride 109 H (98-107) mmol/L Carbon Dioxide 22 (22-30) mmol/L Anion Gap 11.1 (5-15) MEQ/L BUN 10 (9-20) mg/dL Creatinine 0.98 (0.66-1.25) mg/dL Estimated GFR 92.2 ML/MIN Glucose 109 H (74-106) mg/dL POC Glucometer (74 to 106) mg/dL Hemoglobin A1c (4.5-6.0) % Lactic Acid (0.4-2.0) Calcium 8.6 (8.4-10.2) mg/dL Magnesium (1.6-2.3) mg/dL Total Bilirubin 0.50 (0.2-1.3) mg/dL AST 19 (17-59) U/L ALT 17 (0-50) U/L Alkaline Phosphatase 72 (38-126) U/L Troponin I 0.019 (0.000-0.033) ng/mL Serum Total Protein 6.5 (6.3-8.2) g/dL Albumin 3.7 (3.5-5.0) g/dL Triglycerides (30-150) mg/dL Cholesterol (50-200) mg/dL LDL Cholesterol (30-100) mg/dL HDL Cholesterol (40-60) mg/dL Heart Disease Risk Ratio TSH 3rd Generation (0.470-4.680) mIU/L Urine Color (Yellow) Urine Appearance (Clear) Urine pH (4.6-8.0) Ur Specific [place] (1.005-1.030) Urine Protein (Negative) Urine Glucose (UA) (Negative) mg/dL Urine Ketones (Negative) Urine Blood (Negative) Urine Nitrite (Negative) Urine Bilirubin (Negative) Urine Urobilinogen (0.2) mg/dL Ur Leukocyte Esterase (Negative) U Hyaline Cast (Auto) (0-2) /LPF Urine Microscopic RBC (0-5) /HPF Urine Microscopic WBC (0-5) /HPF Ur Epithelial Cells (None Seen) /HPF Urine Bacteria (None Seen) /HPF Urine Culture Reflexed (NO) Urine Opiates Level (NEGATIVE) Ur Methadone (NEGATIVE) Urine Barbiturates (NEGATIVE) Ur Phencyclidine (PCP) (NEGATIVE) Urine Amphetamine (NEGATIVE) U Benzodiazepine Level (NEGATIVE) Urine Cocaine (NEGATIVE) Urine Marijuana (THC) (NEGATIVE) Ethyl Alcohol (0-10) mg/dL 03/22/24 03/22/24 Range/Units 04:31 04:31 WBC (4.0-10.5) x10^3/uL RBC (4.1-5.6) x10^6/uL Hgb (12.5-18.0) g/dL Hct (42-50) % MCV (78-100) fL MCH (26-32) pg MCHC (32-36) g/dL RDW (11.5-14.0) % Plt Count (150-450) x10^3/uL MPV (7.5-11.0) fL Gran % (36.0-66.0) % Immature Gran % (Auto) (0.00-0.4) % Nucleat RBC Rel Count (0.00-0.1) % Eos # (Auto) (0-0.5) x10^3/uL Immature Gran # (Auto) (0.00-0.03) x10^3u/L Absolute Lymphs (auto) (1.0-4.6) x10^3/uL Absolute Monos (auto) (0.0-1.3) x10^3/uL Absolute Nucleated RBC (0.00-0.01) x10^3u/L Lymphocytes % (24.0-44.0) % Monocytes % (0.0-12.0) % Eosinophils % (0.00-5.0) % Basophils % (0.0-0.4) % Absolute Granulocytes (1.4-6.9) x10^3/uL Basophils # (0-0.4) x10^3/uL Sodium (135-145) mmol/L Potassium (3.5-5.1) mmol/L Chloride (98-107) mmol/L Carbon Dioxide (22-30) mmol/L Anion Gap (5-15) MEQ/L BUN (9-20) mg/dL Creatinine (0.66-1.25) mg/dL Estimated GFR ML/MIN Glucose (74-106) mg/dL POC Glucometer (74 to 106) mg/dL Hemoglobin A1c (4.5-6.0) % Lactic Acid (0.4-2.0) Calcium (8.4-10.2) mg/dL Magnesium (1.6-2.3) mg/dL Total Bilirubin (0.2-1.3) mg/dL AST (17-59) U/L ALT (0-50) U/L Alkaline Phosphatase (38-126) U/L Troponin I (0.000-0.033) ng/mL Serum Total Protein (6.3-8.2) g/dL Albumin (3.5-5.0) g/dL Triglycerides 197 H (30-150) mg/dL Cholesterol 208 H (50-200) mg/dL LDL Cholesterol 144 H (30-100) mg/dL HDL Cholesterol 34 L (40-60) mg/dL Heart Disease Risk Ratio 6.0 TSH 3rd Generation 3.529 (0.470-4.680) mIU/L Urine Color (Yellow) Urine Appearance (Clear) Urine pH (4.6-8.0) Ur Specific [place] (1.005-1.030) Urine Protein (Negative) Urine Glucose (UA) (Negative) mg/dL Urine Ketones (Negative) Urine Blood (Negative) Urine Nitrite (Negative) Urine Bilirubin (Negative) Urine Urobilinogen (0.2) mg/dL Ur Leukocyte Esterase (Negative) U Hyaline Cast (Auto) (0-2) /LPF Urine Microscopic RBC (0-5) /HPF Urine Microscopic WBC (0-5) /HPF Ur Epithelial Cells (None Seen) /HPF Urine Bacteria (None Seen) /HPF Urine Culture Reflexed (NO) Urine Opiates Level (NEGATIVE) Ur Methadone (NEGATIVE) Urine Barbiturates (NEGATIVE) Ur Phencyclidine (PCP) (NEGATIVE) Urine Amphetamine (NEGATIVE) U Benzodiazepine Level (NEGATIVE) Urine Cocaine (NEGATIVE) Urine Marijuana (THC) (NEGATIVE) Ethyl Alcohol (0-10) mg/dL Micro Results-Entire Visit: Accuchecks Date 03/21/24 Time 12:15 - Radiology Exams Ordered Rad Exams-Entire Visit: Radiology Procedures Category Date Time Status CAROTID BILATERAL [US] Routine Exams 03/22/24 08:00 Ordered CHEST 1 VIEW (PORTABLE) Stat Exams 03/21/24 12:19 Completed ECHO W/2D AND DOPPLER [US] Routine Exams 03/22/24 08:00 Ordered HEAD WITHOUT CONTRAST [CT] Stat Exams 03/21/24 12:13 Completed - Procedures and Test Procedures and Tests throughout Hospitalization: Therapy Orders & Screens 03/21/24 17:32 PT Eval & Treat ( Order) ONCE Reason for Eval:: syncope and collapse- eval Diagnosis: SYNCOPE AND COLLAPSE Discharge Exam General Appearance: no apparent distress, alert, obese Neurologic Exam: alert, oriented x 3, cooperative, normal mood/affect, nml cerebellar function, sensation nml, No motor deficits Eye Exam: PERRL, EOMI, eyes nml inspection Ears, Nose, Throat Exam: normal ENT inspection, pharynx normal, moist mucous membranes Neck Exam: normal inspection, non-tender, supple, full range of motion Respiratory Exam: normal breath sounds, lungs clear, No respiratory distress Cardiovascular Exam: regular rate/rhythm, normal heart sounds Gastrointestinal/Abdomen Exam: soft, No tenderness, No mass Male Genitalia Exam: deferred Rectal Exam: deferred Back Exam: normal inspection, normal range of motion, No CVA tenderness, No vertebral tenderness Extremity Exam: normal inspection, normal range of motion Skin Exam: normal color, warm, dry Final Diagnosis/Problem List - Final Discharge Diagnosis/Problem (1) Syncope and collapse Current Visit: Yes Status: Acute Code(s): R55 - SYNCOPE AND COLLAPSE (2) Chest pain Current Visit: No Status: Acute Code(s): R07.9 - CHEST PAIN, UNSPECIFIED (3) Hyperlipidemia Current Visit: Yes Status: Chronic Code(s): E78.5 - HYPERLIPIDEMIA, UNSPECIFIED (4) Obesity (BMI 30-39.9) Current Visit: Yes Status: Chronic Code(s): E66.9 - OBESITY, UNSPECIFIED (5) HTN (hypertension) Current Visit: Yes Status: Chronic Assessment & Plan: (1) Syncope and collapse Current Visit: Yes Status: Acute Assessment & Plan: - tele - trops- trend - EKG - CT head- negative for acute concern - CXR neagtive for acute concern - Echo and carotid duplex in AM - orthostats - PT eval - Strong family heart hx - labs overall non-concerning 03/22 - Carotid duplex Impression: Minimal right carotid bulb arteriosclerotic disease and minimal left carotid bulb intimal thickening. Velocity measurements and ratios negative for hemodynamically significant flow-limiting stenosis. - Echo EJ 63.8% per proced tech awaiting official read Code(s): R55 - SYNCOPE AND COLLAPSE (2) Chest pain Current Visit: No Status: Acute Assessment & Plan: - intermittent mid chest non- radiating - risk factors include hyperlipidemia, HTN, Obesity - Trop x3 negative - EKG - See above plan for syncope - CXR negative Code(s): R07.9 - CHEST PAIN, UNSPECIFIED (3) Hyperlipidemia Current Visit: Yes Status: Chronic Assessment & Plan: - lipid panel - reviewed with pt and education provided - Continue home meds Code(s): E78.5 - HYPERLIPIDEMIA, UNSPECIFIED (4) Obesity (BMI 30-39.9) Current Visit: Yes Status: Chronic Assessment & Plan: - advised heart healthy diet and exercise control Code(s): E66.9 - OBESITY, UNSPECIFIED (5) HTN (hypertension) Current Visit: Yes Status: Chronic Assessment & Plan: - BP controlled Code(s): I10 - ESSENTIAL (PRIMARY) HYPERTENSION - Discharge Discharge Date: 03/22/24 Disposition: Home, Self-Care Condition: Stable Prescriptions: Continue Ezetimibe 10 mg [Zetia 10 MG] 10 mg PO QHS Pravastatin Sodium 40 mg PO QHS Instructions: Syncope (Fainting) (DC) Follow up with: ANDRÉS PRATT [CONSULTING PHYSICIAN] - Office will call patient ASIYA DENISE NP [NON-STAFF PHY W/O PRIVILEGES] - 04/01/24 11:00 am
--- NOTE | 2024-03-22 11:53 | XRAY ---
Indication: Syncope and collapse. Two-dimensional sonogram and color Doppler imaging carotid arteries of the neck performed. Comparison: None Examination right carotid circulation demonstrates minimal calcified plaquing carotid bulb. Widely patent common carotid, internal carotid, and external carotid arteries. Proximal external carotid artery is incidentally tortuous. PSV CCA is 78 cm/s. PSV ICA is 122 cm/s. ICA/CCA ratio is 1.6. Normal antegrade vertebral artery flow. Examination left carotid circulation demonstrates minimal carotid bulb intimal thickening. Widely patent common carotid, internal carotid, and external carotid arteries. PSV CCA is 114 cm/s. PSV ICA is 90 cm/s. ICA/CC ratio is 0.8. Normal antegrade vertebral artery flow. Impression: Minimal right carotid bulb arteriosclerotic disease and minimal left carotid bulb intimal thickening. Velocity measurements and ratios negative for hemodynamically significant flow-limiting stenosis.
[2024-03-22 12:20] VITALS: BP 132/81; PULSE 66; TEMP 97.7
== END 2024-03-22 13:45 | disposition home or self-care (01) ==
LOC: ED 12:09 → MED SURG 16:08
PROVIDERS: ADMIT Internal Medicine; ATTEND Internal Medicine
DX: R55 Syncope and collapse (principal); R07.9 Chest pain, unspecified; I10 Essential (primary) hypertension; E78.5 Hyperlipidemia, unspecified; E66.9 Obesity, unspecified; Z79.899 Other long term (current) drug therapy
CPT/HCPCS: 36415; 70450; 71045; 80053; 80061; 80307; 81001; 82077; 82947; 83036; 83605; 83721; 83735; 84443; 84484; 85025; 85027; 93005; 93041; 93306; 93880; 97161; 99285; Q3014; 96372; J1650

== ENCOUNTER 2024-12-05 20:18 | Emergency (ER) | payer OTHER | END 2024-12-05 21:44 | disposition left against medical advice (07) | LOC: ED 20:18 | DX: Z53.21 Procedure and treatment not carried out due to patient leaving prior to being seen by health care provider (principal) ==

== ENCOUNTER 2024-12-07 11:18 | Observation (INO) | payer OTHER ==
[2024-12-07] MEDS ORDERED: Sodium Chloride 0.9% 1000 ML 1,000 ML ONE (12:28)
[2024-12-07] MEDS: Sodium Chloride 0.9% 1000 ML 1,000 ML IV STA (12:28)
[2024-12-07 12:33] LABS: Appearance Clear (Clear); Bacteria None Seen /HPF (None Seen); Bilirubin Negative (Negative); Blood Negative (Negative); Epithelial Cells None Seen /HPF (None Seen); Glucose, Urine Negative (Negative); Hyaline Casts NONE SEEN /LPF (0-2); Ketones Negative (Negative); Leukocyte Esterase Negative (Negative); Nitrite Negative (Negative); Ph 7.5 (4.6-8.0); Protein,Urine Dip Negative (Negative); RBC 0-2 /HPF (0-5); Urobilinogen 0.2 mg/dL (0.2); WBC 0-2 /HPF (0-5)
[2024-12-07 12:37] LABS: Absolute Neutrophil Ct (ANC) 6.18 x10^3/uL (1.78-5.38); Basophil (Absolute #) 0.09 x10^3/uL (0.01-0.08); Eosinophil % 2.4 % (0.8-7.0); Eosinophil (Absolute #) 0.21 x10^3/uL (0.04-0.54); Hematocrit 38.3 % (40.1-51.0); Hemoglobin 12.8 g/dL (13.7-17.5); IMMATURE GRAN # 0.04 x10^3u/L (0.001-0.031); IMMATURE GRAN % 0.5 % (0.001-0.429); Lymphocyte (Absolute #) 1.68 x10^3/uL (1.32-3.57); Lymphocytes % 19.1 % (21.8-53.1); Mean Cell Volume 92.5 fL (79.0-92.2); Mean Corpuscular Hemoglobin 30.9 pg (25.7-32.2); Mean Corpuscular Hgb Concent. 33.4 g/dL (32.3-36.5); Mean Platelet Volume 9.2 fL (9.4-12.4); Monocyte (Absolute #) 0.59 x10^3/uL (0.30-0.82); Monocytes % 6.7 % (5.3-12.2); Neutrophil % 70.3 % (34.0-67.9); Platelet Count 354 x10^3/uL (163-337); Red Blood Count 4.14 x10^6/uL (4.63-6.08); Red Cell Distribution Width 12.8 % (11.6-14.4); White Blood Count 8.8 x10^3/uL (4.23-9.07)
--- NOTE | 2024-12-07 12:40 | ERPHSYRPT ---
<TARA,OSMAN - Last Filed: 12/08/24 16:41> - History of Present Illness Historian: patient Exam Limitations: no limitations Patient Subjective Stated Complaint: PT HERE FOR ABD PAIN FOR 4-5 DAYS NOW, WAS SENT OVER HERE FROM OFFICE, HE STATES HES LAST BM WAS 5 DAYS AGO Triage Nursing Assessment: PT ALERT, WALKED IN, RESP EASY, SKIN W/D/P. ABD SOFT, NO EDEMA NOTED, MOVES ALL EXT WELL Timing/Duration: day(s) (For 5 days ago) Activities at Onset: none Quality: aching Pain Radiation: no radiation Severity of Pain-Max: moderate Severity of Pain-Current: mild Modifying Factors: Improves With: palpation Associated Symptoms: denies symptoms Previous symptoms: no prior history Hx Tetanus, Diphtheria Vaccination/Date Given: No Hx Influenza Vaccination/Date Given: Yes Hx Pneumococcal Vaccination/Date Given: No Immunizations Up to Date: Yes <CRISTAL OSBORNE - Last Filed: 12/14/24 11:05> - History of Present Illness Time Seen by Provider: 12/07/24 12:36 Physician History: 54-year-old male with history of diverticulitis presents to our ED as a referral from his primary care doctor for evaluation of abdominal pain. Patient reports his abdominal pain started about 4 to 5 days ago. Pain described as an ache that is lower abdomen radiates up towards the right upper quadrant. No trauma no fever no dark tarry stool no bright red blood per rectum. Patient symptoms are moderate in intensity. Pain worse with palpation pain improved with rest. Patient has a history of hypercholesterolemia reports he is otherwise healthy. Patient voices no other complaints or concerns at this time. Portions of this note were created with voice recognition technology. There may be grammatical, spelling, punctuation or sound alike errors (CRISTAL OSBORNE) Allergies/Adverse Reactions: marshmallow Allergy (Severe, Uncoded 12/08/24 17:53) Anaphylactic Reaction Home Medications: Pravastatin Sodium 40 mg PO QHS 02/28/21 [History] Escitalopram Oxalate [Lexapro] 20 mg PO DAILY 12/07/24 [History] Travel Risk - International Travel Have you traveled outside of the country in past 3 weeks: No - Emerging Infectious Disease Are you exhibiting symptoms associated with any current EIDs: No <CRISTAL OSBORNE - Last Filed: 12/14/24 11:05> - Review of Systems Constitutional: No Symptoms, No Fever, No Chills Eyes: No Symptoms Ears, Nose, & Throat: No Symptoms Respiratory: No Symptoms, No Cough, No Dyspnea Cardiac: No Symptoms, No Chest Pain, No Edema, No Syncope Abdominal/Gastrointestinal: No Symptoms, No Abdominal Pain, No Nausea, No Vomiting, No Diarrhea Genitourinary Symptoms: No Symptoms, No Dysuria Musculoskeletal: No Symptoms, No Back Pain, No Neck Pain Skin: No Symptoms, No Rash Neurological: No Symptoms, No Dizziness, No Focal Weakness, No Sensory Changes Psychological: No Symptoms Endocrine: No Symptoms Hematologic/Lymphatic: No Symptoms Immunological/Allergic: No Symptoms All Other Systems: Reviewed and Negative <CRISTAL OSBORNE - Last Filed: 12/14/24 11:05> - Past Medical History Pertinent Past Medical History: Yes Neurological History: No Pertinent History ENT History: No Pertinent History Cardiac History: Hypertension Respiratory History: No Pertinent History Endocrine Medical History: No Pertinent History Musculoskeletal History: Osteoarthritis GI Medical History: Diverticulitis, Other History: No Pertinent History Psycho-Social History: No Pertinent History Male Reproductive Disorders: No Pertinent History - Past Surgical History Past Surgical History: Yes Neuro Surgical History: No Pertinent History Cardiac: No Pertinent History Respiratory: No Pertinent History Gastrointestinal: Cholecystectomy Genitourinary: No Pertinent History Musculoskeletal: No Pertinent History, Orthopedic Surgery Male Surgical History: No Pertinent History Other Surgical History: right orbital reconsurction ,neck, cervical fusion, labral debridement left, KNEE REPLACEMENT Significant Family History: no pertinent family hx - Social History Smoking Status: Former smoker How long have you smoked: 35 years Exposure to second hand smoke: No Drug Use: none Patient Lives Alone: No - Social Determinants of Health Will the patient participate in the screening: Yes Do you worry about a steady place to live?: No Do you have any problems with any of the following?: No known problems In the past 12 months,have you had to go without utilities?: No Transportation Issues: No Has anyone in your support network made you feel unsafe?: No Have you or anyone in your house had to go without enough: No <CRISTAL OSBORNE - Last Filed: 12/14/24 11:05> - Physical Exam General Appearance: no apparent distress, alert Eye Exam: PERRL/EOMI, eyes nml inspection Ears, Nose, Throat Exam: normal ENT inspection, pharynx normal, moist mucous membranes Neck Exam: normal inspection, non-tender, supple, full range of motion Respiratory Exam: normal breath sounds, lungs clear, No respiratory distress Cardiovascular Exam: regular rate/rhythm, normal heart sounds Gastrointestinal/Abdomen Exam: soft, other (Lower abdominal tenderness), No tenderness, No mass Back Exam: normal inspection, normal range of motion, No CVA tenderness, No vertebral tenderness Extremity Exam: normal inspection, normal range of motion, pelvis stable Neurologic Exam: alert, oriented x 3, cooperative, normal mood/affect, nml cerebellar function, sensation nml, No motor deficits Skin Exam: normal color, warm, dry Lymphatic Exam: No adenopathy SpO2 Interpretation: normal SpO2: 98 O2 Delivery: [facility] Filed: 12/14/24 11:05> - Nursing Vital Signs Nursing Vital Signs: Initial Vital Signs Temperature 98.2 F 12/07/24 11:57 Pulse Rate 70 12/07/24 11:57 Respiratory Rate 18 12/07/24 11:57 Blood Pressure 128/81 12/07/24 11:57 O2 Sat by Pulse Oximetry 98 12/07/24 11:57 Pain Scale Pain Intensity 4 - Course Nursing assessment & vital signs reviewed: Yes - CT Exams Abdomen/Pelvis CT Interpretation: Tele-radiologist Report (Enlarging 4 cm descending duodenal diverticulum, diverticulosis, hepatic cyst, right nephrolithiasis, right ureteral bladder diverticulum) [facility] Filed: 12/14/24 11:05> Ordered Tests: Medication Summary Discontinued Medications Generic Name Dose Route Start Last Admin Trade Name Alfredq PRN Reason Stop Dose Admin Acetaminophen 650 mg 12/08/24 18:08 Acetaminophen 325 Mg Tablet PO 01/07/25 18:07 Q4H PRN PRN PAIN, FEVER, HEADACHE Escitalopram Oxalate 20 mg 12/09/24 10:00 12/09/24 08:56 Escitalopram Oxalate 10 Mg Tablet PO 01/08/25 09:59 20 mg DAILY DAVID Administration Sodium Chloride 1,000 mls @ 999 mls/hr 12/07/24 12:20 12/07/24 20:03 Sodium Chloride 0.9% 1000 Ml IV 12/07/24 13:20 Infused .Q1H1M STA Infusion Sodium Chloride Confirm 12/07/24 12:28 Sodium Chloride 0.9% 1000 Ml Administered 12/07/24 12:29 Dose 1,000 mls @ ud .ROUTE .STK-MED ONE Piperacillin Sod/Tazobactam 100 mls @ 200 mls/hr 12/09/24 18:30 12/09/24 22:37 Sod 3.375 gm/ Sodium Chloride IV 12/12/24 18:29 Not Given Q8HT DAVID Sodium Chloride Confirm 12/09/24 18:28 Sodium Chloride 100ml Mini-Bag Plus Administered 12/09/24 18:29 Dose 100 mls @ ud IV .STK-MED ONE Morphine Sulfate 2 mg 12/07/24 12:35 12/07/24 12:43 Morphine Sulfate 2 Mg/Ml Inj IV 12/07/24 12:36 2 mg STAT ONE Administration Morphine Sulfate Confirm 12/07/24 12:43 Morphine Sulfate 2 Mg/Ml Inj Administered 12/07/24 12:44 Dose 2 mg .ROUTE .STK-MED ONE Morphine Sulfate 4 mg 12/07/24 20:19 12/07/24 20:33 Morphine Sulfate 4 Mg/Ml Injection IV 12/07/24 20:20 4 mg STAT ONE Administration Morphine Sulfate Confirm 12/07/24 20:32 Morphine Sulfate 4 Mg/Ml Injection Administered 12/07/24 20:33 Dose 4 mg .ROUTE .STK-MED ONE Morphine Sulfate 4 mg 12/08/24 01:18 12/08/24 01:20 Morphine Sulfate 4 Mg/Ml Injection IV 12/08/24 01:19 4 mg STAT ONE Administration Morphine Sulfate Confirm 12/08/24 01:20 Morphine Sulfate 4 Mg/Ml Injection Administered 12/08/24 01:21 Dose 4 mg .ROUTE .STK-MED ONE Morphine Sulfate 2 mg 12/08/24 12:30 12/08/24 12:33 Morphine Sulfate 2 Mg/Ml Inj IV 12/08/24 12:31 2 mg STAT ONE Administration Morphine Sulfate Confirm 12/08/24 12:31 Morphine Sulfate 2 Mg/Ml Inj Administered 12/08/24 12:32 Dose 2 mg .ROUTE .STK-MED ONE Morphine Sulfate 2 mg 12/08/24 18:08 12/10/24 00:10 Morphine Sulfate 2 Mg/Ml Inj IV 12/13/24 18:07 2 mg Q4H PRN PRN Administration SEVERE PAIN Non-Formulary Medication 40 mg 12/08/24 22:00 Pravastatin Sodium [Pravastatin Sodium] PO 01/07/25 21:59 QHS DAVID Ondansetron HCl 4 mg 12/08/24 18:08 Ondansetron Hcl 4 Mg/2 Ml Vial IV 01/07/25 18:07 Q6H PRN PRN NAUSEA/VOMITING Pantoprazole Sodium 40 mg 12/08/24 22:00 12/09/24 22:45 Pantoprazole 40 Mg Vial IV 01/07/25 21:59 40 mg Q24H DAVID Administration Piperacillin Sod/Tazobactam Sod Confirm 12/09/24 18:28 Piperacillin/Tazobactam Sodium 3.375 Gm Vial Administered 12/09/24 18:29 Dose 3.375 gm IV .STK-MED ONE Simvastatin Confirm 12/08/24 21:36 Simvastatin 20 Mg Tablet Administered 12/08/24 21:37 Dose 40 mg .ROUTE .STK-MED ONE Simvastatin 40 mg 12/08/24 22:00 12/09/24 22:44 Simvastatin 20 Mg Tablet PO 01/07/25 21:59 40 mg HS DAVID Administration Lab/Rad Data: Laboratory Result Diagrams 12/08/24 07:35 12/08/24 07:35 Laboratory Results 12/08/24 12/08/24 12/07/24 Range/Units 07:35 07:35 16:55 WBC 7.4 (4.23-9.07) x10^3/uL RBC 3.98 L (4.63-6.08) x10^6/uL Hgb 12.3 L (13.7-17.5) g/dL Hct 37.4 L (40.1-51.0) % MCV 94.0 H (79.0-92.2) fL MCH 30.9 (25.7-32.2) pg MCHC 32.9 (32.3-36.5) g/dL RDW 13.1 (11.6-14.4) % Plt Count 357 H (163-337) x10^3/uL MPV 9.3 L (9.4-12.4) fL Gran % 67.2 (34.0-67.9) % Immature Gran % (Auto) 0.4 (0.001-0.429) % Nucleat RBC Rel Count 0.0 (0.00-0.2) % Eos # (Auto) 0.46 (0.04-0.54) x10^3/uL Immature Gran # (Auto) 0.03 (0.001-0.031) x10^3u/L Absolute Lymphs (auto) 1.31 L (1.32-3.57) x10^3/uL Absolute Monos (auto) 0.53 (0.30-0.82) x10^3/uL Absolute Nucleated RBC 0.00 (0.00-0.012) x10^3u/L Lymphocytes % 17.8 L (21.8-53.1) % Monocytes % 7.2 (5.3-12.2) % Eosinophils % 6.3 (0.8-7.0) % Basophils % 1.1 (0.2-1.2) % Absolute Granulocytes 4.94 (1.78-5.38) x10^3/uL Basophils # 0.08 (0.01-0.08) x10^3/uL Sodium 134 L (135-145) mmol/L Potassium 4.5 (3.5-5.1) mmol/L Chloride 105 (98-107) mmol/L Carbon Dioxide 22 (22-30) mmol/L Anion Gap 11.2 (5-15) MEQ/L BUN 13 (9-20) mg/dL Creatinine 0.96 (0.66-1.25) mg/dL Estimated GFR 93.9 ML/MIN Glucose 92 (74-106) mg/dL Calcium 8.6 (8.4-10.2) mg/dL Total Bilirubin 0.80 (0.2-1.3) mg/dL AST 37 (17-59) U/L ALT 37 (0-50) U/L Alkaline Phosphatase 82 (38-126) U/L Troponin I 0.016 (0.000-0.033) ng/mL Serum Total Protein 6.5 (6.3-8.2) g/dL Albumin 4.1 (3.5-5.0) g/dL Lipase (23-300) U/L Urine Color (Yellow) Urine Appearance (Clear) Urine pH (4.6-8.0) Ur Specific [place] (1.005-1.030) Urine Protein (Negative) Urine Glucose (UA) (Negative) mg/dL Urine Ketones (Negative) Urine Blood (Negative) Urine Nitrite (Negative) Urine Bilirubin (Negative) Urine Urobilinogen (0.2) mg/dL Ur Leukocyte Esterase (Negative) U Hyaline Cast (Auto) (0-2) /LPF Urine Microscopic RBC (0-5) /HPF Urine Microscopic WBC (0-5) /HPF Ur Epithelial Cells (None Seen) /HPF Urine Bacteria (None Seen) /HPF Urine Culture Reflexed (NO) 12/07/24 12/07/24 12/07/24 Range/Units 12:36 12:36 12:30 WBC 8.8 (4.23-9.07) x10^3/uL RBC 4.14 L (4.63-6.08) x10^6/uL Hgb 12.8 L (13.7-17.5) g/dL Hct 38.3 L (40.1-51.0) % MCV 92.5 H (79.0-92.2) fL MCH 30.9 (25.7-32.2) pg MCHC 33.4 (32.3-36.5) g/dL RDW 12.8 (11.6-14.4) % Plt Count 354 H (163-337) x10^3/uL MPV 9.2 L (9.4-12.4) fL Gran % 70.3 H (34.0-67.9) % Immature Gran % (Auto) 0.5 H (0.001-0.429) % Nucleat RBC Rel Count 0.0 (0.00-0.2) % Eos # (Auto) 0.21 (0.04-0.54) x10^3/uL Immature Gran # (Auto) 0.04 H (0.001-0.031) x10^3u/L Absolute Lymphs (auto) 1.68 (1.32-3.57) x10^3/uL Absolute Monos (auto) 0.59 (0.30-0.82) x10^3/uL Absolute Nucleated RBC 0.00 (0.00-0.012) x10^3u/L Lymphocytes % 19.1 L (21.8-53.1) % Monocytes % 6.7 (5.3-12.2) % Eosinophils % 2.4 (0.8-7.0) % Basophils % 1.0 (0.2-1.2) % Absolute Granulocytes 6.18 H (1.78-5.38) x10^3/uL Basophils # 0.09 H (0.01-0.08) x10^3/uL Sodium 137 (135-145) mmol/L Potassium 4.8 (3.5-5.1) mmol/L Chloride 103 (98-107) mmol/L Carbon Dioxide 28 (22-30) mmol/L Anion Gap 11.2 (5-15) MEQ/L BUN 11 (9-20) mg/dL Creatinine 0.96 (0.66-1.25) mg/dL Estimated GFR 93.9 ML/MIN Glucose 101 (74-106) mg/dL Calcium 9.0 (8.4-10.2) mg/dL Total Bilirubin 0.60 (0.2-1.3) mg/dL AST 31 (17-59) U/L ALT 32 (0-50) U/L Alkaline Phosphatase 82 (38-126) U/L Troponin I 0.015 (0.000-0.033) ng/mL Serum Total Protein 7.1 (6.3-8.2) g/dL Albumin 4.5 (3.5-5.0) g/dL Lipase 133 (23-300) U/L Urine Color (Yellow) Urine Appearance (Clear) Urine pH (4.6-8.0) Ur Specific [place] (1.005-1.030) Urine Protein (Negative) Urine Glucose (UA) (Negative) mg/dL Urine Ketones (Negative) Urine Blood (Negative) Urine Nitrite (Negative) Urine Bilirubin (Negative) Urine Urobilinogen (0.2) mg/dL Ur Leukocyte Esterase (Negative) U Hyaline Cast (Auto) (0-2) /LPF Urine Microscopic RBC (0-5) /HPF Urine Microscopic WBC (0-5) /HPF Ur Epithelial Cells (None Seen) /HPF Urine Bacteria (None Seen) /HPF Urine Culture Reflexed (NO) 12/07/24 Range/Units 12:21 WBC (4.23-9.07) x10^3/uL RBC (4.63-6.08) x10^6/uL Hgb (13.7-17.5) g/dL Hct (40.1-51.0) % MCV (79.0-92.2) fL MCH (25.7-32.2) pg MCHC (32.3-36.5) g/dL RDW (11.6-14.4) % Plt Count (163-337) x10^3/uL MPV (9.4-12.4) fL Gran % (34.0-67.9) % Immature Gran % (Auto) (0.001-0.429) % Nucleat RBC Rel Count (0.00-0.2) % Eos # (Auto) (0.04-0.54) x10^3/uL Immature Gran # (Auto) (0.001-0.031) x10^3u/L Absolute Lymphs (auto) (1.32-3.57) x10^3/uL Absolute Monos (auto) (0.30-0.82) x10^3/uL Absolute Nucleated RBC (0.00-0.012) x10^3u/L Lymphocytes % (21.8-53.1) % Monocytes % (5.3-12.2) % Eosinophils % (0.8-7.0) % Basophils % (0.2-1.2) % Absolute Granulocytes (1.78-5.38) x10^3/uL Basophils # (0.01-0.08) x10^3/uL Sodium (135-145) mmol/L Potassium (3.5-5.1) mmol/L Chloride (98-107) mmol/L Carbon Dioxide (22-30) mmol/L Anion Gap (5-15) MEQ/L BUN (9-20) mg/dL Creatinine (0.66-1.25) mg/dL Estimated GFR ML/MIN Glucose (74-106) mg/dL Calcium (8.4-10.2) mg/dL Total Bilirubin (0.2-1.3) mg/dL AST (17-59) U/L ALT (0-50) U/L Alkaline Phosphatase (38-126) U/L Troponin I (0.000-0.033) ng/mL Serum Total Protein (6.3-8.2) g/dL Albumin (3.5-5.0) g/dL Lipase (23-300) U/L Urine Color Yellow (Yellow) Urine Appearance Clear (Clear) Urine pH 7.5 (4.6-8.0) Ur Specific [place] 1.010 (1.005-1.030) Urine Protein Negative (Negative) Urine Glucose (UA) Negative (Negative) mg/dL Urine Ketones Negative (Negative) Urine Blood Negative (Negative) Urine Nitrite Negative (Negative) Urine Bilirubin Negative (Negative) Urine Urobilinogen 0.2 (0.2) mg/dL Ur Leukocyte Esterase Negative (Negative) U Hyaline Cast (Auto) NONE SEEN (0-2) /LPF Urine Microscopic RBC 0-2 (0-5) /HPF Urine Microscopic WBC 0-2 (0-5) /HPF Ur Epithelial Cells None Seen (None Seen) /HPF Urine Bacteria None Seen (None Seen) /HPF Urine Culture Reflexed NO (NO) <OSMAN PACHECO - Last Filed: 12/08/24 16:41> - Progress Progress: improved Counseled pt/family regarding: lab results, diagnosis <CRISTAL OSBORNE - Last Filed: 12/14/24 11:05> - Progress Progress Note: 12/08/24 16:41 54-year-old is evaluated in the ER earlier by Dr. Osborne and was accepted for transfer to [facility] yesterday and patient is in our ER for more than 28 hours. We have called transfer center and no beds are available yet and possibly till tomorrow. I have discussed with discussed with Dr. Guerrero, reviewed history, workup and plan of transfer and patient is being admitted here until beds become available. We have repeated labs this morning which did not show any acute changes. During my evaluation patient is feeling better and I have given him only one- time dose of 2 mg morphine. Shared the plan of admission here until availability of bed at [facility] with patient and family which they understand and agree. (OSMAN PACHECO) I spoke to Dr. Infante of general surgery at 1723. He advised transfer to a facility likely [facility] for surgical repair of his diverticulum due to concerns of rupture. Plan of care discussed with patient. He agrees to transfer to [facility] for higher level of care. 12/07/24 17:[address] Carlos chawla at [facility] who accepts transfer at 5:48 PM. Patient is a 54-year-old male presents to emergency department for evaluation of abdominal pain. Physical exam reveals some tenderness to palpation mid abdomen. CT scan reveals a 4 cm debris filled diverticulum that appears to be enlarging as compared to previous CAT scan dated May 2022. In discussing the case with our general surgeon Dr. Infante he advised transfer. Plan of care discussed with patient. He agrees to transfer [facility] for further evaluation and treatment. Laboratory workup otherwise nonremarkable. Portions of this note were created with voice recognition technology. There may be grammatical, spelling, punctuation or sound alike errors Complexity of problem addressed is moderate acute complicated no critical care time. Complex of data reviewed and analyzed is extensive. Test ordered test reviewed results analyzed and correlated clinically with history and physical exam. Management discussed with several physicians as indicated above. Risk of complication and or risk of morbidity/mortality of patient management is high. Patient requires transfer to higher level of care. Vital stable. Time spent to transfer patient approximately 30 minutes. Plan of care established via shared decision making. No social determinants of health present to impede follow-up. Portions of this note were created with voice recognition technology. There may be grammatical, spelling, punctuation or sound alike errors 12/14/24 11:03 (CRISTAL OSBORNE) - Departure Departure Disposition: Observation <OSMAN PACHECO - Last Filed: 12/08/24 16:41> - Departure Departure Disposition: Home Critical Care Time: No <CRISTAL OSBORNE - Last Filed: 12/14/24 11:05> - Departure Clinical Impression: Abdominal pain, Duodenal diverticulum, Diverticulosis, Hepatic cyst, Right nephrolithiasis, Right urinary bladder diverticulum Condition: Stable
[2024-12-07] MEDS ORDERED: MORPHINE SULFATE 2 MG INJ ONE (12:43)
[2024-12-07] MEDS: MORPHINE SULFATE 2 MG INJ IV ONE (12:43)
[2024-12-07 12:51] LABS: ALBUMIN 4.5 g/dL (3.5-5.0); ANION GAP 11.2 MEQ/L (5-15); BILIRUBIN,TOTAL 0.6 mg/dL (0.2-1.3); Creatinine 1 0.96 mg/dL (0.66-1.25); EST GLOMERULAR FILTRATION RATE 93.9 ML/MIN; Potassium 4.8 mmol/L (3.5-5.1); Total Protein 7.1 g/dL (6.3-8.2)
--- NOTE | 2024-12-07 14:20 | XRAY ---
Indication: Pain 6 days. Nausea. Constipation. Multiple contiguous axial images obtained through the abdomen and pelvis without contrast. Comparison: May 29, 2022 Lung bases demonstrating dependent atelectasis. No infiltrate or effusion. Heart not enlarged. Noncontrasted stomach and bowel loops appear nonobstructed. Enlarging 4 cm descending duodenal diverticulum now filled with food/gastric debris. Normal appendix. Again mild diffuse scattered colonic fecal debris and diffuse scattered colonic diverticulosis without diverticulitis. No free fluid/air. Stable hepatic cysts, nonobstructing right renal punctate calculus, right urinary bladder diverticulum, and cholecystectomy. Remaining liver, pancreas, spleen, adrenal glands, kidneys, ureters, and bladder are unremarkable for noncontrast exam. Again minimal aortoiliac calcifications without AAA. Osseous structures intact again with mild degenerative changes throughout the thoracolumbar spine. Impression: 1. Again mild diffuse fecal stasis without obstruction. 2. Chronic findings including duodenal diverticulum, colonic diverticulosis, hepatic/right renal cysts, urinary bladder diverticulum, arteriosclerotic disease, and chronic bony findings. 3. Remaining CT abdomen/pelvis without contrast exam continues to be negative.
[2024-12-07] MEDS ORDERED: MORPHINE SULFATE 4 MG INJ ONE (20:32)
[2024-12-07] MEDS: MORPHINE SULFATE 4 MG INJ IV ONE (20:33)
[2024-12-08] MEDS ORDERED: MORPHINE SULFATE 4 MG INJ ONE (01:20)
[2024-12-08] MEDS: MORPHINE SULFATE 4 MG INJ IV ONE (01:20)
[2024-12-08 07:51] LABS: Absolute Neutrophil Ct (ANC) 4.94 x10^3/uL (1.78-5.38); BASOPHIL % 1.1 % (0.2-1.2); Basophil (Absolute #) 0.08 x10^3/uL (0.01-0.08); Eosinophil % 6.3 % (0.8-7.0); Eosinophil (Absolute #) 0.46 x10^3/uL (0.04-0.54); Hematocrit 37.4 % (40.1-51.0); Hemoglobin 12.3 g/dL (13.7-17.5); IMMATURE GRAN # 0.03 x10^3u/L (0.001-0.031); IMMATURE GRAN % 0.4 % (0.001-0.429); Lymphocyte (Absolute #) 1.31 x10^3/uL (1.32-3.57); Lymphocytes % 17.8 % (21.8-53.1); Mean Corpuscular Hemoglobin 30.9 pg (25.7-32.2); Mean Corpuscular Hgb Concent. 32.9 g/dL (32.3-36.5); Mean Platelet Volume 9.3 fL (9.4-12.4); Monocyte (Absolute #) 0.53 x10^3/uL (0.30-0.82); Monocytes % 7.2 % (5.3-12.2); Neutrophil % 67.2 % (34.0-67.9); Platelet Count 357 x10^3/uL (163-337); Red Blood Count 3.98 x10^6/uL (4.63-6.08); Red Cell Distribution Width 13.1 % (11.6-14.4); White Blood Count 7.4 x10^3/uL (4.23-9.07)
[2024-12-08 08:04] LABS: ALBUMIN 4.1 g/dL (3.5-5.0); ANION GAP 11.2 MEQ/L (5-15); BILIRUBIN,TOTAL 0.8 mg/dL (0.2-1.3); Calcium 8.6 mg/dL (8.4-10.2); Creatinine 1 0.96 mg/dL (0.66-1.25); EST GLOMERULAR FILTRATION RATE 93.9 ML/MIN; Potassium 4.5 mmol/L (3.5-5.1); Total Protein 6.5 g/dL (6.3-8.2)
[2024-12-08] MEDS ORDERED: MORPHINE SULFATE 2 MG INJ ONE (12:31)
[2024-12-08] MEDS: MORPHINE SULFATE 2 MG INJ IV ONE (12:33)
--- NOTE | 2024-12-08 18:00 | PCM.HP ---
History of Present Illness - Chief Complaint Chief Complaint: Abdominal pain, duodenal diverticulum Date: 12/08/24 History of Present Illness: Mr. Mejía is a 54 year old male with a pmhx of HTN, depression, HLD, and diverticulitis who presented to the ED 12/07/24 under the advisement of his PCP with complaints of abdominal pain for the past 7 days. Patient describes the pain as constant sharp pain to his lower abdomen with radiation to his back and right shoulder with intermittent stabbing/throbbing pain. He rates his pain 8/10 on numerical pain scale. Movement aggravates symptoms. Only relieving factor is the morphine he received in ED. He has associated nausea with no vomiting. He reports that he has not had a bowel movement in four days. Last stool was hard- pellet like in consistency. Patient denies hematochezia, nausea, or vomiting. No fever. Upon arrival to ED, vitals stable. CT of the abdomen/pelvis w/o contrast showing Enlarging 4cm descending duodenal diverticulum now filled with food/gastric debris. Normal appendix- mild diffuse scattered colonic fecal debris and diffuse scattered colonic diverticulosis without diverticulitis. No free fluid/air and urinary bladder diverticulum. Initial labs with were remarkable for macrocytic anemia. Morphine given in ED. Patient has been accepted at [facility] for surgical repair of his divericulum awaiting bed. Dr. Carlos accepting. - Review of Systems Constitutional: No Symptoms Eyes: No Symptoms Ears, Nose, & Throat: No Symptoms Respiratory: No Symptoms Cardiac: No Symptoms Abdominal/Gastrointestinal: Abdominal Pain, Nausea, Constipation Genitourinary Symptoms: No Symptoms Musculoskeletal: No Symptoms Skin: No Symptoms Neurological: Dizziness Psychological: No Symptoms Endocrine: No Symptoms Hematologic/Lymphatic: Anemia Immunological/Allergic: No Symptoms Medications & Allergies Home Medications: Home Medication List Pravastatin Sodium 40 mg PO QHS 02/28/21 [History Confirmed 12/08/24] Escitalopram Oxalate [Lexapro] 20 mg PO DAILY 12/07/24 [History Confirmed 12/08/24] Allergies/Adverse Reactions: Allergies Allergy/AdvReac Type Severity Reaction Status Date / Time rito Allergy Severe Anaphylactic Uncoded 12/08/24 17:53 Reaction - Past Medical History Past Medical History: Yes Neurological History: No Pertinent History ENT History: No Pertinent History Cardiac History: Hypertension, Other (HLD) Respiratory History: No Pertinent History Endocrine Medical History: No Pertinent History Musculoskelatal History: Osteoarthritis GI Medical History: Diverticulitis, Other History: No Pertinent History Pyscho-Social History: No Pertinent History Male Reproductive Disorders: No Pertinent History - Past Surgical History Past Surgical History: Yes Neuro Surgical History: No Pertinent History Cardiac History: No Pertinent History Respiratory Surgery: No Pertinent History GI Surgical History: Cholecystectomy Genitourinary Surgical Hx: No Pertinent History Musculskeletal Surgical Hx: No Pertinent History, Orthopedic Surgery Male Surgical History: No Pertinent History Other Surgical History: right orbital reconsurction ,neck, cervical fusion, labral debridement left, KNEE REPLACEMENT Significant Family History: heart disease - Social History Smoking Status: Former smoker How long have you smoked: 35 years Exposure to second hand smoke: No Alcohol: None Drug Use: none - Social Determinants of Health Will the patient participate in the screening: Yes Do you worry about a steady place to live?: No Do you have any problems with any of the following?: No known problems In the past 12 months,have you had to go without utilities?: No Have you or anyone in your house had to go without enough: No Transportation Issues: No Has anyone in your support network made you feel unsafe?: No Does the patient want assistance with any of the above?: No - Physical Exam Vital Signs: Vital Signs - 24 hr Temp Pulse Resp BP Pulse Ox 12/08/24 17:15 109/75 12/08/24 16:45 109/70 12/08/24 16:30 104/67 12/08/24 16:15 105/71 12/08/24 16:00 108/71 12/08/24 15:45 116/77 12/08/24 13:01 115/82 12/08/24 12:46 118/81 12/08/24 12:30 118/78 97 12/08/24 12:17 108/73 97 12/08/24 12:02 123/80 97 12/08/24 11:50 120/77 96 12/08/24 11:40 95 12/08/24 11:30 95 12/08/24 11:20 96 12/08/24 11:17 96 12/08/24 11:00 107/80 96 12/08/24 10:45 107/76 95 12/08/24 10:30 108/76 96 12/08/24 10:15 113/75 96 12/08/24 10:07 98 F 67 19 110/73 97 12/08/24 10:00 94 L 12/08/24 09:50 96 12/08/24 09:40 96 12/08/24 09:30 63 18 96 12/08/24 09:23 99 12/08/24 09:10 96 12/08/24 09:00 96 12/08/24 08:50 97 12/08/24 08:40 76 18 95 12/08/24 08:30 95 12/08/24 08:20 95 12/08/24 08:10 93 L 12/08/24 08:02 95 12/08/24 07:30 65 18 101/66 95 12/08/24 07:00 74 18 118/96 95 12/08/24 06:30 99/75 95 12/08/24 06:00 63 18 87/63 97 12/08/24 05:30 112/65 94 L 12/08/24 05:00 95 H 18 102/66 95 12/08/24 04:47 110/68 94 L 12/08/24 04:30 88/66 95 12/08/24 04:00 61 18 106/64 97 12/08/24 03:30 112/71 97 12/08/24 03:00 59 L 18 106/82 97 12/08/24 02:30 99/64 94 L 12/08/24 02:00 70 16 107/77 93 L 12/08/24 01:30 107/74 93 L 12/08/24 01:00 69 19 128/87 95 12/08/24 00:30 112/74 98 12/08/24 00:04 70 16 115/79 94 L 12/07/24 23:30 70 16 89/62 93 L 12/07/24 23:01 69 93/63 96 12/07/24 22:30 71 123/75 94 L 12/07/24 22:00 109/79 96 12/07/24 21:30 70 125/85 94 L 12/07/24 21:23 123/82 96 12/07/24 21:00 76 124/80 96 12/07/24 20:50 97 12/07/24 20:10 78 120/80 97 12/07/24 20:03 97 12/07/24 19:31 125/85 12/07/24 19:00 70 115/91 94 L 12/07/24 18:30 69 114/83 97 12/07/24 18:00 118/93 97 12/07/24 17:56 98 General Appearance: no apparent distress Neurologic Exam: alert, oriented x 3, cooperative Eye Exam: PERRL/EOMI Neck Exam: normal inspection Respiratory Exam: normal breath sounds, lungs clear Cardiovascular Exam: regular rate/rhythm, normal heart sounds Gastrointestinal/Abdomen Exam: soft, tenderness (LLQ/RLQ) Rectal Exam: deferred Extremity Exam: swelling (BLE trace edema) Results - Labs Lab/Micro Results: Lab Results-Last 24 Hours 12/08/24 12/08/24 Range/Units 07:35 07:35 WBC 7.4 (4.23-9.07) x10^3/uL RBC 3.98 L (4.63-6.08) x10^6/uL Hgb 12.3 L (13.7-17.5) g/dL Hct 37.4 L (40.1-51.0) % MCV 94.0 H (79.0-92.2) fL MCH 30.9 (25.7-32.2) pg MCHC 32.9 (32.3-36.5) g/dL RDW 13.1 (11.6-14.4) % Plt Count 357 H (163-337) x10^3/uL MPV 9.3 L (9.4-12.4) fL Gran % 67.2 (34.0-67.9) % Immature Gran % (Auto) 0.4 (0.001-0.429) % Nucleat RBC Rel Count 0.0 (0.00-0.2) % Eos # (Auto) 0.46 (0.04-0.54) x10^3/uL Immature Gran # (Auto) 0.03 (0.001-0.031) x10^3u/L Absolute Lymphs (auto) 1.31 L (1.32-3.57) x10^3/uL Absolute Monos (auto) 0.53 (0.30-0.82) x10^3/uL Absolute Nucleated RBC 0.00 (0.00-0.012) x10^3u/L Lymphocytes % 17.8 L (21.8-53.1) % Monocytes % 7.2 (5.3-12.2) % Eosinophils % 6.3 (0.8-7.0) % Basophils % 1.1 (0.2-1.2) % Absolute Granulocytes 4.94 (1.78-5.38) x10^3/uL Basophils # 0.08 (0.01-0.08) x10^3/uL Sodium 134 L (135-145) mmol/L Potassium 4.5 (3.5-5.1) mmol/L Chloride 105 (98-107) mmol/L Carbon Dioxide 22 (22-30) mmol/L Anion Gap 11.2 (5-15) MEQ/L BUN 13 (9-20) mg/dL Creatinine 0.96 (0.66-1.25) mg/dL Estimated GFR 93.9 ML/MIN Glucose 92 (74-106) mg/dL Calcium 8.6 (8.4-10.2) mg/dL Total Bilirubin 0.80 (0.2-1.3) mg/dL AST 37 (17-59) U/L ALT 37 (0-50) U/L Alkaline Phosphatase 82 (38-126) U/L Serum Total Protein 6.5 (6.3-8.2) g/dL Albumin 4.1 (3.5-5.0) g/dL - Radiology Impressions Radiology Exams & Impressions: Radiology Procedures Category Date Time Status ABDOMEN AND PELVIS W/0 CONTRAS [CT] Stat Exams 12/07/24 12:20 Completed Assessment/Plan (1) Duodenal diverticulum Current Visit: Yes Status: Acute Assessment & Plan: -CT of the abdomen/pelvis w/o contrast reviwed showing Enlarging 4cm descending duodenal diverticulum now filled with food/gastric debris. Normal appendix- mild diffuse scattered colonic fecal debris and diffuse scattered colonic diverticulosis without diverticulitis. No free fluid/air and urinary bladder diverticulum. -Pain control -Awaiting transfer to [facility] - bed pending -CBC, CMP reviewed -anti-emetics -CLD Code(s): K57.10 - DVRTCLOS OF SM INT W/O PERFORATION OR ABSCESS W/O BLEEDING (2) HLD (hyperlipidemia) Current Visit: Yes Status: Acute Assessment & Plan: -continue home statin Code(s): E78.5 - HYPERLIPIDEMIA, UNSPECIFIED (3) HTN (hypertension) Current Visit: Yes Status: Acute Assessment & Plan: -H/O- does not take any home meds -stable- monitor Code(s): I10 - ESSENTIAL (PRIMARY) HYPERTENSION (4) Depression Current Visit: Yes Status: Acute Assessment & Plan: -continue home meds Code(s): F32.A - DEPRESSION, UNSPECIFIED (5) Abdominal pain Current Visit: Yes Status: Acute Qualifiers: Assessment & Plan: -see diverticulum for plan Code(s): R10.9 - UNSPECIFIED ABDOMINAL PAIN (6) Obesity (BMI 30-39.9) Current Visit: No Status: Chronic Assessment & Plan: -advised diet and lifestyle changes VTE: SCDs Dispo: Awaiting transfer Code status: Full code Code(s): E66.9 - OBESITY, UNSPECIFIED Telemedicine Encounter - Telemedicine Encounter Telemedicine Encounter: "The entirety of this encounter was performed via Telemedicine" This visit was performed using real-time audio and video connection between my location and thepatients locationwith the assistance of a surrogateat the patients location. Written or verbal consent was obtained from the patient/guardian to perform this visit [facility] technology. Any patient questions regarding the telemedicine interaction were answered.
[2024-12-08] MEDS ORDERED: TYLENOL 325 MG PO PRN (18:08)
[2024-12-08] MEDS ORDERED: Zofran 4 MG/2 ML VIAL IV PRN (18:08)
[2024-12-08] MEDS: MORPHINE SULFATE 2 MG INJ IV PRN (18:29)
[2024-12-08] MEDS ORDERED: ZOCOR 20MG ONE (21:36)
[2024-12-08] MEDS: ZOCOR 20MG PO SCH (21:46)
[2024-12-08] MEDS: PROTONIX 40 MG IV IV SCH (21:47)
[2024-12-08] MEDS ORDERED: NON-FORMULARY ITEM (Pravastatin Sodium [Pravastatin Sodium] 40 MG Tablet) PO SCH (22:00)
--- NOTE | 2024-12-09 05:10 | PCM.NOTE ---
Date and Time: 12/09/24 0509 Subjective Assessment: Mr. Mejía is a 54 year old male with a pmhx of HTN, depression, HLD, and diverticulitis who presented to the ED 12/07/24 under the advisement of his PCP with complaints of abdominal pain for the past 7 days. Patient describes the pain as constant sharp pain to his lower abdomen with radiation to his back and right shoulder with intermittent stabbing/throbbing pain. He rates his pain 8/10 on numerical pain scale. Movement aggravates symptoms. Only relieving factor is the morphine he received in ED. He has associated nausea with no vomiting. He reports that he has not had a bowel movement in four days. Last stool was hard- pellet like in consistency. Patient denies hematochezia, nausea, or vomiting. No fever. Upon arrival to ED, vitals stable. CT of the abdomen/pelvis w/o contrast showing Enlarging 4cm descending duodenal diverticulum now filled with food/gastric debris. Normal appendix- mild diffuse scattered colonic fecal debris and diffuse scattered colonic diverticulosis without diverticulitis. No free fluid/air and urinary bladder diverticulum. Initial labs with were remarkable for macrocytic anemia. Morphine given in ED. Patient has been accepted at [place] for surgical repair of his divericulum awaiting bed. Dr. Carlos accepting 12/09/24: Met with patient bedside. Endorses continued pain 7/10 to low abdomen. Some nausea, no vomiting. Awaiting transfer with ETA unknown. Will attempt other facilities for transfer. - Review of Systems Constitutional: No Symptoms Eyes: No Symptoms Ears, Nose, & Throat: No Symptoms Respiratory: No Symptoms Cardiac: No Symptoms Abdominal/Gastrointestinal: Abdominal Pain Genitourinary Symptoms: No Symptoms Musculoskeletal: No Symptoms Skin: No Symptoms Neurological: No Symptoms Psychological: No Symptoms Endocrine: No Symptoms Hematologic/Lymphatic: No Symptoms Immunological/Allergic: No Symptoms Objective Exam General Appearance: no apparent distress Neurologic Exam: alert, oriented x 3, cooperative Skin Exam: normal color Eye Exam: PERRL Ears, Nose, Throat Exam: normal ENT inspection Neck Exam: normal inspection Respiratory Exam: normal breath sounds, lungs clear Cardiovascular Exam: regular rate/rhythm, normal heart sounds Gastrointestinal/Abdomen Exam: soft, normal bowel sounds, tenderness (TTP to RLQ/LLQ) Extremity Exam: normal inspection Back Exam: normal inspection Male Genitalia Exam: deferred Rectal Exam: deferred Objective Data Vital Signs: Vital Signs - 24 hr Temp Pulse Resp BP BP Pulse Ox 12/09/24 03:56 73 12/08/24 23:32 98.2 F 67 17 127/59 95 12/08/24 20:00 98.4 F 74 18 114/73 95 12/08/24 17:37 97.8 F 74 18 127/84 97 12/08/24 17:15 109/75 12/08/24 16:45 109/70 12/08/24 16:30 104/67 12/08/24 16:15 105/71 12/08/24 16:00 108/71 12/08/24 15:45 116/77 12/08/24 13:01 115/82 12/08/24 12:46 118/81 12/08/24 12:30 118/78 97 12/08/24 12:17 108/73 97 12/08/24 12:02 123/80 97 12/08/24 11:50 120/77 96 12/08/24 11:40 95 12/08/24 11:30 95 12/08/24 11:20 96 12/08/24 11:17 96 12/08/24 11:00 107/80 96 12/08/24 10:45 107/76 95 12/08/24 10:30 108/76 96 12/08/24 10:15 113/75 96 12/08/24 10:07 98 F 67 19 110/73 97 12/08/24 10:00 94 L 12/08/24 09:50 96 12/08/24 09:40 96 12/08/24 09:30 63 18 96 12/08/24 09:23 99 12/08/24 09:10 96 12/08/24 09:00 96 12/08/24 08:50 97 12/08/24 08:40 76 18 95 12/08/24 08:30 95 12/08/24 08:20 95 12/08/24 08:10 93 L 12/08/24 08:02 95 12/08/24 07:30 65 18 101/66 95 12/08/24 07:00 74 18 118/96 95 12/08/24 06:30 99/75 95 12/08/24 06:00 63 18 87/63 97 12/08/24 05:30 112/65 94 L Pain Assessment - Last Documented Pain Intensity 8 Pain Scale Used 0-10 Pain Scale Intake and Output: Intake & Output 12/06/24 12/07/24 12/08/24 12/09/24 11:59 11:59 11:59 11:59 Intake Total 640 Output Total 900 Balance -260 Weight 104.326 kg 102.6 kg Lab Results: Lab Results-Last 24 Hours 12/08/24 12/08/24 Range/Units 07:35 07:35 WBC 7.4 (4.23-9.07) x10^3/uL RBC 3.98 L (4.63-6.08) x10^6/uL Hgb 12.3 L (13.7-17.5) g/dL Hct 37.4 L (40.1-51.0) % MCV 94.0 H (79.0-92.2) fL MCH 30.9 (25.7-32.2) pg MCHC 32.9 (32.3-36.5) g/dL RDW 13.1 (11.6-14.4) % Plt Count 357 H (163-337) x10^3/uL MPV 9.3 L (9.4-12.4) fL Gran % 67.2 (34.0-67.9) % Immature Gran % (Auto) 0.4 (0.001-0.429) % Nucleat RBC Rel Count 0.0 (0.00-0.2) % Eos # (Auto) 0.46 (0.04-0.54) x10^3/uL Immature Gran # (Auto) 0.03 (0.001-0.031) x10^3u/L Absolute Lymphs (auto) 1.31 L (1.32-3.57) x10^3/uL Absolute Monos (auto) 0.53 (0.30-0.82) x10^3/uL Absolute Nucleated RBC 0.00 (0.00-0.012) x10^3u/L Lymphocytes % 17.8 L (21.8-53.1) % Monocytes % 7.2 (5.3-12.2) % Eosinophils % 6.3 (0.8-7.0) % Basophils % 1.1 (0.2-1.2) % Absolute Granulocytes 4.94 (1.78-5.38) x10^3/uL Basophils # 0.08 (0.01-0.08) x10^3/uL Sodium 134 L (135-145) mmol/L Potassium 4.5 (3.5-5.1) mmol/L Chloride 105 (98-107) mmol/L Carbon Dioxide 22 (22-30) mmol/L Anion Gap 11.2 (5-15) MEQ/L BUN 13 (9-20) mg/dL Creatinine 0.96 (0.66-1.25) mg/dL Estimated GFR 93.9 ML/MIN Glucose 92 (74-106) mg/dL Calcium 8.6 (8.4-10.2) mg/dL Total Bilirubin 0.80 (0.2-1.3) mg/dL AST 37 (17-59) U/L ALT 37 (0-50) U/L Alkaline Phosphatase 82 (38-126) U/L Serum Total Protein 6.5 (6.3-8.2) g/dL Albumin 4.1 (3.5-5.0) g/dL Radiology Exams: Radiology Procedures Category Date Time Status ABDOMEN AND PELVIS W/0 CONTRAS [CT] Stat Exams 12/07/24 12:20 Completed Assessment/Plan (1) Duodenal diverticulum Current Visit: Yes Status: Acute Assessment & Plan: -CT of the abdomen/pelvis w/o contrast reviwed showing Enlarging 4cm descending duodenal diverticulum now filled with food/gastric debris. Normal appendix- mild diffuse scattered colonic fecal debris and diffuse scattered colonic diverticulosis without diverticulitis. No free fluid/air and urinary bladder diverticulum. -Pain control -Awaiting transfer to [facility] - bed pending -CBC, CMP reviewed -anti-emetics -CLD -PPI 12/09: -CBC reviewed - hgb stable at 12.4 -Pending transfer -consult local surgery team Code(s): K57.10 - DVRTCLOS OF SM INT W/O PERFORATION OR ABSCESS W/O BLEEDING (2) HLD (hyperlipidemia) Current Visit: Yes Status: Acute Assessment & Plan: -continue home statin Code(s): E78.5 - HYPERLIPIDEMIA, UNSPECIFIED (3) HTN (hypertension) Current Visit: Yes Status: Acute Assessment & Plan: -H/O- does not take any home meds -stable- monitor Code(s): I10 - ESSENTIAL (PRIMARY) HYPERTENSION (4) Depression Current Visit: Yes Status: Acute Assessment & Plan: -continue home meds Code(s): F32.A - DEPRESSION, UNSPECIFIED (5) Abdominal pain Current Visit: Yes Status: Acute Qualifiers: Assessment & Plan: -see diverticulum for plan Code(s): R10.9 - UNSPECIFIED ABDOMINAL PAIN (6) Obesity (BMI 30-39.9) Current Visit: No Status: Chronic Assessment & Plan: -advised diet and lifestyle changes VTE: SCDs Dispo: Awaiting transfer Code status: Full code Code(s): E66.9 - OBESITY, UNSPECIFIED Code(s): K57.10 - DVRTCLOS OF SM INT W/O PERFORATION OR ABSCESS W/O BLEEDING (2) HLD (hyperlipidemia) Current Visit: Yes Status: Acute Code(s): E78.5 - HYPERLIPIDEMIA, UNSPECIFIED (3) HTN (hypertension) Current Visit: Yes Status: Acute Code(s): I10 - ESSENTIAL (PRIMARY) HYPERTENSION (4) Depression Current Visit: Yes Status: Acute Code(s): F32.A - DEPRESSION, UNSPECIFIED (5) Abdominal pain Current Visit: Yes Status: Acute Qualifiers: Code(s): R10.9 - UNSPECIFIED ABDOMINAL PAIN (6) Obesity (BMI 30-39.9) Current Visit: No Status: Chronic Code(s): E66.9 - OBESITY, UNSPECIFIED
[2024-12-09 05:16] LABS: Absolute Neutrophil Ct (ANC) 4.93 x10^3/uL (1.78-5.38); Basophil (Absolute #) 0.08 x10^3/uL (0.01-0.08); Eosinophil % 4.8 % (0.8-7.0); Eosinophil (Absolute #) 0.37 x10^3/uL (0.04-0.54); Hematocrit 37.4 % (40.1-51.0); Hemoglobin 12.4 g/dL (13.7-17.5); IMMATURE GRAN # 0.03 x10^3u/L (0.001-0.031); IMMATURE GRAN % 0.4 % (0.001-0.429); Lymphocyte (Absolute #) 1.65 x10^3/uL (1.32-3.57); Lymphocytes % 21.6 % (21.8-53.1); Mean Cell Volume 92.6 fL (79.0-92.2); Mean Corpuscular Hemoglobin 30.7 pg (25.7-32.2); Mean Corpuscular Hgb Concent. 33.2 g/dL (32.3-36.5); Mean Platelet Volume 9.4 fL (9.4-12.4); Monocyte (Absolute #) 0.59 x10^3/uL (0.30-0.82); Monocytes % 7.7 % (5.3-12.2); Neutrophil % 64.5 % (34.0-67.9); Platelet Count 366 x10^3/uL (163-337); Red Blood Count 4.04 x10^6/uL (4.63-6.08); Red Cell Distribution Width 12.7 % (11.6-14.4); White Blood Count 7.7 x10^3/uL (4.23-9.07)
[2024-12-09 05:51] LABS: ANION GAP 11.1 MEQ/L (5-15); BILIRUBIN,TOTAL 0.7 mg/dL (0.2-1.3); Calcium 8.8 mg/dL (8.4-10.2); Creatinine 1 0.99 mg/dL (0.66-1.25); EST GLOMERULAR FILTRATION RATE 90.5 ML/MIN; Potassium 4.1 mmol/L (3.5-5.1); Total Protein 6.5 g/dL (6.3-8.2)
[2024-12-09] MEDS: Lexapro PO SCH (08:56)
[2024-12-09] MEDS ORDERED: Sodium Chloride 100ML MINI-BAG PLUS 100 ML IV ONE (18:28)
[2024-12-09] MEDS ORDERED: PIPERACILLIN/TAZOBACTAM IV ONE (18:28)
[2024-12-09] MEDS: PIPERACILLIN/TAZOBACTAM 3.375 GM in Sodium Chloride 100ML MINI-BAG PLUS 100 ML IV SCH (18:36)
[2024-12-09 19:59] VITALS: RESP 18
[2024-12-10 00:59] VITALS: PULSE 69; TEMP 98.3
[2024-12-10 01:00] VITALS: BP 128/87
--- NOTE | 2024-12-10 05:38 | PCM.DS ---
Discharge Summary Date of Admission: 12/08/24 17:36 Date of Discharge: 12/10/24 Admitting Physician: LUIS LIM MD Consults: Consults on Case 12/09/24 14:11 Consult Surgery ROUTINE Primary Care Provider: KRYSTAL PASCUAL DO Allergies Allergies rito Allergy (Severe, Uncoded 12/08/24 17:53) Anaphylactic Reaction Hospital Summary - Hospital Course Hospital Course: Mr. Mejía is a 54 year old male with a pmhx of HTN, depression, HLD, and diverticulitis who presented to the ED 12/07/24 under the advisement of his PCP with complaints of abdominal pain for the past 7 days. Patient describes the pain as constant sharp pain to his lower abdomen with radiation to his back and right shoulder with intermittent stabbing/throbbing pain. He rates his pain 8/10 on numerical pain scale. Movement aggravates symptoms. Only relieving factor is the morphine he received in ED. He has associated nausea with no vomiting. He reports that he has not had a bowel movement in four days. Last stool was hard- pellet like in consistency. Patient denies hematochezia, nausea, or vomiting. No fever. Upon arrival to ED, vitals stable. CT of the abdomen/pelvis w/o contrast showing Enlarging 4cm descending duodenal diverticulum now filled with food/gastric debris. Normal appendix- mild diffuse scattered colonic fecal debris and diffuse scattered colonic diverticulosis without diverticulitis. No free fluid/air and urinary bladder diverticulum. Initial labs with were remarkable for macrocytic anemia. Morphine given in ED. Patient has been accepted at [place] for surgical repair of his divericulum awaiting bed. Dr. Carlos accepting. Local surgery team consulted and recommended transfer and abx. 12/09/24: Met with patient bedside. Endorses continued pain 7/10 to low abdomen. Some nausea, no vomiting. Awaiting transfer with ETA unknown. Will attempt other facilities for transfer. Discharge Note Latest Assessment & Plan (1) Duodenal diverticulum Current Visit: Yes Status: Acute Assessment & Plan: -CT of the abdomen/pelvis w/o contrast reviwed showing Enlarging 4cm descending duodenal diverticulum now filled with food/gastric debris. Normal appendix- mild diffuse scattered colonic fecal debris and diffuse scattered colonic diverticulosis without diverticulitis. No free fluid/air and urinary bladder diverticulum. -Pain control -Awaiting transfer to [facility] - bed pending -CBC, CMP reviewed -anti-emetics -CLD -PPI 12/09: -CBC reviewed - hgb stable at 12.4 -Pending transfer -consulted local surgery team recommended abx and transfer Code(s): K57.10 - DVRTCLOS OF SM INT W/O PERFORATION OR ABSCESS W/O BLEEDING (2) HLD (hyperlipidemia) Current Visit: Yes Status: Acute Assessment & Plan: -continue home statin Code(s): E78.5 - HYPERLIPIDEMIA, UNSPECIFIED (3) HTN (hypertension) Current Visit: Yes Status: Acute Assessment & Plan: -H/O- does not take any home meds -stable- monitor Code(s): I10 - ESSENTIAL (PRIMARY) HYPERTENSION (4) Depression Current Visit: Yes Status: Acute Assessment & Plan: -continue home meds Code(s): F32.A - DEPRESSION, UNSPECIFIED (5) Abdominal pain Current Visit: Yes Status: Acute Qualifiers: Assessment & Plan: -see diverticulum for plan Code(s): R10.9 - UNSPECIFIED ABDOMINAL PAIN (6) Obesity (BMI 30-39.9) Current Visit: No Status: Chronic Assessment & Plan: -advised diet and lifestyle changes VTE: SCDs Dispo: Awaiting transfer Code status: Full code I spent 35 minutes [id number] with the patient on the day of discharge performing discharge exam, discussing hospital stay and discharge instructions with patient and caregivers, preparation of discharge records, prescriptions & referral forms and addressing any questions/concerns the patient had as documented above. - Vitals & Intake/Output Vital Signs: Vital Signs Temperature 98.3 F 12/10/24 00:00 Pulse Rate 69 12/10/24 00:00 Respiratory Rate 18 12/10/24 00:00 Blood Pressure 113/73 12/10/24 00:00 O2 Sat by Pulse Oximetry 95 12/09/24 19:58 Intake & Output: Intake & Output 12/07/24 12/08/24 12/09/24 12/10/24 11:59 11:59 11:59 11:59 Intake Total 640 600 Output Total 900 Balance -260 600 Weight 104.326 kg 102.5 kg - Lab Result Diagrams: 12/09/24 05:07 12/09/24 05:07 Lab Results-Last 24 Hrs: Lab Results-Last 24 Hours 12/09/24 Range/Units 05:07 Sodium 136 (135-145) mmol/L Potassium 4.1 (3.5-5.1) mmol/L Chloride 102 (98-107) mmol/L Carbon Dioxide 27 (22-30) mmol/L Anion Gap 11.1 (5-15) MEQ/L BUN 10 (9-20) mg/dL Creatinine 0.99 (0.66-1.25) mg/dL Estimated GFR 90.5 ML/MIN Glucose 104 (74-106) mg/dL Calcium 8.8 (8.4-10.2) mg/dL Total Bilirubin 0.70 (0.2-1.3) mg/dL AST 33 (17-59) U/L ALT 35 (0-50) U/L Alkaline Phosphatase 78 (38-126) U/L Serum Total Protein 6.5 (6.3-8.2) g/dL Albumin 4.0 (3.5-5.0) g/dL Final Diagnosis/Problem List - Final Discharge Diagnosis/Problem (1) Duodenal diverticulum Status: Acute Code(s): K57.10 - DVRTCLOS OF SM INT W/O PERFORATION OR ABSCESS W/O BLEEDING (2) HLD (hyperlipidemia) Status: Acute Code(s): E78.5 - HYPERLIPIDEMIA, UNSPECIFIED (3) HTN (hypertension) Status: Acute Code(s): I10 - ESSENTIAL (PRIMARY) HYPERTENSION (4) Depression Status: Acute Code(s): F32.A - DEPRESSION, UNSPECIFIED (5) Abdominal pain Status: Acute Code(s): R10.9 - UNSPECIFIED ABDOMINAL PAIN (6) Obesity (BMI 30-39.9) Status: Chronic Code(s): E66.9 - OBESITY, UNSPECIFIED - Discharge Discharge Date: 12/10/24 Disposition: DC TO OTHER HOSP Condition: Stable Prescriptions: Continue Pravastatin Sodium 40 mg PO QHS Escitalopram Oxalate [Lexapro] 20 mg PO DAILY Follow up with: KRYSTAL PASCUAL DO [Primary Care Provider] -
--- NOTE | 2024-12-13 09:53 | CONS ---
HISTORY: The patient has been here for about 36 hours. He was sitting down in the emergency room. He was accepted to [facility] as a transfer for a combination of sigmoid diverticulitis and duodenal diverticulitis. That transfer may be up to 5 days, and he was moved out to the floor. He is in 108. He does have a significant other with him. He is reasonably comfortable. He is 54 years old. He thinks he has had this several times in the past. I believe he was seen by Dr. Marquez 1 time a few years ago, and at that time, I do not think he had the duodenal diverticulum, I think it was the sigmoid diverticulitis. I am not sure what transpired in the emergency room there 36 hours ago, but he is basically on clear liquids. We are going to start him on IV fluids, and we are going to start him on Zosyn 3.375 mg IV every 8 hours as he seems to clearly have a sigmoid diverticulitis. I am unclear about this duodenal issue. Oftentimes, these have been stable in the past. Every once in a while one will require operation, but it is not extremely common. Although he described his pain as L-shaped right down the periduodenal area on the right, down the pelvis and then cross over to the left iliac crest, so it may be both areas inflamed. We will leave this to his tertiary hospital, but at the moment, we will continue clear liquids. He is not passing any flatus. We will start the IV fluids and IV antibiotics. PAST MEDICAL HISTORY: Fairly unremarkable. SOCIAL HISTORY: He is not currently on tobacco or alcohol. PHYSICAL EXAMINATION: GENERAL: He is alert and oriented. He has not had recent cardiac or pulmonary disease. He has had this for a little bit prior to him coming in 36 hours ago. He is still stable with his plan of going to [facility] and we will leave that in place. I think he will do satisfactorily until that point.
[2024-12-14 11:05] VITALS: O2SAT 98
== END 2024-12-10 00:45 ==
LOC: ED 11:18 → MED SURG 12-08 17:36
PROVIDERS: ADMIT Internal Medicine; ATTEND Internal Medicine
DX: K57.10 Diverticulosis of small intestine without perforation or abscess without bleeding (principal); E78.5 Hyperlipidemia, unspecified; I10 Essential (primary) hypertension; F32.A Depression, unspecified; R10.9 Unspecified abdominal pain; E66.9 Obesity, unspecified; Z79.899 Other long term (current) drug therapy; K59.00 Constipation, unspecified
CPT/HCPCS: 36415; 74176; 80053; 81001; 83690; 84484; 85025; 93268; 96374; 96376; 99285; G0378; Q3014; 99284; J2270; A9270-GY

== ENCOUNTER 2025-01-25 18:10 | Emergency (ER) | payer OTHER ==
[2025-01-25 18:44] VITALS: TEMP 97.3
[2025-01-25] MEDS ORDERED: Zofran 4 MG/2 ML VIAL ONE (19:44)
[2025-01-25] MEDS ORDERED: MORPHINE SULFATE 4 MG INJ ONE (19:44)
[2025-01-25] MEDS ORDERED: PROTONIX 40 MG IV IV ONE (19:44)
[2025-01-25] MEDS ORDERED: Sodium Chloride 0.9% 1000 ML 1,000 ML ONE (19:44)
[2025-01-25 19:45] LABS: Absolute Neutrophil Ct (ANC) 7.14 x10^3/uL (1.78-5.38); BASOPHIL % 0.8 % (0.2-1.2); Basophil (Absolute #) 0.08 x10^3/uL (0.01-0.08); Eosinophil % 3.9 % (0.8-7.0); Eosinophil (Absolute #) 0.41 x10^3/uL (0.04-0.54); Hematocrit 41.8 % (40.1-51.0); Hemoglobin 13.8 g/dL (13.7-17.5); IMMATURE GRAN # 0.04 x10^3u/L (0.001-0.031); IMMATURE GRAN % 0.4 % (0.001-0.429); Lymphocyte (Absolute #) 1.83 x10^3/uL (1.32-3.57); Lymphocytes % 17.6 % (21.8-53.1); Mean Cell Volume 92.7 fL (79.0-92.2); Mean Corpuscular Hemoglobin 30.6 pg (25.7-32.2); Mean Platelet Volume 10.1 fL (9.4-12.4); Monocyte (Absolute #) 0.88 x10^3/uL (0.30-0.82); Monocytes % 8.5 % (5.3-12.2); Neutrophil % 68.8 % (34.0-67.9); Platelet Count 374 x10^3/uL (163-337); Red Blood Count 4.51 x10^6/uL (4.63-6.08); Red Cell Distribution Width 13.2 % (11.6-14.4); White Blood Count 10.4 x10^3/uL (4.23-9.07)
[2025-01-25] MEDS: PROTONIX 40 MG IV IV ONE (19:46)
[2025-01-25] MEDS: MORPHINE SULFATE 4 MG INJ IV ONE (19:46)
[2025-01-25] MEDS: Zofran 4 MG/2 ML VIAL IV ONE (19:46)
[2025-01-25] MEDS: Sodium Chloride 0.9% 1000 ML 1,000 ML IV SCH (19:47)
[2025-01-25 19:52] LABS: ALBUMIN 4.4 g/dL (3.5-5.0); ANION GAP 15.5 MEQ/L (5-15); BILIRUBIN,TOTAL 0.4 mg/dL (0.2-1.3); Calcium 9.4 mg/dL (8.4-10.2); Creatinine 1 1.08 mg/dL (0.66-1.25); EST GLOMERULAR FILTRATION RATE 81.6 ML/MIN; Potassium 4.5 mmol/L (3.5-5.1)
--- NOTE | 2025-01-25 20:01 | ERPHSYRPT ---
- History of Present Illness Time Seen by Provider: 01/25/25 19:58 Historian: patient Exam Limitations: no limitations Patient Subjective Stated Complaint: pt states that he is having stomach pain that has been going on for a month. pt states that he has diverticulitis Triage Nursing Assessment: pt ambulated into the er; pt is axo x4; c/o abd pain; pt states 10/10 pain to abd that radiates to back; active bowel sounds in all quads; last BM 01/24/25; abd round, distended, tender; c/o nausea, denies vomiting; skin PDW; no respiratory distress present; vitals wnl Physician History: 54-year-old male presents to our ED for evaluation of abdominal pain. Patient reports that he has lower abdominal pain that has been present for over a month. However patient now complains of upper abdominal pain that is new. No trauma no fever. Patient states pain radiates to his back. Patient believes his abdomen is distended more than normal. No trauma no fever. No urinary symptomology. No associated chest pain or shortness of breath. No nausea vomiting or diaphoresis. Symptoms are mild to moderate in intensity. at bedside. They voiced no other complaints or concerns at this time. Portions of this note were created with voice recognition technology. There may be grammatical, spelling, punctuation or sound alike errors Timing/Duration: today Activities at Onset: none Quality: aching Abdominal Pain Onset Location: epigastric Pain Radiation: back Severity of Pain-Max: moderate Severity of Pain-Current: mild Modifying Factors: Improves With: palpation Associated Symptoms: denies symptoms Allergies/Adverse Reactions: marshmallow Allergy (Severe, Uncoded 01/25/25 18:23) Anaphylactic Reaction Home Medications: Pravastatin Sodium 40 mg PO QHS 02/28/21 [History] Escitalopram Oxalate [Lexapro] 20 mg PO DAILY 12/07/24 [History] Hx Tetanus, Diphtheria Vaccination/Date Given: Yes Hx Influenza Vaccination/Date Given: Yes Hx Pneumococcal Vaccination/Date Given: No Travel Risk - International Travel Have you traveled outside of the country in past 3 weeks: No - Emerging Infectious Disease Are you exhibiting symptoms associated with any current EIDs: Yes Symptoms: Abdominal Pain - Review of Systems Constitutional: No Symptoms, No Fever, No Chills Eyes: No Symptoms Ears, Nose, & Throat: No Symptoms Respiratory: No Symptoms, No Cough, No Dyspnea Cardiac: No Symptoms, No Chest Pain, No Edema, No Syncope Abdominal/Gastrointestinal: No Symptoms, No Abdominal Pain, No Nausea, No Vomiting, No Diarrhea Genitourinary Symptoms: No Symptoms, No Dysuria Musculoskeletal: No Symptoms, No Back Pain, No Neck Pain Skin: No Symptoms, No Rash Neurological: No Symptoms, No Dizziness, No Focal Weakness, No Sensory Changes Psychological: No Symptoms Endocrine: No Symptoms Hematologic/Lymphatic: No Symptoms Immunological/Allergic: No Symptoms All Other Systems: Reviewed and Negative - Past Medical History Pertinent Past Medical History: Yes Neurological History: No Pertinent History ENT History: No Pertinent History Cardiac History: Hypertension Respiratory History: No Pertinent History Endocrine Medical History: No Pertinent History Musculoskeletal History: Osteoarthritis GI Medical History: Diverticulitis, Other History: No Pertinent History Psycho-Social History: No Pertinent History Male Reproductive Disorders: No Pertinent History - Past Surgical History Past Surgical History: Yes Neuro Surgical History: No Pertinent History Cardiac: No Pertinent History Respiratory: No Pertinent History Gastrointestinal: Cholecystectomy Genitourinary: No Pertinent History Musculoskeletal: No Pertinent History, Orthopedic Surgery Male Surgical History: No Pertinent History Other Surgical History: right orbital reconsurction ,neck, cervical fusion, labral debridement left, KNEE REPLACEMENT Significant Family History: no pertinent family hx - Social History Smoking Status: Former smoker How long have you smoked: 35 years Exposure to second hand smoke: No Drug Use: none - Social Determinants of Health Will the patient participate in the screening: Yes Do you worry about a steady place to live?: No Do you have any problems with any of the following?: No known problems In the past 12 months,have you had to go without utilities?: No Transportation Issues: No Has anyone in your support network made you feel unsafe?: No Have you or anyone in your house had to go w/o enough food: No - Nursing Vital Signs Nursing Vital Signs: Initial Vital Signs Temperature 97.3 F 01/25/25 18:23 Pulse Rate 78 01/25/25 18:23 Respiratory Rate 18 01/25/25 18:23 Blood Pressure 116/72 01/25/25 18:23 O2 Sat by Pulse Oximetry 97 01/25/25 18:23 Pain Scale Pain Intensity 7 - Physical Exam General Appearance: no apparent distress, alert Eye Exam: PERRL/EOMI, eyes nml inspection Ears, Nose, Throat Exam: normal ENT inspection, pharynx normal, moist mucous membranes Neck Exam: normal inspection, non-tender, supple, full range of motion Respiratory Exam: normal breath sounds, lungs clear, airway intact, No respiratory distress Cardiovascular Exam: regular rate/rhythm, normal heart sounds Gastrointestinal/Abdomen Exam: soft, other (Mild epigastric tenderness to palpation. No rebound no peritoneal signs. Overlying soft tissue intact. No signs of trauma.), No tenderness, No mass Back Exam: normal inspection, normal range of motion, No CVA tenderness, No vertebral tenderness Extremity Exam: normal inspection, normal range of motion, pelvis stable Neurologic Exam: alert, oriented x 3, cooperative, normal mood/affect, sensation nml, No motor deficits Skin Exam: normal color, warm, dry Lymphatic Exam: No adenopathy SpO2 Interpretation: normal SpO2: 96 O2 Delivery: Room Air - Course Nursing assessment & vital signs reviewed: Yes - CT Exams Abdomen/Pelvis CT Interpretation: Tele-radiologist Report (No change compared to 12/07/2024. Mild diffuse fecal stasis, duodenal diverticulum, colonic diverticulosis, hepatic/right renal cysts urinary bladder diverticulum arteriosclerosis disease. Chronic bony findings no new acute findings) Ordered Tests: Active Orders 24 hr Category Date Time Status IV Insertion STAT Care 01/25/25 19:40 Active ABDOMEN AND PELVIS W/0 CONTRAS [CT] Stat Exams 01/25/25 19:40 Taken CBC W DIFF Stat Lab 01/25/25 19:00 Completed CMP Stat Lab 01/25/25 19:00 Completed LIPASE Stat Lab 01/25/25 19:00 Completed TROPONIN Q4H Lab 01/25/25 19:00 Completed TROPONIN Q4H Lab 01/25/25 23:45 Ordered TROPONIN Q4H Lab 01/26/25 03:45 Ordered UA W/RFX UR CULTURE Stat Lab 01/25/25 19:53 Completed Medication Summary Generic Name Dose Route Start Last Admin Trade Name Freq PRN Reason Stop Dose Admin Sodium Chloride 1,000 mls @ 100 mls/hr 01/25/25 19:45 01/25/25 19:47 Sodium Chloride 0.9% 1000 Ml IV 02/24/25 19:44 100 mls/hr .Q10H DAVID Administration Discontinued Medications Generic Name Dose Route Start Last Admin Trade Name Freq PRN Reason Stop Dose Admin Morphine Sulfate 4 mg 01/25/25 19:40 01/25/25 19:46 Morphine Sulfate 4 Mg/Ml Injection IV 01/25/25 19:41 4 mg STAT ONE Administration Morphine Sulfate Confirm 01/25/25 19:44 Morphine Sulfate 4 Mg/Ml Injection Administered 01/25/25 19:45 Dose 4 mg .ROUTE .STK-MED ONE Ondansetron HCl 4 mg 01/25/25 19:40 01/25/25 19:46 Ondansetron Hcl 4 Mg/2 Ml Vial IV 01/25/25 19:41 4 mg STAT ONE Administration Ondansetron HCl Confirm 01/25/25 19:44 Ondansetron Hcl 4 Mg/2 Ml Vial Administered 01/25/25 19:45 Dose 4 mg .ROUTE .STK-MED ONE Pantoprazole Sodium 40 mg 01/25/25 19:40 01/25/25 19:46 Pantoprazole 40 Mg Vial IV 01/25/25 19:41 40 mg STAT ONE Administration Pantoprazole Sodium Confirm 01/25/25 19:44 Pantoprazole 40 Mg Vial Administered 01/25/25 19:45 Dose 40 mg IV .STK-MED ONE Lab/Rad Data: Laboratory Result Diagrams 01/25/25 19:00 01/25/25 19:00 Laboratory Results 01/25/25 01/25/25 01/25/25 Range/Units 19:53 19:00 19:00 WBC (4.23-9.07) x10^3/uL RBC (4.63-6.08) x10^6/uL Hgb (13.7-17.5) g/dL Hct (40.1-51.0) % MCV (79.0-92.2) fL MCH (25.7-32.2) pg MCHC (32.3-36.5) g/dL RDW (11.6-14.4) % Plt Count (163-337) x10^3/uL MPV (9.4-12.4) fL Gran % (34.0-67.9) % Immature Gran % (Auto) (0.001-0.429) % Nucleat RBC Rel Count (0.00-0.2) % Eos # (Auto) (0.04-0.54) x10^3/uL Immature Gran # (Auto) (0.001-0.031) x10^3u/L Absolute Lymphs (auto) (1.32-3.57) x10^3/uL Absolute Monos (auto) (0.30-0.82) x10^3/uL Absolute Nucleated RBC (0.00-0.012) x10^3u/L Lymphocytes % (21.8-53.1) % Monocytes % (5.3-12.2) % Eosinophils % (0.8-7.0) % Basophils % (0.2-1.2) % Absolute Granulocytes (1.78-5.38) x10^3/uL Basophils # (0.01-0.08) x10^3/uL Sodium 140 (135-145) mmol/L Potassium 4.5 (3.5-5.1) mmol/L Chloride 103 (98-107) mmol/L Carbon Dioxide 26 (22-30) mmol/L Anion Gap 15.5 H (5-15) MEQ/L BUN 15 (9-20) mg/dL Creatinine 1.08 (0.66-1.25) mg/dL Estimated GFR 81.6 ML/MIN Glucose 116 H (74-106) mg/dL Calcium 9.4 (8.4-10.2) mg/dL Total Bilirubin 0.40 (0.2-1.3) mg/dL AST 29 (17-59) U/L ALT 32 (0-50) U/L Alkaline Phosphatase 72 (38-126) U/L Troponin I 0.017 (0.000-0.033) ng/mL Serum Total Protein 7.0 (6.3-8.2) g/dL Albumin 4.4 (3.5-5.0) g/dL Lipase 218 (23-300) U/L Urine Color Yellow (Yellow) Urine Appearance Clear (Clear) Urine pH 6.0 (4.6-8.0) Ur Specific [place] 1.020 (1.005-1.030) Urine Protein Negative (Negative) Urine Glucose (UA) Negative (Negative) mg/dL Urine Ketones Trace A (Negative) Urine Blood Negative (Negative) Urine Nitrite Negative (Negative) Urine Bilirubin Negative (Negative) Urine Urobilinogen 1.0 A (0.2) mg/dL Ur Leukocyte Esterase Negative (Negative) U Hyaline Cast (Auto) NONE SEEN (0-2) /LPF Urine Microscopic RBC 0-2 (0-5) /HPF Urine Microscopic WBC 0-2 (0-5) /HPF Ur Epithelial Cells None Seen (None Seen) /HPF Urine Bacteria None Seen (None Seen) /HPF Urine Culture Reflexed NO (NO) 01/25/25 Range/Units 19:00 WBC 10.4 H (4.23-9.07) x10^3/uL RBC 4.51 L (4.63-6.08) x10^6/uL Hgb 13.8 (13.7-17.5) g/dL Hct 41.8 (40.1-51.0) % MCV 92.7 H (79.0-92.2) fL MCH 30.6 (25.7-32.2) pg MCHC 33.0 (32.3-36.5) g/dL RDW 13.2 (11.6-14.4) % Plt Count 374 H (163-337) x10^3/uL MPV 10.1 (9.4-12.4) fL Gran % 68.8 H (34.0-67.9) % Immature Gran % (Auto) 0.4 (0.001-0.429) % Nucleat RBC Rel Count 0.0 (0.00-0.2) % Eos # (Auto) 0.41 (0.04-0.54) x10^3/uL Immature Gran # (Auto) 0.04 H (0.001-0.031) x10^3u/L Absolute Lymphs (auto) 1.83 (1.32-3.57) x10^3/uL Absolute Monos (auto) 0.88 H (0.30-0.82) x10^3/uL Absolute Nucleated RBC 0.00 (0.00-0.012) x10^3u/L Lymphocytes % 17.6 L (21.8-53.1) % Monocytes % 8.5 (5.3-12.2) % Eosinophils % 3.9 (0.8-7.0) % Basophils % 0.8 (0.2-1.2) % Absolute Granulocytes 7.14 H (1.78-5.38) x10^3/uL Basophils # 0.08 (0.01-0.08) x10^3/uL Sodium (135-145) mmol/L Potassium (3.5-5.1) mmol/L Chloride (98-107) mmol/L Carbon Dioxide (22-30) mmol/L Anion Gap (5-15) MEQ/L BUN (9-20) mg/dL Creatinine (0.66-1.25) mg/dL Estimated GFR ML/MIN Glucose (74-106) mg/dL Calcium (8.4-10.2) mg/dL Total Bilirubin (0.2-1.3) mg/dL AST (17-59) U/L ALT (0-50) U/L Alkaline Phosphatase (38-126) U/L Troponin I (0.000-0.033) ng/mL Serum Total Protein (6.3-8.2) g/dL Albumin (3.5-5.0) g/dL Lipase (23-300) U/L Urine Color (Yellow) Urine Appearance (Clear) Urine pH (4.6-8.0) Ur Specific [place] (1.005-1.030) Urine Protein (Negative) Urine Glucose (UA) (Negative) mg/dL Urine Ketones (Negative) Urine Blood (Negative) Urine Nitrite (Negative) Urine Bilirubin (Negative) Urine Urobilinogen (0.2) mg/dL Ur Leukocyte Esterase (Negative) U Hyaline Cast (Auto) (0-2) /LPF Urine Microscopic RBC (0-5) /HPF Urine Microscopic WBC (0-5) /HPF Ur Epithelial Cells (None Seen) /HPF Urine Bacteria (None Seen) /HPF Urine Culture Reflexed (NO) - Progress Progress: improved Progress Note: 54-year-old male presents to our ED for evaluation of abdominal pain and distention. Physical exam reveals mild epigastric pain. Laboratory workup essentially nonremarkable. UA negative for UTI. CT shows no new or acute findings. There is mild diffuse fecal stasis. Patient reassessed. He is resting comfortably. No active pain. Patient advised of the findings. He will try [id number] laxatives to see if this helps. We discussed the need for GI consultation. Patient will follow-up with a GI doctor in light of his ongoing recurrent abdominal pain. at bedside. They voiced no other complaints or concerns at this time. Portions of this note were created with voice recognition technology. There may be grammatical, spelling, punctuation or sound alike errors Complexity of problem addressed is moderate acute complicated. No critical care time. Complex of data reviewed and analyzed is moderate. Test ordered test reviewed results analyzed and correlated clinically with history and physical exam. Risk of complication and or risk of morbidity/mortality of patient management is low. Vital stable. Time spent to discharge patient is approximately 15 minutes. Plan of care established for shared decision making. No social determinants of health present to impede follow-up. Portions of this note were created with voice recognition technology. There may be grammatical, spelling, punctuation or sound alike errors 01/25/25 22:07 01/25/25 22:08 Counseled pt/family regarding: lab results, diagnosis - Departure Departure Disposition: Home Clinical Impression: Abdominal pain, Constipation Condition: Stable Critical Care Time: No Referrals: KRYSTAL PASCUAL DO [Primary Care Provider] - Follow up/PCP as directed Additional Instructions: Discharge/Care Plan JEREMI PALENCIA was seen on 01/25/25 in the Emergency Room. The patient was counseled regarding Diagnosis,Lab results, Imaging studies, need for follow up and when to return to the Emergency Room. Prescriptions given: Discharge Note I have spoken with the patient and/or caregivers. I have explained the patient's condition, diagnosis and treatment plan based on the information available to me at this time. I have answered the patient's and/or caregiver's questions and addressed any concerns. The patient and/or caregivers have as good understanding of the patient's diagnosis, condition and treatment plan as can be expected at this point. The vital signs have been stable. The patient's condition is stable and appropriate for discharge from the emergency department. The patient will pursue further outpatient evaluation with the primary care physician or other designated or consulting physician as outlined in the discharge instructions. The patient and/or caregivers are agreeable to this plan of care and follow-up instructions have been explained in detail. The patient and/or caregivers have received these instruction. The patient/and or caregivers are aware that any significant change in condition or worsening of symptoms should prompt an immediate return to this or the closest emergency department or call 911.
[2025-01-25 20:36] LABS: Appearance Clear (Clear); Bacteria None Seen /HPF (None Seen); Bilirubin Negative (Negative); Blood Negative (Negative); Epithelial Cells None Seen /HPF (None Seen); Glucose, Urine Negative (Negative); Hyaline Casts NONE SEEN /LPF (0-2); Ketones Trace (Negative); Leukocyte Esterase Negative (Negative); Nitrite Negative (Negative); Protein,Urine Dip Negative (Negative); RBC 0-2 /HPF (0-5); WBC 0-2 /HPF (0-5)
[2025-01-25 22:10] VITALS: O2SAT 96
[2025-01-25 22:15] VITALS: BP 114/84; PULSE 56; RESP 18
--- NOTE | 2025-01-26 08:53 | XRAY ---
Indication: Pain. Multiple contiguous axial images obtained through the abdomen and pelvis without contrast. Comparison: December 07, 2024 Lung bases again demonstrate minimal dependent atelectasis. Heart is not enlarged. Stomach is now distended with food/fluid. Noncontrasted stomach and bowel loops appear nonobstructed. Again descending duodenal diverticulum, mild diffuse scattered colonic fecal debris, scattered colonic diverticulosis, hepatic cysts, nonobstructing right renal punctate calculus, right urinary bladder diverticulum, and cholecystectomy. No free fluid/air. Remaining liver, pancreas, spleen, adrenal glands, kidneys, ureters, and bladder are unremarkable for noncontrast exam. Stable minimal aortoiliac calcifications without AAA. Osseous structures intact again with mild degenerative changes throughout spine. Impression: Again mild diffuse fecal stasis, duodenal diverticulum, colonic diverticulosis, hepatic cysts, nonobstructing right renal punctate calculus, urinary bladder diverticulum, arteriosclerotic disease, and chronic bony findings. No new/acute findings on this noncontrast exam.
== END 2025-01-25 22:14 | disposition home or self-care (01) ==
LOC: ED 18:10
DX: R10.84 Generalized abdominal pain (principal); K59.00 Constipation, unspecified; I10 Essential (primary) hypertension; Z79.899 Other long term (current) drug therapy
CPT/HCPCS: 36415; 74176; 80053; 81001; 83690; 84484; 85025; 96374; 96375; 99284; J2270; J2405

== ENCOUNTER 2025-02-15 12:29 | Emergency (ER) | payer OTHER ==
[2025-02-15 12:45] VITALS: PULSE 67; TEMP 97.4; O2SAT 98
--- NOTE | 2025-02-15 13:10 | ERPHSYRPT ---
- History of Present Illness Time Seen by Provider: 02/15/25 13:05 Source: patient Exam Limitations: no limitations Patient Subjective Stated Complaint: pt went to step up on a ladder with his right leg and he felt a pop on the back of his left knee and can't put any weigh t on it Triage Nursing Assessment: Pt was brought to the ER by his , vitals wnl, rates pain as 10/10, pulses normal, skin n/w/d, denies chest pain, no difficulty breathing, pain with palpatation to the posterior side of the knee, doesn't appear to be in any distress Physician History: 54-year-old male presents to our ED for evaluation of pain to his left knee. Patient states he went to step up on a ladder. Patient raised his right leg and felt felt a "pop" at his left knee. Patient states he is not experiencing pain upon weightbearing. Patient is experiencing some tenderness and pain to the left knee particular the posterior side. No chest pain or shortness of breath. No nausea vomiting or diaphoresis. Symptoms are mild to moderate in intensity. Pain worse with movement and palpation. Pain improved with rest. Patient otherwise feels well. He voices no other complaints or concerns at this time. Portions of this note were created with voice recognition technology. There may be grammatical, spelling, punctuation or sound alike errors Timing/Duration: today Severity: moderate Modifying Factors: Improves With: nothing Associated Symptoms: denies symptoms Allergies/Adverse Reactions: marshmallow Allergy (Severe, Uncoded 02/15/25 12:45) Anaphylactic Reaction Home Medications: Pravastatin Sodium 40 mg PO QHS 02/28/21 [History] Escitalopram Oxalate [Lexapro] 20 mg PO DAILY 12/07/24 [History] Omeprazole 20 mg PO DAILY 02/15/25 [History] Hx Tetanus, Diphtheria Vaccination/Date Given: Yes Hx Influenza Vaccination/Date Given: Yes Hx Pneumococcal Vaccination/Date Given: No Travel Risk - International Travel Have you traveled outside of the country in past 3 weeks: No - Emerging Infectious Disease Are you exhibiting symptoms associated with any current EIDs: No Symptoms: Abdominal Pain - Review of Systems Constitutional: No Symptoms, No Fever, No Chills Eyes: No Symptoms Ears, Nose, & Throat: No Symptoms Respiratory: No Symptoms, No Cough, No Dyspnea Cardiac: No Symptoms, No Chest Pain, No Edema, No Syncope Abdominal/Gastrointestinal: No Symptoms, No Abdominal Pain, No Nausea, No Vomiting, No Diarrhea Genitourinary Symptoms: No Symptoms, No Dysuria Musculoskeletal: No Symptoms, No Back Pain, No Neck Pain Skin: No Symptoms, No Rash Neurological: No Symptoms, No Dizziness, No Focal Weakness, No Sensory Changes Psychological: No Symptoms Endocrine: No Symptoms Hematologic/Lymphatic: No Symptoms Immunological/Allergic: No Symptoms All Other Systems: Reviewed and Negative - Past Medical History Pertinent Past Medical History: Yes Neurological History: No Pertinent History ENT History: No Pertinent History Cardiac History: Hypertension Respiratory History: No Pertinent History Endocrine Medical History: No Pertinent History Musculoskeletal History: Osteoarthritis GI Medical History: Diverticulitis, Other History: No Pertinent History Psycho-Social History: No Pertinent History Male Reproductive Disorders: No Pertinent History - Past Surgical History Past Surgical History: Yes Neuro Surgical History: No Pertinent History Cardiac: No Pertinent History Respiratory: No Pertinent History Gastrointestinal: Cholecystectomy Genitourinary: No Pertinent History Musculoskeletal: No Pertinent History, Orthopedic Surgery Male Surgical History: No Pertinent History Other Surgical History: right orbital reconsurction ,neck, cervical fusion, labral debridement left, KNEE REPLACEMENT Significant Family History: no pertinent family hx - Social History Smoking Status: Former smoker How long have you smoked: 35 years Exposure to second hand smoke: Yes Drug Use: none - Social Determinants of Health Will the patient participate in the screening: Yes Do you worry about a steady place to live?: No Do you have any problems with any of the following?: No known problems In the past 12 months,have you had to go without utilities?: No Transportation Issues: No Has anyone in your support network made you feel unsafe?: No Have you or anyone in your house had to go w/o enough food: No - Nursing Vital Signs Nursing Vital Signs: Initial Vital Signs Temperature 97.4 F 02/15/25 12:37 Pulse Rate 67 02/15/25 12:37 Blood Pressure 129/92 02/15/25 12:37 O2 Sat by Pulse Oximetry 98 02/15/25 12:37 Pain Scale Pain Intensity 10 - Physical Exam General Appearance: no apparent distress, alert Eye Exam: PERRL/EOMI, eyes nml inspection Ears, Nose, Throat Exam: normal ENT inspection, moist mucous membranes Neck Exam: normal inspection, full range of motion Respiratory Exam: normal breath sounds, airway intact, No respiratory distress Cardiovascular Exam: regular rate/rhythm, normal heart sounds, normal peripheral pulses Gastrointestinal/Abdomen Exam: soft, normal bowel sounds, No tenderness, No mass Back Exam: normal inspection, normal range of motion, No CVA tenderness, No vertebral tenderness Extremity Exam: normal inspection, normal range of motion, pelvis stable, other (Left knee range of motion limited secondary to pain) Neurologic Exam: alert, oriented x 3, cooperative, normal mood/affect, sensation nml, No motor deficits Skin Exam: normal color, warm, dry, No rash Lymphatic Exam: No adenopathy SpO2 Interpretation: normal SpO2: 98 O2 Delivery: Room Air - Course Nursing assessment & vital signs reviewed: Yes - Radiology Exams Knee X-ray Interpretation: Teleradiologist Report (No acute findings.) Ordered Tests: Active Orders 24 hr Category Date Time Status KNEE (1 OR 2 VIEW) Stat Exams 02/15/25 12:50 Completed Medication Summary Discontinued Medications Generic Name Dose Route Start Last Admin Trade Name Freq PRN Reason Stop Dose Admin Ibuprofen 600 mg 02/15/25 13:06 02/15/25 13:12 Ibuprofen 600 Mg Tablet PO 02/15/25 13:07 600 mg STAT ONE Administration Ibuprofen Confirm 02/15/25 13:12 Ibuprofen 600 Mg Tablet Administered 02/15/25 13:13 Dose 600 mg .ROUTE .ClearContext ONE - Progress Progress: improved Progress Note: 54-year-old male presents to our ED for evaluation of left knee pain. Physical exam reveals pain to the left knee. Pain worse at the posterolateral aspect and posterior left knee. Pain started acutely while he was ascending a ladder. No associated chest pain or shortness of breath. No nausea vomiting or diaphoresis. X-ray negative for fracture or dislocation. Patient declined crutches. He states he has crutches in his vehicle. A Toradol prescription forwarded to patient's pharmacy. Patient resting comfortably. No active distress. Will discharge home. Patient agrees to follow-up in the orthopedic clinic as discussed. He voices no other complaints or concerns at this time. Portions of this note were created with voice recognition technology. There may be grammatical, spelling, punctuation or sound alike errors Complexity of problem addressed is moderate acute complicated. No critical care time. Complex of data reviewed and analyzed as moderate. Test ordered test reviewed results analyzed and correlated clinically with history and physical exam. Risk of complication and or risk of morbidity/mortality of patient management is moderate. A prescription for Toradol forwarded to patient's pharmacy. Vital stable. Time spent to discharge patient is approximately 10 minutes. Plan of care established for shared decision making. No social determinants of health present to impede follow-up. Portions of this note were created with voice recognition technology. There may be grammatical, spelling, punctuation or sound alike errors 02/15/25 13:10 Counseled pt/family regarding: diagnosis, need for follow-up, rad results - Departure Departure Disposition: Home Clinical Impression: Knee pain, acute Condition: Stable Critical Care Time: No Referrals: KRYSTAL PASCUAL DO [Primary Care Provider] - Follow up/PCP as directed Additional Instructions: Discharge/Care Plan JEREMI PALENCIA was seen on 02/15/25 in the Emergency Room. The patient was counseled regarding Diagnosis,Lab results, Imaging studies, need for follow up and when to return to the Emergency Room. Prescriptions given: Discharge Note I have spoken with the patient and/or caregivers. I have explained the patient's condition, diagnosis and treatment plan based on the information available to me at this time. I have answered the patient's and/or caregiver's questions and addressed any concerns. The patient and/or caregivers have as good understanding of the patient's diagnosis, condition and treatment plan as can be expected at this point. The vital signs have been stable. The patient's condition is stable and appropriate for discharge from the emergency department. The patient will pursue further outpatient evaluation with the primary care physician or other designated or consulting physician as outlined in the discharge instructions. The patient and/or caregivers are agreeable to this plan of care and follow-up instructions have been explained in detail. The patient and/or caregivers have received these instruction. The patient/and or caregivers are aware that any significant change in condition or worsening of symptoms should prompt an immediate return to this or the closest emergency department or call 911. Prescriptions: Ketorolac Trometh 10 mg Tab [TORAdol 10 MG TABLET] 10 mg PO TID 5 Days #15 tablet Outpatient Orders: Ortho Referral Time Frame: 1 Day, Facility: [facility], Location: ORTHO CLINIC
[2025-02-15] MEDS: MOTRIN 600 MG PO ONE (13:12)
[2025-02-15] MEDS ORDERED: MOTRIN 600 MG ONE (13:12)
--- NOTE | 2025-02-15 13:23 | XRAY ---
Indication: Pain. Comparison: None AP/crosstable lateral left knee demonstrates tiny suprapatella spurring and small nonspecific effusion. No other bony, articular, or soft tissue abnormalities.
[2025-02-15 13:42] VITALS: BP 127/100
== END 2025-02-15 13:42 | disposition home or self-care (01) ==
LOC: ED 12:29
DX: M25.562 Pain in left knee (principal); I10 Essential (primary) hypertension; Z79.899 Other long term (current) drug therapy
CPT/HCPCS: 73560; 99283; A9270-GY

== ENCOUNTER 2025-08-30 11:00 | Observation (INO) | payer OTHER ==
--- NOTE | 2025-08-30 11:12 | ERPHSYRPT ---
- History of Present Illness Time Seen by Provider: 08/30/25 11:10 Historian: patient Exam Limitations: no limitations Patient Subjective Stated Complaint: patient was being seen in [facility] for swollen throat and then told them hes been having chest pain for last [id number] days Triage Nursing Assessment: pt was brought to the ED by wheelchair from [facility], with him at the bedside. patient is alert and oriented x3, able to ambulate by self gait is steady. lung sounds clear bilateral. no edema noted skin warm dry and intact. pulses equal bilateral radius. Physician History: Patient is a 55-year-old male history of hypertension and anxiety BMI of 34.8 presents to our ED from [facility] for evaluation of chest pain. Patient went to [facility] for sore throat. Rapid strep negative. Patient reported to [facility] that he had been having chest pressure and intermittent chest pain for the past 4 days. Patient brought here for further evaluation. Patient complains of chest pressure at this time. Some throat pain. No arm tingling or referral to the extremities. Patient's symptoms are mild to moderate in intensity. No specific worsening or improving factors. Patient voices no other complaints or concerns at this time. Portions of this note were created with voice recognition technology. There may be grammatical, spelling, punctuation or sound alike errors Timing/Duration: day(s) (4 days) Activities at Onset: none Quality: aching Location: substernal Chest Pain Radiation: no radiation Severity of Pain-Max: moderate Modifying Factors: Improves With: nothing Associated Symptoms: other (Throat pain) Prior Chest Pain/Cardiac Workup: no prior cardiac workup Nitro Today/Relief: no nitro taken today Aspirin Treatment Today: no aspirin today Allergies/Adverse Reactions: marshmallow Allergy (Severe, Uncoded 03/14/25 13:22) Anaphylactic Reaction Home Medications: Escitalopram Oxalate [Lexapro] 20 mg PO DAILY 12/07/24 [History] Bacillus Coagulans [Probiotic] 1 each PO UD 03/14/25 [History] Fluticasone Propionate 1 spray IN DAILY 03/14/25 [History] Multivitamin 1 tab PO DAILY 03/14/25 [History] Atorvastatin Calcium [Lipitor 40Mg] 40 mg PO DAILY 08/30/25 [History] Hx Tetanus, Diphtheria Vaccination/Date Given: Yes Hx Influenza Vaccination/Date Given: Yes Hx Pneumococcal Vaccination/Date Given: No Immunizations Up to Date: Yes Travel Risk - International Travel Have you traveled outside of the country in past 3 weeks: No - Emerging Infectious Disease Are you exhibiting symptoms associated with any current EIDs: No Symptoms: Abdominal Pain - Review of Systems All Other Systems: Reviewed and Negative - Past Medical History Pertinent Past Medical History: Yes Neurological History: No Pertinent History ENT History: No Pertinent History Cardiac History: Hypertension Respiratory History: No Pertinent History Endocrine Medical History: No Pertinent History Musculoskeletal History: Osteoarthritis GI Medical History: Diverticulitis, Other History: No Pertinent History Psycho-Social History: Anxiety Male Reproductive Disorders: No Pertinent History Other Medical History: hx htn- stated not currently - Past Surgical History Past Surgical History: Yes Neuro Surgical History: No Pertinent History Cardiac: No Pertinent History Respiratory: No Pertinent History Gastrointestinal: Cholecystectomy Genitourinary: No Pertinent History Musculoskeletal: No Pertinent History, Orthopedic Surgery Male Surgical History: No Pertinent History Other Surgical History: right orbital reconsurction ,neck, cervical fusion, labral debridement left, Right KNEE REPLACEMENT Significant Family History: no pertinent family hx - Social History Smoking Status: Former smoker Exposure to second hand smoke: No Drug Use: none - Social Determinants of Health Will the patient participate in the screening: Yes Do you worry about a steady place to live?: No Do you have any problems with any of the following?: No known problems In the past 12 months,have you had to go without utilities?: No Transportation Issues: No Has anyone in your support network made you feel unsafe?: No Have you or anyone in your house had to go w/o enough food: No - Nursing Vital Signs Nursing Vital Signs: Initial Vital Signs Pulse Rate 72 08/30/25 11:00 Respiratory Rate 18 08/30/25 11:00 Blood Pressure 146/92 08/30/25 11:00 O2 Sat by Pulse Oximetry 96 08/30/25 11:00 Pain Scale Pain Intensity 7 - Physical Exam General Appearance: no apparent distress, alert Eye Exam: PERRL/EOMI, eyes nml inspection Ears, Nose, Throat Exam: normal ENT inspection, moist mucous membranes Neck Exam: normal inspection, non-tender, supple, full range of motion Respiratory Exam: normal breath sounds, lungs clear, airway intact, No respiratory distress Cardiovascular Exam: regular rate/rhythm, normal heart sounds Gastrointestinal/Abdomen Exam: soft, No tenderness, No mass Back Exam: normal inspection, No CVA tenderness, No vertebral tenderness Extremity Exam: normal inspection, normal range of motion Neurologic Exam: alert, oriented x 3, cooperative, normal mood/affect, sensation nml, No motor deficits Skin Exam: normal color, warm, dry SpO2 Interpretation: normal SpO2: 98 O2 Delivery: Room Air - Course Nursing assessment & vital signs reviewed: Yes EKG Interpreted by Me: RATE (70), Sinus Rhythm, NORMAL AXIS, NORMAL INTERVALS, NORMAL QRS - Radiology Exams Chest X-ray Interpretation: Teleradiologist Report (Portable chest unchanged again demonstrating minimal left lung base) Ordered Tests: Active Orders 24 hr Category Date Time Status Contour Grinder STAT Care 08/30/25 11:17 Active EKG-ER Only STAT Care 08/30/25 11:16 Active IV Insertion STAT Care 08/30/25 11:16 Active Pulse Oximetry (ED) STAT Care 08/30/25 11:16 Active CHEST 1 VIEW (PORTABLE) Stat Exams 08/30/25 11:17 Completed CBC W DIFF Stat Lab 08/30/25 11:05 Completed CMP Stat Lab 08/30/25 11:30 Completed D-DIMER QUANTITATIVE Stat Lab 08/30/25 11:05 Completed MONO SCREEN Stat Lab 08/30/25 11:05 Completed NT PRO BNPII Stat Lab 08/30/25 11:30 Completed TROPONIN Q4H Lab 08/30/25 11:30 Completed TROPONIN Q4H Lab 08/30/25 14:00 Completed TROPONIN Q4H Lab 08/30/25 19:30 Ordered UA W/RFX UR CULTURE Stat Lab 08/30/25 11:55 Completed Urine Triage Profile Stat Lab 08/30/25 11:55 Completed Transfer Order Routine Transfer 08/30/25 Ordered Medication Summary Discontinued Medications Generic Name Dose Route Start Last Admin Trade Name Freq PRN Reason Stop Dose Admin Aspirin 324 mg 08/30/25 11:55 08/30/25 12:00 Aspirin 81 Mg Tab.Chew PO 08/30/25 11:56 324 mg STAT ONE Administration Aspirin Confirm 08/30/25 11:59 Aspirin 81 Mg Tab.Chew Administered 08/30/25 12:00 Dose 324 mg .ROUTE .STK-MED ONE Nitroglycerin 1 gm 08/30/25 11:55 08/30/25 12:02 Nitroglycerin 1 Gm Packet TOP 08/30/25 11:56 1 gm STAT ONE Administration Nitroglycerin Confirm 08/30/25 11:59 Nitroglycerin 1 Gm Packet Administered 08/30/25 12:00 Dose 1 gm .ROUTE .K-MED ONE Lab/Rad Data: Laboratory Result Diagrams 08/30/25 11:05 08/30/25 11:30 Laboratory Results 08/30/25 08/30/25 08/30/25 Range/Units 14:00 11:55 11:55 WBC (4.23-9.07) x10^3/uL RBC (4.63-6.08) x10^6/uL Hgb (13.7-17.5) g/dL Hct (40.1-51.0) % MCV (79.0-92.2) fL MCH (25.7-32.2) pg MCHC (32.3-36.5) g/dL RDW (11.6-14.4) % Plt Count (163-337) x10^3/uL MPV (9.4-12.4) fL Gran % (34.0-67.9) % Immature Gran % (Auto) (0.001-0.429) % Nucleat RBC Rel Count (0.00-0.2) % Eos # (Auto) (0.04-0.54) x10^3/uL Immature Gran # (Auto) (0.001-0.031) x10^3u/L Absolute Lymphs (auto) (1.32-3.57) x10^3/uL Absolute Monos (auto) (0.30-0.82) x10^3/uL Absolute Nucleated RBC (0.00-0.012) x10^3u/L Lymphocytes % (21.8-53.1) % Monocytes % (5.3-12.2) % Eosinophils % (0.8-7.0) % Basophils % (0.2-1.2) % Absolute Granulocytes (1.78-5.38) x10^3/uL Basophils # (0.01-0.08) x10^3/uL D-Dimer (0.0-0.50) mg/L Sodium (135-145) mmol/L Potassium (3.5-5.1) mmol/L Chloride (98-107) mmol/L Carbon Dioxide (22-30) mmol/L Anion Gap (5-15) MEQ/L BUN (9-20) mg/dL Creatinine (0.66-1.25) mg/dL Estimated GFR ML/MIN Glucose (74-106) mg/dL Calcium (8.4-10.2) mg/dL Total Bilirubin (0.2-1.3) mg/dL AST (17-59) U/L ALT (0-50) U/L Alkaline Phosphatase (38-126) U/L Troponin I 0.016 (0.000-0.033) ng/mL NT-Pro-B Natriuret Pep (<300) pg/mL Serum Total Protein (6.3-8.2) g/dL Albumin (3.5-5.0) g/dL Urine Color Yellow (Yellow) Urine Appearance Clear (Clear) Urine pH 7.0 (4.6-8.0) Ur Specific [place] 1.015 (1.005-1.030) Urine Protein Negative (Negative) Urine Glucose (UA) Negative (Negative) mg/dL Urine Ketones Negative (Negative) Urine Blood Negative (Negative) Urine Nitrite Negative (Negative) Urine Bilirubin Negative (Negative) Urine Urobilinogen 1.0 A (0.2) mg/dL Ur Leukocyte Esterase Negative (Negative) U Hyaline Cast (Auto) NONE SEEN (0-2) /LPF Urine Microscopic RBC 0-2 (0-5) /HPF Urine Microscopic WBC 0-2 (0-5) /HPF Ur Epithelial Cells None Seen (None Seen) /HPF Urine Bacteria None Seen (None Seen) /HPF Urine Culture Reflexed NO (NO) Urine Opiates Level NEGATIVE (NEGATIVE) Ur Methadone NEGATIVE (NEGATIVE) Urine Barbiturates NEGATIVE (NEGATIVE) Ur Phencyclidine (PCP) NEGATIVE (NEGATIVE) Urine Amphetamine NEGATIVE (NEGATIVE) U Benzodiazepine Level NEGATIVE (NEGATIVE) Urine Cocaine NEGATIVE (NEGATIVE) Urine Marijuana (THC) NEGATIVE (NEGATIVE) Monoscreen (NEGATIVE) 08/30/25 08/30/25 08/30/25 Range/Units 11:30 11:05 11:05 WBC (4.23-9.07) x10^3/uL RBC (4.63-6.08) x10^6/uL Hgb (13.7-17.5) g/dL Hct (40.1-51.0) % MCV (79.0-92.2) fL MCH (25.7-32.2) pg MCHC (32.3-36.5) g/dL RDW (11.6-14.4) % Plt Count (163-337) x10^3/uL MPV (9.4-12.4) fL Gran % (34.0-67.9) % Immature Gran % (Auto) (0.001-0.429) % Nucleat RBC Rel Count (0.00-0.2) % Eos # (Auto) (0.04-0.54) x10^3/uL Immature Gran # (Auto) (0.001-0.031) x10^3u/L Absolute Lymphs (auto) (1.32-3.57) x10^3/uL Absolute Monos (auto) (0.30-0.82) x10^3/uL Absolute Nucleated RBC (0.00-0.012) x10^3u/L Lymphocytes % (21.8-53.1) % Monocytes % (5.3-12.2) % Eosinophils % (0.8-7.0) % Basophils % (0.2-1.2) % Absolute Granulocytes (1.78-5.38) x10^3/uL Basophils # (0.01-0.08) x10^3/uL D-Dimer 0.45 (0.0-0.50) mg/L Sodium 137 (135-145) mmol/L Potassium 4.5 (3.5-5.1) mmol/L Chloride 107 (98-107) mmol/L Carbon Dioxide 23 (22-30) mmol/L Anion Gap 11.6 (5-15) MEQ/L BUN 8 L (9-20) mg/dL Creatinine 0.94 (0.66-1.25) mg/dL Estimated GFR 95.7 ML/MIN Glucose 107 H (74-106) mg/dL Calcium 8.9 (8.4-10.2) mg/dL Total Bilirubin 0.20 (0.2-1.3) mg/dL AST 27 (17-59) U/L ALT 22 (0-50) U/L Alkaline Phosphatase 95 (38-126) U/L Troponin I 0.014 (0.000-0.033) ng/mL NT-Pro-B Natriuret Pep 49.0 (<300) pg/mL Serum Total Protein 7.2 (6.3-8.2) g/dL Albumin 4.2 (3.5-5.0) g/dL Urine Color (Yellow) Urine Appearance (Clear) Urine pH (4.6-8.0) Ur Specific [place] (1.005-1.030) Urine Protein (Negative) Urine Glucose (UA) (Negative) mg/dL Urine Ketones (Negative) Urine Blood (Negative) Urine Nitrite (Negative) Urine Bilirubin (Negative) Urine Urobilinogen (0.2) mg/dL Ur Leukocyte Esterase (Negative) U Hyaline Cast (Auto) (0-2) /LPF Urine Microscopic RBC (0-5) /HPF Urine Microscopic WBC (0-5) /HPF Ur Epithelial Cells (None Seen) /HPF Urine Bacteria (None Seen) /HPF Urine Culture Reflexed (NO) Urine Opiates Level (NEGATIVE) Ur Methadone (NEGATIVE) Urine Barbiturates (NEGATIVE) Ur Phencyclidine (PCP) (NEGATIVE) Urine Amphetamine (NEGATIVE) U Benzodiazepine Level (NEGATIVE) Urine Cocaine (NEGATIVE) Urine Marijuana (THC) (NEGATIVE) Monoscreen NEGATIVE (NEGATIVE) 08/30/25 Range/Units 11:05 WBC 6.9 (4.23-9.07) x10^3/uL RBC 4.95 (4.63-6.08) x10^6/uL Hgb 15.0 (13.7-17.5) g/dL Hct 45.1 (40.1-51.0) % MCV 91.1 (79.0-92.2) fL MCH 30.3 (25.7-32.2) pg MCHC 33.3 (32.3-36.5) g/dL RDW 13.1 (11.6-14.4) % Plt Count 468 H (163-337) x10^3/uL MPV 9.1 L (9.4-12.4) fL Gran % 71.9 H (34.0-67.9) % Immature Gran % (Auto) 0.6 H (0.001-0.429) % Nucleat RBC Rel Count 0.0 (0.00-0.2) % Eos # (Auto) 0.33 (0.04-0.54) x10^3/uL Immature Gran # (Auto) 0.04 H (0.001-0.031) x10^3u/L Absolute Lymphs (auto) 1.09 L (1.32-3.57) x10^3/uL Absolute Monos (auto) 0.41 (0.30-0.82) x10^3/uL Absolute Nucleated RBC 0.00 (0.00-0.012) x10^3u/L Lymphocytes % 15.8 L (21.8-53.1) % Monocytes % 5.9 (5.3-12.2) % Eosinophils % 4.8 (0.8-7.0) % Basophils % 1.0 (0.2-1.2) % Absolute Granulocytes 4.97 (1.78-5.38) x10^3/uL Basophils # 0.07 (0.01-0.08) x10^3/uL D-Dimer (0.0-0.50) mg/L Sodium (135-145) mmol/L Potassium (3.5-5.1) mmol/L Chloride (98-107) mmol/L Carbon Dioxide (22-30) mmol/L Anion Gap (5-15) MEQ/L BUN (9-20) mg/dL Creatinine (0.66-1.25) mg/dL Estimated GFR ML/MIN Glucose (74-106) mg/dL Calcium (8.4-10.2) mg/dL Total Bilirubin (0.2-1.3) mg/dL AST (17-59) U/L ALT (0-50) U/L Alkaline Phosphatase (38-126) U/L Troponin I (0.000-0.033) ng/mL NT-Pro-B Natriuret Pep (<300) pg/mL Serum Total Protein (6.3-8.2) g/dL Albumin (3.5-5.0) g/dL Urine Color (Yellow) Urine Appearance (Clear) Urine pH (4.6-8.0) Ur Specific [place] (1.005-1.030) Urine Protein (Negative) Urine Glucose (UA) (Negative) mg/dL Urine Ketones (Negative) Urine Blood (Negative) Urine Nitrite (Negative) Urine Bilirubin (Negative) Urine Urobilinogen (0.2) mg/dL Ur Leukocyte Esterase (Negative) U Hyaline Cast (Auto) (0-2) /LPF Urine Microscopic RBC (0-5) /HPF Urine Microscopic WBC (0-5) /HPF Ur Epithelial Cells (None Seen) /HPF Urine Bacteria (None Seen) /HPF Urine Culture Reflexed (NO) Urine Opiates Level (NEGATIVE) Ur Methadone (NEGATIVE) Urine Barbiturates (NEGATIVE) Ur Phencyclidine (PCP) (NEGATIVE) Urine Amphetamine (NEGATIVE) U Benzodiazepine Level (NEGATIVE) Urine Cocaine (NEGATIVE) Urine Marijuana (THC) (NEGATIVE) Monoscreen (NEGATIVE) - Progress Progress: improved Air Movement: good Progress Note: Heart score of 4 08/30/25 15:18 Patient is a 55-year-old male history of hypertension and anxiety BMI of 34.8 presents to our ED from [facility] for evaluation of chest pain. Patient went to [facility] for sore throat. Rapid strep negative. Patient reported to [facility] that he had been having chest pressure and intermittent chest pain for the past 4 days. Patient brought here for further evaluation. Physical exam nonremarkable. EKG sinus rhythm. Chest x-ray no acute findings. However troponin appears to be trending upward. Aspirin and nitroglycerin administered. Patient's heart score is a 4. Patient will require hospitalization for further evaluation and treatment. Case discussed with patient. He agrees to admission at [facility] for further evaluation and treatment. Portions of this note were created with voice recognition technology. There may be grammatical, spelling, punctuation or sound alike errors History history obtained from patient and at the bedside. Differential diagnosis acute coronary syndrome, OK, PE, pneumothorax Complexity of problem addressed is moderate acute complicated. No critical care time. Complex of data reviewed and analyzed is extensive. Test ordered chest reviewed results analyzed and correlated clinically with history and physical exam. Management discussed with hospitalist Dr. Smith who accepts admission to observation at 3:24 PM. Risk of complication and or risk of morbidity/mortality of patient management is high. Patient requires hospitalization for further evaluation and treatment. Vital stable. Time spent admit patient is approximately 15 minutes. Plan of care established for shared decision making. No social determinants of health present to impede follow-up. Portions of this note were created with voice recognition technology. There may be grammatical, spelling, punctuation or sound alike errors 08/30/25 15:28 Blood Culture(s) Obtained: No Antibiotics given: No Counseled pt/family regarding: lab results, diagnosis, rad results - Departure Departure Disposition: Observation Clinical Impression: Chest pain, ACS (acute coronary syndrome), Sore throat Condition: Stable Critical Care Time: No Referrals: KRYSTAL PASCUAL DO [Primary Care Provider, [facility]] - Follow up/PCP as directed
[2025-08-30 11:30] LABS: BASOPHIL % 1.0 % (0.2-1.2); Basophil (Absolute #) 0.07 x10^3/uL (0.01-0.08); Eosinophil (Absolute #) 0.33 x10^3/uL (0.04-0.54); Hematocrit 45.1 % (40.1-51.0); Hemoglobin 15.0 g/dL (13.7-17.5); IMMATURE GRAN # 0.04 x10^3u/L (0.001-0.031); IMMATURE GRAN % 0.6 % (0.001-0.429); Lymphocyte (Absolute #) 1.09 x10^3/uL (1.32-3.57); Mean Corpuscular Hemoglobin 30.3 pg (25.7-32.2); Mean Corpuscular Hgb Concent. 33.3 g/dL (32.3-36.5); Monocyte (Absolute #) 0.41 x10^3/uL (0.30-0.82); NUCLEATED RBC # 0.00 x10^3u/L (0.00-0.012); NUCLEATED RBC % 0.0 % (0.00-0.2); Platelet Count 468 x10^3/uL (163-337); Red Blood Count 4.95 x10^6/uL (4.63-6.08); White Blood Count 6.9 x10^3/uL (4.23-9.07)
--- NOTE | 2025-08-30 11:47 | XRAY ---
Indication: Pain. Comparison: March 18, 2025 Portable chest unchanged again demonstrating minimal left lung base subsegmental atelectasis/scarring. Remaining heart and lungs unremarkable. Bony thorax intact again with mild degenerative changes and cervical fusion hardware. No new/acute findings.
[2025-08-30 11:55] LABS: Calcium 8.9 mg/dL (8.4-10.2); Carbon Dioxide 23.0 mmol/L (22-30); Creatinine 1 0.94 mg/dL (0.66-1.25); EST GLOMERULAR FILTRATION RATE 95.7 ML/MIN; Glucose 107.0 mg/dL (74-106); NT PRO BNPII 49.0 pg/mL (<300); Potassium 4.5 mmol/L (3.5-5.1); SGOT/AST 27.0 U/L (17-59); SGPT/ALT 22.0 U/L (0-50); TROPONIN 0.014 ng/mL (0.000-0.033); Total Protein 7.2 g/dL (6.3-8.2)
[2025-08-30] MEDS ORDERED: BABY ASPIRIN 81 MG CHEW ONE (11:59)
[2025-08-30] MEDS ORDERED: NITRO-BID 2% UD PACKETS ONE (11:59)
[2025-08-30] MEDS: BABY ASPIRIN 81 MG CHEW PO ONE (12:00)
[2025-08-30] MEDS: NITRO-BID 2% UD PACKETS TOP ONE (12:02)
[2025-08-30 12:31] LABS: Glucose, Urine Negative (Negative); Protein,Urine Dip Negative (Negative); RBC 0-2 /HPF (0-5); WBC 0-2 /HPF (0-5)
[2025-08-30 13:09] LABS: Amphetamine,Urine NEGATIVE (NEGATIVE); Barbiturate,Urine NEGATIVE (NEGATIVE); Benzodiazepine,Urine NEGATIVE (NEGATIVE); Cocaine,Urine NEGATIVE (NEGATIVE); Methadone,Urine NEGATIVE (NEGATIVE); Opiate,Urine NEGATIVE (NEGATIVE); PCP,Urine NEGATIVE (NEGATIVE); THC,Urine NEGATIVE (NEGATIVE)
--- NOTE | 2025-08-30 16:29 | PCM.HP ---
History of Present Illness - Chief Complaint Chief Complaint: Chest pain, acute coronary syndrome Date: 08/30/25 History of Present Illness: is a 55 year old male with a pmhx of HTN, HLD, diverticulosis, and anxiety who presented to ED 08/10/25 following evaluation at a [facility] for a sore throat that began that morning. He reported fever and chills over the weekend, which have since resolved, but sought further evaluation for persistent throat discomfort. During his clinic visit, he disclosed a four-day history of chest pain that began on 08/26. The pain is localized to the right chest, radiating to the right shoulder and neck, described as both pressure-like and stabbing. It is constant at rest, relieved partially by nitroglycerin, with no specific aggravating factors. He denies nausea or vomiting but reports intermittent diaphoresis. At the time of evaluation, he rated the pain 6/10 in intensity. Patient does report that his mother of heart failure at 38 years of age. Heart score of 4 due to HTN, HLD, former smoker, obesity with BMI at 37.1. Upon arrival to the emergency department, vital signs were stable. EKG showed normal sinus rhythm at 70 bpm with normal intervals, axis, and QRS morphology. Chest X-ray revealed no acute cardiopulmonary process. Laboratory findings included negative D-dimer, troponin 2 within normal limits, BNP within normal limits, urinalysis and urine drug screen negative, Monospot negative, and rapid strep test negative. The patient was administered 324 mg of aspirin and nitroglycerin in the ED with partial relief of chest discomfort. Given persistent but stable symptoms, he was admitted for observation and continued cardiac evaluation. - Review of Systems Constitutional: Chills Eyes: No Symptoms Ears, Nose, & Throat: Throat Pain Respiratory: No Symptoms Cardiac: Chest Pain, Edema (BLE trace) Abdominal/Gastrointestinal: No Symptoms Genitourinary Symptoms: No Symptoms Musculoskeletal: No Symptoms Skin: No Symptoms Neurological: No Symptoms Psychological: No Symptoms Endocrine: No Symptoms Hematologic/Lymphatic: No Symptoms Immunological/Allergic: No Symptoms Medications & Allergies Home Medications: Home Medication List Escitalopram Oxalate [Lexapro] 20 mg PO HS 12/07/24 [History Confirmed 08/30/25] Bacillus Coagulans [Probiotic] 1 each PO UD 03/14/25 [History Confirmed 08/30/25] Fluticasone Propionate 1 spray IN DAILY 03/14/25 [History Confirmed 08/30/25] Multivitamin 1 tab PO DAILY 03/14/25 [History Confirmed 08/30/25] Atorvastatin Calcium [Lipitor 40Mg] 40 mg PO DAILY 08/30/25 [History Confirmed 08/30/25] Allergies/Adverse Reactions: Allergies Allergy/AdvReac Type Severity Reaction Status Date / Time sonulow Allergy Severe Anaphylactic Uncoded 03/14/25 13:22 Reaction - Past Medical History Past Medical History: Yes Neurological History: No Pertinent History ENT History: No Pertinent History Cardiac History: Hypertension Respiratory History: No Pertinent History Endocrine Medical History: No Pertinent History Musculoskelatal History: Osteoarthritis GI Medical History: Diverticulitis, Other History: No Pertinent History Pyscho-Social History: Anxiety Male Reproductive Disorders: No Pertinent History Comment: hx htn- stated not currently - Past Surgical History Past Surgical History: Yes Neuro Surgical History: No Pertinent History Cardiac History: No Pertinent History Respiratory Surgery: No Pertinent History GI Surgical History: Cholecystectomy Genitourinary Surgical Hx: No Pertinent History Musculskeletal Surgical Hx: No Pertinent History, Orthopedic Surgery Male Surgical History: No Pertinent History Other Surgical History: right orbital reconsurction ,neck, cervical fusion, labral debridement left, Right KNEE REPLACEMENT Significant Family History: heart disease (mother of HF at 38) - Social History Smoking Status: Former smoker How long have you smoked: 35 years Exposure to second hand smoke: No Alcohol: None Drug Use: none - Social Determinants of Health Will the patient participate in the screening: Yes Do you worry about a steady place to live?: No Do you have any problems with any of the following?: No known problems In the past 12 months,have you had to go without utilities?: No Have you or anyone in your house had to go without enough: No Transportation Issues: No Has anyone in your support network made you feel unsafe?: No Does the patient want assistance with any of the above?: No - Physical Exam Vital Signs: Vital Signs - 24 hr Temp Pulse Pulse Resp BP BP Pulse Ox 08/30/25 16:08 97 08/30/25 15:46 64 99 08/30/25 15:45 98.7 F 64 16 120/79 99 08/30/25 15:31 98 08/30/25 15:00 69 21 132/79 96 08/30/25 14:30 66 17 131/82 95 08/30/25 14:00 69 13 124/88 96 08/30/25 13:30 64 22 124/84 97 08/30/25 13:00 72 25 H 128/82 96 08/30/25 12:30 61 23 136/92 97 08/30/25 12:00 63 23 133/93 97 08/30/25 11:30 68 15 131/93 96 08/30/25 11:16 98 08/30/25 11:04 74 08/30/25 11:01 97.8 F 70 18 146/92 98 08/30/25 11:00 72 18 146/92 96 General Appearance: no apparent distress Neurologic Exam: alert, oriented x 3, cooperative Eye Exam: PERRL/EOMI Ears, Nose, Throat Exam: normal ENT inspection Neck Exam: normal inspection Respiratory Exam: normal breath sounds, lungs clear Cardiovascular Exam: regular rate/rhythm, normal heart sounds Rectal Exam: deferred Back Exam: normal inspection Extremity Exam: swelling (BLE trace edema) Skin Exam: normal color Results - Labs Lab/Micro Results: Lab Results-Last 24 Hours 08/30/25 08/30/25 08/30/25 Range/Units 11:05 11:05 11:05 WBC 6.9 (4.23-9.07) x10^3/uL RBC 4.95 (4.63-6.08) x10^6/uL Hgb 15.0 (13.7-17.5) g/dL Hct 45.1 (40.1-51.0) % MCV 91.1 (79.0-92.2) fL MCH 30.3 (25.7-32.2) pg MCHC 33.3 (32.3-36.5) g/dL RDW 13.1 (11.6-14.4) % Plt Count 468 H (163-337) x10^3/uL MPV 9.1 L (9.4-12.4) fL Gran % 71.9 H (34.0-67.9) % Immature Gran % (Auto) 0.6 H (0.001-0.429) % Nucleat RBC Rel Count 0.0 (0.00-0.2) % Eos # (Auto) 0.33 (0.04-0.54) x10^3/uL Immature Gran # (Auto) 0.04 H (0.001-0.031) x10^3u/L Absolute Lymphs (auto) 1.09 L (1.32-3.57) x10^3/uL Absolute Monos (auto) 0.41 (0.30-0.82) x10^3/uL Absolute Nucleated RBC 0.00 (0.00-0.012) x10^3u/L Lymphocytes % 15.8 L (21.8-53.1) % Monocytes % 5.9 (5.3-12.2) % Eosinophils % 4.8 (0.8-7.0) % Basophils % 1.0 (0.2-1.2) % Absolute Granulocytes 4.97 (1.78-5.38) x10^3/uL Basophils # 0.07 (0.01-0.08) x10^3/uL D-Dimer 0.45 (0.0-0.50) mg/L Sodium (135-145) mmol/L Potassium (3.5-5.1) mmol/L Chloride (98-107) mmol/L Carbon Dioxide (22-30) mmol/L Anion Gap (5-15) MEQ/L BUN (9-20) mg/dL Creatinine (0.66-1.25) mg/dL Estimated GFR ML/MIN Glucose (74-106) mg/dL Calcium (8.4-10.2) mg/dL Total Bilirubin (0.2-1.3) mg/dL AST (17-59) U/L ALT (0-50) U/L Alkaline Phosphatase (38-126) U/L Troponin I (0.000-0.033) ng/mL NT-Pro-B Natriuret Pep (<300) pg/mL Serum Total Protein (6.3-8.2) g/dL Albumin (3.5-5.0) g/dL Urine Color (Yellow) Urine Appearance (Clear) Urine pH (4.6-8.0) Ur Specific [place] (1.005-1.030) Urine Protein (Negative) Urine Glucose (UA) (Negative) mg/dL Urine Ketones (Negative) Urine Blood (Negative) Urine Nitrite (Negative) Urine Bilirubin (Negative) Urine Urobilinogen (0.2) mg/dL Ur Leukocyte Esterase (Negative) U Hyaline Cast (Auto) (0-2) /LPF Urine Microscopic RBC (0-5) /HPF Urine Microscopic WBC (0-5) /HPF Ur Epithelial Cells (None Seen) /HPF Urine Bacteria (None Seen) /HPF Urine Culture Reflexed (NO) Urine Opiates Level (NEGATIVE) Ur Methadone (NEGATIVE) Urine Barbiturates (NEGATIVE) Ur Phencyclidine (PCP) (NEGATIVE) Urine Amphetamine (NEGATIVE) U Benzodiazepine Level (NEGATIVE) Urine Cocaine (NEGATIVE) Urine Marijuana (THC) (NEGATIVE) Monoscreen NEGATIVE (NEGATIVE) 08/30/25 08/30/25 08/30/25 Range/Units 11:30 11:55 11:55 WBC (4.23-9.07) x10^3/uL RBC (4.63-6.08) x10^6/uL Hgb (13.7-17.5) g/dL Hct (40.1-51.0) % MCV (79.0-92.2) fL MCH (25.7-32.2) pg MCHC (32.3-36.5) g/dL RDW (11.6-14.4) % Plt Count (163-337) x10^3/uL MPV (9.4-12.4) fL Gran % (34.0-67.9) % Immature Gran % (Auto) (0.001-0.429) % Nucleat RBC Rel Count (0.00-0.2) % Eos # (Auto) (0.04-0.54) x10^3/uL Immature Gran # (Auto) (0.001-0.031) x10^3u/L Absolute Lymphs (auto) (1.32-3.57) x10^3/uL Absolute Monos (auto) (0.30-0.82) x10^3/uL Absolute Nucleated RBC (0.00-0.012) x10^3u/L Lymphocytes % (21.8-53.1) % Monocytes % (5.3-12.2) % Eosinophils % (0.8-7.0) % Basophils % (0.2-1.2) % Absolute Granulocytes (1.78-5.38) x10^3/uL Basophils # (0.01-0.08) x10^3/uL D-Dimer (0.0-0.50) mg/L Sodium 137 (135-145) mmol/L Potassium 4.5 (3.5-5.1) mmol/L Chloride 107 (98-107) mmol/L Carbon Dioxide 23 (22-30) mmol/L Anion Gap 11.6 (5-15) MEQ/L BUN 8 L (9-20) mg/dL Creatinine 0.94 (0.66-1.25) mg/dL Estimated GFR 95.7 ML/MIN Glucose 107 H (74-106) mg/dL Calcium 8.9 (8.4-10.2) mg/dL Total Bilirubin 0.20 (0.2-1.3) mg/dL AST 27 (17-59) U/L ALT 22 (0-50) U/L Alkaline Phosphatase 95 (38-126) U/L Troponin I 0.014 (0.000-0.033) ng/mL NT-Pro-B Natriuret Pep 49.0 (<300) pg/mL Serum Total Protein 7.2 (6.3-8.2) g/dL Albumin 4.2 (3.5-5.0) g/dL Urine Color Yellow (Yellow) Urine Appearance Clear (Clear) Urine pH 7.0 (4.6-8.0) Ur Specific [place] 1.015 (1.005-1.030) Urine Protein Negative (Negative) Urine Glucose (UA) Negative (Negative) mg/dL Urine Ketones Negative (Negative) Urine Blood Negative (Negative) Urine Nitrite Negative (Negative) Urine Bilirubin Negative (Negative) Urine Urobilinogen 1.0 A (0.2) mg/dL Ur Leukocyte Esterase Negative (Negative) U Hyaline Cast (Auto) NONE SEEN (0-2) /LPF Urine Microscopic RBC 0-2 (0-5) /HPF Urine Microscopic WBC 0-2 (0-5) /HPF Ur Epithelial Cells None Seen (None Seen) /HPF Urine Bacteria None Seen (None Seen) /HPF Urine Culture Reflexed NO (NO) Urine Opiates Level NEGATIVE (NEGATIVE) Ur Methadone NEGATIVE (NEGATIVE) Urine Barbiturates NEGATIVE (NEGATIVE) Ur Phencyclidine (PCP) NEGATIVE (NEGATIVE) Urine Amphetamine NEGATIVE (NEGATIVE) U Benzodiazepine Level NEGATIVE (NEGATIVE) Urine Cocaine NEGATIVE (NEGATIVE) Urine Marijuana (THC) NEGATIVE (NEGATIVE) Monoscreen (NEGATIVE) 08/30/25 Range/Units 14:00 WBC (4.23-9.07) x10^3/uL RBC (4.63-6.08) x10^6/uL Hgb (13.7-17.5) g/dL Hct (40.1-51.0) % MCV (79.0-92.2) fL MCH (25.7-32.2) pg MCHC (32.3-36.5) g/dL RDW (11.6-14.4) % Plt Count (163-337) x10^3/uL MPV (9.4-12.4) fL Gran % (34.0-67.9) % Immature Gran % (Auto) (0.001-0.429) % Nucleat RBC Rel Count (0.00-0.2) % Eos # (Auto) (0.04-0.54) x10^3/uL Immature Gran # (Auto) (0.001-0.031) x10^3u/L Absolute Lymphs (auto) (1.32-3.57) x10^3/uL Absolute Monos (auto) (0.30-0.82) x10^3/uL Absolute Nucleated RBC (0.00-0.012) x10^3u/L Lymphocytes % (21.8-53.1) % Monocytes % (5.3-12.2) % Eosinophils % (0.8-7.0) % Basophils % (0.2-1.2) % Absolute Granulocytes (1.78-5.38) x10^3/uL Basophils # (0.01-0.08) x10^3/uL D-Dimer (0.0-0.50) mg/L Sodium (135-145) mmol/L Potassium (3.5-5.1) mmol/L Chloride (98-107) mmol/L Carbon Dioxide (22-30) mmol/L Anion Gap (5-15) MEQ/L BUN (9-20) mg/dL Creatinine (0.66-1.25) mg/dL Estimated GFR ML/MIN Glucose (74-106) mg/dL Calcium (8.4-10.2) mg/dL Total Bilirubin (0.2-1.3) mg/dL AST (17-59) U/L ALT (0-50) U/L Alkaline Phosphatase (38-126) U/L Troponin I 0.016 (0.000-0.033) ng/mL NT-Pro-B Natriuret Pep (<300) pg/mL Serum Total Protein (6.3-8.2) g/dL Albumin (3.5-5.0) g/dL Urine Color (Yellow) Urine Appearance (Clear) Urine pH (4.6-8.0) Ur Specific [place] (1.005-1.030) Urine Protein (Negative) Urine Glucose (UA) (Negative) mg/dL Urine Ketones (Negative) Urine Blood (Negative) Urine Nitrite (Negative) Urine Bilirubin (Negative) Urine Urobilinogen (0.2) mg/dL Ur Leukocyte Esterase (Negative) U Hyaline Cast (Auto) (0-2) /LPF Urine Microscopic RBC (0-5) /HPF Urine Microscopic WBC (0-5) /HPF Ur Epithelial Cells (None Seen) /HPF Urine Bacteria (None Seen) /HPF Urine Culture Reflexed (NO) Urine Opiates Level (NEGATIVE) Ur Methadone (NEGATIVE) Urine Barbiturates (NEGATIVE) Ur Phencyclidine (PCP) (NEGATIVE) Urine Amphetamine (NEGATIVE) U Benzodiazepine Level (NEGATIVE) Urine Cocaine (NEGATIVE) Urine Marijuana (THC) (NEGATIVE) Monoscreen (NEGATIVE) - Radiology Impressions Radiology Exams & Impressions: Radiology Procedures Category Date Time Status CHEST 1 VIEW (PORTABLE) Stat Exams 08/30/25 11:17 Completed Assessment/Plan (1) Chest pain Current Visit: Yes Status: Acute Assessment & Plan: -EKG: normal sinus rhythm, no ischemic changes. -Troponins: negative 2. -BNP: normal. -Chest X-ray: no acute findings. -Received 324 mg aspirin and nitroglycerin in ED with partial improvement. -Tele -Continue serial troponins and repeat EKG in the morning. -Continue aspirin 81 mg daily and home statin. -Nitroglycerin as needed for recurrent chest discomfort. -If pain persists or worsens, consider cardiology consult -echo Code(s): R07.9 - CHEST PAIN, UNSPECIFIED (2) Sore throat Current Visit: Yes Status: Acute Assessment & Plan: -Rapid strep and Monospot negative. -Supportive care with saline gargles, hydration, and analgesics as needed. -No antibiotics indicated at this time; monitor for progression. Code(s): J02.9 - ACUTE PHARYNGITIS, UNSPECIFIED (3) Anxiety Current Visit: Yes Status: Acute Assessment & Plan: -continue home meds Code(s): F41.9 - ANXIETY DISORDER, UNSPECIFIED (4) Diverticulosis Current Visit: No Status: Acute Assessment & Plan: -Asymptomatic. -Resume home regimen Code(s): K57.90 - DVRTCLOS OF INTEST, PART UNSP, W/O PERF OR ABSCESS W/O BLEED (5) HLD (hyperlipidemia) Current Visit: No Status: Acute Assessment & Plan: -continue statin Code(s): E78.5 - HYPERLIPIDEMIA, UNSPECIFIED (6) HTN (hypertension) Current Visit: No Status: Acute Assessment & Plan: -stable, does not take home meds -monitor Code(s): I10 - ESSENTIAL (PRIMARY) HYPERTENSION (7) Obesity (BMI 30-39.9) Current Visit: No Status: Chronic Assessment & Plan: -Advised diet and exercise VTE: lovenox PPI: protonix Dispo: 1-2 days Code status: full code Plan of care time spent greater than 40 mins Code(s): E66.9 - OBESITY, UNSPECIFIED Telemedicine Encounter - Telemedicine Encounter Telemedicine Encounter: "The entirety of this encounter was performed via Telemedicine" This visit was performed using real-time audio and video connection between my location and thepatients locationwith the assistance of a surrogateat the patients location. Written or verbal consent was obtained from the patient/guardian to perform this visit [facility]. Any patient questions regarding the telemedicine interaction were answered.
[2025-08-30] MEDS ORDERED: CHLORASEPTIC SPRAY 180 ML PO PRN (16:39)
[2025-08-30] MEDS ORDERED: Zofran 4 MG/2 ML VIAL IV PRN (16:39)
[2025-08-30] MEDS ORDERED: Nitrostat 0.4 MG Tablet SL PRN (16:39)
[2025-08-30] MEDS: MORPHINE SULFATE 4 MG INJ IV PRN (17:10)
[2025-08-30] MEDS: TYLENOL 325 MG PO PRN (17:11)
[2025-08-30] MEDS: Protonix 40MG Tablet PO SCH (17:11)
[2025-08-30] MEDS: ENOXAPARIN SODIUM SQ SCH (17:11)
[2025-08-30] MEDS: Lexapro PO SCH (22:09)
[2025-08-31 05:05] LABS: BASOPHIL % 1.0 % (0.2-1.2); Basophil (Absolute #) 0.10 x10^3/uL (0.01-0.08); Eosinophil (Absolute #) 0.45 x10^3/uL (0.04-0.54); Hematocrit 41.2 % (40.1-51.0); Hemoglobin 12.9 g/dL (13.7-17.5); IMMATURE GRAN # 0.08 x10^3u/L (0.001-0.031); IMMATURE GRAN % 0.8 % (0.001-0.429); Lymphocyte (Absolute #) 1.81 x10^3/uL (1.32-3.57); Mean Corpuscular Hemoglobin 29.2 pg (25.7-32.2); Mean Corpuscular Hgb Concent. 31.3 g/dL (32.3-36.5); Monocyte (Absolute #) 0.68 x10^3/uL (0.30-0.82); NUCLEATED RBC # 0.00 x10^3u/L (0.00-0.012); NUCLEATED RBC % 0.0 % (0.00-0.2); Platelet Count 415 x10^3/uL (163-337); Red Blood Count 4.42 x10^6/uL (4.63-6.08); White Blood Count 10.0 x10^3/uL (4.23-9.07)
[2025-08-31 05:36] LABS: Calcium 8.5 mg/dL (8.4-10.2); Carbon Dioxide 25 mmol/L (22-30); Cholesterol 201 mg/dL (50-200); Creatinine 1 1.05 mg/dL (0.66-1.25); EST GLOMERULAR FILTRATION RATE 83.8 ML/MIN; Glucose 104 mg/dL (74-106); LDL, DIRECT 142 mg/dL (30-100); Potassium 4.1 mmol/L (3.5-5.1); SGOT/AST 18 U/L (17-59); SGPT/ALT 17 U/L (0-50); TRIGLYCERIDE 198 mg/dL (30-150); Total Protein 6.0 g/dL (6.3-8.2)
[2025-08-31 07:36] LABS: BASOPHIL % 1.0 % (0.2-1.2); Basophil (Absolute #) 0.10 x10^3/uL (0.01-0.08); Eosinophil (Absolute #) 0.41 x10^3/uL (0.04-0.54); Hematocrit 40.3 % (40.1-51.0); Hemoglobin 13.2 g/dL (13.7-17.5); IMMATURE GRAN # 0.05 x10^3u/L (0.001-0.031); IMMATURE GRAN % 0.5 % (0.001-0.429); Lymphocyte (Absolute #) 1.71 x10^3/uL (1.32-3.57); Mean Corpuscular Hemoglobin 30.3 pg (25.7-32.2); Mean Corpuscular Hgb Concent. 32.8 g/dL (32.3-36.5); Monocyte (Absolute #) 0.58 x10^3/uL (0.30-0.82); NUCLEATED RBC # 0.00 x10^3u/L (0.00-0.012); NUCLEATED RBC % 0.0 % (0.00-0.2); Platelet Count 384 x10^3/uL (163-337); Red Blood Count 4.36 x10^6/uL (4.63-6.08); White Blood Count 10.1 x10^3/uL (4.23-9.07)
[2025-08-31] MEDS: Acidophilus TABLET PO SCH (08:44)
[2025-08-31] MEDS: THERAGRAN MULTIVITAMIN PO SCH (08:44)
[2025-08-31] MEDS: ECOTRIN 81 MG PO SCH (08:44)
[2025-08-31] MEDS: Flonase NASAL NS SCH (08:45)
[2025-08-31] MEDS: ZOCOR 20MG PO SCH (08:45)
--- NOTE | 2025-08-31 10:55 | PCM.DS ---
Discharge Summary Date of Admission: 08/30/25 15:39 Date of Discharge: 08/31/25 Admitting Physician: LUIS LIM MD Primary Care Provider: KRYSTAL PASCUAL DO Allergies Allergies rito Allergy (Severe, Uncoded 03/14/25 13:22) Anaphylactic Reaction Hospital Summary - Hospital Course Hospital Course: Mr. Mejía is a 55-year-old male with a medical history significant for hypertension, hyperlipidemia, diverticulosis, and anxiety who presented to the emergency department on 08/30/25 following evaluation at a [facility] for sore throat. He reported onset of throat discomfort earlier that morning, with preceding fever and chills over the weekend that had since resolved. During his evaluation, he also disclosed a four-day history of right-sided chest pain radiating to the right shoulder and neck, described as both pressure-like and stabbing. The pain was constant, partially relieved by nitroglycerin, and without clear provoking factors. He denied nausea or vomiting but noted intermittent diaphoresis. Family history is notable for maternal from heart failure at age 38. His HEART score was 4, accounting for risk factors of hypertension, hyperlipidemia, obesity (BMI 37.1), and former tobacco use. On arrival, vital signs were stable. EKG demonstrated normal sinus rhythm at 70 bpm with normal axis, intervals, and QRS morphology. Chest radiograph showed no acute cardiopulmonary disease. Laboratory studies revealed negative D-dimer, serial troponins within normal limits, normal BNP, and unremarkable urinalysis. Monospot and rapid strep tests were negative. The patient was administered 324 mg aspirin and nitroglycerin in the ED with partial improvement in discomfort. He was admitted for observation and cardiac monitoring. During hospitalization, serial troponins 3 remained negative, and repeat EKGs were unremarkable. His chest pain subsequently improved, and his sore throat improved with supportive measures. Vitals and labs remained stable throughout admission. Echo is pending at discharge. He will follow up with outpatient cardiology for further evaluation, including possible stress testing. Discharge Note New Diagnosis:chest pain New Medications: none Follow Up: cardiology/PCP Results pending: Echo I spent 35 minutes [id number] with the patient on the day of discharge performing discharge exam, discussing hospital stay and discharge instructions with patient and caregivers, preparation of discharge records, prescriptions & referral forms and addressing any questions/concerns the patient had as documented above. - Vitals & Intake/Output Vital Signs: Vital Signs Temperature 97.0 F 08/31/25 07:34 Pulse Rate 72 08/31/25 07:34 Respiratory Rate 20 08/31/25 07:34 Blood Pressure 144/85 08/31/25 07:34 O2 Sat by Pulse Oximetry 94 L 08/31/25 07:34 Intake & Output: Intake & Output 08/28/25 08/29/25 08/30/25 08/31/25 11:59 11:59 11:59 11:59 Intake Total 760 Balance 760 Weight 100.9 kg 107.5 kg - Lab Result Diagrams: 08/31/25 07:33 08/31/25 04:09 Lab Results-Last 24 Hrs: Lab Results-Last 24 Hours 08/30/25 08/30/25 08/30/25 Range/Units 11:05 11:05 11:05 WBC 6.9 (4.23-9.07) x10^3/uL RBC 4.95 (4.63-6.08) x10^6/uL Hgb 15.0 (13.7-17.5) g/dL Hct 45.1 (40.1-51.0) % MCV 91.1 (79.0-92.2) fL MCH 30.3 (25.7-32.2) pg MCHC 33.3 (32.3-36.5) g/dL RDW 13.1 (11.6-14.4) % Plt Count 468 H (163-337) x10^3/uL MPV 9.1 L (9.4-12.4) fL Gran % 71.9 H (34.0-67.9) % Immature Gran % (Auto) 0.6 H (0.001-0.429) % Nucleat RBC Rel Count 0.0 (0.00-0.2) % Eos # (Auto) 0.33 (0.04-0.54) x10^3/uL Immature Gran # (Auto) 0.04 H (0.001-0.031) x10^3u/L Absolute Lymphs (auto) 1.09 L (1.32-3.57) x10^3/uL Absolute Monos (auto) 0.41 (0.30-0.82) x10^3/uL Absolute Nucleated RBC 0.00 (0.00-0.012) x10^3u/L Lymphocytes % 15.8 L (21.8-53.1) % Monocytes % 5.9 (5.3-12.2) % Eosinophils % 4.8 (0.8-7.0) % Basophils % 1.0 (0.2-1.2) % Absolute Granulocytes 4.97 (1.78-5.38) x10^3/uL Basophils # 0.07 (0.01-0.08) x10^3/uL D-Dimer 0.45 (0.0-0.50) mg/L Sodium (135-145) mmol/L Potassium (3.5-5.1) mmol/L Chloride (98-107) mmol/L Carbon Dioxide (22-30) mmol/L Anion Gap (5-15) MEQ/L BUN (9-20) mg/dL Creatinine (0.66-1.25) mg/dL Estimated GFR ML/MIN Glucose (74-106) mg/dL Calcium (8.4-10.2) mg/dL Total Bilirubin (0.2-1.3) mg/dL AST (17-59) U/L ALT (0-50) U/L Alkaline Phosphatase (38-126) U/L Troponin I (0.000-0.033) ng/mL NT-Pro-B Natriuret Pep (<300) pg/mL Serum Total Protein (6.3-8.2) g/dL Albumin (3.5-5.0) g/dL Triglycerides (30-150) mg/dL Cholesterol (50-200) mg/dL LDL Cholesterol (30-100) mg/dL HDL Cholesterol (40-60) mg/dL Heart Disease Risk Ratio TSH 3rd Generation (0.470-4.680) mIU/L Urine Color (Yellow) Urine Appearance (Clear) Urine pH (4.6-8.0) Ur Specific [place] (1.005-1.030) Urine Protein (Negative) Urine Glucose (UA) (Negative) mg/dL Urine Ketones (Negative) Urine Blood (Negative) Urine Nitrite (Negative) Urine Bilirubin (Negative) Urine Urobilinogen (0.2) mg/dL Ur Leukocyte Esterase (Negative) U Hyaline Cast (Auto) (0-2) /LPF Urine Microscopic RBC (0-5) /HPF Urine Microscopic WBC (0-5) /HPF Ur Epithelial Cells (None Seen) /HPF Urine Bacteria (None Seen) /HPF Urine Culture Reflexed (NO) Urine Opiates Level (NEGATIVE) Ur Methadone (NEGATIVE) Urine Barbiturates (NEGATIVE) Ur Phencyclidine (PCP) (NEGATIVE) Urine Amphetamine (NEGATIVE) U Benzodiazepine Level (NEGATIVE) Urine Cocaine (NEGATIVE) Urine Marijuana (THC) (NEGATIVE) Monoscreen NEGATIVE (NEGATIVE) 08/30/25 08/30/25 08/30/25 Range/Units 11:30 11:55 11:55 WBC (4.23-9.07) x10^3/uL RBC (4.63-6.08) x10^6/uL Hgb (13.7-17.5) g/dL Hct (40.1-51.0) % MCV (79.0-92.2) fL MCH (25.7-32.2) pg MCHC (32.3-36.5) g/dL RDW (11.6-14.4) % Plt Count (163-337) x10^3/uL MPV (9.4-12.4) fL Gran % (34.0-67.9) % Immature Gran % (Auto) (0.001-0.429) % Nucleat RBC Rel Count (0.00-0.2) % Eos # (Auto) (0.04-0.54) x10^3/uL Immature Gran # (Auto) (0.001-0.031) x10^3u/L Absolute Lymphs (auto) (1.32-3.57) x10^3/uL Absolute Monos (auto) (0.30-0.82) x10^3/uL Absolute Nucleated RBC (0.00-0.012) x10^3u/L Lymphocytes % (21.8-53.1) % Monocytes % (5.3-12.2) % Eosinophils % (0.8-7.0) % Basophils % (0.2-1.2) % Absolute Granulocytes (1.78-5.38) x10^3/uL Basophils # (0.01-0.08) x10^3/uL D-Dimer (0.0-0.50) mg/L Sodium 137 (135-145) mmol/L Potassium 4.5 (3.5-5.1) mmol/L Chloride 107 (98-107) mmol/L Carbon Dioxide 23 (22-30) mmol/L Anion Gap 11.6 (5-15) MEQ/L BUN 8 L (9-20) mg/dL Creatinine 0.94 (0.66-1.25) mg/dL Estimated GFR 95.7 ML/MIN Glucose 107 H (74-106) mg/dL Calcium 8.9 (8.4-10.2) mg/dL Total Bilirubin 0.20 (0.2-1.3) mg/dL AST 27 (17-59) U/L ALT 22 (0-50) U/L Alkaline Phosphatase 95 (38-126) U/L Troponin I 0.014 (0.000-0.033) ng/mL NT-Pro-B Natriuret Pep 49.0 (<300) pg/mL Serum Total Protein 7.2 (6.3-8.2) g/dL Albumin 4.2 (3.5-5.0) g/dL Triglycerides (30-150) mg/dL Cholesterol (50-200) mg/dL LDL Cholesterol (30-100) mg/dL HDL Cholesterol (40-60) mg/dL Heart Disease Risk Ratio TSH 3rd Generation (0.470-4.680) mIU/L Urine Color Yellow (Yellow) Urine Appearance Clear (Clear) Urine pH 7.0 (4.6-8.0) Ur Specific [place] 1.015 (1.005-1.030) Urine Protein Negative (Negative) Urine Glucose (UA) Negative (Negative) mg/dL Urine Ketones Negative (Negative) Urine Blood Negative (Negative) Urine Nitrite Negative (Negative) Urine Bilirubin Negative (Negative) Urine Urobilinogen 1.0 A (0.2) mg/dL Ur Leukocyte Esterase Negative (Negative) U Hyaline Cast (Auto) NONE SEEN (0-2) /LPF Urine Microscopic RBC 0-2 (0-5) /HPF Urine Microscopic WBC 0-2 (0-5) /HPF Ur Epithelial Cells None Seen (None Seen) /HPF Urine Bacteria None Seen (None Seen) /HPF Urine Culture Reflexed NO (NO) Urine Opiates Level NEGATIVE (NEGATIVE) Ur Methadone NEGATIVE (NEGATIVE) Urine Barbiturates NEGATIVE (NEGATIVE) Ur Phencyclidine (PCP) NEGATIVE (NEGATIVE) Urine Amphetamine NEGATIVE (NEGATIVE) U Benzodiazepine Level NEGATIVE (NEGATIVE) Urine Cocaine NEGATIVE (NEGATIVE) Urine Marijuana (THC) NEGATIVE (NEGATIVE) Monoscreen (NEGATIVE) 08/30/25 08/30/25 08/30/25 Range/Units 14:00 19:30 19:30 WBC (4.23-9.07) x10^3/uL RBC (4.63-6.08) x10^6/uL Hgb (13.7-17.5) g/dL Hct (40.1-51.0) % MCV (79.0-92.2) fL MCH (25.7-32.2) pg MCHC (32.3-36.5) g/dL RDW (11.6-14.4) % Plt Count (163-337) x10^3/uL MPV (9.4-12.4) fL Gran % (34.0-67.9) % Immature Gran % (Auto) (0.001-0.429) % Nucleat RBC Rel Count (0.00-0.2) % Eos # (Auto) (0.04-0.54) x10^3/uL Immature Gran # (Auto) (0.001-0.031) x10^3u/L Absolute Lymphs (auto) (1.32-3.57) x10^3/uL Absolute Monos (auto) (0.30-0.82) x10^3/uL Absolute Nucleated RBC (0.00-0.012) x10^3u/L Lymphocytes % (21.8-53.1) % Monocytes % (5.3-12.2) % Eosinophils % (0.8-7.0) % Basophils % (0.2-1.2) % Absolute Granulocytes (1.78-5.38) x10^3/uL Basophils # (0.01-0.08) x10^3/uL D-Dimer (0.0-0.50) mg/L Sodium (135-145) mmol/L Potassium (3.5-5.1) mmol/L Chloride (98-107) mmol/L Carbon Dioxide (22-30) mmol/L Anion Gap (5-15) MEQ/L BUN (9-20) mg/dL Creatinine (0.66-1.25) mg/dL Estimated GFR ML/MIN Glucose (74-106) mg/dL Calcium (8.4-10.2) mg/dL Total Bilirubin (0.2-1.3) mg/dL AST (17-59) U/L ALT (0-50) U/L Alkaline Phosphatase (38-126) U/L Troponin I 0.016 0.019 (0.000-0.033) ng/mL NT-Pro-B Natriuret Pep (<300) pg/mL Serum Total Protein (6.3-8.2) g/dL Albumin (3.5-5.0) g/dL Triglycerides (30-150) mg/dL Cholesterol (50-200) mg/dL LDL Cholesterol (30-100) mg/dL HDL Cholesterol (40-60) mg/dL Heart Disease Risk Ratio TSH 3rd Generation 1.722 (0.470-4.680) mIU/L Urine Color (Yellow) Urine Appearance (Clear) Urine pH (4.6-8.0) Ur Specific [place] (1.005-1.030) Urine Protein (Negative) Urine Glucose (UA) (Negative) mg/dL Urine Ketones (Negative) Urine Blood (Negative) Urine Nitrite (Negative) Urine Bilirubin (Negative) Urine Urobilinogen (0.2) mg/dL Ur Leukocyte Esterase (Negative) U Hyaline Cast (Auto) (0-2) /LPF Urine Microscopic RBC (0-5) /HPF Urine Microscopic WBC (0-5) /HPF Ur Epithelial Cells (None Seen) /HPF Urine Bacteria (None Seen) /HPF Urine Culture Reflexed (NO) Urine Opiates Level (NEGATIVE) Ur Methadone (NEGATIVE) Urine Barbiturates (NEGATIVE) Ur Phencyclidine (PCP) (NEGATIVE) Urine Amphetamine (NEGATIVE) U Benzodiazepine Level (NEGATIVE) Urine Cocaine (NEGATIVE) Urine Marijuana (THC) (NEGATIVE) Monoscreen (NEGATIVE) 08/31/25 08/31/25 08/31/25 Range/Units 04:09 04:09 07:33 WBC 10.0 H 10.1 H (4.23-9.07) x10^3/uL RBC 4.42 L 4.36 L (4.63-6.08) x10^6/uL Hgb 12.9 L 13.2 L (13.7-17.5) g/dL Hct 41.2 40.3 (40.1-51.0) % MCV 93.2 H 92.4 H (79.0-92.2) fL MCH 29.2 30.3 (25.7-32.2) pg MCHC 31.3 L 32.8 (32.3-36.5) g/dL RDW 13.2 13.1 (11.6-14.4) % Plt Count 415 H 384 H (163-337) x10^3/uL MPV 9.3 L 9.1 L (9.4-12.4) fL Gran % 68.8 H 71.8 H (34.0-67.9) % Immature Gran % (Auto) 0.8 H 0.5 H (0.001-0.429) % Nucleat RBC Rel Count 0.0 0.0 (0.00-0.2) % Eos # (Auto) 0.45 0.41 (0.04-0.54) x10^3/uL Immature Gran # (Auto) 0.08 H 0.05 H (0.001-0.031) x10^3u/L Absolute Lymphs (auto) 1.81 1.71 (1.32-3.57) x10^3/uL Absolute Monos (auto) 0.68 0.58 (0.30-0.82) x10^3/uL Absolute Nucleated RBC 0.00 0.00 (0.00-0.012) x10^3u/L Lymphocytes % 18.1 L 16.9 L (21.8-53.1) % Monocytes % 6.8 5.7 (5.3-12.2) % Eosinophils % 4.5 4.1 (0.8-7.0) % Basophils % 1.0 1.0 (0.2-1.2) % Absolute Granulocytes 6.90 H 7.24 H (1.78-5.38) x10^3/uL Basophils # 0.10 H 0.10 H (0.01-0.08) x10^3/uL D-Dimer (0.0-0.50) mg/L Sodium 136 (135-145) mmol/L Potassium 4.1 (3.5-5.1) mmol/L Chloride 106 (98-107) mmol/L Carbon Dioxide 25 (22-30) mmol/L Anion Gap 9.0 (5-15) MEQ/L BUN 12 (9-20) mg/dL Creatinine 1.05 (0.66-1.25) mg/dL Estimated GFR 83.8 ML/MIN Glucose 104 (74-106) mg/dL Calcium 8.5 (8.4-10.2) mg/dL Total Bilirubin < 0.10 L (0.2-1.3) mg/dL AST 18 (17-59) U/L ALT 17 (0-50) U/L Alkaline Phosphatase 78 (38-126) U/L Troponin I (0.000-0.033) ng/mL NT-Pro-B Natriuret Pep (<300) pg/mL Serum Total Protein 6.0 L (6.3-8.2) g/dL Albumin 3.5 (3.5-5.0) g/dL Triglycerides 198 H (30-150) mg/dL Cholesterol 201 H (50-200) mg/dL LDL Cholesterol 142 H (30-100) mg/dL HDL Cholesterol 27 L (40-60) mg/dL Heart Disease Risk Ratio 7.0 TSH 3rd Generation (0.470-4.680) mIU/L Urine Color (Yellow) Urine Appearance (Clear) Urine pH (4.6-8.0) Ur Specific [place] (1.005-1.030) Urine Protein (Negative) Urine Glucose (UA) (Negative) mg/dL Urine Ketones (Negative) Urine Blood (Negative) Urine Nitrite (Negative) Urine Bilirubin (Negative) Urine Urobilinogen (0.2) mg/dL Ur Leukocyte Esterase (Negative) U Hyaline Cast (Auto) (0-2) /LPF Urine Microscopic RBC (0-5) /HPF Urine Microscopic WBC (0-5) /HPF Ur Epithelial Cells (None Seen) /HPF Urine Bacteria (None Seen) /HPF Urine Culture Reflexed (NO) Urine Opiates Level (NEGATIVE) Ur Methadone (NEGATIVE) Urine Barbiturates (NEGATIVE) Ur Phencyclidine (PCP) (NEGATIVE) Urine Amphetamine (NEGATIVE) U Benzodiazepine Level (NEGATIVE) Urine Cocaine (NEGATIVE) Urine Marijuana (THC) (NEGATIVE) Monoscreen (NEGATIVE) - Radiology Exams Ordered Rad Exams-Entire Visit: Radiology Procedures Category Date Time Status CHEST 1 VIEW (PORTABLE) Stat Exams 08/30/25 11:17 Completed ECHO W/2D AND DOPPLER [US] Routine Exams 08/31/25 08:00 Ordered - Procedures and Test Procedures and Tests throughout Hospitalization: Therapy Orders & Screens 08/30/25 16:39 EKG REPEAT IN AM Comment: Diagnosis: Chest pain, acute coronary syndrome Discharge Exam General Appearance: no apparent distress Neurologic Exam: alert, oriented x 3, cooperative Eye Exam: PERRL Ears, Nose, Throat Exam: normal ENT inspection Neck Exam: normal inspection Respiratory Exam: normal breath sounds, lungs clear Cardiovascular Exam: regular rate/rhythm, normal heart sounds Gastrointestinal/Abdomen Exam: soft, normal bowel sounds Male Genitalia Exam: deferred Rectal Exam: deferred Extremity Exam: normal inspection Skin Exam: normal color Final Diagnosis/Problem List - Final Discharge Diagnosis/Problem (1) Chest pain Current Visit: Yes Status: Acute Assessment & Plan: EKG: Normal sinus rhythm; no ischemic changes Troponins: Negative 3 BNP: Within normal limits CXR: No acute cardiopulmonary findings Responded partially to nitroglycerin and aspirin Telemetry monitoring during admission without arrhythmia Continue aspirin 81 mg daily and home statin therapy increased to 80mg; use nitroglycerin as needed for recurrent pain; Advised If pain recurs or worsens, seek emergent care. Code(s): R07.9 - CHEST PAIN, UNSPECIFIED (2) Sore throat Current Visit: Yes Status: Acute Assessment & Plan: resolved Code(s): J02.9 - ACUTE PHARYNGITIS, UNSPECIFIED (3) Anxiety Current Visit: Yes Status: Acute Assessment & Plan: continue home meds Code(s): F41.9 - ANXIETY DISORDER, UNSPECIFIED (4) Diverticulosis Current Visit: No Status: Acute Assessment & Plan: continue home regimen Code(s): K57.90 - DVRTCLOS OF INTEST, PART UNSP, W/O PERF OR ABSCESS W/O BLEED (5) HLD (hyperlipidemia) Current Visit: No Status: Acute Assessment & Plan: Increase atorvastatin to 80mg QHS Code(s): E78.5 - HYPERLIPIDEMIA, UNSPECIFIED (6) HTN (hypertension) Current Visit: No Status: Acute Assessment & Plan: stable- no home meds Keep BP log- follow up with PCP OP and cardiology Code(s): I10 - ESSENTIAL (PRIMARY) HYPERTENSION (7) Obesity (BMI 30-39.9) Current Visit: No Status: Chronic Assessment & Plan: Advised diet and exercise Follow-Up: Cardiology: Outpatient within 12 weeks for echocardiogram and stress test consideration Primary Care: Within 1 week for blood pressure monitoring and medication review Discharge Medications: Continue atorvastatin increased dosing at 80mg daily, aspirin 81 mg daily, and nitroglycerin PRN. Code(s): E66.9 - OBESITY, UNSPECIFIED - Discharge Discharge Date: 08/31/25 Disposition: Home, Self-Care Condition: Stable Prescriptions: New Aspirin EC 81 mg [Ecotrin 81 mg] 81 mg PO QAM 30 Days #30 tablet Nitroglycerin 0.4 mg Tablet [Nitrostat 0.4 MG Tablet] 0.4 mg SL Q5MIN PRN MR X 3 PRN 30 Days #30 tab PRN Reason: Chest Pain Atorvastatin Calcium 80 mg PO DAILY 30 Days #30 tablet Continue Escitalopram Oxalate [Lexapro] 20 mg PO HS Multivitamin 1 tab PO DAILY Fluticasone Propionate 1 spray IN DAILY Bacillus Coagulans [Probiotic] 1 each PO UD Discontinued Atorvastatin Calcium [Lipitor 40Mg] 40 mg PO DAILY Instructions: Chest pain - Discharge instructions Follow up with: SARA NOONAN [CONSULTING PHYSICIAN, CARDIOLOGY] - 09/19/25 12:15 pm Referral Note: [facility] ASIYA DENISE NP [NON-STAFF PHY W/O PRIVILEGES, UNKNOWN] - 09/06/25 9:00 am Referral Note: for Forms: Discharge Instructions
[2025-08-31 11:58] VITALS: BP 121/70; PULSE 64; RESP 18; TEMP 97.3; O2SAT 95
== END 2025-08-31 12:10 | disposition home or self-care (01) ==
LOC: ED 11:00 → MED SURG 15:39
PROVIDERS: ADMIT Internal Medicine; ATTEND Internal Medicine
DX: R07.9 Chest pain, unspecified (principal); J02.9 Acute pharyngitis, unspecified; I10 Essential (primary) hypertension; F41.9 Anxiety disorder, unspecified; E78.5 Hyperlipidemia, unspecified; K57.30 Diverticulosis of large intestine without perforation or abscess without bleeding; E66.9 Obesity, unspecified; R60.0 Localized edema; Z79.899 Other long term (current) drug therapy
CPT/HCPCS: 36415; 71045; 80053; 80061; 80307; 81001; 83721; 83880; 84443; 84484; 85025; 85379; 86308; 93005; 93041; 93268; 93306; 94760; 94762; 99285; G0378; Q3014